=== PATIENT | female | born 1935 | race Caucasian/White ===

== ENCOUNTER 2023-10-06 16:48 | Inpatient (IN) ==
--- NOTE | 2023-10-06 18:13 | Emergency Department Note ---
Impression & Plan Anemia, Esophageal obstruction, Dehydration ED Provider Note NAME: DAVI MEMBRENO AGE: 88 SEX: F : 1935 ARRIVES VIA: Walk-In INFORMANT: Patient, ED PROVIDER(S): Schuyler Becerra MD CHIEF COMPLAINT: Anemia, esophageal obstruction HPI: This is a 88-year-old female presenting for weakness, anemia and esophageal obstruction. Patient states that she was in outside hospital few days ago where she was diagnosed with anemia. Hemoglobin was 7. She was offered admission versus discharge to follow-up with her GI physician. Patient follow-up with her GI and he had a swallow screen where she was told she likely has esophageal obstruction. Since then she is unable to eat solid foods and feels that she is getting weaker. She notes that she cannot swallow anything that is solid and only drinks some Ensure throughout the day. She notes weakness and falling twice. She was called both times and did not strike her head or injure herself. She notes that her legs gave out she feels extremely weak. She otherwise notes that she is been coughing more than frequently after aspirating on food. ROS: See above HPI for pertinent positives & negatives. A total of 10 systems reviewed and were otherwise negative. PHYSICAL EXAMINATION: General: resting comfortably in no acute distress Head: Normocephalic and atraumatic Eyes: Normal inspection, extraocular muscles intact Ear, nose, throat: Normal external exam Neck: Normal range of motion Respiratory: lungs clear to auscultation bilaterally Cardiovascular: Regular rate/rhythm, no murmur GI: soft, nontender, no guarding or rebound Extremities: nontender, moves all extremities Neuro: The patient awake and alert, appropriately conversive, no focal deficits, symmetric faces Skin: Warm, dry, and intact MEDICAL DECISION MAKING: This is an 88-year-old female presented for weakness, anemia esophageal obstruction. Patient had anemia with hemoglobin of 7, esophageal obstruction. Patient likely require admission at this time due to inability tolerate p.o. with distal esophageal obstruction. Otherwise we will assess for anemia with CBC, type and screen. Will do chest x-ray to assess for aspiration. -Blood work is reviewed showing anemia to 7.2. Otherwise creatinine 1.85 -Urinalysis reveals no signs UTI. -Chest Xray independently interpreted by me showing plated ribs, no pneumothorax, focal opacity, or pleural effusions -Due to patient related to eat at this time, dehydration and anemia, will admit for further workup Differential diagnosis: CKD, esophageal carcinoma, esophageal obstruction, aspiration pneumonia, upper GI bleed ER treatment provided: See below Diagnostics interpreted by me: ECG: None Cardiac Monitoring: An order was placed for continuous cardiac monitoring. The monitor shows a rate of 62 with sinus rhythm. Laboratory studies: As stated above and show below. Imaging studies: See below. Past Med/Surg History Problem List (Updated 10/06/23 @ 23:36 by Schuyler Becerra MD) Dehydration (Acute) Esophageal obstruction (Acute) Anemia (Acute) UTI (urinary tract infection) HTN (hypertension) Renal artery stenosis, qawalangin, bilateral GI bleed Dysphagia Anemia Hematuria, microscopic Renal cyst Gross hematuria Hypomagnesemia Hypercalcemia Stage 3b chronic kidney disease Left carotid stenosis Vitamin D deficiency (Chronic) Right renal artery stenosis (Chronic) Personal history of tobacco use, presenting hazards to health (Chronic) Hypertension, benign (Chronic) Dyslipidemia (Chronic) Acute kidney injury Medical History CKD (chronic kidney disease) History of diverticulitis COPD (chronic obstructive pulmonary disease) Surgical History History of thoracic surgery History of section History of hip replacement Social History Smoking Status: Former smoker Hx Alcohol Use: Yes Hx Substance Use: No Preferred Language: Angolan Communication Ability: Effective Supply Analyst Required: Yes Beliefs That Will Affect Care: None Current Living Situation: Family Feels Safe at Home: Yes Assistive Devices: Glasses and Hearing Aid - Bilateral Allergies Allergies Allergy/AdvReac Type Severity Reaction Status Date / Time Iodinated Contrast Media Allergy Unknown Anaphylaxis Verified 10/06/23 20:49 [Iodinated Contrast- Oral and IV Dye] Home Meds Home Medications Medication Instructions Recorded Confirmed dorzolamide 2 % eye drops 1 drops ophthalmic (eye) BID 10/29/18 10/06/23 latanoprost 0.005 % eye drops 1 drops ophthalmic (eye) QPM 10/29/18 10/06/23 sertraline 50 mg tablet 50 mg PO DAILY #30 tabs 10/29/18 10/06/23 acetaminophen 500 mg tablet 500 mg PO Q6H PRN Pain 05/27/19 10/06/23 (Tylenol Extra Strength) metoprolol tartrate 25 mg tablet 25 mg PO DAILY 05/27/19 10/06/23 aspirin 81 mg chewable tablet 81 mg PO DAILY 11/28/19 10/06/23 simvastatin 20 mg tablet 20 mg PO DAILY 11/28/19 10/06/23 clopidogrel 75 mg tablet 75 mg PO DAILY 06/08/20 10/06/23 hydralazine 50 mg tablet 50 mg PO BID 09/27/21 10/06/23 ciprofloxacin HCl 500 mg tablet 500 mg PO BID 10/06/23 10/06/23 fluticasone fur. 100 mcg-umeclid 1 inh inhalation DAILY 10/06/23 10/06/23 62.5 mcg-vilant 25 mcg inhalat.powder (Trelegy Ellipta) ondansetron 4 mg disintegrating 4 mg PO DIRECTED PRN Nausea 10/06/23 10/06/23 tablet potassium chloride 15 mEq 15 meq PO DAILY 10/06/23 10/06/23 tablet,extended release(part/cryst) (Klor-Con M) Previous Rx's Medication Instructions Recorded amlodipine 10 mg tablet 10 mg PO DAILY #90 tabs 05/27/19 Results & Data (ED) Vital Signs Vital Signs - 24 hr 10/06/23 17:05 10/06/23 17:25 10/06/23 17:27 Temperature 36.5 C Temperature Source Temporal Artery Scan Pulse Rate 79 63 Pulse Rate [Right Finger] 65 Pulse Rate from SpO2 Sensor 64 Pulse Rhythm Regular Pulse Rhythm [Right Finger] Regular Pulse Strength Normal Pulse Strength [Right Finger] Normal Respiratory Rate 18 14 14 Respiratory Effort / Characteristics Non-Labored Non-Labored Respiratory Depth Normal Normal Respiratory Pattern Regular Blood Pressure 130/67 Blood Pressure [Right Arm] 158/89 H Blood Pressure Mean 88 Blood Pressure Mean [Right Arm] 112 Blood Pressure Position Sitting Blood Pressure Position [Right Arm] Lying Pulse Oximetry 98 99 98 Oxygen Delivery Method Room Air Room Air Sepsis Recent Fever Within 48 Hours No Sepsis New/Unexplained Change in Mental Status No Sepsis Action Taken by Nursing No Action Required 10/06/23 17:33 10/06/23 17:42 10/06/23 18:09 Temperature Temperature Source Pulse Rate 65 67 65 Pulse Rate [Right Finger] Pulse Rate from SpO2 Sensor 67 65 Pulse Rhythm Pulse Rhythm [Right Finger] Pulse Strength Pulse Strength [Right Finger] Respiratory Rate 30 H 16 Respiratory Effort / Characteristics Respiratory Depth Respiratory Pattern Blood Pressure Blood Pressure [Right Arm] Blood Pressure Mean Blood Pressure Mean [Right Arm] Blood Pressure Position Blood Pressure Position [Right Arm] Pulse Oximetry 96 97 Oxygen Delivery Method Sepsis Recent Fever Within 48 Hours Sepsis New/Unexplained Change in Mental Status Sepsis Action Taken by Nursing 10/06/23 18:27 10/06/23 18:44 10/06/23 18:44 Temperature Temperature Source Pulse Rate 70 Pulse Rate [Right Finger] Pulse Rate from SpO2 Sensor Pulse Rhythm Pulse Rhythm [Right Finger] Pulse Strength Pulse Strength [Right Finger] Respiratory Rate 17 Respiratory Effort / Characteristics Respiratory Depth Respiratory Pattern Blood Pressure 164/79 H 164/79 H Blood Pressure [Right Arm] Blood Pressure Mean 111 111 Blood Pressure Mean [Right Arm] Blood Pressure Position Blood Pressure Position [Right Arm] Pulse Oximetry Oxygen Delivery Method Sepsis Recent Fever Within 48 Hours Sepsis New/Unexplained Change in Mental Status Sepsis Action Taken by Nursing 10/06/23 18:45 10/06/23 18:51 10/06/23 19:27 Temperature Temperature Source Pulse Rate 63 62 Pulse Rate [Right Finger] 65 Pulse Rate from SpO2 Sensor 59 L 63 Pulse Rhythm Pulse Rhythm [Right Finger] Regular Pulse Strength Pulse Strength [Right Finger] Normal Respiratory Rate 17 17 19 Respiratory Effort / Characteristics Non-Labored Respiratory Depth Normal Respiratory Pattern Regular Blood Pressure Blood Pressure [Right Arm] 164/79 H Blood Pressure Mean Blood Pressure Mean [Right Arm] 107 Blood Pressure Position Blood Pressure Position [Right Arm] Lying Pulse Oximetry 96 98 97 Oxygen Delivery Method Room Air Sepsis Recent Fever Within 48 Hours Sepsis New/Unexplained Change in Mental Status Sepsis Action Taken by Nursing 10/06/23 19:33 10/06/23 20:06 Temperature Temperature Source Pulse Rate 64 67 Pulse Rate [Right Finger] Pulse Rate from SpO2 Sensor 64 66 Pulse Rhythm Pulse Rhythm [Right Finger] Pulse Strength Pulse Strength [Right Finger] Respiratory Rate 17 17 Respiratory Effort / Characteristics Respiratory Depth Respiratory Pattern Blood Pressure Blood Pressure [Right Arm] Blood Pressure Mean Blood Pressure Mean [Right Arm] Blood Pressure Position Blood Pressure Position [Right Arm] Pulse Oximetry 98 98 Oxygen Delivery Method Sepsis Recent Fever Within 48 Hours Sepsis New/Unexplained Change in Mental Status Sepsis Action Taken by Nursing Laboratory Data 10/06/23 18:36 10/06/23 18:36 Lab Results 10/06/23 10/06/23 Range/Units 18:36 18:37 WBC 7.55 (4.8-10.8) K/ul RBC 2.77 L (4.20-5.40) M/uL Hgb 7.2 L (12.0-16.0) g/dl Hct 23.2 L (37.0-47.0) % MCV 83.8 (80.0-100.0) fL MCH 26.0 (25.0-34.0) pg MCHC 31.0 L (32.0-36.0) g/dL RDW Std Deviation 45.0 (36.4-46.3) fL RDW Coeff of Montrell 14.6 H (11.5-14.5) % Plt Count 152 (130-400) K/uL MPV 11.0 (9.4-12.4) fL Immature Gran % (Auto) 0.5 % Neut % (Auto) 75.6 % Lymph % (Auto) 11.3 % Ford % (Auto) 10.7 % Eos % (Auto) 1.5 % Baso % (Auto) 0.4 % Neut # (Auto) 5.71 (1.40-6.50) K/uL Lymph # (Auto) 0.85 L (1.20-3.40) K/uL Ford # (Auto) 0.81 H (0.11-0.59) K/uL Eos # (Auto) 0.11 (0.00-0.50) K/uL Baso # (Auto) 0.03 (0.00-0.20) K/uL Immature Gran # (Auto) 0.04 (0.01-0.20) K/uL Polychromasia 1+ Ovalocytes 1+ Sodium 136 (136-145) mmol/L Potassium 4.1 (3.5-5.1) mmol/L Chloride 105 (98-107) mmol/L Carbon Dioxide 23 (21-32) mmol/L Anion Gap 8 (3-11) BUN 30 H (6-23) mg/dl Creatinine 1.85 H (0.6-1.2) mg/dl Est Cr Clr Drug Dosing 14.1 ml/min Est GFR ( Amer) 28.1 ml/min Est GFR (Non-Af Amer) 24.2 ml/min BUN/Creatinine Ratio 16.2 (10-20) Glucose 97 (70-99(Fasting)) mg/dl Calcium 9.0 (8.6-10.3) mg/dl Iron 12 L (35-150) mcg/dl TIBC 355 (250-450) mcg/dl Unsaturated IBC 343 (155-355) mcg/dl Transferrin % Sat 3 L (15-50) % Ferritin 8.9 (8-388) ng/ml Total Bilirubin 0.3 (0.2-1.0) mg/dl AST 19 (13-39) U/L ALT 11 (7-52) U/L Alkaline Phosphatase 56 (34-104) U/L Total Protein 6.0 (6.0-8.3) gm/dl Albumin 3.8 (3.4-5.0) gm/dl Globulin 2.2 L (2.5-4.0) gm/dl Albumin/Globulin Ratio 1.7 (0.9-2) Lipase 94 H (11-82) U/L Vitamin B12 280 (180-914) pg/ml Folate 8.66 (>5.38) ng/ml Blood Type A Positive Antibody Screen NEGATIVE Crossmatch See Detail Administered Medications Discontinued Medications Pantoprazole Sodium 80 mg/ (Dextrose) 120 mls @ 480 mls/hr IV ONE STA Stop: 10/06/23 20:40 Last Infusion: 10/06/23 21:19 Dose: Infused Documented By: JOSÉ LUIS Admin: 10/06/23 20:51 Dose: 480 mls/hr Documented By: JOSÉ LUIS Ceftriaxone Sodium (Rocephin) 2,000 mg in 50 mls @ 100 mls/hr IV NOW STA Stop: 10/06/23 21:32 Last Admin: 10/06/23 21:28 Dose: 100 mls/hr Documented By: JOSÉ LUIS Discharge Plan Visit Data Chief Complaint: Illness Stated Complaint: BRUISING/FOREARMS,UTI, THROAT OBST, WEEKNESS/VOMIT ED Provider: Schuyler Becerra Discharge Problem: Anemia, Esophageal obstruction, Dehydration Discharge Instructions Interventions: ED Discharge Assessment Last Done: 10/06/23 22:54
[2023-10-06 18:54] LABS: Basophils # (auto) 0.03 K/uL (0.00-0.20); Basophils % (auto) 0.4 %; Eosinophils # (auto) 0.11 K/uL (0.00-0.50); Eosinophils % (auto) 1.5 %; Hematocrit (blood only) 23.2 % (37.0-47.0); Hemoglobin 7.2 g/dl (12.0-16.0); Immature Granulocytes # (auto) 0.04 K/uL (0.01-0.20); Immature Granulocytes % (auto) 0.5 %; Lymphocytes # (auto) 0.85 K/uL (1.20-3.40); Lymphocytes % (auto) 11.3 %; Mean Corpuscular Volume 83.8 fL (80.0-100.0); Monocytes # (auto) 0.81 K/uL (0.11-0.59); Monocytes % (auto) 10.7 %; Neutrophils # (auto) 5.71 K/uL (1.40-6.50); Neutrophils % (auto) 75.6 %; Platelet Count 152 K/uL (130-400); RDW Coefficient of Variation 14.6 % (11.5-14.5); Red Blood Count 2.77 M/uL (4.20-5.40); White Blood Count 7.55 K/ul (4.8-10.8)
[2023-10-06 19:04] LABS: Albumin Globulin Ratio 1.7 (0.9-2); Albumin Level 3.8 gm/dl (3.4-5.0); BUN Creatinine Ratio 16.2 (10-20); Bilirubin,Total 0.3 mg/dl (0.2-1.0); Creatinine Clr Calc Pharmacy 14.1 ml/min; Est GFR (African American) 28.1 ml/min; Est GFR (Non-African American) 24.2 ml/min; Globulin 2.2 gm/dl (2.5-4.0); Potassium 4.1 mmol/L (3.5-5.1)
[2023-10-06 19:10] LABS: Appearance Urine Clear (Clear); Bilirubin Urine Negative (Negative); Blood Urine Negative (Negative); Color Urine Yellow; Glucose Urine UA Negative (Negative); Ketones Urine Negative (Negative); Leukocyte Esterase Urine Negative (Negative); Nitrite Urine Negative (Negative); Protein Urine Negative (Negative); Specific Gravity Urine 1.009 (1.000-1.030); Urobilinogen Urine Negative (Negative); pH Urine 7.5 (4.5-7.5)
[2023-10-06 19:26] LABS: Ovalocytes 1+; Polychromasia 1+
--- NOTE | 2023-10-06 19:52 | History & Physical Report ---
Date of Service October 06, 2023 Assessment & Plan (1) GI bleed: Plan: Admit to med telemetry Home pulse oximetry Currently stable nontoxic-appearing Was sent to the ED after speaking with case and agrees with GI to try to make an appointment for her dysphagia, they instructed the patient to go to the ED due to ongoing concern for GI bleeding Hemoglobin currently 7.2, down from 12 as of May of this year Patient has had multiple episodes of melanotic stool over the past month Patient likely has an upper GI bleed due to very poor oral intake due to dysphagia and ongoing use of aspirin/Plavix for her history of bilateral renal artery stenosis status post bilateral renal artery stent placement Due to patient having a left atrophic kidney and moderate atrophic right kidney along with CKD and mildly elevated creatinine we will transfuse her 1 unit PRBCs overnight to help improve perfusion and prevent further kidney damage Patient did have her dose of Plavix this morning, was reportedly instructed to stop her aspirin earlier this week by her PCP due to concerns for GI bleed > We will consult nephrology for their input on holding Plavix moving forward due to risk of bleeding versus occlusion of stent and further kidney damage I consented the patient for for blood on admission, will order 3 units of PRBCs to be prepared with 1 given overnight Will give IV pantoprazole bolus now and then continue 40 mg IV twice daily for Iron studies, ferritin, B12, folic acid, and peripheral smear have been ordered prior to transfusion been started Spoke with the ER who will obtain Hemoccult testing Gastroenterology consult been placed will keep n.p.o. with sips and chips for now Monitor a.m. CBC ordered every 6 hours starting tomorrow AM CBC, CMP, mag, PT/INR (2) Anemia: Plan: See GI bleed Follow anemia workup peripheral smear ordered on admission (3) Dysphagia: Plan: Patient has been having progressive dysphagia and postprandial emesis of undigested food over the past 3 weeks Reportedly had outpatient barium swallow study at [place] radiology department on 10/04/2023 Attempted to call [place] radiology department to have results faxed, unfortunately they were closed as patient was admitted at 9 PM Unsure of results, could be esophageal achalasia but patient would also be high risk for esophageal cancer with her long history of smoking GI consult been placed and performed (4) UTI (urinary tract infection): Plan: Patient was reportedly diagnosed with UTI during her ER visit at [facility] on 10/03/2023 Started a 7-day course of ciprofloxacin on 10/04/2023 While n.p.o. we will start her on every 24 ceftriaxone for now If here for 3 days could consider completion of treatment on ceftriaxone (5) Renal artery stenosis, wainwright, bilateral: Plan: Status post left renal artery stent placed in 2005 and right renal artery stent placed on 05/20/[address] Samano Normally on aspirin and Plavix, aspirin have been held earlier this week patient had her a.m. dose of Plavix today Will hold both for now, nephrology has been consulted to get their input on risks of holding antiplatelets and start 1 more discussed that occlusion versus simple for bleeding Monitor daily renal function electrolytes (6) COPD (chronic obstructive pulmonary disease): Plan: Currently stable on room air Incentive spirometry, flutter therapy, home breathing treatments, as needed DuoNebs, as needed O2 to keep SpO2 between 89-90% (7) HTN (hypertension): Plan: Currently stable Will continue home metoprolol and hydralazine for now but will hold amlodipine to try and prevent hypotension Plan The patient was discussed with Dr. Lindsay at the time of History of Present Illness Chief Complaint: Vomiting, poor oral intake, anemia Primary Care Provider: ASHLEIGH Rebolledo Marie is a 88-year-old female with a past medical history significant for stage III CKD, renal artery stenosis status post left renal artery stent placed in 2005 and right renal artery stent placed on 05/20/[address] Samano, bilateral carotid stenosis, left subclavian artery occlusion, atrophic left kidney, hypertension, hyperlipidemia, and anxiety who presented to the [facility] ED on 10/06/2023 at the recommendation of casing agrees with gastroenterology team due to concerns for GI bleed and ongoing dysphagia. I confirmed with case management that the patient was never evaluated by [facility] gastroenterology, the patient had called to try to make an appointment with their office after they heard her symptoms they instructed her to be evaluated in the ED. On arrival to the ED she was noted to be hypertensive at 164/79 but otherwise stable. Labs were significant for a hemoglobin of 7.2 (down from 12.6 as of 05/31/2023), MCV of 83, MCHC of 31, stable platelets of 152, creatinine of 1.85 (baseline is 1.6), BUN of 30, and unremarkable UA. BUN of 30, chest x-ray appears negative for acute findings but is yet to be read. Patient was sitting in bed in no acute distress at the time of exam with her daughter bedside, history is obtained from both. They explained that for the past 3 weeks the patient has had progressive dysphagia mainly of solid food causing recurrent episodes of postprandial vomiting and dehydration. They state that she was evaluated in the [place] ER on 10/03/2023 where she was noted to have a low hemoglobin. They explained that admission was offered as the staff was concerned the patient could be having a GI bleed. The patient elected to be discharged home as she had an appointment on 10/04/2023 for outpatient swallow study. They do not have the records with him at this time as the apparent barium swallow study was performed at [place] ED. 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 They were given no further instructions or recommendations. When asked, the patient confirms that she has had 2-3 episodes of melanotic stool over the past month but denies any over the past week. She is normally on aspirin and Plavix for her history of renal artery stenosis status post stent placement. She states that she spoke with her PCP who instructed her to stop t aking her aspirin and continue her Plavix for now. They explained that when they called the [facility] GI clinic today they told him that they could not treat her in the outpatient setting and she would need to go to the ED for admission. When asked, the patient has a [id number] history, quit smoking approximately 10 years ago. Will have 1 beer sparingly during social events. Denies using recent NSAIDs for pain, only uses Tylenol home. Did have her a.m. dose of Plavix today. We discussed CODE STATUS, she is a conditional code as she would only want a trial of intubation in the event of respiratory arrest, she would not want CPR or defibrillation in the event of cardiac arrest. Her daughter is here primary decision maker if she cannot make decisions for self. The patient her daughter explained that she was diagnosed with a UTI during her ER visit at the [facility] on 10/03/2023. She is currently on a course of ciprofloxacin for this UTI with first dose on 10/04/2023. Please refer to Dr. Lindsay's attestation for any changes to the treatment plan Allergies Allergy/AdvReac Type Severity Reaction Status Date / Time Iodinated Contrast Media Allergy Unknown Anaphylaxis Verified 10/06/23 20:49 [Iodinated Contrast- Oral and IV Dye] Home Medications Medication Instructions Recorded Confirmed Type dorzolamide 2 % eye drops 1 drops ophthalmic (eye) BID 10/29/18 10/06/23 History latanoprost 0.005 % eye drops 1 drops ophthalmic (eye) QPM 10/29/18 10/06/23 History sertraline 50 mg tablet 50 mg PO DAILY #30 tabs 10/29/18 10/06/23 History acetaminophen 500 mg tablet 500 mg PO Q6H PRN Pain 05/27/19 10/06/23 History (Tylenol Extra Strength) amlodipine 10 mg tablet 10 mg PO DAILY #90 tabs 05/27/19 10/06/23 Rx metoprolol tartrate 25 mg tablet 25 mg PO DAILY 05/27/19 10/06/23 History aspirin 81 mg chewable tablet 81 mg PO DAILY 11/28/19 10/06/23 History simvastatin 20 mg tablet 20 mg PO DAILY 11/28/19 10/06/23 History clopidogrel 75 mg tablet 75 mg PO DAILY 06/08/20 10/06/23 History hydralazine 50 mg tablet 50 mg PO BID 09/27/21 10/06/23 History ciprofloxacin HCl 500 mg tablet 500 mg PO BID 10/06/23 10/06/23 History fluticasone fur. 100 mcg-umeclid 1 inh inhalation DAILY 10/06/23 10/06/23 History 62.5 mcg-vilant 25 mcg inhalat.powder (Trelegy Ellipta) ondansetron 4 mg disintegrating 4 mg PO DIRECTED PRN Nausea 10/06/23 10/06/23 History tablet potassium chloride 15 mEq 15 meq PO DAILY 10/06/23 10/06/23 History tablet,extended release(part/cryst) (Claudia M) Past Med/Surg History Problem List Dehydration (Acute) Esophageal obstruction (Acute) Anemia (Acute) UTI (urinary tract infection) HTN (hypertension) Renal artery stenosis, wainwright, bilateral GI bleed Dysphagia Anemia Hematuria, microscopic Renal cyst Gross hematuria Hypomagnesemia Hypercalcemia Stage 3b chronic kidney disease Left carotid stenosis Vitamin D deficiency (Chronic) Right renal artery stenosis (Chronic) Personal history of tobacco use, presenting hazards to health (Chronic) Hypertension, benign (Chronic) Dyslipidemia (Chronic) Acute kidney injury Medical History CKD (chronic kidney disease) History of diverticulitis COPD (chronic obstructive pulmonary disease) Surgical History History of thoracic surgery History of section X3 History of hip replacement Right Social History Smoking Status: Former smoker Hx Alcohol Use: Yes Alcohol type: beer Hx Substance Use: No Preferred Language: Kinyarwanda Communication Ability: Effective Network Technical Analyst Required: No Beliefs That Will Affect Care: None Current Living Situation: Family Current Living Situation Comment: Lives with daughter and grandson Feels Safe at Home: Yes Safety Concerns: Feels Safe At This Time Assistive Devices: Glasses and Hearing Aid - Bilateral Physical Exam Physical Exam: Physical Exam: General: In no acute distress, stated age, non-toxic appearing HEENT: Normocephalic, atraumatic, no scleral icterus, pupils around round, symmetrical, and reactive to light, pale palpebral conjunctivae, moist mucus membranes, trachea midline, no thyromegaly Chest/Pulm: No respiratory distress, symmetrical chest expansion, clear breath sounds throughout Cardiac: RRR, no murmurs noted Abdomen: Negative for ascites and bruising, normoactive bowel sounds, soft, non-tender to palpation throughout Musculoskeletal: Symmetrical and without signs of acute trauma, upper and lower extremities with full ROM, no atrophy, spasticity, or flaccidity Extremities: Radial, dorsalis pedis, and posterior tibial pulses are intact and symmetrical, no edema noted in the BL LE's Skin: Bruising on the forearms in various stages of healing due to recent blood draws at [facility] Neuro: Alert and oriented to person, place, month, year, and president, no focal defects, no tremors noted Psych: No acute distress, calm and cooperative during the exam Results & Data Results & Data Vital Signs (Past 12 Hours) Vital Signs Temp Pulse Pulse Resp BP BP Pulse Ox 10/06/23 18:51 65 17 164/79 H 98 10/06/23 17:33 65 10/06/23 17:25 65 14 158/89 H 99 10/06/23 17:05 36.5 C 79 18 130/67 98 O2 Del Method 10/06/23 18:51 Room Air 10/06/23 17:33 10/06/23 17:25 Room Air 10/06/23 17:05 Room Air Laboratory Results Abnormal lab results 10/06/23 Range/Units 18:36 RBC 2.77 L (4.20-5.40) M/uL Hgb 7.2 L (12.0-16.0) g/dl Hct 23.2 L (37.0-47.0) % MCHC 31.0 L (32.0-36.0) g/dL RDW Coeff of [place]rell 14.6 H (11.5-14.5) % Lymph # (Auto) 0.85 L (1.20-3.40) K/uL [place] # (Auto) 0.81 H (0.11-0.59) K/uL BUN 30 H (6-23) mg/dl Creatinine 1.85 H (0.6-1.2) mg/dl Iron 12 L (35-150) mcg/dl Transferrin % Sat 3 L (15-50) % Globulin 2.2 L (2.5-4.0) gm/dl Lipase 94 H (11-82) U/L Crossmatch See Detail Code Status & VTE Plan Code Status Conditional; see HPI VTE Prophylaxis Plan VTE Prophylaxis will be ordered: Yes Supervising Physician Co-Signing Physician Notes Attending addendum: I have physically seen this patient, have supervised the NEYDA's activities, and agree with the H&P unless as otherwise noted. Assessment and Plan: GI bleed/symptomatic anemia/GERD/dysphagia- Patient referred to the emergency department by gastroenterology due to concerns regarding dysphagia and concern for GI bleeding Hemoglobin admission 7.2, with most recent 12.6 on 05/31/2023 Type and screen ordered Transfuse 1 unit PRBCs now Hold antiplatelet agents aspirin and clopidogrel Pantoprazole IV as noted H&H every 6 hours CBC with differential, chemistry profile and magnesium level in the a.m. Iron, B12, folate and ferritin studies as noted. Order peripheral smear Hemoccult testing Acute kidney injury superimposed on CKD/bilateral renal artery stenosis and stents- History of left atrophic kidney, and moderate atrophic right kidney Transfuse to maintain renal perfusion as noted Repeat laboratories in a.m. Consult to nephrology Urinary tract infection- Had begun oral Cipro on 10/04/2023 at 20 diagnosis ED at [facility] on 10/03/2023 Ceftriaxone 1 g IV every 24 hours Remaining orders and notations as noted PG Care Time/CCT Total # of Minutes Spent Total Time Spent with Patient: Total time spent is greater than 50% in coordination of care (as documented) at patient's floor/unit and/or counseling patient: Coding [place] [address] INT INP/OBS CARE 3/75MIN Patient Type Established Medical Decision Making High Complexity Diagnoses GI bleed K92.2 Anemia D64.9 Dysphagia R13.10 UTI (urinary tract infection) N39.0 Renal artery stenosis, wainwright, bilateral I70.1 COPD (chronic obstructive pulmonary disease) J44.9 HTN (hypertension) I10
[2023-10-06] MEDS ORDERED: SODIUM CHLORIDE 0.9% 250 ML IV PRN (20:27)
[2023-10-06] MEDS: PANTOprazole 80 MG in DEXTROSE 5% 100 ML IV STA (20:51)
[2023-10-06] MEDS ORDERED: ACETAMINOPHEN 1,000 MG/100 ML VIAL IV PRN (20:56)
[2023-10-06 21:16] LABS: Ferritin 8.9 ng/ml (8-388)
[2023-10-06] MEDS ORDERED: ALBUT/IPRATROP 3MG/0.5MG NEB 3 ML VIAL NEB PRN (21:19)
[2023-10-06] MEDS: cefTRIAXone SODIUM 2,000 MG/50 ML BAG IV STA (21:28)
[2023-10-06 21:29] LABS: Folate (Folic Acid),Ser orPlas 8.66 ng/ml (>5.38)
--- OUTSIDE RECORDS SUMMARY | 2023-10-06 23:13 | External Medical Summary | Continuity of Care Document ---
Author Name Unknown Organization [address] Address [address] [place] [id number] Care Team Providers Care Ep Tech Name Role Phone Luis Felipe Richardson Primary Care Physician [phone] Encounter [facility] [id number] Date(s): 04/26/23 - 04/26/23 [facility] [address], [address] [place] [address] [phone] Encounter Diagnosis Carotid stenosis, left(Discharge Diagnosis) - 05/09/22 Renal artery stenosis(Discharge Diagnosis) - 05/09/22 Carotid stenosis, asymptomatic(Discharge Diagnosis) - 04/26/23 Carotid stenosis, bilateral(Discharge Diagnosis) - 04/26/23 Discharge Disposition: Home or Self Care Attending Physician: MD Samano Eugene J Referring Physician: MD Richardson Daniel L Allergies, Adverse Reactions, Alerts Substance Reaction Severity Status IVP dye Anaphylaxis Active Medications albuterol-ipratropium 2.5 mg-0.5 mg/3 mL inhalation solution Start: 02/20/20 9:22:00 EST, 3 mL, inhaled, qid, PRN: as needed for shortness of breath or wheezing Start Date: 02/20/20 Status: Ordered amLODIPine 10 mg oral tablet Start: 02/20/20 9:22:00 EST, 1 tab, PO, Daily Start Date: 02/20/20 Status: Ordered aspirin 81 mg oral delayed release tablet Start: 02/20/20 9:23:00 EST, 1 tab, PO, Daily Start Date: 02/20/20 Status: Ordered dorzolamide-timolol 2.23%-0.68% ophthalmic solution Start: 02/20/20 9:22:00 EST, 1 drop, both eyes, bid Start Date: 02/20/20 Status: Ordered hydrALAZINE 50 mg oral tablet Start: 02/20/20 9:22:00 EST, 1 tab, PO, bid Start Date: 02/20/20 Status: Ordered latanoprost 0.005% ophthalmic solution Start: 02/20/20 9:23:00 EST, 1 drop, both eyes, qhs Start Date: 02/20/20 Status: Ordered Metoprolol Tartrate 25 mg oral tablet Start: 02/20/20 9:22:00 EST, 1 tab, PO, Daily Start Date: 02/20/20 Status: Ordered Plavix 75 mg oral tablet Start: 05/28/20 10:55:00 EDT, 1 tab, PO, Daily, Disp# 30 tab, Refills: 11, Pharmacy: [id number] Start Date: 05/28/20 Status: Ordered potassium chloride 10 mEq oral capsule, extended release Start: 05/11/20 13:59:00 EST, 1 cap, PO, Daily Start Date: 05/11/20 Status: Ordered predniSONE 50 mg oral tablet Start: 03/02/20 14:48:00 EST, See Instructions, Disp# 3 tab, Refills: 0, 1 tab PO q8h Start 12 hr before procedure/study, Pharmacy: [id number] Start Date: 03/02/20 Status: Ordered sertraline 50 mg oral tablet Start: 02/20/20 9:22:00 EST, 1 tab, PO, Daily Start Date: 02/20/20 Status: Ordered simvastatin 20 mg oral tablet Start: 02/20/20 9:22:00 EST, 1 tab, PO, qhs Start Date: 02/20/20 Status: Ordered Mental Status 04/26/23 Barriers to Learning one year None evide nt Mandatory Health Literacy Documentation Yes Health Literacy Communication Barriers N ever Primary Language Indonesian Problem List Condition Confirmation Course Effective Dates Status Health St atus Informant Carotid stenosis, bilateral Confirmed Active Carotid stenosis, asymptomatic Confirmed Active Carotid stenosis, left Confirmed Active Renal artery stenosis Confirmed Active Subclavian artery stenosis Confirmed Active Diagnosis Diagnosis Type Effective Dates Health Status Clinical Service Informant Carotid stenosis, left Discharge Diagnosis 05/09/22 Non-Specified Renal artery stenosis Discharge Diagnosis 05/09/22 Non-Specified Carotid stenosis, asymptomatic Discharge Diagnosis 04/26/23 Carotid stenosis, bilateral Discharge Diagnosis 04/26/23 Procedures Procedure Date Related Diagnosis Body Site Status Renal angiogram w/ SENIOR TELLER and stent 05/20/20 Completed Arthroplasty of the hip right 2017 Completed Total abdominal hysterectomy 1968 Completed CS - section x3 Completed Vital Signs Most recent to oldest [Reference Range]: 1 2 Heart Rate 60 bpm (04/26/23 10:09 AM) Blood Pressure 140/58mmHg (04/26/23 10:11 AM) 106/60mmHg (04/26/23 10:09 AM) Cuff Pulse Pressure 82 mmHg (04/26/23 10:11 AM) 46 mmHg (04/26/23 10:09 AM) BP Location # 1 Right Arm (04/26/23 10:11 AM) Left Arm (04/26/23 10:09 AM) Social History Social History Type Response Tobacco Former smoker, Stopp ed age 83 Years. Smoking Status Former Smoker, quit > 1 yr Sex Female Patient Care team information Care Team Personnel Name: MD Debra, Luis Felipe Torres Position: Referring Member Role: Primary Care Provider Address: Address: [address] [place] [id number] Name: CHING Billingsley Lynn Position: Physician Powder Press Operator Exempt - Vasc Surg Member Role: Lifetime Relationship Address: Address: [address] [place] [id number] Care Team Related Persons Name: ANGEL MEMBRENO
--- OUTSIDE RECORDS SUMMARY | 2023-10-06 23:13 | External Medical Summary | Continuity of Care Document ---
Author Name Unknown Organization [address] Address [address] [place], [place] [id number] Care Team Providers Care Industrial Engineering Professor Name Role Phone Luis Felipe Richardson Primary Care Physician [phone] [id number] Date(s): 04/26/23 - 04/26/23 [facility] [address], [address] [place] [address] [phone] Discharge Disposition: Home or Self Care Attending Physician: CHING Billingsley Lynn Referring Physician: CHING Billingsley Lynn Allergies, Adverse Reactions, Alerts Substance Reaction Severity [...] Daily, Disp# 30 tab, Refills: 11, Pharmacy: [id number] Start Date: 05/28/20 Status: Ordered potassium chloride 10 mEq oral capsule, extended release Start: 05/11/20 13:59:00 EST, 1 cap, PO, Daily Start Date: 05/11/20 Status: Ordered predniSONE 50 mg oral tablet Start: 03/02/20 14:48:00 EST, See Instructions, Disp# 3 tab, Refills: 0, 1 tab PO q8h Start 12 hr before procedure/study, Pharmacy: [id number] Start Date: 03/02/20 Status: Ordered sertraline 50 mg oral tablet Start: 02/20/20 9:22:00 EST, 1 tab, PO, Daily Start Date: 02/20/20 Status: Ordered simvastatin 20 mg oral tablet Start: 02/20/20 9:22:00 EST, 1 tab, PO, qhs Start Date: 02/20/20 Status: Ordered Problem List Condition Confirmation Course Effective Dates Status Health St atus Informant Carotid stenosis, bilateral Confirmed Active Carotid stenosis, asymptomatic Confirmed Active Carotid stenosis, left Confirmed Active Renal artery stenosis Confirmed Active Subclavian artery stenosis Confirmed Active Procedures Procedure Date Related Diagnosis Body Site Status Renal angiogram w/ AUTOMOBILE MECHANIC APPRENTICE and stent 05/20/20 Completed Arthroplasty of the hip right 2017 Completed Total abdominal hysterectomy 1968 Completed CS - section x3 Completed Results Radiology Reports * Exam Date Time Procedure Performing Provider Status 04/26/23 9:24 AM VL Renal Artery Duplex Right Lanny Elizabeth; Final Notes: (VL Renal Artery Duplex Right) Reason For Exam: abbie VL Renal Artery Duplex Right [facility] FINAL REPORT Name: DAVI MEMBRENO : 1935 Visit: [id number] Date: 26 Apr 2023 TYPE OF TEST: Visceral Arterial Duplex REASON FOR TEST Right RA stent INTERPRETATION/FINDINGS Duplex imaging performed of the RIGHT renovasculature: 1. Patent proximal right renal artery stent without restenosis. No stenosis in the right renal artery. 2. Patent right renal vein with normal flow. 3. Right kidney length is 9.8 cm. 4. Intrinsic/Medicinal renal disease identified in the right kidney. Multiple renal cysts noted in the right kidney, the largest measuring 1.6 cm x 1.8 cm. 5. The suprarenal and juxtarenal abdominal aorta measures within normal limits; no aneurysm identified. Diffuse calcific atherosclerotic disease is noted without hemodynamically significant stenosis identified. 6. Unable to visualize the left renal artery due to previously documented left renal artery occlusion and left kidney atrophy. Compared to the previous study performed 12/01/2020, there is no significant change. IMPRESSION/COMMENTS I have personally reviewed the data relevant to the interpretation of this study. TECHNOLOGIST: Beckie CASE, RD, RVT PHYSICIAN: Theodore Samano M.D. Signed: 04/26/2023 09:45 AM Final Dictated by:MD Samano Eugene J Dictated DT/TM:04/26/2023 9:45 Signed by:MD Samano Eugene J Signed (Electronic Signature):04/26/2023 9:45 a Transcribed by:LUISITO Social History Social History Type Response Tobacco Former smoker, Stopp ed age 83 Years. 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
[2023-10-07] MEDS: LATANOPROST 0.005% OP SOLN 2.5 ML BTL OP SCH (00:42)
[2023-10-07 07:23] LABS: INR 0.9 (0.9-1.1); Prothrombin Time 10.2 Seconds (9.0-12.0)
[2023-10-07 07:25] LABS: Albumin Globulin Ratio 1.7 (0.9-2); Albumin Level 3.9 gm/dl (3.4-5.0); Basophils # (auto) 0.03 K/uL (0.00-0.20); Basophils % (auto) 0.5 %; Bilirubin,Total 0.7 mg/dl (0.2-1.0); Calcium 9.1 mg/dl (8.6-10.3); Creatinine Clr Calc Pharmacy 15.9 ml/min; Eosinophils % (auto) 1.5 %; Est GFR (African American) 33.5 ml/min; Est GFR (Non-African American) 28.9 ml/min; Globulin 2.3 gm/dl (2.5-4.0); Hematocrit (blood only) 31.9 % (37.0-47.0); Hemoglobin 10.1 g/dl (12.0-16.0); Immature Granulocytes # (auto) 0.02 K/uL (0.01-0.20); Immature Granulocytes % (auto) 0.3 %; Lymphocytes # (auto) 0.87 K/uL (1.20-3.40); Lymphocytes % (auto) 13.1 %; Magnesium 2.1 mg/dl (1.7-2.4); Mean Corpuscular Hemoglobin 26.6 pg (25.0-34.0); Mean Corpuscular Hgb Conc 31.7 g/dL (32.0-36.0); Mean Corpuscular Volume 84.2 fL (80.0-100.0); Mean Platelet Volume 11.2 fL (9.4-12.4); Monocytes # (auto) 0.79 K/uL (0.11-0.59); Monocytes % (auto) 11.9 %; Neutrophils # (auto) 4.81 K/uL (1.40-6.50); Neutrophils % (auto) 72.7 %; Platelet Count 136 K/uL (130-400); Potassium 3.7 mmol/L (3.5-5.1); RDW Coefficient of Variation 14.4 % (11.5-14.5); RDW Standard Deviation 44.3 fL (36.4-46.3); Red Blood Count 3.79 M/uL (4.20-5.40); Total Protein 6.2 gm/dl (6.0-8.3); White Blood Count 6.62 K/ul (4.8-10.8)
[2023-10-07] MEDS: PANTOprazole 40 MG in SYRINGE 0 ML IV SCH (07:56)
[2023-10-07] MEDS: METOPROLOL TARTRATE 25 MG TAB PO SCH (07:56)
[2023-10-07] MEDS: SERTRALINE HCL 50 MG TABLET PO SCH (07:56)
[2023-10-07] MEDS: amLODIPine BESYLATE 5 MG TAB PO SCH (07:56)
[2023-10-07] MEDS: UMECLIDINIUM/VILANTEROL 62.5/25MCG 7 PUFFS/INHALER INH SCH (07:57)
[2023-10-07] MEDS: FLUTICASONE FUROATE 100MCG 14 PUFFS/INHALER INH SCH (07:57)
--- NOTE | 2023-10-07 08:42 | XRay Report ---
XR chest 1V portable HISTORY: 88 years-old Female aspiration acute shortness of breath COMPARISON: None TECHNIQUE: AP view of the chest FINDINGS: Cardiac silhouette is enlarged. Atherosclerosis of the aorta. ORIF hardware of the ribs. Healed chron ic rib fractures. No pneumothorax or pleural effusion. Right shoulder rotator cuff calcific tendinosi s. Small hiatal hernia. Mild linear right basilar atelectasis versus scarring. IMPRESSION: 1. Cardiomegaly without acute process. 2. Small hiatal hernia. 3. Chronic findings as above. ACT 112: Negative or not required by law. The above report was generated using voice recognition software. It may contain grammatical, syntax o r spelling errors. Electronically signed by: Wm Martinez M.D. 10/07/2023 8:40 AM
[2023-10-07] MEDS ORDERED: NON-FORMULARY MEDICATION (Fluticasone-Umeclidin-Vilanter [Trelegy Ellipta] 100-62.5-25 mcg INH SCH (09:00)
--- NOTE | 2023-10-07 09:32 | Gastrointestinal Consultation ---
Date of Consultation October 07, 2023 Assessment & Plan (1) Dysphagia: She has had dysphagia for the last year but worsening over the last month. She does complain of heartburn. She has had to vomit food up but has not vomited blood. She tells me they told her she did not have a blockage in her esophagus but that it was in her stomach. Her hemoglobin overcorrected after only one unit of blood so I suspect one of those results was an error. She does need EGD but I would like to see the report on the Xray first. Also, since she is on Plavix and either dilation or biopsy will need to be done, would like to give the plavix some time to wear off especially since this is not an emergent procedure. Would give her liquids until we can do this and perhaps advance diet periodically to see how she does. I have requested the gunstock spray unit adjuster to get records of the Xray she had the other day. History of Present Illness Reason for Consultation: dysphagia Attending Physician: Win Leung History of Present Illness 88 year old female who tells me she has been having difficulty swallowing for the past year. She says food will go down but it would stop in her bottom of her chest. Over the last several weeks she has started vomiting her food up. She finally talked to someone and had what sounds like an upper GI at [place] a couple of days ago. Records were not able to be obtained but patient tells me they told her the blockage was not in her esophagus but in her stomach. She has not vomited any blood. She sees no blood in her stool. Her last colonoscopy was four years ago she doesn't think she has had an EGD. Admit hemoglobin was 7.2 but corrected to 10.1 after only one unit of blood. She tells me she has lost from 94 pounds to 87 pounds. She does take Plavix and took it yesterday. Allergies Allergy/AdvReac Type Severity Reaction Status Date / Time Iodinated Contrast Media Allergy Unknown Anaphylaxis Verified 10/06/23 20:49 [Iodinated Contrast- Oral and IV Dye] Home Medications Medication Instructions Recorded Confirmed Type dorzolamide 2 % eye drops 1 drops ophthalmic (eye) BID 10/29/18 10/06/23 History latanoprost 0.005 % eye drops 1 drops ophthalmic (eye) QPM 10/29/18 10/06/23 History sertraline 50 mg tablet 50 mg PO DAILY #30 tabs 10/29/18 10/06/23 History acetaminophen 500 mg tablet 500 mg PO Q6H PRN Pain 05/27/19 10/06/23 History (Tylenol Extra Strength) amlodipine 10 mg tablet 10 mg PO DAILY #90 tabs 05/27/19 10/06/23 Rx metoprolol tartrate 25 mg tablet 25 mg PO DAILY 05/27/19 10/06/23 History aspirin 81 mg chewable tablet 81 mg PO DAILY 11/28/19 10/06/23 History simvastatin 20 mg tablet 20 mg PO DAILY 11/28/19 10/06/23 History clopidogrel 75 mg tablet 75 mg PO DAILY 06/08/20 10/06/23 History hydralazine 50 mg tablet 50 mg PO BID 09/27/21 10/06/23 History ciprofloxacin HCl 500 mg tablet 500 mg PO BID 10/06/23 10/06/23 History fluticasone fur. 100 mcg-umeclid 1 inh inhalation DAILY 10/06/23 10/06/23 H istory 62.5 mcg-vilant 25 mcg inhalat.powder (Trelegy Ellipta) ondansetron 4 mg disintegrating 4 mg PO DIRECTED PRN Nausea 10/06/23 10/06/23 History tablet potassium chloride 15 mEq 15 meq PO DAILY 10/06/23 10/06/23 History tablet,extended release(part/cryst) (Klor-Con M) Patient History Medical History CKD (chronic kidney disease) History of diverticulitis COPD (chronic obstructive pulmonary disease) Surgical History History of thoracic surgery History of section X3 History of hip replacement Right Social History Smoking Status: Former smoker Hx Alcohol Use: Yes Alcohol type: beer Hx Substance Use: No Preferred Language: Swiss Communication Ability: Effective Commercial Green Building 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 Required: No Beliefs That Will Affect Care: None Current Living Situation: Family Current Living Situation Comment: Lives with daughter and grandson Feels Safe at Home: Yes Safety Concerns: Feels Safe At This Time Assistive Devices: Glasses and Hearing Aid - Bilateral Review of Systems Review of Systems: All systems reviewed & are unremarkable except as noted in HPI & below Physical Exam Constitutional: WD/WN, vitals as above + thin Neck: trachea midline, no thyromegaly Respiratory: normal respiratory effort, lungs clear to auscultation Cardiovascular: RRR, no murmur, no edema Gastrointestinal (Abdomen): normal bowel sounds, soft, nontender, no hepatosplenomegaly Results & Data Vital Signs (Past 12 Hours) Vital Signs Temp Pulse Pulse Resp BP BP Pulse Ox 10/07/23 07:35 36.8 C 68 16 164/69 H 97 10/07/23 07:21 60 10/07/23 05:00 84 10/07/23 05:00 36.8 C 67 16 176/67 H 97 10/07/23 04:15 64 18 125/55 L 100 10/07/23 03:06 64 19 96 10/07/23 03:00 144/63 H 10/07/23 03:00 144/63 H 10/07/23 02:57 65 15 95 10/07/23 02:33 64 18 95 10/07/23 02:31 160/94 H 10/07/23 02:31 160/94 H 10/07/23 02:24 66 17 97 10/07/23 02:03 65 12 96 10/07/23 02:00 145/61 H 10/07/23 02:00 145/61 H 10/07/23 01:51 63 15 97 10/07/23 01:36 66 18 95 10/07/23 01:30 149/61 H 10/07/23 01:30 149/61 H 10/07/23 01:00 67 23 98 10/07/23 01:00 173/75 H 10/07/23 01:00 173/75 H 10/07/23 01:00 173/75 H 10/07/23 00:36 65 22 97 10/07/23 00:30 158/63 H 10/07/23 00:30 158/63 H 10/07/23 00:27 62 19 97 10/07/23 00:25 36.8 C 63 16 158/63 H 100 10/07/23 00:19 36.8 C 69 16 156/68 H 98 10/07/23 00:00 156/68 H 10/07/23 00:00 64 11 L 98 10/06/23 23:48 62 25 H 97 10/06/23 23:30 181/70 H 10/06/23 23:25 36.7 C 64 18 191/70 H 97 10/06/23 23:21 65 14 100 10/06/23 23:18 65 27 H 99 10/06/23 23:15 178/77 H 10/06/23 23:15 178/77 H 10/06/23 23:15 178/77 H 10/06/23 23:00 189/77 H 10/06/23 22:57 59 L 14 98 10/06/23 22:55 36.8 C 62 16 189/77 H 98 10/06/23 22:45 183/90 H 10/06/23 22:40 157/69 H 10/06/23 22:40 157/69 H 10/06/23 22:40 36.8 C 63 20 157/69 H 97 10/06/23 22:33 64 34 H 98 10/06/23 22:30 62 11 L 97 10/06/23 22:30 149/62 H 10/06/23 22:30 149/62 H 10/06/23 22:25 36.8 C 63 20 155/86 H 97 10/06/23 22:24 155/86 H 10/06/23 22:20 36.8 C 61 18 166/79 H 95 10/06/23 22:12 63 36 H 97 10/06/23 22:00 166/79 H 10/06/23 22:00 64 20 98 10/06/23 21:41 63 10/06/23 21:39 68 21 98 O2 Del Method 10/07/23 07:35 Room Air 10/07/23 07:21 10/07/23 05:00 10/07/23 05:00 Room Air 10/07/23 04:15 Room Air 10/07/23 03:06 10/07/23 03:00 10/07/23 03:00 10/07/23 02:57 10/07/23 02:33 10/07/23 02:31 10/07/23 02:31 10/07/23 02:24 10/07/23 02:03 10/07/23 02:00 10/07/23 02:00 10/07/23 01:51 10/07/23 01:36 10/07/23 01:30 10/07/23 01:30 10/07/23 01:00 10/07/23 01:00 10/07/23 01:00 10/07/23 01:00 10/07/23 00:36 10/07/23 00:30 10/07/23 00:30 10/07/23 00:27 10/07/23 00:25 10/07/23 00:19 10/07/23 00:00 10/07/23 00:00 10/06/23 23:48 10/06/23 23:30 10/06/23 23:25 10/06/23 23:21 10/06/23 23:18 10/06/23 23:15 10/06/23 23:15 10/06/23 23:15 10/06/23 23:00 10/06/23 22:57 10/06/23 22:55 10/06/23 22:45 10/06/23 22:40 10/06/23 22:40 10/06/23 22:40 10/06/23 22:33 10/06/23 22:30 10/06/23 22:30 10/06/23 22:30 10/06/23 22:25 10/06/23 22:24 10/06/23 22:20 10/06/23 22:12 10/06/23 22:00 10/06/23 22:00 10/06/23 21:41 10/06/23 21:39 Laboratory Results 10/07/23 10/06/23 10/06/23 Range/Units 05:41 Unknown 20:54 WBC 6.62 (4.8-10.8) K/ul RBC 3.79 L (4.20-5.40) M/uL Hgb 10.1 L D (12.0-16.0) g/dl Hct 31.9 L (37.0-47.0) % MCV 84.2 (80.0-100.0) fL MCH 26.6 (25.0-34.0) pg MCHC 31.7 L (32.0-36.0) g/dL RDW Std Deviation 44.3 (36.4-46.3) fL RDW Coeff of [place] 14.4 (11.5-14.5) % Plt Count 136 (130-400) K/uL MPV 11.2 (9.4-12.4) fL Immature Gran % (Auto) 0.3 % Neut % (Auto) 72.7 % Lymph % (Auto) 13.1 % [place] % (Auto) 11.9 % Eos % (Auto) 1.5 % Baso % (Auto) 0.5 % Neut # (Auto) 4.81 (1.40-6.50) K/uL Lymph # (Auto) 0.87 L (1.20-3.40) K/uL [place] # (Auto) 0.79 H (0.11-0.59) K/uL Eos # (Auto) 0.10 (0.00-0.50) K/uL Baso # (Auto) 0.03 (0.00-0.20) K/uL Immature Gran # (Auto) 0.02 (0.01-0.20) K/uL Polychromasia Ovalocytes Peripher Smr Path Cons PT 10.2 (9.0-12.0) Seconds INR 0.9 (0.9-1.1) Sodium 140 (136-145) mmol/L Potassium 3.7 (3.5-5.1) mmol/L Chloride 108 H (98-107) mmol/L Carbon Dioxide 25 (21-32) mmol/L Anion Gap 7 (3-11) BUN 24 H (6-23) mg/dl Creatinine 1.60 H (0.6-1.2) mg/dl Est Cr Clr Drug Dosing 15.9 ml/min Est GFR ( Amer) 33.5 ml/min Est GFR (Non-Af Amer) 28.9 ml/min BUN/Creatinine Ratio 15.0 (10-20) Glucose 86 (70-99(Fasting)) mg/dl Calcium 9.1 (8.6-10.3) mg/dl Magnesium 2.1 (1.7-2.4) mg/dl Iron (35-150) mcg/dl TIBC (250-450) mcg/dl Unsaturated IBC (155-355) mcg/dl Transferrin % Sat (15-50) % Ferritin (8-388) ng/ml Total Bilirubin 0.7 (0.2-1.0) mg/dl AST 21 (13-39) U/L ALT 10 (7-52) U/L Alkaline Phosphatase 58 (34-104) U/L Total Protein 6.2 (6.0-8.3) gm/dl Albumin 3.9 (3.4-5.0) gm/dl Globulin 2.3 L (2.5-4.0) gm/dl Albumin/Globulin Ratio 1.7 (0.9-2) Lipase (11-82) U/L Vitamin B12 (180-914) pg/ml Folate (>5.38) ng/ml Urine Color Yellow Urine Appearance Clear (Clear) Urine pH 7.5 (4.5-7.5) Ur Specific [place] 1.009 (1.000-1.030) Urine Protein Negative (Negative) Urine Glucose (UA) Negative (Negative) Urine Ketones Negative (Negative) Urine Blood Negative (Negative) Urine Nitrite Negative (Negative) Urine Bilirubin Negative (Negative) Urine Urobilinogen Negative (Negative) Ur Leukocyte Esterase Negative (Negative) Blood Type Blood Type Recheck A Positive Antibody Screen Crossmatch 10/06/23 10/06/23 Range/Units 18:37 18:36 WBC 7.55 (4.8-10.8) K/ul RBC 2.77 L (4.20-5.40) M/uL Hgb 7.2 L (12.0-16.0) g/dl Hct 23.2 L (37.0-47.0) % MCV 83.8 (80.0-100.0) fL MCH 26.0 (25.0-34.0) pg MCHC 31.0 L (32.0-36.0) g/dL RDW Std Deviation 45.0 (36.4-46.3) fL RDW Coeff of [place]rell 14.6 H (11.5-14.5) % Plt Count 152 (130-400) K/uL MPV 11.0 (9.4-12.4) fL Immature Gran % (Auto) 0.5 % Neut % (Auto) 75.6 % Lymph % (Auto) 11.3 % [place] % (Auto) 10.7 % Eos % (Auto) 1.5 % Baso % (Auto) 0.4 % Neut # (Auto) 5.71 (1.40-6.50) K/uL Lymph # (Auto) 0.85 L (1.20-3.40) K/uL [place] # (Auto) 0.81 H (0.11-0.59) K/uL Eos # (Auto) 0.11 (0.00-0.50) K/uL Baso # (Auto) 0.03 (0.00-0.20) K/uL Immature Gran # (Auto) 0.04 (0.01-0.20) K/uL Polychromasia 1+ Ovalocytes 1+ Peripher Smr Path Cons Pending PT (9.0-12.0) Seconds INR (0.9-1.1) Sodium 136 (136-145) mmol/L Potassium 4.1 (3.5-5.1) mmol/L Chloride 105 (98-107) mmol/L Carbon Dioxide 23 (21-32) mmol/L Anion Gap 8 (3-11) BUN 30 H (6-23) mg/dl Creatinine 1.85 H (0.6-1.2) mg/dl Est Cr Clr Drug Dosing 14.1 ml/min Est GFR ( Amer) 28.1 ml/min Est GFR (Non-Af Amer) 24.2 ml/min BUN/Creatinine Ratio 16.2 (10-20) Glucose 97 (70-99(Fasting)) mg/dl Calcium 9.0 (8.6-10.3) mg/dl Magnesium (1.7-2.4) mg/dl Iron 12 L (35-150) mcg/dl TIBC 355 (250-450) mcg/dl Unsaturated IBC 343 (155-355) mcg/dl Transferrin % Sat 3 L (15-50) % Ferritin 8.9 (8-388) ng/ml Total Bilirubin 0.3 (0.2-1.0) mg/dl AST 19 (13-39) U/L ALT 11 (7-52) U/L Alkaline Phosphatase 56 (34-104) U/L Total Protein 6.0 (6.0-8.3) gm/dl Albumin 3.8 (3.4-5.0) gm/dl Globulin 2.2 L (2.5-4.0) gm/dl Albumin/Globulin Ratio 1.7 (0.9-2) Lipase 94 H (11-82) U/L Vitamin B12 280 (180-914) pg/ml Folate 8.66 (>5.38) ng/ml Urine Color Urine Appearance (Clear) Urine pH (4.5-7.5) Ur Specific [place] (1.000-1.030) Urine Protein (Negative) Urine Glucose (UA) (Negative) Urine Ketones (Negative) Urine Blood (Negative) Urine Nitrite (Negative) Urine Bilirubin (Negative) Urine Urobilinogen (Negative) Ur Leukocyte Esterase (Negative) Blood Type A Positive Blood Type Recheck Antibody Screen NEGATIVE Crossmatch See Detail Diagnostic Findings Chest X-Ray 10/06/23 18:09 XR chest 1V portable HISTORY: 88 years-old Female aspiration acute shortness of breath COMPARISON: None TECHNIQUE: AP view of the chest FINDINGS: Cardiac silhouette is enlarged. Atherosclerosis of the aorta. ORIF hardware of the ribs. Healed chronic rib fractures. No pneumothorax or pleural effusion. Right shoulder rotator cuff calcific tendinosis. Small hiatal hernia. Mild linear right basilar atelectasis versus scarring. IMPRESSION: 1. Cardiomegaly without acute process. 2. Small hiatal hernia. 3. Chronic findings as above. ACT 112: Negative or not required by law. The above report was generated using voice recognition software. It may contain grammatical, syntax or spelling errors. Electronically signed by: Wm Martinez M.D. 10/07/2023 8:40 AM
--- NOTE | 2023-10-07 09:35 | Nephrology Consultation ---
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 Baseline creatinine ~1.6-1.8 mg/dL. Followed by Dr. Ford. 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 s/p R renal artery stent May 2020. Kidney function stable. Electrolytes normal. Medications are appropriately Rx'd for kidney function. (2) Renal artery stenosis, [place], bilateral: L renal artery stent occluded with atrophic left kidney. s/p R stent in [place] [address] Samano. Kidney function stable. BP reasonably controlled. No additional interventions indicated at this time. Marie has been maintained on dual antiplatelet therapy per vascular surgery. For history of renal artery stenting in 2020, DAPT is likely not required but I would defer to vascular in this regard. (3) HTN (hypertension): Remains on amlodipine and metoprolol tartrate per home Rx. RAASi has been avoided by history due to renovascular disease and advanced CKD. BP reasonably controlled. (4) UTI (urinary tract infection): Recently started on course of ciprofloxacin based on evaluation in ER at [facility]. Current Rx ceftriaxone. (5) Anemia: s/p PRBC transfusion support --> Hgb ~10. GI evaluation pending. Reported history of melena. Notable iron deficiency (ferritin 8.9, Tsat 3) will require replacement. (6) Renal cyst: Complex cyst without solid mass per prior urologic evaluation. History of Present Illness Reason for Consultation: Hx BL renal art stenosis, GI bleed Requesting Physician: Win Leung Attending Physician: Win Leung History of Present Illness Marie Loaiza is an 88 year-old female with CKD IIIb-IV (baseline creatinine ~1.6-1.8 mg/dL). Marie [place] in [place] [facility] [place] with Dr. Ford. The left kidney is atrophic. Medical history is notable for significant PAD, including renovascular disease, carotid stenosis, and L subclavian artery occlusion. Marie follows with Dr. Samano in the vascular clinic. The left renal artery was stented in 2005 and reported subsequently to be thrombosed. The right renal artery was stented in may 2020. Marie also has a notable history of gross hematuria and UTI. She underwent urologic evaluation in the past, including cystoscopy (patient declined retrograde pyelograms) and MRI. Complex cysts but no solid renal lesions identified. Blood pressure has been controlled with a combination of amlodipine, hydralazine, and metoprolol. Marie recently presented to the ER at [facility] with gross hematuria and weakness. Evaluation demonstrated UTI and acute on chronic anemia. She was started on a course of ciprofloxacin. She then presented to the ER at [facility] yesterday with dysphagia, melena, and weakness. She describes dysphagia to solids and intermittent black tarry stools. Hemoglobin was 7.1 on presentation. Hgb 10.1 this AM s/p PRBC transfusion support. GI evaluation pending. Serum creatinine 1.6 mg/dL this AM. Tsat 3, ferritin 8.9. Allergies Allergy/AdvReac Type Severity Reaction Status Date / Time Iodinated Contrast Media Allergy Unknown Anaphylaxis Verified 10/06/23 20:49 [Iodinated Contrast- Oral and IV Dye] Home Medications Medication Instructions Recorded Confirmed Type dorzolamide 2 % eye drops 1 drops ophthalmic (eye) BID 10/29/18 10/06/23 History latanoprost 0.005 % eye drops 1 drops ophthalmic (eye) QPM 10/29/18 10/06/23 History sertraline 50 mg tablet 50 mg PO DAILY #30 tabs 10/29/18 10/06/23 History acetaminophen 500 mg tablet 500 mg PO Q6H PRN Pain 05/27/19 10/06/23 History (Tylenol Extra Strength) amlodipine 10 mg tablet 10 mg PO DAILY #90 tabs 05/27/19 10/06/23 Rx metoprolol tartrate 25 mg tablet 25 mg PO DAILY 05/27/19 10/06/23 History aspirin 81 mg chewable tablet 81 mg PO DAILY 11/28/19 10/06/23 History simvastatin 20 mg tablet 20 mg PO DAILY 11/28/19 10/06/23 History clopidogrel 75 mg tablet 75 mg PO DAILY 06/08/20 10/06/23 History hydralazine 50 mg tablet 50 mg PO BID 09/27/21 10/06/23 History ciprofloxacin HCl 500 mg tablet 500 mg PO BID 10/06/23 10/06/23 History fluticasone fur. 100 mcg-umeclid 1 inh inhalation DAILY 10/06/23 10/06/23 History 62.5 mcg-vilant 25 mcg inhalat.powder (Trelegy Ellipta) ondansetron 4 mg disintegrating 4 mg PO DIRECTED PRN Nausea 10/06/23 10/06/23 History tablet potassium chloride 15 mEq 15 meq PO DAILY 10/06/23 10/06/23 History tablet,extended release(part/cryst) (Claudia M) Patient History Medical History CKD (chronic kidney disease) History of diverticulitis COPD (chronic obstructive pulmonary disease) Surgical History History of thoracic surgery History of section X3 History of hip replacement Right Social History Smoking Status: Former smoker Hx Alcohol Use: Yes Alcohol type: beer Hx Substance Use: No Preferred Language: Kosovan Communication Ability: Effective Voice Network Engineer Required: No Beliefs That Will Affect Care: None Current Living Situation: Family Current Living Situation Comment: Lives with daughter and grandson Feels Safe at Home: Yes Safety Concerns: Feels Safe At This Time Assistive Devices: Glasses and Hearing Aid - Bilateral Review of Systems Review of Systems: All systems reviewed & are unremarkable except as noted in HPI & below Gastrointestinal: + bloating; no abdominal pain, no consti pation and no diarrhea/loose stools Physical Exam Constitutional: well developed, + thin and + frail appearing; no acute distress Eyes: no scleral abnormality and no corneal abnormality ENMT: Mouth: no oral mucosal abnormality and oral mucous membranes not dry Neck: normal visual inspection and trachea midline Respiratory: normal respiratory effort Auscultation: lungs clear to auscul tation bilaterally Cardiovascular: Rate/Rhythm: regular rhythm and + bradycardic Heart Sounds: normal S1 and normal S2 Extremities: no edema Musculoskeletal: Extremities: no cyanosis and no clubbing Skin: normal turgor; no lesions Neurologic: Motor/Sensory: no tremor and no asterixis Psychiatric: Orientation: alert and oriented x 3 Results & Data Vital Signs (Past 12 Hours) Vital Signs Temp Pulse Pulse Resp BP BP Pulse Ox 10/07/23 07:35 36.8 C 68 16 164/69 H 97 10/07/23 07:21 60 10/07/23 05:00 84 10/07/23 05:00 36.8 C 67 16 176/67 H 97 10/07/23 04:15 64 18 125/55 L 100 10/07/23 03:06 64 19 96 10/07/23 03:00 144/63 H 10/07/23 03:00 144/63 H 10/07/23 02:57 65 15 95 10/07/23 02:33 64 18 95 10/07/23 02:31 160/94 H 10/07/23 02:31 160/94 H 10/07/23 02:24 66 17 97 10/07/23 02:03 65 12 96 10/07/23 02:00 145/61 H 10/07/23 02:00 145/61 H 10/07/23 01:51 63 15 97 10/07/23 01:36 66 18 95 10/07/23 01:30 149/61 H 10/07/23 01:30 149/61 H 10/07/23 01:00 67 23 98 10/07/23 01:00 173/75 H 10/07/23 01:00 173/75 H 10/07/23 01:00 173/75 H 10/07/23 00:36 65 22 97 10/07/23 00:30 158/63 H 10/07/23 00:30 158/63 H 10/07/23 00:27 62 19 97 10/07/23 00:25 36.8 C 63 16 158/63 H 100 10/07/23 00:19 36.8 C 69 16 156/68 H 98 10/07/23 00:00 156/68 H 10/07/23 00:00 64 11 L 98 10/06/23 23:48 62 25 H 97 10/06/23 23:30 181/70 H 10/06/23 23:25 36.7 C 64 18 191/70 H 97 10/06/23 23:21 65 14 100 10/06/23 23:18 65 27 H 99 10/06/23 23:15 178/77 H 10/06/23 23:15 178/77 H 10/06/23 23:15 178/77 H 10/06/23 23:00 189/77 H 10/06/23 22:57 59 L 14 98 10/06/23 22:55 36.8 C 62 16 189/77 H 98 10/06/23 22:45 183/90 H 10/06/23 22:40 157/69 H 10/06/23 22:40 157/69 H 10/06/23 22:40 36.8 C 63 20 157/69 H 97 10/06/23 22:33 64 34 H 98 10/06/23 22:30 62 11 L 97 10/06/23 22:30 149/62 H 10/06/23 22:30 149/62 H 10/06/23 22:25 36.8 C 63 20 155/86 H 97 10/06/23 22:24 155/86 H 10/06/23 22:20 36.8 C 61 18 166/79 H 95 10/06/23 22:12 63 36 H 97 10/06/23 22:00 166/79 H 10/06/23 22:00 64 20 98 10/06/23 21:41 63 10/06/23 21:39 68 21 98 O2 Del Method 10/07/23 07:35 Room Air 10/07/23 07:21 10/07/23 05:00 10/07/23 05:00 Room Air 10/07/23 04:15 Room Air 10/07/23 03:06 10/07/23 03:00 10/07/23 03:00 10/07/23 02:57 10/07/23 02:33 10/07/23 02:31 10/07/23 02:31 10/07/23 02:24 10/07/23 02:03 10/07/23 02:00 10/07/23 02:00 10/07/23 01:51 10/07/23 01:36 10/07/23 01:30 10/07/23 01:30 10/07/23 01:00 10/07/23 01:00 10/07/23 01:00 10/07/23 01:00 10/07/23 00:36 10/07/23 00:30 10/07/23 00:30 10/07/23 00:27 10/07/23 00:25 10/07/23 00:19 10/07/23 00:00 10/07/23 00:00 10/06/23 23:48 10/06/23 23:30 10/06/23 23:25 10/06/23 23:21 10/06/23 23:18 10/06/23 23:15 10/06/23 23:15 10/06/23 23:15 10/06/23 23:00 10/06/23 22:57 10/06/23 22:55 10/06/23 22:45 10/06/23 22:40 10/06/23 22:40 10/06/23 22:40 10/06/23 22:33 10/06/23 22:30 10/06/23 22:30 10/06/23 22:30 10/06/23 22:25 10/06/23 22:24 10/06/23 22:20 10/06/23 22:12 10/06/23 22:00 10/06/23 22:00 10/06/23 21:41 10/06/23 21:39 Laboratory Results Laboratory Results - last 24 hr 10/06/23 10/06/23 10/06/23 18:36 18:37 20:54 WBC 7.55 RBC 2.77 L Hgb 7.2 L Hct 23.2 L MCV 83.8 MCH 26.0 MCHC 31.0 L RDW Std Deviation 45.0 RDW Coeff of [place] 14.6 H Plt Count 152 MPV 11.0 Immature Gran % (Auto) 0.5 Neut % (Auto) 75.6 Lymph % (Auto) 11.3 Moca % (Auto) 10.7 Eos % (Auto) 1.5 Baso % (Auto) 0.4 Neut # (Auto) 5.71 Lymph # (Auto) 0.85 L Moca # (Auto) 0.81 H Eos # (Auto) 0.11 Baso # (Auto) 0.03 Immature Gran # (Auto) 0.04 Polychromasia 1+ Ovalocytes 1+ Peripher Smr Path Cons Pending PT INR Sodium 136 Potassium 4.1 Chloride 105 Carbon Dioxide 23 Anion Gap 8 BUN 30 H Creatinine 1.85 H Est Cr Clr Drug Dosing 14.1 Est GFR ( Amer) 28.1 Est GFR (Non-Af Amer) 24.2 BUN/Creatinine Ratio 16.2 Glucose 97 Calcium 9.0 Magnesium Iron 12 L TIBC 355 Unsaturated IBC 343 Transferrin % Sat 3 L Ferritin 8.9 Total Bilirubin 0.3 AST 19 ALT 11 Alkaline Phosphatase 56 Total Protein 6.0 Albumin 3.8 Globulin 2.2 L Albumin/Globulin Ratio 1.7 Lipase 94 H Vitamin B12 280 Folate 8.66 Urine Color Urine Appearance Urine pH Ur Specific [place] Urine Protein Urine Glucose (UA) Urine Ketones Urine Blood Urine Nitrite Urine Bilirubin Urine Urobilinogen Ur Leukocyte Esterase Blood Type A Positive Blood Type Recheck A Positive Antibody Screen NEGATIVE Crossmatch See Detail 10/06/23 10/07/23 Unknown 05:41 WBC 6.62 RBC 3.79 L Hgb 10.1 L D Hct 31.9 L MCV 84.2 MCH 26.6 MCHC 31.7 L RDW Std Deviation 44.3 RDW Coeff of [place] 14.4 Plt Count 136 MPV 11.2 Immature Gran % (Auto) 0.3 Neut % (Auto) 72.7 Lymph % (Auto) 13.1 Moca % (Auto) 11.9 Eos % (Auto) 1.5 Baso % (Auto) 0.5 Neut # (Auto) 4.81 Lymph # (Auto) 0.87 L Moca # (Auto) 0.79 H Eos # (Auto) 0.10 Baso # (Auto) 0.03 Immature Gran # (Auto) 0.02 Polychromasia Ovalocytes Peripher Smr Path Cons PT 10.2 INR 0.9 Sodium 140 Potassium 3.7 Chloride 108 H Carbon Dioxide 25 Anion Gap 7 BUN 24 H Creatinine 1.60 H Est Cr Clr Drug Dosing 15.9 Est GFR ( Amer) 33.5 Est GFR (Non-Af Amer) 28.9 BUN/Creatinine Ratio 15.0 Glucose 86 Calcium 9.1 Magnesium 2.1 Iron TIBC Unsaturated IBC Transferrin % Sat Ferritin Total Bilirubin 0.7 AST 21 ALT 10 Alkaline Phosphatase 58 Total Protein 6.2 Albumin 3.9 Globulin 2.3 L Albumin/Globulin Ratio 1.7 Lipase Vitamin B12 Folate Urine Color Yellow Urine Appearance Clear Urine pH 7.5 Ur Specific [place] 1.009 Urine Protein Negative Urine Glucose (UA) Negative Urine Ketones Negative Urine Blood Negative Urine Nitrite Negative Urine Bilirubin Negative Urine Urobilinogen Negative Ur Leukocyte Esterase Negative Blood Type Blood Type Recheck Antibody Screen Crossmatch Diagnostic Findings XR chest 1V portable Cardiac silhouette is enlarged. Atherosclerosis of the aorta. ORIF hardware of the ribs. Healed chronic rib fractures. No pneumothorax or pleural effusion. Right shoulder rotator cuff calcific tendinosis. Small hiatal hernia. Mild linear right basilar atelectasis versus scarring. IMPRESSION: 1. Cardiomegaly without acute process. 2. Small hiatal hernia. 3. Chronic findings as above. PG Care Time/CCT Total # of Minutes Spent Total Time Spent with Patient: Total time spent is greater than 50% in coordination of care (as documented) at patient's floor/unit and/or counseling patient: Coding Level of Care Code 91564 IN/OBS CONSULT LVL 5,80M Diagnoses Stage 3b chronic kidney disease N18.32 Renal artery stenosis, [place], bilateral I70.1 HTN (hypertension) I10 UTI (urinary tract infection) N39.0 Anemia D64.9 Renal cyst N28.1
[2023-10-07 11:16] LABS: Hematocrit (blood only) 29.7 % (37.0-47.0); Hemoglobin 9.5 g/dl (12.0-16.0); Mean Corpuscular Hemoglobin 27.1 pg (25.0-34.0); Mean Corpuscular Volume 84.6 fL (80.0-100.0); Mean Platelet Volume 11.2 fL (9.4-12.4); Platelet Count 128 K/uL (130-400); RDW Coefficient of Variation 14.3 % (11.5-14.5); Red Blood Count 3.51 M/uL (4.20-5.40); White Blood Count 6.36 K/ul (4.8-10.8)
[2023-10-07 11:50] LABS: Basophils # (auto) 0.04 K/uL (0.00-0.20); Basophils % (auto) 0.6 %; Eosinophils # (auto) 0.09 K/uL (0.00-0.50); Eosinophils % (auto) 1.4 %; Immature Granulocytes # (auto) 0.02 K/uL (0.01-0.20); Immature Granulocytes % (auto) 0.3 %; Lymphocytes % (auto) 14.2 %; Monocytes # (auto) 0.83 K/uL (0.11-0.59); Monocytes % (auto) 13.1 %; Neutrophils # (auto) 4.48 K/uL (1.40-6.50); Neutrophils % (auto) 70.4 %
[2023-10-07 16:49] LABS: Basophils # (auto) 0.03 K/uL (0.00-0.20); Basophils % (auto) 0.4 %; Eosinophils # (auto) 0.11 K/uL (0.00-0.50); Eosinophils % (auto) 1.6 %; Hematocrit (blood only) 30.8 % (37.0-47.0); Hemoglobin 9.7 g/dl (12.0-16.0); Immature Granulocytes # (auto) 0.01 K/uL (0.01-0.20); Immature Granulocytes % (auto) 0.1 %; Lymphocytes # (auto) 0.99 K/uL (1.20-3.40); Lymphocytes % (auto) 14.1 %; Mean Corpuscular Hemoglobin 26.6 pg (25.0-34.0); Mean Corpuscular Hgb Conc 31.5 g/dL (32.0-36.0); Mean Corpuscular Volume 84.4 fL (80.0-100.0); Mean Platelet Volume 11.4 fL (9.4-12.4); Monocytes # (auto) 0.81 K/uL (0.11-0.59); Monocytes % (auto) 11.6 %; Neutrophils # (auto) 5.05 K/uL (1.40-6.50); Neutrophils % (auto) 72.2 %; Platelet Count 132 K/uL (130-400); RDW Coefficient of Variation 14.3 % (11.5-14.5); Red Blood Count 3.65 M/uL (4.20-5.40)
[2023-10-07] MEDS: cefTRIAXone SODIUM 2,000 MG/50 ML BAG IV SCH (19:56)
--- NOTE | 2023-10-07 20:41 | Billing Data ---
Date of Service October 07, 2023 Coding Level of Care Code 77791 INT INP/OBS CARE
--- NOTE | 2023-10-07 22:20 | Hospitalist Progress Note ---
Date of Service October 07, 2023 Assessment & Plan (1) GI bleed: Plan: Admit to med telemetry Home pulse oximetry Currently stable nontoxic-appearing Was sent to the ED after speaking with case and agrees with GI to try to make an appointment for her dysphagia, they instructed the patient to go to the ED due to ongoing concern for GI bleeding Hemoglobin currently 7.2, down from 12 as of May of this year Patient has had multiple episodes of melanotic stool over the past month Patient likely has an upper GI bleed due to very poor oral intake due to dysphagia and ongoing use of aspirin/Plavix for her history of bilateral renal artery stenosis status post bilateral renal artery stent placement Due to patient having a left atrophic kidney and moderate atrophic right kidney along with CKD and mildly elevated creatinine we will transfuse her 1 unit PRBCs overnight to help improve perfusion and prevent further kidney damage Patient did have her dose of Plavix this morning, was reportedly instructed to stop her aspirin earlier this week by her PCP due to concerns for GI bleed > We will consult nephrology for their input on holding Plavix moving forward due to risk of bleeding versus occlusion of stent and further kidney damage I consented the patient for for blood on admission, will order 3 units of PRBCs to be prepared with 1 given overnight Will give IV pantoprazole bolus now and then continue 40 mg IV twice daily for Iron studies, ferritin, B12, folic acid, and peripheral smear have been ordered prior to transfusion been started COnsulted GI. WIll try clears and monitor how she tolerates her diet. Will be checking her hemoglobin daily. (2) Anemia: Plan: See GI bleed Follow anemia workup peripheral smear ordered on admission (3) Dysphagia: Plan: Patient has been having progressive dysphagia and postprandial emesis of undigested food over the past 3 weeks Reportedly had outpatient barium swallow study at [place] [facility] department on 10/04/2023 Attempted to call [place] [facility]ology department to have results faxed, unfortunately they were closed as patient was admitted at 9 PM Unsure of results, could be esophageal achalasia but patient would also be high risk for esophageal cancer with her long history of smoking GI consult been placed and performed (4) UTI (urinary tract infection): Plan: Patient was reportedly diagnosed with UTI during her ER visit at [facility] on 10/03/2023 Started a 7-day course of ciprofloxacin on 10/04/2023 While n.p.o. we will start her on every 24 ceftriaxone for now If here for 3 days could consider completion of treatment on ceftriaxone (5) Renal artery stenosis, [place], bilateral: Plan: Status post left renal artery stent placed in 2005 and right renal artery stent placed on 05/20/[address] Samano Normally on aspirin and Plavix, aspirin have been held earlier this week patient had her a.m. dose of Plavix today Will hold both for now, nephrology has been consulted to get their input on risks of holding antiplatelets and start 1 more discussed that occlusion versus simple for bleeding Monitor daily renal function electrolytes (6) COPD (chronic obstructive pulmonary disease): Plan: Currently stable on room air Incentive spirometry, flutter therapy, home breathing treatments, as needed DuoNebs, as needed O2 to keep SpO2 between 89-90% (7) HTN (hypertension): Plan: Currently stable Will continue home metoprolol and hydralazine for now but will hold amlodipine to try and prevent hypotension Admission and Anticipated Discharge Date Admission Date: October 06, 2023 Subjective Patient reports no new symptoms. Review of Systems Review of Systems: All systems reviewed & are unremarkable except as noted in HPI & below Physical Exam Physical Exam: Physical Exam: General: In no acute distress, stated age, non-toxic appearing HEENT: Normocephalic, atraumatic, no scleral icterus, pupils around round, symmetrical, and reactive to light, pale palpebral conjunctivae, moist mucus membranes, trachea midline, no thyromegaly Chest/Pulm: No respiratory distress, symmetrical chest expansion, clear breath sounds throughout Cardiac: RRR, no murmurs noted Abdomen: Negative for ascites and bruising, normoactive bowel sounds, soft, non-tender to palpation throughout Musculoskeletal: Symmetrical and without signs of acute trauma, upper and lower extremities with full ROM, no atrophy, spasticity, or flaccidity Extremities: Radial, dorsalis pedis, and posterior tibial pulses are intact and symmetrical, no edema noted in the BL LE's Skin: Bruising on the forearms in various stages of healing due to recent blood draws at [facility] Neuro: Alert and oriented to person, place, month, year, and president, no focal defects, no tremors noted Psych: No acute distress, calm and cooperative during the exam Results & Data Results & Data Vital Signs (Past 12 Hours) Vital Signs Temp Pulse Pulse Resp BP BP Pulse Ox 10/07/23 19:00 36.7 C 66 18 152/64 H 96 10/07/23 16:32 62 10/07/23 15:19 36.8 C 67 18 178/65 H 96 10/07/23 11:26 36.8 C 58 L 16 154/61 H 98 O2 Del Method 10/07/23 19:00 Room Air 10/07/23 16:32 10/07/23 15:19 Room Air 10/07/23 11:26 Room Air PG Care Time/CCT Total # of Minutes Spent Total Time Spent with Patient: Total time spent is greater than 50% in coordination of care (as documented) at patient's floor/unit and/or counseling patient: Coding Level of Care Code 99997 SUB INP/OBS CARE 2/35MIN Diagnoses GI bleed K92.2 Anemia D64.9 Dysphagia R13.10 UTI (urinary tract infection) N39.0 Renal artery stenosis, [place], bilateral I70.1 COPD (chronic obstructive pulmonary disease) J44.9 HTN (hypertension) I10
[2023-10-07 23:14] LABS: Basophils # (auto) 0.03 K/uL (0.00-0.20); Basophils % (auto) 0.4 %; Eosinophils # (auto) 0.14 K/uL (0.00-0.50); Eosinophils % (auto) 1.8 %; Hematocrit (blood only) 31.6 % (37.0-47.0); Hemoglobin 10.2 g/dl (12.0-16.0); Immature Granulocytes # (auto) 0.03 K/uL (0.01-0.20); Immature Granulocytes % (auto) 0.4 %; Lymphocytes % (auto) 11.8 %; Mean Corpuscular Hemoglobin 26.9 pg (25.0-34.0); Mean Corpuscular Hgb Conc 32.3 g/dL (32.0-36.0); Mean Corpuscular Volume 83.4 fL (80.0-100.0); Mean Platelet Volume 11.2 fL (9.4-12.4); Monocytes # (auto) 0.91 K/uL (0.11-0.59); Neutrophils % (auto) 73.6 %; Platelet Count 147 K/uL (130-400); RDW Coefficient of Variation 14.5 % (11.5-14.5); RDW Standard Deviation 44.1 fL (36.4-46.3); Red Blood Count 3.79 M/uL (4.20-5.40); White Blood Count 7.61 K/ul (4.8-10.8)
[2023-10-08 06:12] LABS: Albumin Globulin Ratio 1.9 (0.9-2); Albumin Level 3.9 gm/dl (3.4-5.0); Bilirubin,Total 0.4 mg/dl (0.2-1.0); Calcium 9.2 mg/dl (8.6-10.3); Creatinine Clr Calc Pharmacy 21.3 ml/min; Est GFR (African American) 47.4 ml/min; Est GFR (Non-African American) 40.9 ml/min; Globulin 2.1 gm/dl (2.5-4.0); Magnesium 1.8 mg/dl (1.7-2.4); Potassium 3.4 mmol/L (3.5-5.1)
[2023-10-08 06:22] LABS: Basophils # (auto) 0.03 K/uL (0.00-0.20); Basophils % (auto) 0.4 %; Eosinophils # (auto) 0.14 K/uL (0.00-0.50); Eosinophils % (auto) 1.9 %; Hematocrit (blood only) 30.8 % (37.0-47.0); Hemoglobin 9.8 g/dl (12.0-16.0); Immature Granulocytes # (auto) 0.02 K/uL (0.01-0.20); Immature Granulocytes % (auto) 0.3 %; Lymphocytes # (auto) 1.24 K/uL (1.20-3.40); Lymphocytes % (auto) 16.6 %; Mean Corpuscular Hemoglobin 26.7 pg (25.0-34.0); Mean Corpuscular Hgb Conc 31.8 g/dL (32.0-36.0); Mean Corpuscular Volume 83.9 fL (80.0-100.0); Mean Platelet Volume 11.6 fL (9.4-12.4); Monocytes # (auto) 0.87 K/uL (0.11-0.59); Monocytes % (auto) 11.7 %; Neutrophils # (auto) 5.15 K/uL (1.40-6.50); Neutrophils % (auto) 69.1 %; Platelet Count 119 K/uL (130-400); Platelet Estimate Normal (Normal); RDW Coefficient of Variation 14.5 % (11.5-14.5); RDW Standard Deviation 44.5 fL (36.4-46.3); Red Blood Count 3.67 M/uL (4.20-5.40); White Blood Count 7.45 K/ul (4.8-10.8)
[2023-10-08 06:24] LABS: INR 0.9 (0.9-1.1); Prothrombin Time 10.3 Seconds (9.0-12.0)
[2023-10-08 08:00] LABS: Phosphorus 3.7 mg/dl (2.5-4.9)
--- NOTE | 2023-10-08 10:12 | Gastroenterology Progress Note ---
Date of Service October 08, 2023 Assessment & Plan (1) Anemia: Plan: She is doing well. H/H are stable and I think the admit hemoglobin was a lab error as it seems to be an outlier. I told her I would like to see the results of the UGI she had at [facility] (hopefully we will get it tomorrow) to decide if she needs to stay in hospital for EGD. She just stopped plavix two days ago. Admission and Anticipated Discharge Date Admission Date: October 06, 2023 Subjective She feels great. Wants to go home like her roommate wants to go home. Tolerating liquids without issue. Physical Exam Physical Exam: Smiling, happy, looks well Results & Data Vital Signs (Past 12 Hours) Vital Signs Temp Pulse Pulse Resp BP BP Pulse Ox 10/08/23 08:00 10/08/23 07:42 36.8 C 76 16 168/64 H 96 10/08/23 07:00 68 10/08/23 04:00 36.9 C 73 18 158/79 H 97 10/08/23 00:00 36.7 C 63 18 161/63 H 97 10/07/23 22:17 63 O2 Del Method 10/08/23 08:00 Room Air 10/08/23 07:42 Room Air 10/08/23 07:00 10/08/23 04:00 Room Air 10/08/23 00:00 Room Air 10/07/23 22:17
[2023-10-08] MEDS: IRON SUCROSE 200 MG in 0.9 % SODIUM CHLORIDE 100 ML IV ONE (10:34)
--- NOTE | 2023-10-08 11:15 | Nephrology Progress Note ---
Date of Service October 08, 2023 Assessment & Plan (1) Stage 3b chronic kidney disease: Plan: CKD IIIb-IV. Baseline creatinine ~1.6-1.8 mg/dL. Followed by Dr. Ford. 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 s/p R renal artery stent May 2020. Kidney function stable. Electrolytes normal. Medications are appropriately Rx'd for kidney function. Marie is scheduled for follow up with Dr. Ford on Monday - her daughter plans to reschedule and Marie was advised that this is acceptable. I discussed the plan of care with Dr. Leung this AM. Kidney function stable and no additional nephrology recommendations at this time. We will continue to follow peripherally, call with questions or concerns. (2) Renal artery stenosis, [place], bilateral: Plan: L renal artery stent occluded with atrophic left kidney. s/p R stent in May [address] Samano. Kidney function stable. BP reasonably controlled. No additional interventions indicated at this time. Marie has been maintained on dual antiplatelet therapy per vascular surgery. For history of renal artery stenting in 2020, DAPT is likely not required but I w ould defer to vascular in this regard. (3) HTN (hypertension): Plan: Remains on amlodipine and metoprolol tartrate per home Rx. RAASi has been avoided by history due to renovascular disease and advanced CKD. BP reasonably controlled. Continued monitoring. (4) UTI (urinary tract infection): Plan: Remains on ceftriaxone. (5) Anemia: Plan: s/p PRBC transfusion support --> Hgb ~10. GI following. Notable iron deficiency (ferritin 8.9, Tsat 3); IV replacement is being provided. (6) Renal cyst: Plan: Complex cyst. No solid mass per prior urologic evaluation, including MRI. Admission and Anticipated Discharge Date Admission Date: October 06, 2023 Subjective No acute events overnight. Marie feels well this AM. No melena or hematochezia overnight. Denies abdominal pain. BP slightly elevated this AM but asymptomatic. IV iron infusing. Review of Systems Review of Systems: All systems reviewed & are unremarkable except as noted in HPI & below Physical Exam Constitutional: well developed, + thin and + frail appearing; no acute distress Eyes: no scleral abnormality and no corneal abnormality ENMT: Mouth: no oral mucosal abnormality and oral mucous membranes not dry Neck: normal visual inspection and trachea midline Respiratory: normal respiratory effort Auscultation: lungs clear to auscultation bilaterally Cardiovascular: Rate/Rhythm: regular rate and regular rhythm Heart Sounds: normal S1 and normal S2 Extremities: no edema Musculoskeletal: Extremities: no cyanosis and no clubbing Skin: normal turgor; no lesions Neurologic: Motor/Sensory: no tremor and no asterixis Psychiatric: Orientation: alert and oriented x 3 Results & Data Vital Signs (Past 12 Hours) Vital Signs Temp Pulse Pulse Resp BP BP Pulse Ox 10/08/23 11:08 36.7 C 65 18 172/61 H 97 10/08/23 08:00 10/08/23 07:42 36.8 C 76 16 168/64 H 96 10/08/23 07:00 68 10/08/23 04:00 36.9 C 73 18 158/79 H 97 10/08/23 00:00 36.7 C 63 18 161/63 H 97 O2 Del Method 10/08/23 11:08 Room Air 10/08/23 08:00 Room Air 10/08/23 07:42 Room Air 10/08/23 07:00 10/08/23 04:00 Room Air 10/08/23 00:00 Room Air Laboratory Results Laboratory Results - last 24 hr 10/07/23 10/07/23 10/07/23 10:37 16:15 22:44 WBC 6.36 7.00 7.61 RBC 3.51 L 3.65 L 3.79 L Hgb 9.5 L 9.7 L 10.2 L Hct 29.7 L 30.8 L 31.6 L MCV 84.6 84.4 83.4 MCH 27.1 26.6 26.9 MCHC 32.0 31.5 L 32.3 RDW Std Deviation 44.0 44.0 44.1 RDW Coeff of [place] 14.3 14.3 14.5 Plt Count 128 L 132 147 MPV 11.2 11.4 11.2 Immature Gran % (Auto) 0.3 0.1 0.4 Neut % (Auto) 70.4 72.2 73.6 Lymph % (Auto) 14.2 14.1 11.8 [place] % (Auto) 13.1 11.6 12.0 Eos % (Auto) 1.4 1.6 1.8 Baso % (Auto) 0.6 0.4 0.4 Neut # (Auto) 4.48 5.05 5.60 Lymph # (Auto) 0.90 L 0.99 L 0.90 L [place] # (Auto) 0.83 H 0.81 H 0.91 H Eos # (Auto) 0.09 0.11 0.14 Baso # (Auto) 0.04 0.03 0.03 Immature Gran # (Auto) 0.02 0.01 0.03 Platelet Estimate PT INR Sodium Potassium Chloride Carbon Dioxide Anion Gap BUN Creatinine Est Cr Clr Drug Dosing Est GFR ( Amer) Est GFR (Non-Af Amer) BUN/Creatinine Ratio Glucose Calcium Phosphorus Magnesium Total Bilirubin AST ALT Alkaline Phosphatase Total Protein Albumin Globulin Albumin/Globulin Ratio 10/08/23 05:18 WBC 7.45 RBC 3.67 L Hgb 9.8 L Hct 30.8 L MCV 83.9 MCH 26.7 MCHC 31.8 L RDW Std Deviation 44.5 RDW Coeff of [place] 14.5 Plt Count 119 L MPV 11.6 Immature Gran % (Auto) 0.3 Neut % (Auto) 69.1 Lymph % (Auto) 16.6 [place] % (Auto) 11.7 Eos % (Auto) 1.9 Baso % (Auto) 0.4 Neut # (Auto) 5.15 Lymph # (Auto) 1.24 [place] # (Auto) 0.87 H Eos # (Auto) 0.14 Baso # (Auto) 0.03 Immature Gran # (Auto) 0.02 Platelet Estimate Normal PT 10.3 INR 0.9 Sodium 139 Potassium 3.4 L Chloride 106 Carbon Dioxide 25 Anion Gap 8 BUN 18 Creatinine 1.20 D Est Cr Clr Drug Dosing 21.3 Est GFR ( Amer) 47.4 Est GFR (Non-Af Amer) 40.9 BUN/Creatinine Ratio 15.0 Glucose 85 Calcium 9.2 Phosphorus 3.7 Magnesium 1.8 Total Bilirubin 0.4 AST 20 ALT 10 Alkaline Phosphatase 58 Total Protein 6.0 Albumin 3.9 Globulin 2.1 L Albumin/Globulin Ratio 1.9 PG Care Time/CCT Total # of Minutes Spent Total Time Spent with Patient: Total time spent is greater than 50% in coordination of care (as documented) at patient's floor/unit and/or counseling patient: Coding Level of Care Code 30484 SUB INP/OBS CARE MIN Diagnoses Stage 3b chronic kidney disease N18.32 Renal artery stenosis, [place], bilateral I70.1 HTN (hypertension) I10 UTI (urinary tract infection) N39.0 Anemia D64.9 Renal cyst N28.1
[2023-10-08 11:32] LABS: Basophils # (auto) 0.04 K/uL (0.00-0.20); Basophils % (auto) 0.4 %; Eosinophils # (auto) 0.12 K/uL (0.00-0.50); Eosinophils % (auto) 1.3 %; Hematocrit (blood only) 31.6 % (37.0-47.0); Immature Granulocytes # (auto) 0.03 K/uL (0.01-0.20); Immature Granulocytes % (auto) 0.3 %; Lymphocytes % (auto) 7.8 %; Mean Corpuscular Hemoglobin 26.9 pg (25.0-34.0); Mean Corpuscular Hgb Conc 31.6 g/dL (32.0-36.0); Mean Corpuscular Volume 84.9 fL (80.0-100.0); Mean Platelet Volume 11.1 fL (9.4-12.4); Monocytes # (auto) 0.95 K/uL (0.11-0.59); Monocytes % (auto) 10.7 %; Neutrophils # (auto) 7.08 K/uL (1.40-6.50); Neutrophils % (auto) 79.5 %; Platelet Count 137 K/uL (130-400); RDW Coefficient of Variation 14.6 % (11.5-14.5); RDW Standard Deviation 44.6 fL (36.4-46.3); Red Blood Count 3.72 M/uL (4.20-5.40); White Blood Count 8.92 K/ul (4.8-10.8)
--- NOTE | 2023-10-08 22:04 | Discharge Summary ---
Discharge Summary Date of Service October 08, 2023 Principal Dx & Hospital Course #1 = Principal Diagnosis (1) GI bleed: Admit to med telemetry Home pulse oximetry Currently stable nontoxic-appearing Was sent to the ED after speaking with case and agrees with GI to try to make an appointment for her dysphagia, they instructed the patient to go to the ED due to ongoing concern for GI bleeding Hemoglobin currently 7.2, down from 12 as of May of this year Patient has had multiple episodes of melanotic stool over the past month Patient likely has an upper GI bleed due to very poor oral intake due to dysphagia and ongoing use of aspirin/Plavix for her history of bilateral renal artery stenosis status post bilateral renal artery stent placement Due to patient having a left atrophic kidney and moderate atrophic right kidney along with CKD and mildly elevated creatinine we will transfuse her 1 unit PRBCs overnight to help improve perfusion and prevent further kidney damage Patient did have her dose of Plavix this morning, was reportedly instructed to stop her aspirin earlier this week by her PCP due to concerns for GI bleed > We will consult nephrology for their input on holding Plavix moving forward due to risk of bleeding versus occlusion of stent and further kidney damage Patient received 1 unit of PRBC. _Hemoglobin stable. Patient tolerating liquid diet. Patient asking to be discharged with outpatient followup for an EGD. Informed on [facility] who is agreeable. (2) Anemia: See GI bleed Follow anemia workup peripheral smear ordered on admission (3) Dysphagia: Patient has been having progressive dysphagia and postprandial emesis of undigested food over the past 3 weeks Reportedly had outpatient barium swallow study at [place] radiology department on 10/04/2023 Attempted to call [place] radiology department to have results faxed, unfortunately they were closed as patient was admitted at 9 PM Unsure of results, could be esophageal achalasia but patient would also be high risk for esophageal cancer with her long history of smoking (4) UTI (urinary tract infection): Patient was reportedly diagnosed with UTI during her ER visit at [facility] on 10/03/2023 completed 3 day course of ceftriaxone. (5) Renal artery stenosis, [place], bilateral: Status post left renal artery stent placed in 2005 and right renal artery stent placed on 05/20/[address] Samano Normally on aspirin and Plavix, aspirin have been held earlier this week patient had her a.m. dose of Plavix today Will hold both for now (6) COPD (chronic obstructive pulmonary disease): Currently stable on room air Incentive spirometry, flutter therapy, home breathing treatments, as needed Du oNebs, as needed O2 to keep SpO2 between 89-90% (7) HTN (hypertension): Currently stable Will continue home metoprolol and hydralazine for now but will hold amlodipine to try and prevent hypotension Admission HPI Per Admitting Provider Marie is a 88-year-old female with a past medical history significant for stage III CKD, renal artery stenosis status post left renal artery stent placed in 2005 and right renal artery stent placed on 05/20/[address] Samano, bilateral carotid stenosis, left subclavian artery occlusion, atrophic left kidney, hypertension, hyperlipidemia, and anxiety who presented to the [facility] ED on 10/06/2023 at the recommendation of mario cedeño with gastroenterology team due to concerns for GI bleed and ongoing dysphagia. I confirmed with case management that the patient was never evaluated by [facility] gastroenterology, the patient had called to try to make an appointment with their office after they heard her symptoms they instructed her to be evaluated in the ED. On arrival to the ED she was noted to be hypertensive at 164/79 but otherwise stable. Labs were significant for a hemoglobin of 7.2 (down from 12.6 as of 05/31/2023), MCV of 83, MCHC of 31, stable platelets of 152, creatinine of 1.85 (baseline is 1.6), BUN of 30, and unremarkable UA. BUN of 30, chest x-ray appears negative for acute findings but is yet to be read. Patient was sitting in bed in no acute distress at the time of exam with her daughter bedside, history is obtained from both. They explained that for the past 3 weeks the patient has had progressive dysphagia mainly of solid food causing recurrent episodes of postprandial vomiting and dehydration. They state that she was evaluated in the [place] ER on 10/03/2023 where she was noted to have a low hemoglobin. They explained that admission was offered as the staff was concerned the patient could be having a GI bleed. The patient elected to be discharged home as she had an appointment on 10/04/2023 for outpatient swallow study. They do not have the records with him at this time as the apparent barium swallow study was performed at [place] ED. 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 They were given no further instructions or recommendations. When asked, the patient confirms that she has had 2-3 episodes of melanotic stool over the past month but denies any over the past week. She is normally on aspirin and Plavix for her history of renal artery stenosis status post stent placement. She states that she spoke with her PCP who instructed her to stop taking her aspirin and continue her Plavix for now. They explained that when they called the [facility] today they told him that they could not treat her in the outpatient setting and she would need to go to the ED for admission. When asked, the patient has a [id number] history, quit smoking approximately 10 years ago. Will have 1 beer sparingly during social events. Denies using recent NSAIDs for pain, only uses Tylenol home. Did have her a.m. dose of Plavix today. We discussed CODE STATUS, she is a conditional code as she would only want a trial of intubation in the event of respiratory arrest, she would not want CPR or defibrillation in the event of cardiac arrest. Her daughter is here primary decision maker if she cannot make decisions for self. The patient her daughter explained that she was diagnosed with a UTI during her ER visit at the [facility] on 10/03/2023. She is currently on a course of ciprofloxacin for this UTI with first dose on 10/04/2023. Discharge Exam General: In no acute distress, stated age, non-toxic appearing HEENT: Normocephalic, atraumatic, no scleral icterus, pupils around round, symmetrical, and reactive to light, pale palpebral conjunctivae, moist mucus membranes, trachea midline, no thyromegaly Chest/Pulm: No respiratory distress, symmetrical chest expansion, clear breath sounds throughout Cardiac: RRR, no murmurs noted Abdomen: Negative for ascites and bruising, normoactive bowel sounds, soft, non-tender to palpation throughout Musculoskeletal: Symmetrical and without signs of acute trauma, upper and lower extremities with full ROM, no atrophy, spasticity, or flaccidity Extremities: Radial, dorsalis pedis, and posterior tibial pulses are intact and symmetrical, no edema noted in the BL LE's Skin: Bruising on the forearms in various stages of healing due to recent blood draws at [facility] Neuro: Alert and oriented to person, place, month, year, and president, no f ocal defects, no tremors noted Psych: No acute distress, calm and cooperative during the exam Updated Medication List Medication Instructions Recorded Confirmed Type dorzolamide 2 % eye drops 1 drops ophthalmic (eye) BID 10/29/18 10/10/23 History latanoprost 0.005 % eye drops 1 drops ophthalmic (eye) QPM 10/29/18 10/10/23 History sertraline 50 mg tablet 50 mg PO QAM #30 tabs 10/29/18 10/10/23 History acetaminophen 500 mg tablet 500 mg PO Q6H PRN Pain 05/27/19 10/10/23 History (Tylenol Extra Strength) amlodipine 10 mg tablet 10 mg PO DAILY #90 tabs 05/27/19 10/10/23 Rx metoprolol tartrate 25 mg tablet 25 mg PO QAM 05/27/19 10/10/23 History aspirin 81 mg chewable tablet 81 mg PO DAILY 11/28/19 10/10/23 History simvastatin 20 mg tablet 20 mg PO QAM 11/28/19 10/10/23 History clopidogrel 75 mg tablet 75 mg PO DAILY 06/08/20 10/10/23 History hydralazine 50 mg tablet 50 mg PO BID 09/27/21 10/10/23 History fluticasone fur. 100 mcg-umeclid 1 inh inhalation QAM 10/06/23 10/10/23 History 62.5 mcg-vilant 25 mcg inhalat.powder (Trelegy Ellipta) ondansetron 4 mg disintegrating 4 mg PO DIRECTED PRN Nausea 10/06/23 10/10/23 History tablet potassium chloride 15 mEq 15 meq PO DAILY 10/06/23 10/10/23 History tablet,extended release(part/cryst) (Klor-Con M) Hospital Stay Data Consultations 10/06/23 20:52 Consult Nephrology Routine 10/06/23 20:56 Consult Gastroenterology Routine 10/06/23 21:04 ED Decision to Admit Stat Pending Results Patient Have Any Pending Studies at Discharge: No Discharge Instructions Given to Patient (Per Discharging Provider) Continue to hold plavix. You will need to get an endoscopy as an outpatient. Please followup with your regular sustainable design consultant. Advance your diet as tolerated. Total Time Total Time Spent Total Time Spent (In Minutes): 32 Coding Level of Care Code 47224 INP/OBS DISCH >30 MIN Diagnoses GI bleed K92.2 Anemia D64.9 Dysphagia R13.10 UTI (urinary tract infection) N39.0 Renal artery stenosis, [place], bilateral I70.1 COPD (chronic obstructive pulmonary disease) J44.9 HTN (hypertension) I10
== END 2023-10-08 18:32 | disposition home or self-care (01) | DRG 378 ==
LOC: ED 16:48 → SUATTDRO 20:25 → EDINP 20:25 → 2N 22:54
DX: N18.4 Chronic kidney disease, stage 4 (severe); Z87.891 Personal history of nicotine dependence; E86.0 Dehydration; I70.1 Atherosclerosis of renal artery; D64.9 Anemia, unspecified; N17.9 Acute kidney failure, unspecified; Z79.82 Long term (current) use of aspirin; N39.0 Urinary tract infection, site not specified; Z91.041 Radiographic dye allergy status; R13.10 Dysphagia, unspecified; I12.9 Hypertensive chronic kidney disease with stage 1 through stage 4 chronic kidney disease, or unspecified chronic kidney disease; K92.1 Melena; N28.1 Cyst of kidney, acquired

== ENCOUNTER 2024-04-28 20:11 | Inpatient (IN) ==
--- OUTSIDE RECORDS SUMMARY | 2024-04-28 20:18 | External Medical Summary | Continuity of Care Document ---
Author Name Unknown Organization [address] Address [address], [place] [id number] Care Team Providers Care Supervisor Telephone Information Name Role Phone Luis Felipe Richardson Primary Care Physician [phone] [id number] Date(s): 01/30/24 - 01/30/[address] [address] [phone] Encounter Diagnosis Dysphagia(Discharge Diagnosis) - 01/30/24 Body mass index [BMI] 26.0-26.9, adult(Discharge Diagnosis) - 01/30/24 Long-term current use of proton pump inhibitor therapy(Discharge Diagnosis) - 01/30/24 Esophagitis(Discharge Diagnosis) - 01/30/24 Discharge Disposition: Home or Self Care Attending Physician: CHING Carranza Kelli Jo Referring Physician: CHING Carranza Kelli Jo Allergies, Adverse Reactions, Alerts Substance Criticality Severity Reaction Reaction Severity Status IVP dye Anaphylaxis Active Assessment and Plan Extracted from: Title:Office Visit Note Author:CHING Carranza Kell i Jo Date:01/30/24 1.Dysphagia - After checking patient's insurance Prevacid appears to be covered. This was ordered at her local pharmacyfor the next year -Obtain yearly creatinine (already obtained by silk screen repairer),B12, magnesium and vitamin D. Those orders were provided to the patient today to do locally. -09/2023 LA Grade C reflux esophagitis with no bleeding.Medium-sized hiatal hernia.Normal examined duodenum.No specimens collected. -Had patient's signrecord release to obtain swallow study. Discussed lifestyle modifications to avoid dysphagia todry foods andother issues causingfood bolus. GI follow up in 12months, sooner if needed. I have spent 50 minutes in evaluation, education and documentation of this pt in both face to face and non-face to face activities. Medications albuterol-ipratropium 2.5 mg-0.5 mg/3 mL inhalation solution Start: 02/20/20 9:22:00 AM EST, 3 mL, inhaled, qid, PRN: as needed for shortness of breath or wheezing Start Date: 02/20/20 Status: Ordered amLODIPine 10 mg oral tablet Start: 02/20/20 9:22:00 AM EST, 1 tab, PO, Daily Start Date: 02/20/20 Status: Ordered aspirin 81 mg oral delayed release tablet Start: 02/20/20 9:23:00 AM EST, 1 tab, PO, Daily Start Date: 02/20/20 Status: Ordered Citracal Calcium + D Slow Release 1200 Start: 01/30/24 1:36:00 PM EST Start Date: 01/30/24 Status: Ordered dorzolamide-timolol 2.23%-0.68% ophthalmic solution Start: 02/20/20 9:22:00 AM EST, 1 drop, both eyes, bid Start Date: 02/20/20 Status: Ordered hydrALAZINE 50 mg oral tablet Start: 02/20/20 9:22:00 AM EST, 1 tab, PO, bid Start Date: 02/20/20 Status: Ordered lansoprazole 15 mg oral delayed release capsule Start: 01/30/24 2:18:00 PM EST, 1 cap, PO, Daily, Disp# 90 cap, Refills: 3, Pharmacy: [id number] Start Date: 01/30/24 Stop Date: 01/24/25 Status: Ordered latanoprost 0.005% ophthalmic solution Start: 02/20/20 9:23:00 AM EST, 1 drop, both eyes, qhs Start Date: 02/20/20 Status: Ordered magnesium gluconate 250 mg oral tablet Start: 01/30/24 1:34:00 PM EST, 1 tab, PO, Daily Start Date: 01/30/24 Status: Ordered Metoprolol Tartrate 25 mg oral tablet Start: 02/20/20 9:22:00 AM EST, 1 tab, PO, Daily Start Date: 02/20/20 Status: Ordered Plavix 75 mg oral tablet Start: 05/28/20 10:55:00 AM EDT, 1 tab, PO, Daily, Disp# 30 tab, Refills: 11, Pharmacy: [id number] Start Date: 05/28/20 Status: Ordered potassium chloride 10 mEq oral capsule, extended release Start: 05/11/20 1:59:00 PM EST, 1 cap, PO, Daily Start Date: 05/11/20 Status: Ordered predniSONE 50 mg oral tablet Start: 03/02/20 2:48:00 PM EST, See Instructions, Disp# 3 tab, Refills: 0, 1 tab PO q8h Start 12 hrbefore procedure/study, Pharmacy: [id number] Start Date: 03/02/20 Status: Ordered sertraline 50 mg oral tablet Start: 02/20/20 9:22:00 AM EST, 1 tab, PO, Daily Start Date: 02/20/20 Status: Ordered simvastatin 20 mg oral tablet Start: 02/20/20 9:22:00 AM EST, 1 tab, PO, qhs Start Date: 02/20/20 Status: Ordered Mental Status 01/30/24 Barriers to Learning one year None evide nt Mandatory Health Literacy Documentation Yes Health Literacy Communication Barriers N ever Primary Language Togolese Problem List Condition Confirmation Course Effective Dates Status Health St atus Informant Carotid stenosis, bilateral Confirmed Active Carotid stenosis, asymptomatic Confirmed Active Dysphagia Confirmed Active Carotid stenosis, left Confirmed Active Renal artery stenosis Confirmed Active Subclavian artery stenosis Confirmed Active Diagnosis Diagnosis Type Effective Dates Health Status Clinical Service Informant Dysphagia Discharge Diagnosis 01/30/24 Non-Specified Body mass index [BMI] 26.0-26.9, adult Discharge Diagnosis 01/30/24 Non-Specified Long-term current use of proton pump inhibitor therapy Discharge Diagnosis 01/30/24 Non-Specified Esophagitis Discharge Diagnosis 01/30/24 Non-Specified Procedures Procedure Date Related Diagnosis Body Site Status EGD - esophagogastroduodenoscopy 1 10/11/23 Completed Renal angiogram w/ SECRETARY RECEPTIONIST and stent 05/20/20 Completed Arthroplasty of the hip right 2017 Completed Total abdominal hysterectomy 1968 Completed CS - section x3 Completed 1LA Grade C reflux esophagitis with no bleeding. Medium-sized hiatal ernia. Normal examined duodenum. No specimens collected. Vital Signs Most recent to oldest [Reference Range]: 1 Height 123.9 cm (01/30/24 1:38 PM) Patient Weight 40 kg (01/30/24 1:38 PM) Body Mass Index 26.06 kg/m2 (01/30/24 1:38 PM) Heart Rate 62 bpm (01/30/24 1:38 PM) Blood Pressure 150/58mmHg (01/30/24 1:38 PM) Cuff Pulse Pressure 92 mmHg (01/30/24 1:38 PM) Social History Social History Type Response Tobacco Former smoker, Stopp ed age 83 Years. Smoking Status Former Smoker, quit > 1 yr Sex Female Sex Representation Female (finding) Gastroenterology Outpatient Note * CHING Carranza, Shabnam Thornton: PERFORM Event Display: Gastroenterology Outpt Note Authored Date: [id number] Chief Complaint EGD recently due to esophageal blockage. Started Nexium and that seems to have helped...should she stay on it assisted? History of Present Illness The patient is a pleasant 88-[id number]-lcnneaktzgvk presents today for new patient evaluation of dysphagia.[facility] history[facility]. Prior records: 10/06/2023ER Eval:88-year-old female presenting for weakness, anemia and esophageal obstruction. Patient states that she was in outside hospital few days ago where she was diagnosed with anemia. Hemoglobin was 7. She was offered admission versus discharge to follow-up with her GI physician. Patient follow-up with her GI and he had a swallow screen where she was told she likely has esophageal obstruction. Since then she is unable to eat solid foods and feels that she is getting weaker. She notes that she cannot swallow anything that is solid and only drinks some Ensure throughout the day. She notes weakness and falling twice. She was called both times and did not strike her head or injure herself. She notes that her legs gave out she feels extremely weak. She otherwise notes that she is been coughing more than frequently after aspirating on food. 10/11/2023EGD:LA Grade C reflux esophagitis with no bleeding. Medium-sized hiatal hernia. Normal examined duodenum. No specimens collected. 01/30/2024 OV ([place]):Patient presents today having now been on Nexium for the most part since September. They do admit thatfor short period timeshe discontinued it after reading the directions onthe bottle saying only 2 weeks. However her symptoms abruptly returned and she returned to the medicine. She states onthe 20 mg Nexium daily dywe-cgl-jflolgsski has had at least 60% improvement in her symptoms. Patient does report that she had a swallow study done at [facility]. Shedenies any active GI complaints during today's appointment. She deniesunexpected weight loss or heartburn. She does state that prior to her Nexium use she was having daily heartburn. She remains on 81 mg aspirin and Plavix due to renal artery stenosis. She states that a variety of foodsnothing in particular can cause her her dysphagia. But she denies dysphagia to pills or liquid. She denies cough, hoarse voice or sore throat. She has no nausea, vomiting, loss of appetite. For years she has had a Dent type 2-3 times a day. She denies melena or hematochezia. She has no abdominal pain. She follows no specialized diets. Abdominal surgical history: 3 c-sections, CHRIS Social History: Tobacco:21-dkow-qxwu history, quit age 79 ETOH:2-3 drinks of whiskey per month Recreational Drug use including Marijuana:Denies Family:, 3 children, 2 grandchildren, 3 great-grandchildren, 1 Citizen [place] M[place] at home Family History: Deniesfamilyhistory of colorectal cancer, liver disease, IBS, pancreatic disease, celiac disease Daughter with Crohn's disease. No further complaints or concerns today. Physical Exam Vitals & Measurements HR:62(Monitored) BP:150/58 SpO2:98% HT:123.9cm WT:40.000kg(Dosing) WT:40kg BMI:26.06 General:Alert and oriented, No acute distress, appears stated age HENT:Normocephalic, normal hearing Respiratory: Respiration are non-labored, pt speaking in complete sentences,and no evidence of respiratory distress is noted Integumentary:Exposed skin viewable is dry and intact Psychiatric:Cooperative, appropriate mood & affect, Normal judgement Assessment/Plan 1.Dysphagia - After checking patient's insurance Prevacid appears to be covered. This was ordered at her local pharmacyfor the next year -Obtain yearly creatinine (already obtained by silk screen repairer),B12, magnesium and vitamin D. Those orders were provided to the patient today to do locally. -09/2023 LA Grade C reflux esophagitis with no bleeding.Medium-sized hiatal hernia.Normal examined duodenum.No specimens collected. -Had patient's signrecord release to obtain swallow study. Discussed lifestyle modifications to avoid dysphagia todry foods andother issues causingfood bolus. GI follow up in 12months, sooner if needed. I have spent 50 minutes in evaluation, education and documentation of this pt in both face to face and non-face to face activities. Problem List/Past Medical History Ongoing Carotid stenosis, asymptomatic Carotid stenosis, bilateral Carotid stenosis, left Dysphagia Renal artery stenosis Subclavian artery stenosis Procedure/Surgical History EGD - esophagogastroduodenoscopy| Service Date: 4Renal angiogram w/ SECRETARY RECEPTIONIST and stent| Service Date: 05/20/2020rthroplasty of the hip right| Service Date: 2016Total abdominal hysterectomy| Service Date: 1968CS - section x3 Medications albuterol-ipratropium(albuterol-ipratropium 2.5 mg-0.5 mg/3 mL inhalation solution), 3 mL, inhaled,qid, PRN amLODIPine(amLODIPine 10 mg oral tablet), 10 mg= 1 tab, PO, Daily aspirin(aspirin 81 mg oral delayed release tablet), 81 mg= 1 tab, PO, Daily calcium-vitamin D(Citracal Calcium + D Slow Release 1200) clopidogrel(Plavix 75 mg oral tablet), 75 mg= 1 tab, PO, Daily, 11 refills dorzolamide-timolol ophthalmic(dorzolamide-timolol 2.23%-0.68% ophthalmic solution), 1 drop, both eyes, bid hydrALAZINE(hydrALAZINE 50 mg oral tablet), 50 mg= 1 tab, PO, bid lansoprazole(lansoprazole 15 mg oral delayed release capsule), 15 mg= 1 cap, PO, Daily, 3 refills latanoprost ophthalmic(latanoprost 0.005% ophthalmic solution), 1 drop, both eyes, qhs magnesium gluconate(magnesium gluconate 250 mg oral tablet), 250 mg= 1 tab, PO, Daily metoprolol(Metoprolol Tartrate 25 mg oral tablet), 25 mg= 1 tab, PO, Daily potassium chloride(potassium chloride 10 mEq oral capsule, extended release), 10 mEq= 1 cap, PO, Daily predniSONE(predniSONE 50 mg oral tablet), See Instructions sertraline(sertraline 50 mg oral tablet), 50 mg= 1 tab, PO, Daily simvastatin(simvastatin 20 mg oral tablet), 20 mg= 1 tab, PO, qhs Allergies IVP dyeAnaphylaxis Social History Smoking Status Former Smoker, quit > 1 yr Tobacco - Denies Tobacco Use Use:Former smoker Stopped at age:83Years Family History Hypertension: Mother. Health Status Family Member(s) Recommendations Health Maintenance Pending(in the next year) OverDue Adult Influenza Vaccine due09/10/23and every 1year Due Adult COVID-19 Vaccination due01/30/24Unknown Frequency Adult Social Determinants of Health Screening due01/30/24Unknown Frequency Adult Tdap/Td Vaccine due01/30/24Unknown Frequency Medicare Annual Wellness Visit due01/30/24and every 1year Pneumococcal Vaccine Older Adults due01/30/24One-time only Shingles Vaccine due01/30/24One-time only Satisfied(in the past 1 year) Satisfied Body Mass Index on01/30/24.Satisfied by AGUSTÍN Irvin Bobbi Electronic Signature on File Electronically Reviewed/Signed by: Shabnam Carranza PA-C Author Signature Dt/Tm:01/30/2024 02:26 PM Division of Gastroenterology JEAN PIERRE Patient Care team information Care Team Personnel Name: CHING Billingsley Lynn Position: Physician Apprentice Technician Exempt - Vasc Surg Member Role: Lifetime Relationship [address]: [address] [place] [address] Care Team Related Persons Name: ANGEL MEMBRENO"
[2024-04-28 21:11] LABS: Albumin Globulin Ratio 1.4 (0.9-2); Albumin Level 3.6 gm/dl (3.4-5.0); BUN Creatinine Ratio 22.5 (10-20); Bilirubin,Total 0.3 mg/dl (0.2-1.0); Creatinine Clr Calc Pharmacy 13.4 ml/min; Globulin 2.6 gm/dl (2.5-4.0); Magnesium 1.7 mg/dl (1.7-2.4); Potassium 4.2 mmol/L (3.5-5.1); Total Protein 6.2 gm/dl (6.0-8.3)
[2024-04-28 21:16] LABS: Troponin I High Sensitivity 17.1 pg/ml (0-14)
[2024-04-28 21:34] LABS: Hemoglobin 11.8 g/dl (12.0-16.0); Mean Corpuscular Hemoglobin 28.6 pg (25.0-34.0); Mean Corpuscular Hgb Conc 31.9 g/dL (32.0-36.0); Mean Corpuscular Volume 89.6 fL (80.0-100.0); Mean Platelet Volume 11.4 fL (9.4-12.4); Platelet Count 187 K/uL (130-400); RDW Coefficient of Variation 20.1 % (11.5-14.5); RDW Standard Deviation 64.2 fL (36.4-46.3); Red Blood Count 4.13 M/uL (4.20-5.40); White Blood Count 14.23 K/ul (4.8-10.8)
[2024-04-28] MEDS: ALBUT/IPRATROP 3MG/0.5MG NEB 3 ML VIAL NEB STA (22:16)
--- NOTE | 2024-04-28 22:27 | XRay Report ---
Exam(s): XR CXR 1 VIEW EXAM: XR Chest, 1 View CLINICAL HISTORY: Reason for exam: Dyspnea. TECHNIQUE: Frontal view of the chest. COMPARISON: October 06, 2023 FINDINGS: Lungs: Slightly prominent interstitial markings in the lungs, similar to previous. No new infiltrate or consolidation is seen. Pleural space: Unremarkable. No pneumothorax. Heart: Unremarkable. No cardiomegaly. Mediastinum: Unremarkable. Normal mediastinal contour. Bones/joints: There are several fixation plates on 3 right ribs and 1 left rib, unchanged since previous. There are several old healed rib fractures bilaterally. Vasculature: The aortic arch is mildly calcified but nondilated. Upper abdomen: Unremarkable as visualized. No pneumoperitoneum under the diaphragm. IMPRESSION: Slightly prominent interstitial markings in the lungs, similar to previous. No new infiltrate or consolidation is seen. Electronically signed by: Chapin Lamb MD 04/28/24 22:26 PM
[2024-04-28 22:29] LABS: Anisocytosis Present; Basophils # (auto) 0.03 K/uL (0.00-0.20); Basophils % (auto) 0.2 %; Echinocytes 1+; Immature Granulocytes # (auto) 0.33 K/uL (0.01-0.20); Immature Granulocytes % (auto) 2.3 %; Lymphocytes # (auto) 0.57 K/uL (1.20-3.40); Monocytes # (auto) 0.12 K/uL (0.11-0.59); Monocytes % (auto) 0.8 %; Neutrophils # (auto) 13.18 K/uL (1.40-6.50); Neutrophils % (auto) 92.7 %; Polychromasia 1+
--- NOTE | 2024-04-28 22:42 | Emergency Department Note ---
Impression & Plan Dyspnea, Generalized weakness, Acute exacerbation of chronic obstructive pulmonary disease (COPD) ED Provider Note ED Provider Note NAME: DAVI MEMBRENO AGE:89 SEX: Female : 1935 ARRIVES VIA: Private vehicle INFORMANT: Patient ED PROVIDER(s): Monik Rodríguez DO CHIEF COMPLAINT: Increased shortness of breath, increased weakness HPI: This is an 89-year-old female who presents emergency department with friend at bedside due to concern for increased shortness of breath and weakness. Patient states she has had recent cough and cold symptoms. She had pneumonia 3 to 4 weeks ago which she was treated for. She states she was admitted at [facility] in [place] during that episode. She states following this she developed a flu with GI symptoms. She states she is still having intermittent diarrhea. She states in the last several days she has had worsening cough and trouble breathing. She states she does have a history of COPD and used to be a smoker. She does use MDI/nebs at home. She has not noticed any significant improvement in her symptoms with using these recently. She does not wear home O2. She has had decreased appetite additionally. She states the cough is minimally productive, she denies hemoptysis. She has had chills but denies fevers. She denies any history of heart problems. 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 Patient states she does take Plavix due to history of a stent in her kidney. Patient went to acute care today and was started on prednisone and an antibiotic. She did take 60 mg of prednisone today but does not recall the antibiotic she was started on, she has had 1 dose today. PAST MEDICAL HISTORY:See Below PAST SURGICAL HISTORY:See Below FAMILY HISTORY:See Below SOCIAL HISTORY:See Below HOME MEDICATIONS:See Below ALLERGIES:See Below VITALS:See Below PHYSICAL EXAMINATION: GENERAL: alert, well appearing, well nourished, no distress, non-toxic EYE EXAM: normal conjunctiva, PERRL and EOM's grossly intact OROPHARYNX: no exudate, no erythema, lips, buccal mucosa, and tongue normal and mucous membranes are moist NECK: supple, no nuchal rigidity, no adenopathy, non-tender LUNGS: Coarse bilaterally to auscultation. Normal chest wall mechanics, no r/r, scattered end expiratory wheeze HEART: no murmurs, S1 normal and S2 normal ABDOMEN: abdomen soft, non-tender, normo-active bowel sounds, no masses, no rebound or guarding. SKIN: no rashes, petechiae, orbruising UPPER EXTREMITIES: upper extremities are grossly normal. FROM, nml pulses b/l. LOWER EXTREMITIES: No pitting edema. FROM, nml pulses b/l. NEURO EXAM: Normal sensorium, cranial nerves II-XII grossly intact, normal speech, no facial droop,nogross weakness of arms, no gross weakness of legs. Gross sensation intact. No ataxia. Vital Signs: reviewed and remarkable Differential Diagnosis: pneumonia, bronchitis, COPD/Asthma exacerbation, pneumothorax, pulmonary embolism, congestive heart failure, acute coronary syndrome, as well as others were considered MEDICAL DECISION MAKING: This is an 89-year-old female who presents emergency room due to concern for increased weakness, increased difficulty breathing, decreased appetite, and lightheadedness. Patient was seen evaluated acute care earlier today and started on prednisone and an antibiotic but does not recall which one. Patient does have a history of COPD. Labs are drawn and sent, IV established, EKG and chest x-ray performed at bedside interpreted me and patient monitored on telemetry. Nasal swab obtained and sent for viral respiratory panel additionally. Patient given a duoneb here. Patient's chest x-ray without obvious pulmonary edema or focal consolidation. Patient noted to have a borderline troponin level which I suspect is due to increased work of breathing and demand. BNP also elevated though no overt findings on physical exam of CHF. Respiratory panel was negative. Patient noted to have elevated creatinine however this appears stable compared to prior. Patient was noted to have leukocytosis as well as elevated procalcitonin. Due to advanced age and comorbidities as well as general systemic symptoms and patient living alone, I am concerned for worsening infection. Patient started on IV antibiotics additionally. Given she had just taken prednisone earlier in the day I did not give her additional IV Solu-Medrol. I discussed all results with patient and a friend at bedside. She verbalized understanding. Case discussed with the hospitalist team additionally. Consultation(s): 2309: Discussed with Dr. Lindsay, [facility] hospitalist team, for additional evaluation and management. ER Treatment Provided: See below Diagnostics Interpreted By Me: -ECG: Normal sinus at 84, leftward axis, normal intervals, nonspecific ST/T wave changes -Cardiac Monitoring: An order was placed for continuous cardiac monitoring. The monitor shows a rate of 78 with normal sinus rhythm. -Laboratory studies: As stated above and show below. -Imaging studies: X-ray Chest: A single view study of the chest was reviewed and was negative for cardiomegaly, focal infiltrate, effusion, pulmonary edema, or wide mediastinum. Rib hardware noted. Triage Nursing Note Reviewed Prior/Outside Records Reviewed Past Med/Surg History Problem List (Updated 04/29/24 @ 23:44 by Monik Rodríguez DO) Acute exacerbation of chronic obstructive pulmonary disease (COPD) (Acute) Dysphagia Leukocytosis Hyponatremia Diarrhea COPD exacerbation Generalized weakness (Acute) Dyspnea (Acute) Dehydration (Acute) Esophageal obstruction (Acute) Anemia (Acute) UTI (urinary tract infection) HTN (hypertension) Renal artery stenosis, [place], bilateral GI bleed Dysphagia Anemia Hematuria, microscopic Renal cyst Gross hematuria Hypomagnesemia Hypercalcemia Stage 3b chronic kidney disease Left carotid stenosis Acute kidney injury Dyslipidemia (Chronic) Hypertension, benign (Chronic) Personal history of tobacco use, presenting hazards to health (Chronic) Right renal artery stenosis (Chronic) Vitamin D deficiency (Chronic) Medical History Glaucoma Dyslipidemia Left carotid stenosis Dysphagia History of stent insertion of renal artery states reason for plavix HTN (hypertension) follows w/ Dr Meza, [facility] History of GI bleed Esophageal obstruction recent hospitalization, reason for upcoming procedure Renal artery stenosis, [place], bilateral UTI (urinary tract infection) Recent UTI, completed abx Anemia recent blood transfusion (09/2023) [facility] CKD (chronic kidney disease) "one functioning kidney"- follows w/ Dr Colvin History of diverticulitis COPD (chronic obstructive pulmonary disease) well controlled w/ daily inhaler Surgical History Hx of colonoscopy Hx of hysterectomy History of thoracic surgery History of section X3 History of hip replacement Right Social History Smoking Status: Former smoker Tobacco Type: Cigarettes Second Hand Exposure: No; Do You Dip or Chew Tobacco: No; Hx Alcohol Use: Yes Alcohol type: beer Hx Substance Use: No Preferred Language: Qatari Communication Ability: Effective [place] 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 Beliefs That Will Affect Care: Jewish Jewish Beliefs: Islam Current Living Situation: Family Current Living Situation Comment: 2 daughters and grandson Feels Safe at Home: Yes Assistive Devices: Nebulizer Allergies Allergies Allergy/AdvReac Type Severity Reaction Status Date / Time Iodinated Contrast Media Allergy Unknown Anaphylaxis Verified 10/11/23 15:23 [Iodinated Contrast- Oral and IV Dye] Home Meds Home Medications Medication Instructions Recorded Confirmed dorzolamide 2 % eye drops 1 drops ophthalmic (eye) BID 10/29/18 04/28/24 latanoprost 0.005 % eye drops 1 drops ophthalmic (eye) QPM 10/29/18 04/28/24 sertraline 50 mg tablet 50 mg PO QAM #30 tabs 10/29/18 04/28/24 acetaminophen 500 mg tablet 500 mg PO Q6H PRN Pain 05/27/19 04/28/24 (Tylenol Extra Strength) metoprolol tartrate 25 mg tablet 25 mg PO QAM 05/27/19 04/28/24 aspirin 81 mg chewable tablet 81 mg PO DAILY 11/28/19 04/28/24 simvastatin 20 mg tablet 20 mg PO QAM 11/28/19 04/28/24 clopidogrel 75 mg tablet 75 mg PO DAILY 06/08/20 04/28/24 hydralazine 50 mg tablet 50 mg PO BID 09/27/21 04/28/24 fluticasone fur. 100 mcg-umeclid 1 inh inhalation QAM 10/06/23 04/28/24 62.5 mcg-vilant 25 mcg inhalat.powder (Trelegy Ellipta) ondansetron 4 mg disintegrating 4 mg PO DIRECTED PRN Nausea 10/06/23 04/28/24 tablet esomeprazole magnesium 20 mg 20 mg PO DAILY 10/31/23 04/28/24 capsule,delayed release (Nexium) Previous Rx's Medication Instructions Recorded potassium chloride 15 mEq 15 meq PO DAILY #90 tabs 10/31/23 tablet,extended release(part/cryst) (Klor-Con M) Results & Data (ED) Vital Signs Vital Signs - 24 hr 04/28/24 20:15 04/28/24 20:28 04/28/24 20:28 Temperature 37.1 C Temperature Source Temporal Artery Scan Pulse Rate 90 84 Pulse Rate [Apical] Respiratory Rate 18 Blood Pressure 185/65 H Blood Pressure [Right Arm] Blood Pressure Mean 105 Blood Pressure Mean [Right Arm] Blood Pressure Position [Right Arm] Pulse Oximetry 94 96 Oxygen Delivery Method Room Air Room Air Sepsis Recent Fever Within 48 Hours No Sepsis New/Unexplained Change in Mental Status No Sepsis Action Taken by Nursing No Action Required 04/28/24 21:00 04/28/24 22:12 Temperature Temperature Source Pulse Rate 77 Pulse Rate [Apical] 90 Respiratory Rate 23 Blood Pressure Blood Pressure [Right Arm] 138/71 Blood Pressure Mean Blood Pressure Mean [Right Arm] 93 Blood Pressure Position [Right Arm] Semi-fowlers Pulse Oximetry 95 94 Oxygen Delivery Method Room Air Room Air Sepsis Recent Fever Within 48 Hours Sepsis New/Unexplained Change in Mental Status Sepsis Action Taken by Nursing Laboratory Data 04/29/24 05:03 04/29/24 05:03 Lab Results 04/28/24 04/28/24 04/28/24 Range/Units 20:35 20:40 22:32 WBC 14.23 H (4.8-10.8) K/ul RBC 4.13 L (4.20-5.40) M/uL Hgb 11.8 L (12.0-16.0) g/dl Hct 37.0 (37.0-47.0) % MCV 89.6 (80.0-100.0) fL MCH 28.6 (25.0-34.0) pg MCHC 31.9 L (32.0-36.0) g/dL RDW Std Deviation 64.2 H (36.4-46.3) fL RDW Coeff of Montrell 20.1 H (11.5-14.5) % Plt Count 187 (130-400) K/uL MPV 11.4 (9.4-12.4) fL Immature Gran % (Auto) 2.3 % Neut % (Auto) 92.7 % Lymph % (Auto) 4.0 % Garvin % (Auto) 0.8 % Eos % (Auto) 0.0 % Baso % (Auto) 0.2 % Neut # (Auto) 13.18 H (1.40-6.50) K/uL Lymph # (Auto) 0.57 L (1.20-3.40) K/uL Garvin # (Auto) 0.12 (0.11-0.59) K/uL Eos # (Auto) 0.00 (0.00-0.50) K/uL Baso # (Auto) 0.03 (0.00-0.20) K/uL Immature Gran # (Auto) 0.33 H (0.01-0.20) K/uL Polychromasia 1+ Anisocytosis Present Echinocytes 1+ Sodium 133 L (136-145) mmol/L Potassium 4.2 (3.5-5.1) mmol/L Chloride 106 (98-107) mmol/L Carbon Dioxide 17 L (21-32) mmol/L Anion Gap 10 (3-11) BUN 38 H (6-23) mg/dl Creatinine 1.69 H (0.6-1.2) mg/dl Est Cr Clr Drug Dosing 13.4 ml/min eGFR 29.05 BUN/Creatinine Ratio 22.5 H (10-20) Glucose 198 H (70-99(Fasting)) mg/dl Calcium 8.0 L (8.6-10.3) mg/dl Magnesium 1.7 (1.7-2.4) mg/dl Total Bilirubin 0.3 (0.2-1.0) mg/dl AST 27 (13-39) U/L ALT 15 (7-52) U/L Alkaline Phosphatase 76 (34-104) U/L Troponin I High Sens 17.1 H 16.0 H (0-14) pg/ml B-Natriuretic Peptide 287 H (0-100) pg/ml Total Protein 6.2 (6.0-8.3) gm/dl Albumin 3.6 (3.4-5.0) gm/dl Globulin 2.6 (2.5-4.0) gm/dl Albumin/Globulin Ratio 1.4 (0.9-2) Procalcitonin 0.66 H (0-0.5) ng/ml Adenovirus (PCR) Not Detected (NotDetected) B. pertussis DNA (PCR) Not Detected (NotDetected) B.parapertussis DNA PCR Not Detected (NotDetected) C. pneumoniae DNA (PCR) Not Detected (NotDetected) Coronavirus OC43 (PCR) Not Detected (NotDetected) Coronavirus HKU1 (PCR) Not Detected (NotDetected) Coronavirus 229E (PCR) Not Detected (NotDetected) SARS-CoV-2 (PCR) Not Detected (NotDetected) Coronavirus NL63 (PCR) Not Detected (NotDetected) Human Metapneumovir PCR Not Detected (NotDetected) Influenza Type A (PCR) Not Detected (NotDetected) Influenza Type B (PCR) Not Detected (NotDetected) M. pneumoniae (PCR) Not Detected (NotDetected) Parainfluenza 1 (PCR) Not Detected (NotDetected) Parainfluenza 2 (PCR) Not Detected (NotDetected) Parainfluenza 3 (PCR) Not Detected (NotDetected) Parainfluenza 4 (PCR) Not Detected (NotDetected) RSV (PCR) Not Detected (NotDetected) Entero/Rhino (PCR) Not Detected (NotDetected) Administered Medications Aspirin (Aspirin 81 Mg Chew) 81 mg PO DAILY [facility] Stop: 05/29/24 08:59 Last Admin: 04/29/24 08:39 Dose: 81 mg Documented By: CHICO Benzonatate (Benzonatate 100 Mg Capsule) 100 mg PO TID [facility] Stop: 05/29/24 02:04 Last Admin: 04/29/24 20:32 Dose: 100 mg Documented By: Admin: 04/29/24 13:14 Dose: 100 mg Documented By: Admin: 04/29/24 08:40 Dose: 100 mg Documented By: Admin: 04/29/24 03:59 Dose: 100 mg Documented By: JASSON Budesonide (Budesonide 0.5 Mg/2 Ml Vial (Pulmicort)) 0.5 mg NEB BIDR [facility] Stop: 05/29/24 06:59 Last Admin: 04/29/24 20:11 Dose: 0.5 mg Documented By: Admin: 04/29/24 08:16 Dose: 0.5 mg Documented By: KT Clopidogrel Bisulfate (Clopidogrel Bisulfate 75 Mg Tab) 75 mg PO DAILY [facility] Stop: 05/29/24 08:59 Last Admin: 04/29/24 08:41 Dose: 75 mg Documented By: HCICO Dorzolamide HCl (Dorzolamide Hcl 2% Oph Soln 10 Ml Btl) 1 drops OP BID [facility] Stop: 05/29/24 02:04 Last Admin: 04/29/24 21:13 Dose: 1 drops Documented By: Admin: 04/29/24 08:41 Dose: 1 drops Documented By: Admin: 04/29/24 03:59 Dose: 1 drops Documented By: JASSON Fluticasone Furoate (Fluticasone Furoate 100mcg 14 Puffs/Inhaler) 1 puffs INH DAILY [facility] Stop: 05/29/24 08:59 Last Admin: 04/29/24 08:43 Dose: 1 puffs Documented By: CHICO Guaifenesin (Guaifenesin 600 Mg Tabcr) 1,200 mg PO Q12 [facility] Stop: 05/29/24 02:04 Last Admin: 04/29/24 20:33 Dose: 1,200 mg Documented By: Admin: 04/29/24 08:42 Dose: 1,200 mg Documented By: Admin: 04/29/24 03:59 Dose: 1,200 mg Documented By: JASSON Hydralazine HCl (Hydralazine Tab 50 Mg Tab) 50 mg PO BID [facility] Stop: 05/29/24 02:04 Last Admin: 04/29/24 20:32 Dose: 50 mg Documented By: Admin: 04/29/24 08:43 Dose: 50 mg Documented By: Admin: 04/29/24 03:58 Dose: 50 mg Documented By: JASSON Doxycycline Hyclate 100 mg/ (Dextrose) 100 mls @ 50 mls/hr IV Q12H [facility] Stop: 05/04/24 11:59 Last Infusion: 04/29/24 15:11 Dose: Infused Documented By: Admin: 04/29/24 12:22 Dose: 50 mls/hr Documented By: CHICO Ceftriaxone Sodium (Rocephin) 1,000 mg in 50 mls @ 100 mls/hr IV Q24H [facility] Stop: 05/04/24 21:59 Last Infusion: 04/29/24 23:10 Dose: Infused Documented By: Admin: 04/29/24 22:37 Dose: 100 mls/hr Documented By: SARAH Latanoprost (Latanoprost 0.005% Op Soln 2.5 Ml Btl) 1 drops OP QPM [facility] Stop: 05/29/24 20:59 Last Admin: 04/29/24 21:13 Dose: 1 drops Documented By: SARAH Metoprolol Tartrate (Metoprolol Tartrate 25 Mg Tab) 25 mg PO QAM [facility] Stop: 05/29/24 08:59 Last Admin: 04/29/24 08:43 Dose: 25 mg Documented By: CHICO Ondansetron HCl (Ondansetron Inj 2 Mg/Ml 2 Ml Vial) 4 mg IV Q6H PRN PRN Reason: Nausea And Vomiting Stop: 05/29/24 02:04 Last Admin: 04/29/24 20:51 Dose: 4 mg Documented By: SARAH Pantoprazole Sodium (Pantoprazole 40 Mg Tab) 40 mg PO DAILY [facility] Stop: 05/29/24 08:59 Last Admin: 04/29/24 08:41 Dose: 40 mg Documented By: CHICO Potassium Chloride (Potassium Chloride 10 Meq Tabcr) 15 meq PO DAILY [facility] Stop: 05/29/24 08:59 Last Admin: 04/29/24 08:44 Dose: 15 meq Documented By: CHICO Sertraline HCl (Sertraline Hcl 50 Mg Tablet) 50 mg PO [facility] Stop: 05/29/24 08:59 Last Admin: 04/29/24 08:44 Dose: 50 mg Documented By: CHICO Simvastatin (Simvastatin 20 Mg Tab) 20 mg PO QAM [facility] Stop: 05/29/24 08:59 Last Admin: 04/29/24 08:44 Dose: 20 mg Documented By: CHICO Umeclidinium/Vilanterol (Umeclidinium/Vilanterol 62.5/25mcg 7 Puffs/Inhaler) 1 puffs INH DAILY [facility] Stop: 05/29/24 08:59 Last Admin: 04/29/24 08:45 Dose: 1 puffs Documented By: CHICO Discontinued Medications Albuterol (Albut/Ipratrop 3mg/0.5mg Neb 3 Ml Vial) 3 ml NEB NOW STA; Protocol Stop: 04/28/24 21:45 Last Admin: 04/28/24 22:16 Dose: 3 ml Documented By: AISLINN Albuterol (Albut/Ipratrop 3mg/0.5mg Neb 3 Ml Vial) 3 ml NEB NOW STA; Protocol Stop: 04/29/24 04:11 Last Admin: 04/29/24 04:14 Dose: 3 ml Documented By: JASSON Albuterol (Albut/Ipratrop 3mg/0.5mg Neb 3 Ml Vial) Confirm Administered Dose 3 ml .ROUTE .STK-MED ONE Stop: 04/29/24 04:13 Last Admin: 04/29/24 04:14 Dose: Not Given Documented By: JASSON Ceftriaxone Sodium (Rocephin) 2,000 mg in 50 mls @ 100 mls/hr IV NOW STA Stop: 04/28/24 22:49 Last Infusion: 04/28/24 23:15 Dose: Infused Documented By: Admin: 04/28/24 22:43 Dose: 100 mls/hr Documented By: CHARO Sodium Chloride (Nss) 500 mls @ 80 mls/hr IV .Q6H15M [facility] Stop: 04/29/24 05:29 Last Infusion: 04/29/24 04:04 Dose: Infused Documented By: Admin: 04/28/24 23:13 Dose: 80 mls/hr Documented By: JASSON Doxycycline Hyclate 100 mg/ (Dextrose) 100 mls @ 50 mls/hr IV NOW STA Stop: 04/29/24 01:06 Last Infusion: 04/29/24 02:10 Dose: Infused Documented By: Admin: 04/29/24 00:08 Dose: 50 mls/hr Documented By: JASSON Magnesium Sulfate/Dextrose (Magnesium Sulfate / D5w) 1 gm in 100 mls @ 50 mls/hr IV ONE ONE Stop: 04/29/24 01:46 Last Infusion: 04/29/24 02:10 Dose: Infused Documented By: Admin: 04/29/24 00:11 Dose: 50 mls/hr Documented By: JASSON Levalbuterol HCl (Levalbuterol 1.25 Mg/3 Ml Neb) 1.25 mg NEB Q8R [facility] Stop: 05/29/24 16:34 Last Admin: 04/29/24 17:00 Dose: 1.25 mg Documented By: [facility] Levalbuterol HCl (Levalbuterol 1.25 Mg/3 Ml Neb) 1.25 mg NEB NOW STA Stop: 04/29/24 21:14 Last Admin: 04/29/24 21:32 Dose: 1.25 mg Documented By: [facility] Imaging Data Radiologist's Impression: Chest X-Ray 04/28/24 20:36 Exam(s): XR CXR 1 VIEW EXAM: XR Chest, 1 View CLINICAL HISTORY: Reason for exam: Dyspnea. TECHNIQUE: Frontal view of the chest. COMPARISON: October 06, 2023 FINDINGS: Lungs: Slightly prominent interstitial markings in the lungs, similar to previous. No new infiltrate or consolidation is seen. Pleural space: Unremarkable. No pneumothorax. Heart: Unremarkable. No cardiomegaly. Mediastinum: Unremarkable. Normal mediastinal contour. Bones/joints: There are several fixation plates on 3 right ribs and 1 left rib, unchanged since previous. There are several old healed rib fractures bilaterally. Vasculature: The aortic arch is mildly calcified but nondilated. Upper abdomen: Unremarkable as visualized. No pneumoperitoneum under the diaphragm. IMPRESSION: Slightly prominent interstitial markings in the lungs, similar to previous. No new infiltrate or consolidation is seen. Electronically signed by: Chapin Lamb MD 04/28/24 22:26 PM Discharge Plan Visit Data Chief Complaint: Shortness of Breath/Dyspnea Stated Complaint: SOB, UPPER RESPIRATORY INFECTION, WHEEZING ED Provider: Monik Rodríguez Discharge Problem: Dyspnea, Generalized weakness, Acute exacerbation of chronic obstructive pulmonary disease (COPD) Patient Disposition: Admitted As Inpatient Discharge Instructions Interventions: ED Discharge Assessment Last Done: 04/29/24 15:09
[2024-04-28] MEDS: cefTRIAXone SODIUM 2,000 MG/50 ML BAG IV STA (22:43)
[2024-04-28 23:09] LABS: Adenovirus PCR Not Detected (NotDetected); Bordetella parapertussis PCR Not Detected (NotDetected); Bordetella pertussis PCR Not Detected (NotDetected); Chlamydia pneumoniae PCR Not Detected (NotDetected); Coronavirus 229E PCR Not Detected (NotDetected); Coronavirus CoV-2 (COVID19)PCR Not Detected (NotDetected); Coronavirus HKU1 PCR Not Detected (NotDetected); Coronavirus NL63 PCR Not Detected (NotDetected); Coronavirus OC43PCR Not Detected (NotDetected); Human Metapneumovirus PCR Not Detected (NotDetected); Influenza A PCR Not Detected (NotDetected); Influenza B PCR Not Detected (NotDetected); Mycoplasma pneumoniae PCR Not Detected (NotDetected); Parainfluenza Virus 1 PCR Not Detected (NotDetected); Parainfluenza Virus 2 PCR Not Detected (NotDetected); Parainfluenza Virus 3 PCR Not Detected (NotDetected); Parainfluenza Virus 4 PCR Not Detected (NotDetected); Respiratory Syncytial VirusPCR Not Detected (NotDetected); Rhinovirus/Enterovirus PCR Not Detected (NotDetected)
[2024-04-28] MEDS: SODIUM CHLORIDE 0.9% 500 ML IV SCH (23:13)
[2024-04-28] MEDS ORDERED: SODIUM CHLORIDE 0.9% 1,000 ML IV SCH (23:15)
--- NOTE | 2024-04-28 23:15 | History & Physical Report ---
Date of Service April 28, 2024 Assessment & Plan (1) COPD exacerbation: (2) Diarrhea: (3) Hyponatremia: (4) Hypomagnesemia: (5) Leukocytosis: (6) Anemia: (7) Dysphagia: Plan Patient is a 89 y/o female with a PMHx of COPD, CKD, hx GI bleed, iron deficency anemia, dysphagia, CADE s/p bl stenting, HTN. Patient was evaluated at urgent care in [facility] and prescribed doxycycline and prednisone, which she took 1 dose of at home. She presented to the ED due to worsening dyspnea and cough. She is being admitted for a COPD exacerbation. #copd exacerbation 10-adex-medt history, quit 15 years ago CXR negative, nonhypoxic on admission procal 0.66, BNP 287 discontinue Rocephin and stop does not appear to be pneumonia on admission Continue home inhalers Continue with doxycycline IV 100 mg Q12h for atypical and anti-inflammatory coverage Pulmicort Respules 0.5 BID flutter valve QID, incentive spirometry, Mucinex, Tessalon perles sputum cultures ordered Promote oral hydration - will continue IV fluids at 80 mL/hour started in ED x 1 bag oxygen prn for O2 <92% #diarrhea Bio fire negative Stool cultures ordered has had recent antibiotic use with levofloxacin approximately 1 month ago for pneumonia #electrolyte abnormalities NA 133, Mg 1.7, K+ 4.2 (WNL) Likely 2/2 decreased p.o. intake and diarrhea 1G IV mag ordered promote oral hydration Trend BMP and mag #leukocytosis WBC 14.23 on admission with left shift Likely 2/2 steroid use and infection above UA and stool cultures ordered Trend CBC, anticipate to remain elevated with steroids follow blood cultures #iron deficiency anemia Patient reports 2 iron infusions in the past month Most recent transfusion 04/22 Hgb 11.8, improved from baseline Iron panel with a.m. labs #dysphagia follows with GI, EGD 10/11/2023 showed LA grade C reflux esophagitis with no bleeding, medium size hiatal hernia Patient reports was to have EGD 05/01; was holding Plavix however EGD canceled due to illness Will resume Plavix Aspiration precautions and easy to chew diet Chronic stable diagnoses: CKDstable, at baseline RASs/p bilateral stent placement (left 2005, right 2020), continue aspirin and Plavix Hypertensioncontinue metoprolol and hydralazine HLDcontinue statin VTE ppx: SCDs, recent history of GI bleed Diet: heart healthy, easy to chew Dispo: med/tele Admission and Anticipated Discharge Date Admission Date: 04/29/24 History of Present Illness Chief Complaint: dyspnea Primary Care Provider: Jt Pastrana MD Patient is a 89 y/o female with a PMHx of COPD, CKD, hx GI bleed, iron deficiency anemia, dysphagia, CADE s/p bl stenting, HTN. Patient was evaluated at urgent care in [facility] and prescribed doxycycline and prednisone, which she took 1 dose of at home. She presented to the ED due to worsening dyspnea and cough. She is being admitted for a COPD exacerbation. Patient seen at bedside with her daughter present. Following history was obtained by patient's daughter as patient is extremely hard of hearing. She stated that for the past week she has been sick with cold-like symptoms of cough, diarrhea, dyspnea, sputum production, and weakness. She is lost approximately 10 pounds because she feels as though she has been unable to eat due to nausea. She has coughing spells that cause her to gag and sometimes vomit up phlegm. She went to urgent care in [facility] and was prescribed prednisone and doxycycline which she took 1 dose of. She came into the ED because she was having severe coughing spells and gagging. She also endorses chills and night sweats for 1 week. She denies dizziness, lightheadedness, headaches, chest pain, abdominal pain, hematochezia, hematemesis, dysuria, edema. She was a former smoker of 50 years, quit 15 years ago. She denies alcohol use. She does not use oxygen at baseline. She took her morning medications but is due for her evening medications. She wishes to be full code. Patient stated that she has had 2 iron transfusions recently due to low iron. She had 1 roughly 3 weeks ago on a Monday and then had another 1 last Monday. Patient was holding her Plavix since 04/27 due to having an EGD on Monday 05/01. she has since canceled this EGD due to her illness. She stated that her dysphagia is improving however is still present - Had an EGD 10/11/2023. Allergies Allergy/AdvReac Type Severity Reaction Status Date / Time Iodinated Contrast Media Allergy Unknown Anaphylaxis Verified 10/11/23 15:23 [Iodinated Contrast- Oral and IV Dye] Home Medications Medication Instructions Recorded Confirmed Type dorzolamide 2 % eye drops 1 drops ophthalmic (eye) BID 10/29/18 04/28/24 History latanoprost 0.005 % eye drops 1 drops ophthalmic (eye) QPM 10/29/18 04/28/24 History sertraline 50 mg tablet 50 mg PO QAM #30 tabs 10/29/18 04/28/24 History acetaminophen 500 mg tablet 500 mg PO Q6H PRN Pain 05/27/19 04/28/24 History (Tylenol Extra Strength) metoprolol tartrate 25 mg tablet 25 mg PO QAM 05/27/19 04/28/24 History aspirin 81 mg chewable tablet 81 mg PO DAILY 11/28/19 04/28/24 History simvastatin 20 mg tablet 20 mg PO QAM 11/28/19 04/28/24 History clopidogrel 75 mg tablet 75 mg PO DAILY 06/08/20 04/28/24 History hydralazine 50 mg tablet 50 mg PO BID 09/27/21 04/28/24 History fluticasone fur. 100 mcg-umeclid 1 inh inhalation QAM 10/06/23 04/28/24 History 62.5 mcg-vilant 25 mcg inhalat.powder (Trelegy Ellipta) ondansetron 4 mg disintegrating 4 mg PO DIRECTED PRN Nausea 10/06/23 04/28/24 History tablet esomeprazole magnesium 20 mg 20 mg PO DAILY 10/31/23 04/28/24 History capsule,delayed release (Nexium) potassium chloride 15 mEq 15 meq PO DAILY #90 tabs 10/31/23 04/28/24 Rx tablet,extended release(part/cryst) (Klor-Con M) Past Med/Surg History Problem List (Updated 05/02/24 @ 18:20 by Reid Kay MD) Leukemoid reaction Acidosis, metabolic Hiatal hernia Abnormal CT scan, chest Shortness of breath at rest Community acquired pneumonia Aspergillus Acute exacerbation of chronic obstructive pulmonary disease (COPD) (Acute) Dysphagia Leukocytosis Hyponatremia Diarrhea COPD exacerbation Generalized weakness (Acute) Dyspnea (Acute) Dehydration (Acute) Esophageal obstruction (Acute) Anemia (Acute) UTI (urinary tract infection) HTN (hypertension) Renal artery stenosis, [place], bilateral GI bleed Dysphagia Anemia Hematuria, microscopic Renal cyst Gross hematuria Hypomagnesemia Hypercalcemia Stage 3b chronic kidney disease Left carotid stenosis Acute kidney injury Dyslipidemia (Chronic) Hypertension, benign (Chronic) Personal history of tobacco use, presenting hazards to health (Chronic) Right renal artery stenosis (Chronic) Vitamin D deficiency (Chronic) Medical History Glaucoma Dyslipidemia Left carotid stenosis Dysphagia History of stent insertion of renal artery states reason for plavix HTN (hypertension) follows w/ Dr Meza, [facility] [place] History of GI bleed Esophageal obstruction recent hospitalization, reason for upcoming procedure Renal artery stenosis, [place], bilateral UTI (urinary tract infection) Recent UTI, completed abx Anemia recent blood transfusion (09/2023) [facility] CKD (chronic kidney disease) "one functioning kidney"- follows w/ Dr Colvin History of diverticulitis COPD (chronic obstructive pulmonary disease) well controlled w/ daily inhaler Surgical History Hx of colonoscopy Hx of hysterectomy History of thoracic surgery History of section X3 History of hip replacement Right Social History Smoking Status: Former smoker Tobacco Type: Cigarettes Second Hand Exposure: No; Do You Dip or Chew Tobacco: No; Hx Alcohol Use: Yes Alcohol type: beer Hx Substance Use: No Preferred Language: Latvian Communication Ability: Effective Pulley Maintainer Required: No Beliefs That Will Affect Care: Yarsanism Yarsanism Beliefs: Sabianist Current Living Situation: Family Current Living Situation Comment: 2 daughters and grandson Feels Safe at Home: Yes Assistive Devices: Nebulizer Review of Systems Review of Systems: see hpi Physical Exam Physical Exam: The patient is awake, alert and oriented 3, well developed and well nourished, normocephalic and atraumatic, in no acute distress. Non-toxic appearing. HEENT- EOMI, mucous membranes moist. Hearing grossly intact. Heart-normal S1 and S2. No murmurs, rubs or gallops. Lungs-diffuse wheezing, no respiratory distress, no accessory muscle use. Abdomen-normal bowel sounds and soft. No ascites noted. Non-tender. Extremities- no clubbing, cyanosis, or edema. Rheumatologic-normal range of motion. Psychiatric-normal affect. Results & Data Results & Data Vital Signs (Past 12 Hours) Vital Signs Temp Pulse Pulse Resp BP BP Pulse Ox 04/28/24 22:12 90 23 138/71 94 04/28/24 21:00 77 95 04/28/24 20:28 84 04/28/24 20:28 96 04/28/24 20:15 37.1 C 90 18 185/65 H 94 O2 Del Method 04/28/24 22:12 Room Air 04/28/24 21:00 Room Air 04/28/24 20:28 04/28/24 20:28 Room Air 04/28/24 20:15 Room Air Laboratory Results Reviewed CBC, CMP, Pro-Deondre, bio fire, troponin, mag Diagnostic Findings reviewed cxr ECG Additional Comments: ordered Code Status & VTE Plan Code Status full VTE Prophylaxis Plan VTE Prophylaxis will be ordered: Yes Supervising Physician Co-Signing Physician Notes Attending addendum: I have physically seen this patient, have supervised the NEYDA's activities, and agree with the H&P unless as otherwise noted. Assessment and Plan: The patient is a 89-year-old female with past medical history including COPD, CKD, history of GI bleed, iron deficiency anemia, dysphagia, CADE status post bilateral stenting, and hypertension. She was initially seen at urgent care in [place] today and was prescribed doxycycline and prednisone, of which she took 1 dose at home earlier today. She presents to the emergency department due to worsening dyspnea, productive cough, [facility] and upper respiratory infection. #COPD exacerbation/URI- History of tobacco use, [id number]-[id number] history, quit 15 years previously Chest x-ray without acute findings, does show significant COPD with emphysema Given ceftriaxone empirically in the ED, which will cover her for 24 hours and follow symptoms Continue usual home inhalers Doxycycline 100 mg IV every 12 hours Pulmicort Respules 0.5 mg inhaled twice daily Flutter valve, incentive spirometry, Mucinex and Tessalon Perles as noted Follow sputum culture and sensitivity Goal oxygen supplementation to pulse ox 90-92% #Diarrhea/loose stools- Stool BioFire negative Cultures pending C. difficile pending #Chronic medical conditions: Iron deficiency anemia.Routinely getting iron infusions, have get to the past month.Present hemoglobin 11.8 CADE-status post bilateral stent placement left 2005, right 2020, continuing aspirin and Plavix Hyperlipidemia-continue simvastatin Remaining orders and notations as noted PG Care Time/CCT Total # of Minutes Spent Total Time Spent with Patient: Total time spent is greater than 50% in coordination of care (as documented) at patient's floor/unit and/or counseling patient: Coding Level of Care Code 86903 INT INP/OBS CARE 3/75MIN Diagnoses COPD exacerbation J44.1 Diarrhea R19.7 Hyponatremia E87.1 Hypomagnesemia E83.42 Leukocytosis D72.829 Anemia D64.9 Dysphagia R13.10
[2024-04-29] MEDS: DOXYCYCLINE HYCLATE 100 MG in DEXTROSE 5% MINI-B 100 ML IV STA (00:08)
[2024-04-29] MEDS: MAGNESIUM SULFATE / D5W 1 GM/100 ML BAG IV ONE (00:11)
[2024-04-29] MEDS: hydrALAZINE TAB 50 MG TAB PO SCH (03:58)
[2024-04-29] MEDS: DORZOLAMIDE HCL 2% OPH SOLN 10 ML BTL OP SCH (03:59)
[2024-04-29] MEDS: BENZONATATE 100 MG CAPSULE PO SCH (03:59)
[2024-04-29] MEDS: guaiFENesin 600 MG TABCR PO SCH (03:59)
[2024-04-29] MEDS: ALBUT/IPRATROP 3MG/0.5MG NEB 3 ML VIAL NEB STA (04:14)
[2024-04-29] MEDS: ALBUT/IPRATROP 3MG/0.5MG NEB 3 ML VIAL ONE (04:14)
[2024-04-29 05:10] LABS: Basophils # (auto) 0.03 K/uL (0.00-0.20); Basophils % (auto) 0.2 %; Hematocrit (blood only) 34.5 % (37.0-47.0); Hemoglobin 11.2 g/dl (12.0-16.0); Immature Granulocytes # (auto) 0.35 K/uL (0.01-0.20); Lymphocytes # (auto) 1.02 K/uL (1.20-3.40); Lymphocytes % (auto) 5.9 %; Mean Corpuscular Hemoglobin 28.6 pg (25.0-34.0); Mean Corpuscular Hgb Conc 32.5 g/dL (32.0-36.0); Mean Corpuscular Volume 88.2 fL (80.0-100.0); Mean Platelet Volume 10.2 fL (9.4-12.4); Monocytes # (auto) 0.58 K/uL (0.11-0.59); Monocytes % (auto) 3.3 %; Neutrophils # (auto) 15.36 K/uL (1.40-6.50); Neutrophils % (auto) 88.6 %; Platelet Count 162 K/uL (130-400); RDW Coefficient of Variation 19.9 % (11.5-14.5); RDW Standard Deviation 62.4 fL (36.4-46.3); Red Blood Count 3.91 M/uL (4.20-5.40); White Blood Count 17.34 K/ul (4.8-10.8)
[2024-04-29 06:34] LABS: Anion Gap 8 (3-11); BUN Creatinine Ratio 24.6 (10-20); Blood Urea Nitrogen 32 mg/dl (6-23); Carbon Dioxide 18 mmol/L (21-32); Chloride 107 mmol/L (98-107); Creatinine Clr Calc Pharmacy 17.5 ml/min; Glucose 125 mg/dl (70-99(Fasting)); Magnesium 2.2 mg/dl (1.7-2.4); Potassium 4.5 mmol/L (3.5-5.1); Sodium 133 mmol/L (136-145); Total Iron Binding Cap Calc 157 mcg/dl (250-450); Transferrin 112 mg/dl (200-360)
[2024-04-29] MEDS: BUDESONIDE 0.5 MG/2 ML VIAL (PULMICORT) NEB SCH (08:16)
[2024-04-29] MEDS: ASPIRIN 81 MG CHEW PO SCH (08:39)
[2024-04-29] MEDS: CLOPIDOGREL BISULFATE 75 MG TAB PO SCH (08:41)
[2024-04-29] MEDS: PANTOprazole 40 MG TAB PO SCH (08:41)
[2024-04-29] MEDS: FLUTICASONE FUROATE 100MCG 14 PUFFS/INHALER INH SCH (08:43)
[2024-04-29] MEDS: METOPROLOL TARTRATE 25 MG TAB PO SCH (08:43)
[2024-04-29] MEDS: SERTRALINE HCL 50 MG TABLET PO SCH (08:44)
[2024-04-29] MEDS: POTASSIUM CHLORIDE 10 MEQ TABCR PO SCH (08:44)
[2024-04-29] MEDS: SIMVASTATIN 20 MG TAB PO SCH (08:44)
[2024-04-29] MEDS: UMECLIDINIUM/VILANTEROL 62.5/25MCG 7 PUFFS/INHALER INH SCH (08:45)
[2024-04-29] MEDS ORDERED: NON-FORMULARY MEDICATION (Fluticasone-Umeclidin-Vilanter [Trelegy Ellipta] 100-62.5-25 mcg INH SCH (09:00)
[2024-04-29 09:06] LABS: Appearance Urine Clear (Clear); Bacteria Urine Automated None Seen (None Seen); Bilirubin Urine Negative (Negative); Blood Urine Negative (Negative); Cast Urine Automated 0-2 /lpf (0-2); Color Urine Yellow; Epithelial Cell Urine Auto 0-2 /hpf (0-2); Glucose Urine UA Negative (Negative); Ketones Urine Negative (Negative); Leukocyte Esterase Urine Negative (Negative); Nitrite Urine Negative (Negative); Protein Urine 1+ (Negative); RBC Urine Automated 0-2 /hpf (0-2); Specific Gravity Urine 1.016 (1.000-1.030); Urobilinogen Urine Negative (Negative); WBC Urine Automated 0-5 /hpf (0-5)
[2024-04-29] MEDS: DOXYCYCLINE HYCLATE 100 MG in DEXTROSE 5% MINI-B 100 ML IV SCH (12:22)
--- NOTE | 2024-04-29 12:30 | XRay Report ---
KUB HISTORY: diarrhea/leukocytosis/concern for fecal rentention COMPARISON STUDY: None FINDINGS: Single view of the abdomen demonstrates a nonspecific bowel gas pattern. No evidence of obs truction or impaction. Scattered gas and fecal debris is identified throughout a nondistended colon. There is severe degenerative change throughout the thoracic and lumbar spine. A right hip replacement is noted. IMPRESSION: Nonspecific bowel gas pattern. ACT 112: Negative or not required by law. The above report was generated using voice recognition software. It may contain grammatical, syntax o r spelling errors. Electronically signed by: Kayla Amaro M.D. 04/29/2024 12:29 PM
--- NOTE | 2024-04-29 13:00 | Electrocardiogram Report ---
Test Reason : Blood Pressure : */* mmHG Vent. Rate : 84 BPM Atrial Rate : 84 BPM P-R Int : 118 ms QRS Dur : 88 ms QT Int : 406 ms P-R-T Axes : 80 -36 77 degrees QTcB Int : 479 ms Sinus rhythm with Premature supraventricular complexes Left axis deviation Abnormal ECG No previous ECGs available Confirmed by Ziggy Fay ([id number]) on 04/29/2024 1:00:30 PM Referred By: REFERRED SELF Confirmed By: Ziggy Fay
[2024-04-29] MEDS: LEVALBUTEROL 1.25 MG/3 ML NEB NEB SCH (17:00)
[2024-04-29] MEDS: ONDANSETRON INJ 2 MG/ML 2 ML VIAL IV PRN (20:51)
[2024-04-29] MEDS: LATANOPROST 0.005% OP SOLN 2.5 ML BTL OP SCH (21:13)
[2024-04-29] MEDS: LEVALBUTEROL 1.25 MG/3 ML NEB NEB STA (21:32)
--- NOTE | 2024-04-29 21:45 | Hospitalist Progress Note ---
Date of Service April 29, 2024 Assessment & Plan (1) COPD exacerbation: (2) Diarrhea: (3) Hyponatremia: (4) Hypomagnesemia: (5) Leukocytosis: (6) Anemia: (7) Dysphagia: Plan Patient is a 89 y/o female with a PMHx of COPD, CKD, hx GI bleed, iron deficency anemia, dysphagia, CADE s/p bl stenting, HTN. Patient was evaluated at urgent care in [facility] and prescribed doxycycline and prednisone, which she took 1 dose of at home. She presented to the ED due to worsening dyspnea and cough. She is being admitted for a COPD exacerbation. #copd exacerbation [id number]-xpyc history, quit 15 years ago CXR negative, nonhypoxic on admission procal 0.66, BNP 287 Continue home inhalers As patient continues to have wheezing, added rocephin and initiated xopenex. Continue with doxycycline IV 100 mg Q12h for atypical and anti-inflammatory coverage Pulmicort Respules 0.5 BID flutter valve QID, incentive spirometry, Mucinex, Tessalon perles sputum cultures ordered Promote oral hydration - will continue IV fluids at 80 mL/hour started in ED x 1 bag oxygen prn for O2 <92% Now requiring 2 liters nasal cannula. #diarrhea Bio fire negative Stool cultures ordered has had recent antibiotic use with levofloxacin approximately 1 month ago for pneumonia #electrolyte abnormalities NA 133, Mg 1.7, K+ 4.2 (WNL) Likely 2/2 decreased p.o. intake and diarrhea improved. #leukocytosis WBC 14.23 on admission with left shift Likely 2/2 steroid use and infection above UA and stool cultures ordered Trend CBC, anticipate to remain elevated with steroids follow blood cultures #iron deficiency anemia Patient reports 2 iron infusions in the past month Most recent transfusion 04/22 Hgb 11.8, improved from baseline #dysphagia follows with GI, EGD 10/11/2023 showed LA grade C reflux esophagitis with no bleeding, medium size hiatal hernia Patient reports was to have EGD 05/01; was holding Plavix however EGD canceled due to illness Will resume Plavix Aspiration precautions and easy to chew diet Chronic stable diagnoses: CKDstable, at baseline RASs/p bilateral stent placement (left 2005, right 2020), continue aspirin and Plavix Hypertensioncontinue metoprolol and hydralazine HLDcontinue statin VTE ppx: SCDs, recent history of GI bleed Diet: heart healthy, easy to chew Dispo: med/tele Admission and Anticipated Discharge Date Admission Date: April 28, 2024 Subjective 89 yo female reports continuing to have SOB. Physical Exam Physical Exam: The patient is awake, alert and oriented 3, well developed and well nourished, normocephalic and atraumatic, in no acute distress. Non-toxic appearing. HEENT- EOMI, mucous membranes moist. Hearing grossly intact. Heart-normal S1 and S2. No murmurs, rubs or gallops. Lungs-diffuse wheezing, no respiratory distress, no accessory muscle use. Abdomen-normal bowel sounds and soft. No ascites noted. Non-tender. Extremities- no clubbing, cyanosis, or edema. Rheumatologic-normal range of motion. Psychiatric-normal affect. Results & Data Results & Data Vital Signs (Past 12 Hours) Vital Signs Temp Pulse Pulse Pulse Resp BP BP 04/29/24 21:35 102 H 22 04/29/24 20:13 92 H 18 04/29/24 19:18 36.8 C 94 H 20 185/75 H 04/29/24 17:01 84 18 04/29/24 15:41 36.6 C 78 18 160/77 H 04/29/24 15:33 04/29/24 15:09 75 19 144/75 H 04/29/24 14:12 77 23 04/29/24 14:09 79 23 04/29/24 14:00 137/63 04/29/24 13:49 143/75 H 04/29/24 13:49 78 20 143/75 H 04/29/24 13:42 81 23 04/29/24 13:21 83 30 H 04/29/24 13:09 94 H 20 04/29/24 12:54 81 21 04/29/24 12:45 78 23 04/29/24 12:30 79 24 04/29/24 12:12 76 04/29/24 12:00 77 19 137/72 04/29/24 11:51 72 18 04/29/24 11:42 72 23 04/29/24 11:24 73 21 04/29/24 11:12 73 20 04/29/24 11:03 74 21 04/29/24 10:54 77 31 H 04/29/24 10:42 82 24 04/29/24 10:39 76 22 04/29/24 10:00 83 26 H 04/29/24 09:48 83 25 H Pulse Ox O2 Del Method O2 Flow Rate 04/29/24 21:35 96 Nasal Cannula 2 04/29/24 20:13 93 Room Air 04/29/24 19:18 93 Room Air 04/29/24 17:01 93 Room Air 04/29/24 15:41 93 Room Air 04/29/24 15:33 Room Air 04/29/24 15:09 93 Room Air 04/29/24 14:12 93 04/29/24 14:09 93 04/29/24 14:00 04/29/24 13:49 04/29/24 13:49 93 Room Air 04/29/24 13:42 04/29/24 13:21 94 Room Air 04/29/24 13:09 04/29/24 12:54 04/29/24 12:45 04/29/24 12:30 04/29/24 12:12 94 04/29/24 12:00 93 04/29/24 11:51 93 04/29/24 11:42 93 04/29/24 11:24 93 04/29/24 11:12 93 04/29/24 11:03 93 04/29/24 10:54 93 04/29/24 10:42 93 04/29/24 10:39 93 04/29/24 10:00 93 04/29/24 09:48 93 PG Care Time/CCT Total # of Minutes Spent Total Time Spent with Patient: Total time spent is greater than 50% in coordination of care (as documented) at patient's floor/unit and/or counseling patient: Coding Level of Care Code 95196 SUB INP/OBS CARE 3/50MIN Diagnoses COPD exacerbation J44.1 Diarrhea R19.7 Hyponatremia E87.1 Hypomagnesemia E83.42 Leukocytosis D72.829 Anemia D64.9 Dysphagia R13.10
[2024-04-29] MEDS: cefTRIAXone SODIUM 1,000 MG/50 ML BAG IV SCH (22:37)
[2024-04-29 23:52] LABS: Adenovirus F 40/41 PCR Not Detected (NotDetected); Astrovirus PCR Not Detected (NotDetected); Campylobacter PCR Not Detected (NotDetected); Cryptosporidium PCR Not Detected (NotDetected); Cyclospora cayetanensis PCR Not Detected (NotDetected); Entamoeba histolytica PCR Not Detected (NotDetected); Enteroaggregative E.coli(EAEC) Not Detected (NotDetected); Enteropathogenic E.coli (EPEC) Not Detected (NotDetected); Enterotoxigenic E.coli (ETEC) Not Detected (NotDetected); Giardia lamblia PCR Not Detected (NotDetected); Norovirus GI/GII PCR Not Detected (NotDetected); Plesiomonas shigelloides PCR Not Detected (NotDetected); Rotavirus A PCR Not Detected (NotDetected); Salmonella PCR Not Detected (NotDetected); Sapovirus PCR Not Detected (NotDetected); Shiga-like Toxin E.coli (STEC) Not Detected (NotDetected); Shigella/Enteroinvasive E.coli Not Detected (NotDetected); Vibrio cholerae PCR Not Detected (NotDetected); Vibrio species PCR Not Detected (NotDetected); Yersinia enterocolitica PCR Not Detected (NotDetected)
[2024-04-30 06:35] LABS: Calcium 7.9 mg/dl (8.6-10.3); Potassium 4.1 mmol/L (3.5-5.1)
[2024-04-30 06:40] LABS: BUN Creatinine Ratio 24.6 (10-20); C Reactive Protein 13.35 mg/dl (0-0.5); Creatinine Clr Calc Pharmacy 16.5 ml/min
[2024-04-30] MEDS: LEVALBUTEROL 1.25 MG/3 ML NEB NEB SCH (07:11)
[2024-04-30 07:39] LABS: Hematocrit (blood only) 34.5 % (37.0-47.0); Hemoglobin 10.8 g/dl (12.0-16.0); Mean Corpuscular Hemoglobin 28.1 pg (25.0-34.0); Mean Corpuscular Hgb Conc 31.3 g/dL (32.0-36.0); Mean Corpuscular Volume 89.6 fL (80.0-100.0); Mean Platelet Volume 10.6 fL (9.4-12.4); Platelet Count 217 K/uL (130-400); RDW Coefficient of Variation 20.8 % (11.5-14.5); RDW Standard Deviation 65.5 fL (36.4-46.3); Red Blood Count 3.85 M/uL (4.20-5.40); White Blood Count 26.25 K/ul (4.8-10.8)
[2024-04-30 08:00] LABS: Basophils # (auto) 0.07 K/uL (0.00-0.20); Basophils % (auto) 0.3 %; Echinocytes 1+; Immature Granulocytes # (auto) 0.49 K/uL (0.01-0.20); Immature Granulocytes % (auto) 1.9 %; Lymphocytes # (auto) 1.07 K/uL (1.20-3.40); Lymphocytes % (auto) 4.1 %; Monocytes # (auto) 1.53 K/uL (0.11-0.59); Monocytes % (auto) 5.8 %; Neutrophils # (auto) 23.09 K/uL (1.40-6.50); Neutrophils % (auto) 87.9 %
[2024-04-30] MEDS ORDERED: methylPREDNISolone 125 MG/2 ML VIAL IV STA (08:30)
[2024-04-30] MEDS: ACETAMINOPHEN 325 MG TAB PO PRN (08:56)
--- NOTE | 2024-04-30 08:56 | XRay Report ---
XR chest 1V portable CLINICAL HISTORY: Hypoxia. Wheezing. COMPARISON STUDY: Chest radiograph April 28, 2024. FINDINGS: Old rib fractures are incidentally noted. Plate and screw fixation of several ribs is prese nt. There is no pneumothorax or pleural effusion. There is no evidence for pulmonary edema. Cardiomed iastinal silhouette is unremarkable. Hazy right infrahilar opacity has developed. Left lung is clear. IMPRESSION: Interval development of right infrahilar hazy opacity. This favors pneumonia. ACT 112: Negative or not required by law. Electronically signed by: Rahul Marinelli M.D. 04/30/2024 8:53 AM
[2024-04-30] MEDS: CEFEPIME 2000MG 2,000 MG/20 ML SYR IV STA (09:21)
[2024-04-30] MEDS: methylPREDNISolone 60 MG in SYRINGE 0 ML IV STA (09:21)
--- NOTE | 2024-04-30 15:03 | Infectious Disease Consult ---
Date of Consultation April 30, 2024 Assessment & Plan (1) Aspergillus: (2) Acute exacerbation of chronic obstructive pulmonary disease (COPD): (3) Stage 3b chronic kidney disease: Plan 89yo F with h/o COPD, CKD III, dysphagia, renal artery stenosis s/p stent, right hip replacement who presented on 04/28 with worsening SOB and cough. For the past week, she had been sick with cold-like symptoms including significant cough with post-tussive emesis, diarrhea, dyspnea and weakness. She was seen at an urgent care in [place] where she was prescribed doxycycline and prednisone and took 1 dose of before she came to the ED due to severe coughing spells and gagging. Also has had chills and night sweats x 1 week. On admission, she was afebrile, tachycardic, BP stable, O2 sat mid-90s on 2L NC. Initial labs with WBC 14.23, Cr 1.69. Troponin elevated, CRP 14.28. PCT 0.66. UA negative. RPP negative. GIPP negative. CXR with slightly prominent interstitial markings in the lungs similar to previous, no new infiltrate or consolidation. KUB negative. She was initially given CTX and doxycycline and admitted for COPD exacerbation, for which she was continued on doxy alone. On the morning of 04/30, she became more dyspneic per RN and was tripoding. CXR on 04/30 with interval development of right infrahilar opacity favoring PNA. Abx broadened with cefepime, given a dose of solumedrol. WBC increased to 26.25 and sputum cx resulted with Aspergillus spp. ID was consulted 04/30 for further assistance. Telepresenter unavailable at this time. Aspergillus can often colonize the airways, especially in patients with chronic lung disease, though this population is also at risk for aspergillus infection. She doesnt have prior CT chest in the system to assess for consistent changes. And the chronicity of her symptoms is also unclear to me at the moment. Since she is currently clinically doing well, will continue on current abx and obtain additional studies for workup of Aspergillus. # Sputum cx with Aspergillus # COPD exacerbation # CKD III - please obtain high resolution CT chest - Helen ordered serum Aspergillus Ag and serum beta-d glucan - Helen also ordered urine legionella for bacterial PNA workup - continue on current regimen with doxycycline and cefepime - if she develops any clinical instability or requires higher level of care, then please contact ID - I will see her with telepresenter tomorrow if available ID will continue to follow. If questions or concerns, contact via TigerText or Infectious Disease Call Center . Moriah Yates MD [facility], Division of Infectious Diseases IDConnect: [phone] Consultation Information This patient recommendation is based on a telemedicine consult request which was completed asynchronously through chart review and information provided by the primary physician. The patient was not seen or examined today. The evaluation is consultative in nature and all patient care and treatment decisions can either be accepted or rejected by the patient's primary hospital-based treating physician using their own independent medical judgment for their patient. Trace Clerk contact information: Please call ID Connect Call Center . (Phone Number For Physician Use Only) Time Spent Reviewing Chart: 31+ minutes History of Present Illness Reason for Consultation: aspergillus in sputum cx Attending Physician: Win Leung History of Present Illness 89yo F with h/o COPD, CKD III, dysphagia, renal artery stenosis s/p stent, right hip replacement who presented on 04/28 with worsening SOB and cough. For the past week, she had been sick with cold-like symptoms including cough, diarrhea, dyspnea and weakness. She had lost 10lbs due to nausea and inability to eat, episodes of post-tussive emesis. She was seen at an urgent care in [place] where she was prescribed doxycycline and prednisone and took 1 dose of before she came to the ED due to severe coughing spells and gagging. Also has had chills and night sweats x 1 week. No chest pain, abdominal pain, dysuria. On admission, she was afebrile, tachycardic, BP stable, O2 sat mid-90s on 2L NC. Initial labs with WBC 14.23, Cr 1.69. Troponin elevated, CRP 14.28. PCT 0.66. UA negative. RPP negative. GIPP negative. CXR with slightly prominent interstitial markings in the lungs similar to previous, no new infiltrate or consolidation. KUB negative. She was initially given CTX and doxycycline and admitted for COPD exacerbation, for which she was continued on doxy alone. On the morning of 04/30, she became more dyspneic per RN and was tripoding. CXR on 04/30 with interval development of right infrahilar opacity favoring PNA. Abx broadened with cefepime, given a dose of solumedrol. WBC increased to 26.25 and sputum cx resulted with Aspergillus spp. ID was consulted 04/30 for further assistance. I was not able to see patient since no telepresenter is available. RN reports that she is doing better this afternoon after abx were broadened and after getting dose of steroids. Allergies Allergy/AdvReac Type Severity Reaction Status Date / Time Iodinated Contrast Media Allergy Unknown Anaphylaxis Verified 10/11/23 15:23 [Iodinated Contrast- Oral and IV Dye] Home Medications Medication Instructions Recorded Confirmed Type dorzolamide 2 % eye drops 1 drops ophthalmic (eye) BID 10/29/18 04/28/24 History latanoprost 0.005 % eye drops 1 drops ophthalmic (eye) QPM 10/29/18 04/28/24 History sertraline 50 mg tablet 50 mg PO QAM #30 tabs 10/29/18 04/28/24 History acetaminophen 500 mg tablet 500 mg PO Q6H PRN Pain 05/27/19 04/28/24 History (Tylenol Extra Strength) metoprolol tartrate 25 mg tablet 25 mg PO QAM 05/27/19 04/28/24 History aspirin 81 mg chewable tablet 81 mg PO DAILY 11/28/19 04/28/24 History simvastatin 20 mg tablet 20 mg PO QAM 11/28/19 04/28/24 History clopidogrel 75 mg tablet 75 mg PO DAILY 06/08/20 04/28/24 History hydralazine 50 mg tablet 50 mg PO BID 09/27/21 04/28/24 History fluticasone fur. 100 mcg-umeclid 1 inh inhalation QAM 10/06/23 04/28/24 History 62.5 mcg-vilant 25 mcg inhalat.powder (Trelegy Ellipta) ondansetron 4 mg disintegrating 4 mg PO DIRECTED PRN Nausea 10/06/23 04/28/24 History tablet esomeprazole magnesium 20 mg 20 mg PO DAILY 10/31/23 04/28/24 History capsule,delayed release (Nexium) potassium chloride 15 mEq 15 meq PO DAILY #90 tabs 10/31/23 04/28/24 Rx tablet,extended release(part/cryst) (Claudia Jack) Patient History Medical History Glaucoma Dyslipidemia Left carotid stenosis Dysphagia History of stent insertion of renal artery states reason for plavix HTN (hypertension) follows w/ Dr Meza, [facility] History of GI bleed Esophageal obstruction recent hospitalization, reason for upcoming procedure Renal artery stenosis, [place], bilateral UTI (urinary tract infection) Recent UTI, completed abx Anemia recent blood transfusion (09/2023) [facility] CKD (chronic kidney disease) "one functioning kidney"- follows w/ Dr Colvin History of diverticulitis COPD (chronic obstructive pulmonary disease) well controlled w/ daily inhaler Surgical History Hx of colonoscopy Hx of hysterectomy History of thoracic surgery History of section X3 History of hip replacement Right Social History Smoking Status: Former smoker Tobacco Type: Cigarettes Second Hand Exposure: No; Do You Dip or Chew Tobacco: No; Hx Alcohol Use: Yes Alcohol type: beer Hx Substance Use: No Preferred Language: Kiswahili Communication Ability: Effective Net Developer Required: No Beliefs That Will Affect Care: Roman Catholic Roman Catholic Beliefs: Congregation Current Living Situation: Family Current Living Situation Comment: 2 daughters and grandson Feels Safe at Home: Yes Assistive Devices: Nebulizer Results & Data Vital Signs (Past 12 Hours) Vital Signs Temp Pulse Pulse Resp BP Pulse Ox O2 Del Method 04/30/24 14:58 36.6 C 75 16 145/70 H 97 Nasal Cannula 04/30/24 14:23 74 04/30/24 11:02 Nasal Cannula 04/30/24 10:43 36.6 C 99 H 24 151/64 H 95 Nasal Cannula 04/30/24 07:16 36.7 C 104 H 26 H 177/79 H 94 Nasal Cannula 04/30/24 07:13 104 H 20 94 Nasal Cannula 04/30/24 07:00 90 O2 Flow Rate 04/30/24 14:58 2 04/30/24 14:23 04/30/24 11:02 2 04/30/24 10:43 2 04/30/24 07:16 2 04/30/24 07:13 2 04/30/24 07:00 Laboratory Results Labs reviewed. Diagnostic Findings Imaging reviewed.
--- NOTE | 2024-04-30 18:18 | Pulmonary Consultation ---
Date of Consultation April 30, 2024 Assessment & Plan (1) COPD exacerbation: (2) Community acquired pneumonia: (3) Aspergillus: Plan The patient has an acute COPD exacerbation likely secondary to community- acquired pneumonia from aspiration. Defer antibiotics to ID. Aspergillus likely colonizer. Noncontrast CT chest ordered to evaluate for atypical infectious etiology such as Aspergillus and nontuberculous Mycobacterium. Doubtful that the patient would tolerate extended antifungal treatment or treatment for nontuberculous Mycobacterium. Reasonable to pursue serum Aspergillus antigen and serum beta D glucan. Will start the patient on prednisone 30 mg daily given the COPD exacerbation. Transition from lev albuterol to DuoNebs every 6 hours. Continue budesonide. Discontinue powdered inhalers. Consider CT of the abdomen pelvis given patient's weight loss, nausea and vomiting. Will defer to primary team. Thanks for the consult. Will follow with you. History of Present Illness Attending Physician: Win Leung History of Present Illness 89-year-old female with a past medical history of renal artery stenosis, right hip replacement, CKD stage III, COPD and esophageal obstruction who presented to the hospital due to ongoing shortness of breath and cough for the past week. Patient's niece is present to indicates that the patient has been having weight loss and trouble with nausea and vomiting for several months. She was supposed to undergo an EGD, but this was delayed due to the patient's acute illness. She was treated as an outpatient for for COPD exacerbation with doxycycline and prednisone. She has a history of tobacco abuse and quit 15 years ago. 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 She drives and lives in her own home. Allergies Allergy/AdvReac Type Severity Reaction Status Date / Time Iodinated Contrast Media Allergy Unknown Anaphylaxis Verified 10/11/23 15:23 [Iodinated Contrast- Oral and IV Dye] Home Medications Medication Instructions Recorded Confirmed Type dorzolamide 2 % eye drops 1 drops ophthalmic (eye) BID 10/29/18 04/28/24 History latanoprost 0.005 % eye drops 1 drops ophthalmic (eye) QPM 10/29/18 04/28/24 History sertraline 50 mg tablet 50 mg PO QAM #30 tabs 10/29/18 04/28/24 History acetaminophen 500 mg tablet 500 mg PO Q6H PRN Pain 05/27/19 04/28/24 History (Tylenol Extra Strength) metoprolol tartrate 25 mg tablet 25 mg PO QAM 05/27/19 04/28/24 History aspirin 81 mg chewable tablet 81 mg PO DAILY 11/28/19 04/28/24 History simvastatin 20 mg tablet 20 mg PO QAM 11/28/19 04/28/24 History clopidogrel 75 mg tablet 75 mg PO DAILY 06/08/20 04/28/24 History hydralazine 50 mg tablet 50 mg PO BID 09/27/21 04/28/24 History fluticasone fur. 100 mcg-umeclid 1 inh inhalation QAM 10/06/23 04/28/24 History 62.5 mcg-vilant 25 mcg inhalat.powder (Trelegy Ellipta) ondansetron 4 mg disintegrating 4 mg PO DIRECTED PRN Nausea 10/06/23 04/28/24 History tablet esomeprazole magnesium 20 mg 20 mg PO DAILY 10/31/23 04/28/24 History capsule,delayed release (Nexium) potassium chloride 15 mEq 15 meq PO DAILY #90 tabs 10/31/23 04/28/24 Rx tablet,extended release(part/cryst) (Klor-Con M) Patient History Medical History Glaucoma Dyslipidemia Left carotid stenosis Dysphagia History of stent insertion of renal artery states reason for plavix HTN (hypertension) follows w/ Dr Meza, [facility] History of GI bleed Esophageal obstruction recent hospitalization, reason for upcoming procedure Renal artery stenosis, [place], bilateral UTI (urinary tract infection) Recent UTI, completed abx Anemia recent blood transfusion (09/2023) [facility] CKD (chronic kidney disease) "one functioning kidney"- follows w/ Dr Colvin History of diverticulitis COPD (chronic obstructive pulmonary disease) well controlled w/ daily inhaler Surgical History Hx of colonoscopy Hx of hysterectomy History of thoracic surgery History of section X3 History of hip replacement Right Social History Smoking Status: Former smoker Tobacco Type: Cigarettes Second Hand Exposure: No; Do You Dip or Chew Tobacco: No; Hx Alcohol Use: Yes Alcohol type: beer Hx Substance Use: No Preferred Language: Burundian Communication Ability: Effective Cell Tuber Machine Required: No Beliefs That Will Affect Care: Sikh Sikh Beliefs: Worship Current Living Situation: Family Current Living Situation Comment: 2 daughters and grandson Feels Safe at Home: Yes Assistive Devices: Nebulizer Review of Systems Review of Systems: All systems reviewed & are unremarkable except as noted in HPI & below Physical Exam Physical Exam: Constitutional: Elderly and frail appearing. Eyes: Pupils are equal round and reactive to light. Conjunctivae are normal. Anicteric sclera. Ears nose, mouth and throat: Mallampati class 2. Normal posterior oropharynx. Uvula is midline. Neck: Trachea is midline. Visual inspection is normal. Respiratory: Diffuse expiratory wheezing. Mild tachypnea. Cardiovascular: Regular rate and rhythm. No murmurs. No edema. Gastrointestinal: Normal bowel sounds, soft, nontender and nondistended. No hepatosplenomegaly noted. Musculoskeletal: No cyanosis. Patient is able to move all extremities. Strength is 5 out of 5 in the upper and lower extremities. Skin: No rashes, warm dry and intact. Neurologic: No obvious focal neurological deficits seen. Psychiatric: Alert and oriented x3 with a euthymic affect. Results & Data Results & Data Vital Signs (Past 12 Hours) Vital Signs Temp Pulse Pulse Resp BP Pulse Ox O2 Del Method 04/30/24 15:32 90 20 97 Nasal Cannula 04/30/24 14:58 36.6 C 75 16 145/70 H 97 Nasal Cannula 04/30/24 14:23 74 04/30/24 11:02 Nasal Cannula 04/30/24 10:43 36.6 C 99 H 24 151/64 H 95 Nasal Cannula 04/30/24 07:16 36.7 C 104 H 26 H 177/79 H 94 Nasal Cannula 04/30/24 07:13 104 H 20 94 Nasal Cannula 04/30/24 07:00 90 O2 Flow Rate 04/30/24 15:32 2 04/30/24 14:58 2 04/30/24 14:23 04/30/24 11:02 2 04/30/24 10:43 2 04/30/24 07:16 2 04/30/24 07:13 2 04/30/24 07:00 PG Care Time/CCT Total # of Minutes Spent Total Time Spent with Patient: Total time spent is greater than 50% in coordination of care (as documented) at patient's floor/unit and/or counseling patient: Coding Level of Care Code 32296 INT INP/OBS CARE Diagnoses COPD exacerbation J44.1 Community acquired pneumonia J18.9 Aspergillus B44.9
[2024-04-30] MEDS: ALBUT/IPRATROP 3MG/0.5MG NEB 3 ML VIAL NEB SCH (20:11)
[2024-04-30] MEDS: CEFEPIME 1000MG 1,000 MG/10 ML SYR IV SCH (21:08)
--- NOTE | 2024-04-30 21:09 | CT Scan Report ---
Exam(s): CT CHEST Without Contrast EXAM: CT Chest Without Intravenous Contrast CLINICAL HISTORY: Reason for exam: eval for aspergilosis or other atypical infection. TECHNIQUE: Axial computed tomography images of the chest without intravenous contrast. CTDI is 6.26 mGy and DLP is 205.14 mGy-cm. Automated exposure control was utilized for the study. A dose lowering technique was utilized adhering to the principles of ALARA. COMPARISON: No relevant prior studies available. FINDINGS: Lungs: Tree-in-bud nodularity involving all lobes consistent with nonspecific infectious/inflammatory changes.. Pleural space: No pleural effusion or pneumothorax. Heart: Unremarkable. Mediastinum: Moderate hiatal hernia. Bones/joints: No acute appearing fracture. Chronic fracture deformities in the ribs and sternum. Soft tissues: Unremarkable. Vasculature: Aortic atherosclerotic calcifications. Lymph nodes: Unremarkable. IMPRESSION: 1. Tree-in-bud nodularity involving all lobes consistent with nonspecific infectious/inflammatory changes. 2. Moderate hiatal hernia. Electronically signed by: Durga Blanton MD 04/30/24 21:08 PM
--- NOTE | 2024-04-30 22:25 | Hospitalist Progress Note ---
Date of Service April 30, 2024 Assessment & Plan (1) COPD exacerbation: (2) Diarrhea: (3) Hyponatremia: (4) Hypomagnesemia: (5) Leukocytosis: (6) Anemia: (7) Dysphagia: Plan Patient is a 89 y/o female with a PMHx of COPD, CKD, hx GI bleed, iron deficency anemia, dysphagia, CADE s/p bl stenting, HTN. Patient was evaluated at urgent care in [facility] and prescribed doxycycline and prednisone, which she took 1 dose of at home. She presented to the ED due to worsening dyspnea and cough. She is being admitted for a COPD exacerbation. #copd exacerbation [id number] history, quit 15 years ago CXR negative, nonhypoxic on admission procal 0.66, BNP 287 Continue home inhalers As patient continues to have wheezing, switched to cefepime and initiated xopenex. Continue with doxycycline IV 100 mg Q12h for atypical and anti-inflammatory cove rage Pulmicort Respules 0.5 BID flutter valve QID, incentive spirometry, Mucinex, Tessalon perles sputum cultures ordered Promote oral hydration - will continue IV fluids at 80 mL/hour started in ED x 1 bag oxygen prn for O2 <92% Cultures now growing aspergillus, consult pulm and ID. will continue to monitor patient. #diarrhea Bio fire negative Stool cultures ordered: negative has had recent antibiotic use with levofloxacin approximately 1 month ago for pneumonia #electrolyte abnormalities NA 133, Mg 1.7, K+ 4.2 (WNL) Likely 2/2 decreased p.o. intake and diarrhea improved. #leukocytosis WBC 14.23 on admission with left shift Likely 2/2 steroid use and infection above UA and stool cultures ordered Trend CBC, anticipate to remain elevated with steroids follow blood cultures #iron deficiency anemia Patient reports 2 iron infusions in the past month Most recent transfusion 04/22 Hgb 11.8, improved from baseline #dysphagia follows with GI, EGD 10/11/2023 showed LA grade C reflux esophagitis with no bleeding, medium size hiatal hernia Patient reports was to have EGD 05/01; was holding Plavix however EGD canceled due to illness Will resume Plavix Aspiration precautions and easy to chew diet Chronic stable diagnoses: CKDstable, at baseline RASs/p bilateral stent placement (left 2005, right 2020), continue aspirin and Plavix Hypertensioncontinue metoprolol and hydralazine HLDcontinue statin VTE ppx: SCDs, recent history of GI bleed Diet: heart healthy, easy to chew Dispo: med/tele Admission and Anticipated Discharge Date Admission Date: April 28, 2024 Subjective Patient reports feeling SOB, with cough and audible wheezing. Physical Exam Physical Exam: The patient is awake, alert and oriented 3, well developed and well nourished, normocephalic and atraumatic, in no acute distress. Non-toxic appearing. HEENT- EOMI, mucous membranes moist. Hearing grossly intact. Heart-normal S1 and S2. No murmurs, rubs or gallops. Lungs-diffuse wheezing, no respiratory distress, no accessory muscle use. Abdomen-normal bowel sounds and soft. No ascites noted. Non-tender. Extremities- no clubbing, cyanosis, or edema. Rheumatologic-normal range of motion. Psychiatric-normal affect. Results & Data Results & Data Vital Signs (Past 12 Hours) Vital Signs Temp Pulse Pulse Resp BP Pulse Ox O2 Del Method 04/30/24 20:12 86 24 99 Nasal Cannula 04/30/24 19:24 36.6 C 85 18 135/64 95 Nasal Cannula 04/30/24 15:32 90 20 97 Nasal Cannula 04/30/24 14:58 36.6 C 75 16 145/70 H 97 Nasal Cannula 04/30/24 14:23 74 04/30/24 11:02 Nasal Cannula 04/30/24 10:43 36.6 C 99 H 24 151/64 H 95 Nasal Cannula O2 Flow Rate 04/30/24 20:12 1 04/30/24 19:24 1 04/30/24 15:32 2 04/30/24 14:58 2 04/30/24 14:23 04/30/24 11:02 2 04/30/24 10:43 2 PG Care Time/CCT Total # of Minutes Spent Total Time Spent with Patient: Total time spent is greater than 50% in coordination of care (as documented) at patient's floor/unit and/or counseling patient: Coding Level of Care Code 14269 SUB INP/OBS CARE 3/50MIN Diagnoses COPD exacerbation J44.1 Diarrhea R19.7 Hyponatremia E87.1 Hypomagnesemia E83.42 Leukocytosis D72.829 Anemia D64.9 Dysphagia R13.10
--- NOTE | 2024-05-01 08:52 | Infectious Disease Progress Nt ---
Date of Service May 01, 2024 Assessment & Plan (1) Aspergillus: (2) Acute exacerbation of chronic obstructive pulmonary disease (COPD): (3) Stage 3b chronic kidney disease: Plan 89yo F with h/o COPD, CKD III, dysphagia, renal artery stenosis s/p stent, right hip replacement who presented on 04/28 with worsening SOB and cough. For the past week, she had been sick with cold-like symptoms including significant cough with post-tussive emesis, diarrhea, dyspnea and weakness. She was seen at an urgent care in [place] where she was prescribed doxycycline and prednisone and took 1 dose of before she came to the ED due to severe coughing spells and gagging. Also has had chills and night sweats x 1 week. On admission, she was afebrile, tachycardic, BP stable, O2 sat mid-90s on 2L NC. Initial labs with WBC 14.23, Cr 1.69. Troponin elevated, CRP 14.28. PCT 0.66. UA negative. RPP negative. GIPP negative. CXR with slightly prominent interstitial markings in the lungs similar to previous, no new infiltrate or consolidation. KUB negative. She was initially given CTX and doxycycline and admitted for COPD exacerbation, for which she was continued on doxy alone. On the morning of 04/30, she became more dyspneic per RN and was tripoding. CXR on 04/30 with interval development of right infrahilar opacity favoring PNA. Abx broadened with cefepime, given a dose of solumedrol. WBC increased to 26.25 and sputum cx resulted with Aspergillus spp. ID was consulted 04/[address] chest with tree-in-bud nodularity involving all lobes c/w nonspecific infectious/inflammatory changes, moderate hiatal hernia. Regarding Aspergillus, CT notes tree-in-bud nodularity but without any other findings (ie nodules, cavitation, infiltrates). She also hasnt had chronic symptoms and was also clinically doing well this morning. I suspect Aspergillus in sputum cx is colonization. Additional studies are in process. I will hold off on antifungals for now. Regarding her PNA, CT chest without an area of consolidation. Given her GI complaints, it is reasonable to suspect aspiration. Her sputum cultures otherwise only have normal snehal. U legionella is still in process (Legionella can also have nonspecific findings). PCT is down. I do note WBC is up to 45 today. She did report having loose watery stools, 4 in a day which alternates with regular stools at times. Last BM was loose/watery. Will check C diff. Would favor de-escalating cefepime soon. # Leukocytosis # Sputum cx with Aspergillus # Tree-in-bud opacities # COPD exacerbation # CKD III - Helen ordered C diff PCR - f/u serum Aspergillus Ag and serum beta-d glucan - f/u urine legionella - on doxycycline and cefepime - will favor de-escalation soon ID will continue to follow. If questions or concerns, contact via TigShoutletext or Infectious Disease Call Center . Moriah Yates MD [facility], Division of Infectious Diseases Admission and Anticipated Discharge Date Admission Date: April 28, 2024 Subjective Subsequent visit was provided via telemedicine using two-way real-time interactive telecommunication between the patient and the telemedicine provider. For the duration of the visit, the provider was performing the assessment from a different facility than the patient. This includesuse of bluetooth stethoscope forauscultationperformed by the telepresenter that the telemedicine provider can hear if described in the physical exam. Rn Camp contact information: Please call ID Connect Call Center . (Phone Number For Physician Use Only) After establishing a telemedicine visit, patient was: Patient was verified with two unique identifiers, Patient/authorized rep acknowledged consent and understanding and Gave permission to continue telehealth session Time Spent with Patient: Subsequent => 55 min Patient reports that she is doing well. Currently off of O2. She was recently treated for a PNA 1 week ago at [facility] (admitted for 3 days) and was discharged on PO abx which she completed (she doesn't remember what she was given). Has not been getting better since that admission and has had a lot of coughing. Notes on/off diarrhea, 4 in a day but then can be normal in between, not a lot. No abdominal pain, chest pain. Not on O2 at home. Not having any issues prior to her admission at [facility]. Physical Exam Physical Exam: General: Awake, alert, no acute distress HEENT: NC/AT, EOMI, mmm Neck: supple Lungs: CTA bl Heart: regular, nl S1/S2 Abdomen: soft, NT/ND Results & Data Vital Signs (Past 12 Hours) Vital Signs Temp Pulse Pulse Pulse Resp BP Pulse Ox 05/01/24 08:02 36.6 C 96 H 18 166/62 H 93 05/01/24 07:21 109 H 18 92 05/01/24 07:13 96 H 05/01/24 02:52 36.5 C 96 H 18 154/60 H 92 04/30/24 22:41 36.6 C 96 H 18 144/62 H 92 04/30/24 22:30 96 H O2 Del Method O2 Flow Rate 05/01/24 08:02 Room Air 05/01/24 07:21 Room Air 05/01/24 07:13 05/01/24 02:52 Nasal Cannula 2 04/30/24 22:41 Room Air 04/30/24 22:30 Laboratory Results Labs reviewed. Diagnostic Findings Imaging reviewed.
[2024-05-01 09:39] LABS: Hematocrit (blood only) 34.2 % (37.0-47.0); Hemoglobin 11.1 g/dl (12.0-16.0); Mean Corpuscular Hgb Conc 32.5 g/dL (32.0-36.0); Mean Corpuscular Volume 89.3 fL (80.0-100.0); Mean Platelet Volume 10.4 fL (9.4-12.4); Platelet Count 267 K/uL (130-400); RDW Coefficient of Variation 21.1 % (11.5-14.5); Red Blood Count 3.83 M/uL (4.20-5.40); White Blood Count 45.05 K/ul (4.8-10.8)
[2024-05-01] MEDS: ADVANCED PROBIOTIC 625 MG CAPSULE PO SCH (09:43)
[2024-05-01] MEDS: predniSONE 10 MG TABLET PO SCH (09:44)
[2024-05-01 09:45] LABS: BUN Creatinine Ratio 25.2 (10-20); C Reactive Protein 14.76 mg/dl (0-0.5); Calcium 8.4 mg/dl (8.6-10.3); Creatinine Clr Calc Pharmacy 15.9 ml/min; Potassium 4.1 mmol/L (3.5-5.1)
[2024-05-01 09:47] LABS: Anisocytosis Present; Basophils # (auto) 0.01 K/uL (0.00-0.20); Echinocytes 1+; Immature Granulocytes # (auto) 1.25 K/uL (0.01-0.20); Immature Granulocytes % (auto) 2.8 %; Lymphocytes # (auto) 1.07 K/uL (1.20-3.40); Lymphocytes % (auto) 2.4 %; Monocytes # (auto) 1.75 K/uL (0.11-0.59); Monocytes % (auto) 3.9 %; Neutrophils # (auto) 40.97 K/uL (1.40-6.50); Neutrophils % (auto) 90.9 %; Polychromasia 1+
--- NOTE | 2024-05-01 12:26 | Pulmonology Progress Note ---
Date of Service May 01, 2024 Assessment & Plan (1) COPD exacerbation: (2) Community acquired pneumonia: (3) Aspergillus: (4) Shortness of breath at rest: (5) Abnormal CT scan, chest: (6) Leukocytosis: (7) Hiatal hernia: Plan The patient has an acute COPD exacerbation likely secondary to community- acquired pneumonia from aspiration. Defer antibiotics to ID. Aspergillus likely colonizer. Noncontrast CT reviewed which reveals tree-in-bud opacities which are nonspecific and can be related to aspiration pneumonitis, nontuberculous Mycobacterium infection, less likely Aspergillus and other potential causes. Doubtful that the patient would tolerate extended antifungal treatment or treatment for nontuberculous Mycobacterium. If Aspergillus galactomannan antigen is negative and beta D glucan is negative, then it is highly unlikely that the patient has invasive pulmonary aspergillosis. Discussed with hospitalist who would like to start the patient on empiric treatment for Aspergillus with voriconazole. I indicated that this is reasonable and to check with pharmacy regarding drug drug interactions and appropriate dosing. Voriconazole can be discontinued if the galactomannan and beta D glucan come back negative. Bronchoscopy at this point would be too high risk in a patient who is very elderly with active bronchospasm and COPD exacerbation. Will consider bronchoscopy depending on clinical course in the near future and depending on serum studies. Continue prednisone 30 mg daily given the COPD exacerbation. Continue DuoNebs every 6 hours. Continue budesonide. Patient also with a large hiatal hernia on CT chest. Consider EGD once stable. Consider CT of the abdomen pelvis given patient's weight loss, nausea and vomiting. Will defer to primary team. I have placed an order to transfer the patient to PCU status for continuous pulse oximetry monitoring and better patient nursing ratios given her ongoing dyspnea. Lastly, suspect some of her leukocytosis is due to demargination of white blood cells related to steroid therapy. Thanks for the consult. Will follow with you. Admission and Anticipated Discharge Date Admission Date: April 28, 2024 Subjective Patient with increased white count today. Complains of shortness of breath at rest. Saturating in the low 90s on room air but at times oxygen saturation dropped to the 70s on room air per nursing. Patient denies any chest pain. No nausea or vomiting. She is anxious about her dyspnea. Review of Systems Review of Systems: All systems reviewed & are unremarkable except as noted in HPI & below Physical Exam Physical Exam: Constitutional: Elderly and frail appearing. Eyes: Pupils are equal round and reactive to light. Conjunctivae are normal. Anicteric sclera. Ears nose, mouth and throat: Mallampati class 2. Normal posterior oropharynx. Uvula is midline. Neck: Trachea is midline. Visual inspection is normal. Respiratory: Prolonged phase of exhalation. Wheezing is improved.. Mild tachypnea. Cardiovascular: Regular rate and rhythm. No murmurs. No edema. Gastrointestinal: Normal bowel sounds, soft, nontender and nondistended. No hepatosplenomegaly noted. Musculoskeletal: No cyanosis. Patient is able to move all extremities. Strength is 5 out of 5 in the upper and lower extremities. Skin: No rashes, warm dry and intact. Neurologic: No obvious focal neurological deficits seen. Psychiatric: Alert and oriented x3 with a euthymic affect. Results & Data Results & Data Vital Signs (Past 12 Hours) Vital Signs Temp Pulse Pulse Pulse Resp BP Pulse Ox 05/01/24 08:59 05/01/24 08:02 36.6 C 96 H 18 166/62 H 93 05/01/24 07:21 109 H 18 92 05/01/24 07:13 96 H 05/01/24 02:52 36.5 C 96 H 18 154/60 H 92 O2 Del Method O2 Flow Rate 05/01/24 08:59 Room Air 05/01/24 08:02 Room Air 05/01/24 07:21 Room Air 05/01/24 07:13 05/01/24 02:52 Nasal Cannula 2 PG Care Time/CCT Total # of Minutes Spent Total Time Spent with Patient: Total time spent is greater than 50% in coordination of care (as documented) at patient's floor/unit and/or counseling patient: Coding Level of Care Code 73364 SUB INP/OBS CARE 3/50MIN Diagnoses COPD exacerbation J44.1 Community acquired pneumonia J18.9 Aspergillus B44.9 Shortness of breath at rest R06.[address] scan, chest R93.89 Leukocytosis D72.829 Hiatal hernia K44.9
[2024-05-01] MEDS: VORICONAZOLE 200 MG TABLET PO SCH (15:42)
[2024-05-01] MEDS: SODIUM CHLOR 7% 4 ML NEB NEB SCH (20:06)
[2024-05-01] MEDS: MELATONIN 3 MG TAB PO PRN (20:32)
--- NOTE | 2024-05-01 22:42 | Hospitalist Progress Note ---
Date of Service May 01, 2024 Assessment & Plan (1) COPD exacerbation: (2) Diarrhea: (3) Hyponatremia: (4) Hypomagnesemia: (5) Leukocytosis: (6) Anemia: (7) Dysphagia: Plan Patient is a 89 y/o female with a PMHx of COPD, CKD, hx GI bleed, iron deficency anemia, dysphagia, CADE s/p bl stenting, HTN. Patient was evaluated at urgent care in [facility] and prescribed doxycycline and prednisone, which she took 1 dose of at home. She presented to the ED due to worsening dyspnea and cough. She is being admitted for a COPD exacerbation. #copd exacerbation [id number] history, quit 15 years ago CXR negative, nonhypoxic on admission procal 0.66, BNP 287 Continue home inhalers As patient continues to have wheezing, switched to cefepime and initiated xopenex. Continue with doxycycline IV 100 mg Q12h for atypical and anti-inflammatory cove rage Pulmicort Respules 0.5 BID flutter valve QID, incentive spirometry, Mucinex, Tessalon perles sputum cultures ordered Promote oral hydration - will continue IV fluids at 80 mL/hour started in ED x 1 bag oxygen prn for O2 <92% Cultures now growing aspergillus, consult pulm and ID. will continue to monitor patient. WBC continues to rise, though patient is on steroids, doubt the rise is all from the steroids. Highly suspiious this is aspergillus: tree in bud on ct scan, positive sputum culture, lack of improvement with inflammatory markers, rising WBC, rising HR DIscussed with pulm, will place on voriconazole and get another AFB sputum #diarrhea Bio fire negative Stool cultures ordered: negative has had recent antibiotic use with levofloxacin approximately 1 month ago for pneumonia #electrolyte abnormalities NA 133, Mg 1.7, K+ 4.2 (WNL) Likely 2/2 decreased p.o. intake and diarrhea improved. #leukocytosis WBC 14.23 on admission with left shift Likely 2/2 steroid use and infection above UA and stool cultures ordered Trend CBC, anticipate to remain elevated with steroids follow blood cultures #iron deficiency anemia Patient reports 2 iron infusions in the past month Most recent transfusion / Hgb 11.8, improved from baseline #dysphagia follows with GI, EGD 10/11/2023 showed LA grade C reflux esophagitis with no bleeding, medium size hiatal hernia Patient reports was to have EGD 05/01; was holding Plavix however EGD canceled due to illness Will resume Plavix Aspiration precautions and easy to chew diet Chronic stable diagnoses: CKDstable, at baseline RASs/p bilateral stent placement (left 2005, right 2020), continue aspirin and Plavix Hypertensioncontinue metoprolol and hydralazine HLDcontinue statin VTE ppx: SCDs, recent history of GI bleed Diet: heart healthy, easy to chew Dispo: med/tele Admission and Anticipated Discharge Date Admission Date: April 28, 2024 Subjective Patient with wheezing, no siginficant improvement. Still feels SOB. Physical Exam Physical Exam: The patient is awake, alert and oriented 3, in no acute distress. Non-toxic appearing. HEENT- EOMI, mucous membranes moist. Hearing grossly intact. Heart-normal S1 and S2. No murmurs, rubs or gallops. Lungs-diffuse wheezing, no respiratory distress, no accessory muscle use. Abdomen-normal bowel sounds and soft. No ascites noted. Non-tender. Extremities- no clubbing, cyanosis, or edema. Rheumatologic-normal range of motion. Psychiatric-normal affect. Results & Data Results & Data Vital Signs (Past 12 Hours) Vital Signs Temp Pulse Pulse Pulse Resp BP Pulse Ox 05/01/24 20:00 96 H 20 91 05/01/24 19:51 36.7 C 95 H 18 138/73 94 05/01/24 17:20 36.5 C 84 22 177/75 H 94 05/01/24 15:00 100 H 05/01/24 14:20 79 16 94 05/01/24 13:40 05/01/24 12:19 36.7 C 81 18 148/64 H 97 O2 Del Method O2 Flow Rate 05/01/24 20:00 Room Air 05/01/24 19:51 Room Air 05/01/24 17:20 Room Air 05/01/24 15:00 05/01/24 14:20 Room Air 05/01/24 13:40 Nasal Cannula 2 05/01/24 12:19 Room Air PG Care Time/CCT Total # of Minutes Spent Total Time Spent with Patient: Total time spent is greater than 50% in coordination of care (as documented) at patient's floor/unit and/or counseling patient: Coding Level of Care Code 73582 SUB INP/OBS CARE 50MIN Diagnoses COPD exacerbation J44.1 Diarrhea R19.7 Hyponatremia E87.1 Hypomagnesemia E83.42 Leukocytosis D72.829 Anemia D64.9 Dysphagia R13.10
[2024-05-02 06:28] LABS: BUN Creatinine Ratio 28.6 (10-20); C Reactive Protein 7.63 mg/dl (0-0.5); Calcium 8.1 mg/dl (8.6-10.3); Creatinine Clr Calc Pharmacy 14.1 ml/min; Potassium 4.3 mmol/L (3.5-5.1)
[2024-05-02 06:37] LABS: Hematocrit (blood only) 31.2 % (37.0-47.0); Hemoglobin 10.1 g/dl (12.0-16.0); Mean Corpuscular Hemoglobin 29.6 pg (25.0-34.0); Mean Corpuscular Hgb Conc 32.4 g/dL (32.0-36.0); Mean Corpuscular Volume 91.5 fL (80.0-100.0); Mean Platelet Volume 10.4 fL (9.4-12.4); Platelet Count 236 K/uL (130-400); RDW Coefficient of Variation 21.5 % (11.5-14.5); RDW Standard Deviation 70.4 fL (36.4-46.3); Red Blood Count 3.41 M/uL (4.20-5.40); White Blood Count 45.54 K/ul (4.8-10.8)
[2024-05-02] MEDS: COUGH DROP (SUGAR FREE) LOZ 24 LOZ/1 BOX BUCCAL ONE (07:47)
[2024-05-02] MEDS: SODIUM CHLORIDE 0.9% 1,000 ML IV SCH (08:30)
--- NOTE | 2024-05-02 08:31 | Infectious Disease Progress Nt ---
Date of Service May 02, 2024 Assessment & Plan (1) Aspergillus: (2) Acute exacerbation of chronic obstructive pulmonary disease (COPD): (3) Stage 3b chronic kidney disease: Plan 89yo F with h/o COPD, CKD III, dysphagia, renal artery stenosis s/p stent, right hip replacement, reported being admitted to [facility] for PNA 1 week prior s/p abx and prednisone, who presented on 04/28 with worsening SOB and cough. For the past week, she had been sick with cold-like symptoms including significant cough with post-tussive emesis, diarrhea, dyspnea and weakness. She was seen at an urgent care in [place] where she was prescribed doxycycline and prednisone and took 1 dose of before she came to the ED due to severe coughing spells and gagging. Also has had chills and night sweats x 1 week. On admission, she was afebrile, tachycardic, BP stable, O2 sat mid-90s on 2L NC. Initial labs with WBC 14.23, Cr 1.69. Troponin elevated, CRP 14.28. PCT 0.66. UA negative. RPP negative. GIPP negative. CXR with slightly prominent interstitial markings in the lungs similar to previous, no new infiltrate or consolidation. KUB negative. She was initially given CTX and doxycycline and admitted for COPD exacerbation, for which she was continued on doxy alone. On the morning of 04/30, she became more dyspneic per RN and was tripoding. CXR on 04/30 with interval development of right infrahilar opacity favoring PNA. Abx broadened with cefepime, given a dose of solumedrol. WBC increased to 26.25 and sputum cx resulted with Aspergillus spp. ID was consulted 04/[address] chest with tree-in-bud nodularity involving all lobes c/w nonspecific infectious/inflammatory changes, moderate hiatal hernia. She had been on RA on 05/01 and then was noted to be hypoxic and placed back on 2L, WBC increased to 45 with rising CRP. Subsequently started on voriconazole. Per pulm, not a good candidate for bronchoscopy at this time. Im going to change cefepime to Unasyn since there hasnt been any other bacterial growth on sputum cultures and this would include any aspiration coverage. She has been started on voriconazole by primary team for c/f aspergillus, agree with pulmonary to stop if serum fungal markers are negative. She also c/o still having loose watery stools. No other signs/symptoms on todays evaluation that would indicate any other sources of infection. # Leukocytosis # Sputum cx with Aspergillus # Tree-in-bud opacities # COPD exacerbation # CKD III - send stool C diff if she has loose watery stools - f/u serum Aspergillus Ag and serum beta-d glucan - f/u urine legionella - on doxycycline - on voriconazole - Helen stopped cefepime and started Unasyn renally dosed - complete 7d of abx on 05/04 ID will continue to follow. If questions or concerns, contact via TigerText or Infectious Disease Call Center . Moriah Yates MD [facility], Division of Infectious Diseases Admission and Anticipated Discharge Date Admission Date: April 28, 2024 Subjective Subsequent visit was provided via telemedicine using two-way real-time interactive telecommunication between the patient and the telemedicine provider. For the duration of the visit, the provider was performing the assessment from a different facility than the patient. This includesuse of bluetooth stethoscope forauscultationperformed by the telepresenter that the telemedicine provider can hear if described in the physical exam. [place] contact information: Please call ID Connect Call Center . (Phone Number For Physician Use Only) After establishing a telemedicine visit, patient was: Patient was verified with two unique identifiers, Patient/authorized rep acknowledged consent and understanding and Gave permission to continue telehealth session Time Spent with Patient: Subsequent => 35 min Patient reports feeling well. She still has a cough. When asked if she has loose watery stools, she says yes and that she had 2 yesterday. No chest pain, back pain, rashes, open wounds, dysuria. No sores in her mouth, does not wear dentures. Physical Exam Physical Exam: General: Awake, alert, no acute distress HEENT: NC/AT, EOMI, mmm, no oral lesions Neck: supple Lungs: respirations non-labored Abdomen: soft, NT/ND Back: no spinal tenderness Ext: no LE edema Skin: no rash Neuro: moving all extremities Results & Data Vital Signs (Past 12 Hours) Vital Signs Temp Pulse Pulse Resp BP Pulse Ox O2 Del Method 05/02/24 07:29 36.7 C 130 H 22 164/69 H 98 Room Air 05/02/24 07:04 68 18 98 Nasal Cannula 05/02/24 03:34 36.7 C 109 H 18 134/89 96 Nasal Cannula 05/02/24 01:11 87 19 97 Nasal Cannula 05/01/24 23:00 36.7 C 99 H 22 116/76 96 Nasal Cannula 05/01/24 21:53 93 H O2 Flow Rate 05/02/24 07:29 05/02/24 07:04 2 05/02/24 03:34 3 05/02/24 01:11 2 05/01/24 23:00 3 05/01/24 21:53 Laboratory Results Labs reviewed. Diagnostic Findings Imaging reviewed.
[2024-05-02] MEDS: AMPICILLIN/SULBACTAM SOD 3,000 MG/100 ML BAG IV SCH (10:38)
[2024-05-02] MEDS: VORICONAZOLE 200 MG TABLET PO SCH (10:38)
--- NOTE | 2024-05-02 12:11 | CT Scan Report ---
CT OF THE ABDOMEN AND PELVIS WITHOUT CONTRAST CLINICAL HISTORY: leukocytosis/ guy. concern for hydronephrosis COMPARISON STUDY: KUB April 29, 2024. CT of the abdomen and pelvis July 20, 2023. MRI of the abdome n July 04, 2022. Renal ultrasound May 23, 2022. TECHNIQUE: Axial images of the abdomen and pelvis were obtained without IV contrast. Images were revi ewed in the axial, sagittal, and coronal planes. Automated exposure control was utilized for the isa dy. A dose lowering technique was utilized adhering to the principles of ALARA. FINDINGS: Mild alveolar opacities within the lower lungs are present. There is a moderate sized hiata l hernia. No pneumatosis, free air or portal venous gas is present. Unenhanced images of the liver, s pleen, adrenal glands and pancreas are unremarkable. There is no biliary or pancreatic ductal dilatat ion. There is extensive plaque within the abdominal aorta. There is no evidence for a bowel obstructi on. Extensive sigmoid diverticulosis without evidence for acute diverticulitis. There is no lymphaden opathy. No renal, ureteral or bladder calculi are present. There is no hydronephrosis. Water attenuat ion bilateral renal lesions favor simple cysts. Hypodense left renal lesions were shown to represent cysts on prior renal MRI. The left kidney is nearly entirely replaced by cysts. Right hip arthroplast y is incidentally noted. No acute fractures within the lumbar spine, pelvis or hips. IMPRESSION: 1. No urinary calculi or hydronephrosis. 2. Numerous bilateral renal cysts. Left kidney nearly entirely replaced by a combination of simple an d hyperdense/proteinaceous cysts. 3. Mild alveolar opacities within the lower lungs consistent with a mild infectious process. 4. Moderate-sized hiatal hernia. 5. Extensive colonic diverticulosis. No evidence for acute diverticulitis. ACT 112: Negative or not required by law. Electronically signed by: Rahul Marinelli M.D. 05/02/2024 12:09 PM
--- NOTE | 2024-05-02 12:28 | Ultrasound Report ---
DOPPLER ULTRASOUND OF THE MESENTERIC VESSELS CLINICAL HISTORY: leukocytosis/ diarrhea COMPARISON STUDY: CT of the abdomen and pelvis performed earlier today. CT of the abdomen and pelvis July 20, 2023. TECHNIQUE: Color duplex Doppler sonography of the abdominal aorta and mesenteric vessels was performe d. FINDINGS: This exam is compromised by suboptimal penetration and patient's inability to suspend respi ration. There is extensive atherosclerotic plaque within the abdominal aorta. Elevated peak systolic velocity of 365 cm/s within the proximal superior mesenteric artery is noted. Velocities within the c eliac axis were within normal limits. IMPRESSION: 1. Exam moderately compromised from a technical standpoint, as described above. 2. 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 Degree of stenosis cannot be ass essed on this exam. 3. No elevated velocities within the celiac axis. 4. Extensive atherosclerotic plaque within the abdominal aorta. ACT 112: Negative or not required by law. Electronically signed by: Rahul Marinelli M.D. 05/02/2024 12:27 PM
[2024-05-02] MEDS: LACTATED RINGER'S 1,000 ML IV SCH (12:41)
[2024-05-02 15:14] LABS: Anion Gap 6 (3-11); BUN Creatinine Ratio 27.3 (10-20); Blood Urea Nitrogen 45 mg/dl (6-23); Carbon Dioxide 14 mmol/L (21-32); Chloride 115 mmol/L (98-107); Creatinine Clr Calc Pharmacy 13.8 ml/min; Glucose 116 mg/dl (70-99(Fasting)); Potassium 5.1 mmol/L (3.5-5.1); Sodium 135 mmol/L (136-145)
--- NOTE | 2024-05-02 16:45 | XRay Report ---
Chest radiograph, one view History: Shortness of breath Comparison: CT from 04/30/2024 Findings: Single AP view of the chest performed. There is some subtle nodular density in the right lower lung seen. No focal consolidation or pleural effusion. No pneumothorax. The cardiomediastinal silhouette is within normal limits. Normal pulmonary vascularity. No evidence for lymphadenopathy. No visualized bony or soft tissue abnormality. There are chronic bilateral rib deformities, and a few scattered fixating rib plates with screws. There is a small to moderate esophageal hiatal hernia. Impression: Subtle nodular densities in the right lower lung seen, likely representing persistent or residual nodules that were seen on prior CT. Hiatal hernia. No other acute findings. Electronically signed by Ziggy Montana 05-02-2024 4:44 PM
[2024-05-02 17:48] LABS: Base Excess VBG -13.2 mEq/L; HCO3 VBG 13 mmol/L; Oxygen Saturation VBG 83.5 %; PCO2 VBG 30 mmHg (38-50); PO2 VBG 51 mmHg; pH VBG 7.24 (7.36-7.41)
[2024-05-02] MEDS ORDERED: STAT IV/IM STA (18:13)
--- NOTE | 2024-05-02 18:20 | Pulmonology Progress Note ---
Date of Service May 02, 2024 Assessment & Plan (1) COPD exacerbation: (2) Community acquired pneumonia: (3) Aspergillus: (4) Shortness of breath at rest: (5) Abnormal CT scan, chest: (6) Leukocytosis: (7) Hiatal hernia: (8) Acidosis, metabolic: (9) Leukemoid reaction: Plan Patient is dyspnea and tachypnea seem to be out of proportion to her chest x-ray and CT chest findings. Chest x-ray reviewed today looks relatively stable compared to earlier this week. On labs it appears that she has worsening nongap acidosis likely related to hyperchloremia and possibly RTA. Will discontinue lactated Ringer's and start the patient on D5W with 150 mEq of sodium bicarbo emily at a rate of 80 mL an hour. Lactate fortunately negative. Recommended CT abdomen pelvis to the hospital service along with ultrasound of the mesenteric arteries. Significant atherosclerotic plaques noted. Ischemic colitis felt to be less likely at this time given negative lactate, benign abdominal exam and lack of hypotension. Were suspected the concern of pulmonary aspergillosis, Fungitell and Aspergillus antigen pending. Highly doubt that she has significant pulmonary aspergillosis. Patient empirically on voriconazole per the hospitalist service. Agree with ID and continuing empiric antibiotics for community-acquired pneumonia/aspiration pneumonia. Continue prednisone for ongoing COPD exacerbation. Continue DuoNebs every 6 hours and nebulized budesonide. Patient with elevated white count likely secondary to leukemoid reaction and demargination from steroids. Admission and Anticipated Discharge Date Admission Date: April 28, 2024 Subjective Patient with increased work of breathing today and shortness of breath. Occasional cough. Denies any chest pain. No fevers or chills. Review of Systems Review of Systems: All systems reviewed & are unremarkable except as noted in HPI & below Physical Exam Physical Exam: Constitutional: Elderly and frail appearing. Eyes: Pupils are equal round and reactive to light. Conjunctivae are normal. Anicteric sclera. Ears nose, mouth and throat: Mallampati class 2. Normal posterior oropharynx. Uvula is midline. Neck: Trachea is midline. Visual inspection is normal. Respiratory: Prolonged phase of exhalation. Expiratory wheezes. Tachypneic. Cardiovascular: Regular rate and rhythm. No murmurs. No edema. Gastrointestinal: Normal bowel sounds, soft, nontender and nondistended. No hepatosplenomegaly noted. Musculoskeletal: No cyanosis. Patient is able to move all extremities. Strength is 5 out of 5 in the upper and lower extremities. Skin: No rashes, warm dry and intact. Neurologic: No obvious focal neurological deficits seen. Psychiatric: Alert and oriented x3 with a euthymic affect. Results & Data Results & Data Vital Signs (Past 12 Hours) Vital Signs Temp Pulse Resp BP Pulse Ox O2 Del Method O2 Flow Rate 05/02/24 15:05 36.8 C 86 18 144/63 H 95 Nasal Cannula 05/02/24 13:11 85 20 97 Nasal Cannula 2 05/02/24 10:46 36.8 C 89 22 169/70 H 95 Nasal Cannula 2 05/02/24 09:42 Nasal Cannula 2 05/02/24 07:29 36.7 C 130 H 22 164/69 H 98 Room Air 05/02/24 07:04 68 18 98 Nasal Cannula 2 PG Care Time/CCT Total # of Minutes Spent Total Time Spent with Patient: Total time spent is greater than 50% in coordination of care (as documented) at patient's floor/unit and/or counseling patient: Coding Level of Care Code 81222 SUB INP/OBS CARE 3/50MIN Diagnoses COPD exacerbation J44.1 Community acquired pneumonia J18.9 Aspergillus B44.9 Shortness of breath at rest R06.[address] scan, chest R93.89 Leukocytosis D72.829 Hiatal hernia K44.9 Acidosis, metabolic E87.20 Leukemoid reaction D72.823
[2024-05-02] MEDS: SODIUM BICARBONATE 650 MG TAB PO SCH (19:01)
[2024-05-02] MEDS: SODIUM BICARBONATE 8.4% 150 MEQ in DEXTROSE 5% 1,000 ML IV SCH (19:03)
--- NOTE | 2024-05-02 22:56 | Hospitalist Progress Note ---
Date of Service May 02, 2024 Assessment & Plan (1) COPD exacerbation: (2) Diarrhea: (3) Hyponatremia: (4) Hypomagnesemia: (5) Leukocytosis: (6) Anemia: (7) Dysphagia: Plan Patient is a 89 y/o female with a PMHx of COPD, CKD, hx GI bleed, iron deficency anemia, dysphagia, CADE s/p bl stenting, HTN. Patient was evaluated at urgent care in [facility] and prescribed doxycycline and prednisone, which she took 1 dose of at home. She presented to the ED due to worsening dyspnea and cough. She is being admitted for a COPD exacerbation. #copd exacerbation [id number] history, quit 15 years ago CXR negative, nonhypoxic on admission procal 0.66, BNP 287 Continue home inhalers As patient continues to have wheezing, switched to cefepime and initiated xopenex. Continue with doxycycline IV 100 mg Q12h for atypical and anti-inflammatory cove rage Pulmicort Respules 0.5 BID flutter valve QID, incentive spirometry, Mucinex, Tessalon perles sputum cultures ordered Promote oral hydration - will continue IV fluids at 80 mL/hour started in ED x 1 bag oxygen prn for O2 <92% Cultures now growing aspergillus, consult pulm and ID. Started voriconazole yesterday. Inflammatory markes now decreasing, WBC is plateruing. Clinically she is about the same. Updated family. Unsure if this is aspergillus but will continue until further workup is complete. #diarrhea Bio fire negative Stool cultures ordered: negative has had recent antibiotic use with levofloxacin approximately 1 month ago for pneumonia #electrolyte abnormalities NA 133, Mg 1.7, K+ 4.2 (WNL) Likely 2/2 decreased p.o. intake and diarrhea improved. #leukocytosis WBC 14.23 on admission with left shift Likely 2/2 steroid use and infection above UA and stool cultures ordered Trend CBC, anticipate to remain elevated with steroids follow blood cultures #iron deficiency anemia Patient reports 2 iron infusions in the past month Most recent transfusion 04/22 Hgb 11.8, improved from baseline #dysphagia follows with GI, EGD 10/11/2023 showed LA grade C reflux esophagitis with no bleeding, medium size hiatal hernia Patient reports was to have EGD 05/01; was holding Plavix however EGD canceled due to illness Will resume Plavix Aspiration precautions and easy to chew diet Chronic stable diagnoses: CKDstable, at baseline RASs/p bilateral stent placement (left 2005, right 2020), continue aspirin and Plavix Hypertensioncontinue metoprolol and hydralazine HLDcontinue statin VTE ppx: SCDs, recent history of GI bleed Diet: heart healthy, easy to chew Dispo: med/tele Admission and Anticipated Discharge Date Admission Date: April 28, 2024 Subjective Patient reports still feeling SOB and wheezing. Physical Exam Physical Exam: The patient is awake, alert and oriented 3, in no acute distress. Non-toxic appearing. HEENT- EOMI, mucous membranes moist. Hearing grossly intact. Heart-normal S1 and S2. No murmurs, rubs or gallops. Lungs-diffuse wheezing, no respiratory distress, no accessory muscle use. Abdomen-normal bowel sounds and soft. No ascites noted. Non-tender. Extremities- no clubbing, cyanosis, or edema. Rheumatologic-normal range of motion. Psychiatric-normal affect. Results & Data Results & Data Vital Signs (Past 12 Hours) Vital Signs Temp Pulse Resp BP Pulse Ox O2 Del Method O2 Flow Rate 05/02/24 20:00 Nasal Cannula 2 05/02/24 19:40 90 18 98 Nasal Cannula 2 05/02/24 19:15 36.7 C 83 20 160/63 H 97 Nasal Cannula 05/02/24 15:05 36.8 C 86 18 144/63 H 95 Nasal Cannula 05/02/24 13:11 85 20 97 Nasal Cannula 2 PG Care Time/CCT Total # of Minutes Spent Total Time Spent with Patient: Total time spent is greater than 50% in coordination of care (as documented) at patient's floor/unit and/or counseling patient: Coding Level of Care Code 46429 SUB INP/OBS CARE 3/50MIN Diagnoses COPD exacerbation J44.1 Diarrhea R19.7 Hyponatremia E87.1 Hypomagnesemia E83.42 Leukocytosis D72.829 Anemia D64.9 Dysphagia R13.10
[2024-05-03 08:52] LABS: Hematocrit (blood only) 31.5 % (37.0-47.0); Hemoglobin 10.1 g/dl (12.0-16.0); Mean Corpuscular Hemoglobin 28.9 pg (25.0-34.0); Mean Corpuscular Hgb Conc 32.1 g/dL (32.0-36.0); Mean Corpuscular Volume 90.3 fL (80.0-100.0); Platelet Count 230 K/uL (130-400); RDW Coefficient of Variation 21.7 % (11.5-14.5); Red Blood Count 3.49 M/uL (4.20-5.40); White Blood Count 46.38 K/ul (4.8-10.8)
[2024-05-03 09:11] LABS: BUN Creatinine Ratio 24.4 (10-20); C Reactive Protein 7.54 mg/dl (0-0.5); Calcium 7.8 mg/dl (8.6-10.3); Creatinine Clr Calc Pharmacy 14.6 ml/min; Potassium 3.7 mmol/L (3.5-5.1)
--- NOTE | 2024-05-03 09:33 | Infectious Disease Progress Nt ---
Date of Service May 03, 2024 Assessment & Plan (1) Shortness of breath at rest: (2) Leukemoid reaction: (3) Aspergillus: (4) Acute exacerbation of chronic obstructive pulmonary disease (COPD): (5) Stage 3b chronic kidney disease: Plan 89yo F with h/o COPD, CKD III, dysphagia, renal artery stenosis s/p stent, right hip replacement, reported being admitted to [facility] x for PNA 1 week prior to presentation s/p abx and prednisone (unknown which abx), who presented on 04/28 with worsening SOB and cough. For the past week, she had been sick with cold-like symptoms including significant cough with post-tussive emesis, diarrhea, dyspnea and weakness. She was seen at an urgent care in [place] where she was prescribed doxycycline and prednisone and took 1 dose of before she came to the ED due to severe coughing spells and gagging. Also has had chills and night sweats x 1 week. On admission, she was afebrile, tachycardic, BP stable, O2 sat mid-90s on 2L NC. Initial labs with WBC 14.23, Cr 1.69. Troponin elevated, CRP 14.28. PCT 0.66. UA negative. RPP negative. GIPP negative. CXR with slightly prominent interstitial markings in the lungs similar to previous, no new infiltrate or consolidation. KUB negative. She was initially given CTX and doxycycline and admitted for COPD exacerbation, for which she was continued on doxy alone. On the morning of 04/30, she became more dyspneic per RN and was tripoding. CXR on 04/30 with interval development of right infrahilar opacity favoring PNA. Abx broadened with cefepime, given a dose of solumedrol. WBC increased to 26.25 and sputum cx resulted with Aspergillus spp. ID was consulted 04/[address] chest noncon with tree-in-bud nodularity involving all lobes c/w nonspecific infectious/inflammatory changes, moderate hiatal hernia. On 05/01, she had been back on RA but then was noted to be hypoxic and placed back on 2L, WBC increased to 45 with rising CRP. Subsequently started on voriconazole empirically by primary team. Per pulm, not a good candidate for bronchoscopy at this time. Shes had ongoing high leukocytosis thought CRP trending down. Cefepime changed to Unasyn given lack of additional bacterial growth on sputum cx. CTAP w/o contrast with numerous bilateral renal cysts, left kidney nearly entirely replaced by combination of simple and hyperdense/proteinaceous cysts, mild alveolar opacities within the lower lungs c/w mild infectious process, extensive colonic diverticulosis. 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 CXR 05/02 with subtle nodular densities in the right lower lung likely representing persistent or residual nodules that were seen on prior CT. WBC today 46. Patient with increased work of breathing on exam this morning with diffuse wheezing. Aside from respiratory issues, she has not had any other specific findings on thorough examination including no spinal tenderness, no rashes or open wounds, no oral lesions. She has not had any abdominal tenderness though did note loose watery stools, which are now soft. Additional imaging also without acute findings. She is on steroids which could also be contributing to leukocytosis. Im going to repeat blood cx and also order fungal cx to capture growth of mold. Urine legionella is negative so she doesnt need antibiotic coverage from that standpoint. # Leukocytosis # Sputum cx with Aspergillus # Tree-in-bud opacities # COPD exacerbation # CKD III - Helen ordered blood cx and fungal blood cx - f/u serum Aspergillus Ag and serum beta-d glucan - doxycycline can be stopped, but defer this to primary team if this is being used for COPD exacerbation - on voriconazole - continue Unasyn renally dosed favor stopping after 05/04 (7d of abx) ID will continue to follow. Please note that there will be no ID notes over the weekend. If questions or concerns arise, please contact the Infectious Disease Call Center and ask to speak with the covering ID physician. Dr. Farrell will take over on Monday. Moriah Yates MD [facility], Division of Infectious Diseases Admission and Anticipated Discharge Date Admission Date: April 28, 2024 Subjective Subsequent visit was provided via telemedicine using two-way real-time interactive telecommunication between the patient and the telemedicine provider. For the duration of the visit, the provider was performing the assessment from a different facility than the patient. This includesuse of bluetooth stethoscope forauscultationperformed by the telepresenter that the telemedicine provider can hear if described in the physical exam. Nurse Supervisor contact information: Please call [facility] Call Center . (Phone Number For Physician Use Only) After establishing a telemedicine visit, patient was: Patient was verified with two unique identifiers, Patient/authorized rep acknowledged consent and understanding and Gave permission to continue telehealth session Time Spent with Patient: Subsequent => 55 min Patient reports ongoing cough and SOB. She's had soft stools, no longer watery. No abdominal pain or other complaints. Physical Exam Physical Exam: General: Awake, alert, increased work of breathing HEENT: mmm Neck: supple Lungs: diffuse inspiratory/expiratory wheezing Heart: nl S1/S2 Abdomen: soft, NT/ND Results & Data Vital Signs (Past 12 Hours) Vital Signs Temp Pulse Pulse Resp BP Pulse Ox O2 Del Method 05/03/24 08:55 Nasal Cannula 05/03/24 07:17 103 H 17 97 Nasal Cannula 05/03/24 07:03 36.4 C L 103 H 20 176/52 H 98 Nasal Cannula 05/03/24 02:59 36.9 C 101 H 16 158/68 H 97 Nasal Cannula 05/03/24 00:23 97 H 18 Nasal Cannula 05/02/24 23:22 36.8 C 100 H 19 142/56 H 95 Nasal Cannula 05/02/24 22:01 105 H O2 Flow Rate FiO2 05/03/24 08:55 2 05/03/24 07:17 2 05/03/24 07:03 2 05/03/24 02:59 05/03/24 00:23 2 98 05/02/24 23:22 05/02/24 22:01 Laboratory Results Labs reviewed. Diagnostic Findings Imaging reviewed.
--- NOTE | 2024-05-03 13:01 | Nephrology Consultation ---
Date of Consultation May 03, 2024 Assessment & Plan (1) Acidosis, metabolic: (2) HTN (hypertension): (3) Anemia: (4) Hyponatremia: 89-year-old female with stage IIIb CKD, hypertension, history of atherosclerotic disease admitted to the hospital with pneumonia and possible aspergillosis, on doxycycline antibiotic consult. Stage IIIb CKD with renovascular disease, baseline creatinine 1.5-1.7. Since admission kidney function has been relatively stable at baseline with some variability in creatinine. Lab was notable for hyperchloremic metabolic acidosis, bicarb has been 14-18, urine pH 5-6 with normal serum potassium. Metabolic acidosis most likely secondary to underlying CKD worsening with normal saline and possible decreased p.o. intake with increase acid load. Although she has been having some soft stool, no jacek diarrhea. Kidney function otherwise relatively stable at baseline. No sign of volume overload. -- Recommend stopping bicarb drip, increase sodium bicarbonate to 650 mg 2 tabs twice a day but if bicarbonate improved rapidly okay to go down to 1 tab twice a day. -- Encourage increase p.o. intake Will sign off, will arrange follow-up at CKD clinic in next 3 to 4 weeks. History of Present Illness Reason for Consultation: Metabolic acidosis, stage 3B CKD Attending Physician: Win Leung History of Present Illness Ms. Marie Loaiza is a 89yo F with PMH of stage 3B CKD, HTN, COPD, renal artery stenosis s/p stent admitted on 04/28/24 with Pneumonia. Nephrology consult requested for management of metabolic acidosis with h/o advanced CKD. EMR records were reviewed in details during visit. Marie presented to ER on 04/28/24 with worsening SOB, cough, chills and night sweats for about a week. Initial labs with WBC 14.23, Cr 1.69 which is close to her baseline. Electrolyte was notable for hyperchloremic metabolic acidosis. UA negative. Respiratory Biofire was negative. CXR with slightly prominent interstitial markings in the lungs similar to previous, no new infiltrate or consolidation. CT chest with nonspecific infectious or inflammatory etiology throughout. CT abdomen pelvis with bilateral renal cyst and large left proteinaceous cyst. She was given IV normal saline, LR , ceftriaxone and doxycycline and admitted for COPD exacerbation. Over next few days leukocytosis worsening with WBC increased to >40 k and sputum cultures came back positive for Aspergillus spp. She was started on Vericonazole. Lab over last few days was notable for progressive worsening of metabolic acidosis with bicarbonate down to 14 and chloride 115 this morning. Has been on sodium bicarbonate and bicarb drip. Potassium has been normal. Urine pH around 5-6. IV fluid was stopped yesterday. She did have some soft stool but no jacek diarrhea. Kidney function stayed relatively stable. Has stage 3B/4 CKD secondary to renovascular disease with b/l cr 1.6-1.7 mg/dl. Had left renal artery stenosis and stent placed in 2005 and stenting for right renal artery for stenosis on 05/20/20. Urinalysis has been negative for proteinuria but has the microscopic hematuria. Previously evaluated by Urology for gross hematuria and hemorrhagic cyst, no concern for malignancy, no further follow-up planned..Renal ultrasound and Doppler shows atrophic left kidney, small size right kidney. No history of diabetes or proteinuria previously. Denies any chronic NSAID use. Longstanding history of smoking, quit over last few years.. No history of CHF or coronary artery disease. Has longstanding history of hypertension, blood pressure has been quite variable but lately has been well-controlled. Currently on amlodipine 10 milligrams and Lopressor 25 mg a day. Has been off of lisinopril with prior history of AYESHA, bilateral renal artery stenosis and no proteinuria. Briseyda reports ongoing struggle with respiratory distress. Allergies Allergy/AdvReac Type Severity Reaction Status Date / Time Iodinated Contrast Media Allergy Unknown Anaphylaxis Verified 10/11/23 15:23 [Iodinated Contrast- Oral and IV Dye] Home Medications Medication Instructions Recorded Confirmed Type dorzolamide 2 % eye drops 1 drops ophthalmic (eye) BID 10/29/18 04/28/24 History latanoprost 0.005 % eye drops 1 drops ophthalmic (eye) QPM 10/29/18 04/28/24 History sertraline 50 mg tablet 50 mg PO QAM #30 tabs 10/29/18 04/28/24 History acetaminophen 500 mg tablet 500 mg PO Q6H PRN Pain 05/27/19 04/28/24 History (Tylenol Extra Strength) metoprolol tartrate 25 mg tablet 25 mg PO QAM 05/27/19 04/28/24 History aspirin 81 mg chewable tablet 81 mg PO DAILY 11/28/19 04/28/24 History simvastatin 20 mg tablet 20 mg PO QAM 11/28/19 04/28/24 History clopidogrel 75 mg tablet 75 mg PO DAILY 06/08/20 04/28/24 History hydralazine 50 mg tablet 50 mg PO BID 09/27/21 04/28/24 History fluticasone fur. 100 mcg-umeclid 1 inh inhalation QAM 10/06/23 04/28/24 History 62.5 mcg-vilant 25 mcg inhalat.powder (Trelegy Ellipta) ondansetron 4 mg disintegrating 4 mg PO DIRECTED PRN Nausea 10/06/23 04/28/24 History tablet esomeprazole magnesium 20 mg 20 mg PO DAILY 10/31/23 04/28/24 History capsule,delayed release (Nexium) potassium chloride 15 mEq 15 meq PO DAILY #90 tabs 10/31/23 04/28/24 Rx tablet,extended release(part/cryst) (Klor-Con M) Patient History Medical History Glaucoma Dyslipidemia Left carotid stenosis Dysphagia History of stent insertion of renal artery states reason for plavix HTN (hypertension) follows w/ Dr Meza, [place] History of GI bleed Esophageal obstruction recent hospitalization, reason for upcoming procedure Renal artery stenosis, [place], bilateral UTI (urinary tract infection) Recent UTI, completed abx Anemia recent blood transfusion (09/2023) [facility] CKD (chronic kidney disease) "one functioning kidney"- follows w/ Dr Colvin History of diverticulitis COPD (chronic obstructive pulmonary disease) well controlled w/ daily inhaler Surgical History Hx of colonoscopy Hx of hysterectomy History of thoracic surgery History of section X3 History of hip replacement Right Social History Smoking Status: Former smoker Tobacco Type: Cigarettes Second Hand Exposure: No; Do You Dip or Chew Tobacco: No; Hx Alcohol Use: Yes Alcohol type: beer Hx Substance Use: No Preferred Language: Croatian Communication Ability: Effective Weir Fisher Required: No Beliefs That Will Affect Care: Synagogue Synagogue Beliefs: Holiness Current Living Situation: Family Current Living Situation Comment: 2 daughters and grandson Feels Safe at Home: Yes Assistive Devices: Nebulizer Review of Systems Review of Systems: Detailed review of system was done and pertinent positives and negatives are mentioned above. Physical Exam Constitutional: WD/WN, vitals as above no acute distress Eyes: + anicteric sclerae Neck: normal visual inspection Thyroid: no thyromegaly Respiratory: + respiratory distress Auscultation: + diminished lung sounds and + crackles Cardiovascular: Rate/Rhythm: regular rate and regular rhythm Heart Sounds: normal S1 and normal S2 Extremities: no edema Gastrointestinal (Abdomen): Inspection/Auscultation: abdomen normal to inspection and normal bowel sounds Percussion/Palpation: abdomen soft; abdomen nontender Musculoskeletal: Extremities: extremities normal to inspection Skin: + turgor decreased; no rashes Neurologic: no focal motor deficits Psychiatric: Orientation: alert and oriented x 3 Affect: euthymic affect Results & Data Vital Signs (Past 12 Hours) Vital Signs Temp Pulse Pulse Resp BP Pulse Ox O2 Del Method 05/03/24 11:10 36.8 C 94 H 20 179/67 H 97 Nasal Cannula 05/03/24 09:47 90 05/03/24 08:55 Nasal Cannula 05/03/24 07:17 103 H 17 97 Nasal Cannula 05/03/24 07:03 36.4 C L 103 H 20 176/52 H 98 Nasal Cannula 05/03/24 02:59 36.9 C 101 H 16 158/68 H 97 Nasal Cannula O2 Flow Rate 05/03/24 11:10 2 05/03/24 09:47 05/03/24 08:55 2 05/03/24 07:17 2 05/03/24 07:03 2 05/03/24 02:59 PG Care Time/CCT Total # of Minutes Spent Total Time Spent with Patient: Total time spent is greater than 50% in coordination of care (as documented) at patient's floor/unit and/or counseling patient: Coding Level of Care Code 41091 INT INP/OBS CARE 3/75MIN Diagnoses Acidosis, metabolic E87.20 HTN (hypertension) I10 Anemia D64.9 Hyponatremia E87.1
[2024-05-03] MEDS: FORMOTEROL 20 MCG/2 ML VIAL NEB SCH (13:18)
--- NOTE | 2024-05-03 15:14 | Pulmonology Progress Note ---
Date of Service May 03, 2024 Assessment & Plan (1) COPD exacerbation: (2) Community acquired pneumonia: (3) Aspergillus: (4) Shortness of breath at rest: (5) Abnormal CT scan, chest: (6) Leukocytosis: (7) Hiatal hernia: (8) Acidosis, metabolic: (9) Leukemoid reaction: Plan Patient's tachypnea appears to be improved with resolution of her nongap acidosis. Bicarbonate drip discontinued. Concern for ischemic colitis is relatively low at this time given negative lactate and benign abdominal exam. CT chest and mesentery ultrasound findings noted. Possible component of chronic intermittent bowel ischemia. Fungitell and Aspergillus antigen pending. Highly doubt that she has significant pulmonary aspergillosis. Patient empirically on voriconazole per the hospitalist service. Recommend 5 days total of atypical coverage. Agree with ID regarding 7 days treatment with Unasyn/Augmentin. Recommend out of bed to chair is much as possible and physical therapy. Patient has a large hiatal hernia which is contributing to her respiratory symptoms and recommend keeping the head of the bed elevated above 35 degrees. Continue prednisone for ongoing COPD exacerbation. Continue DuoNebs every 6 hours and nebulized budesonide. Add nebulized formoterol twice daily for ongoing wheezing. Patient with elevated white count likely secondary to leukemoid reaction and demargination from steroids. Discussed with Dr. Leung of the hospitalist service. Admission and Anticipated Discharge Date Admission Date: April 28, 2024 Subjective Patient essentially stable compared to yesterday. Continues to have shortness of breath with limited exertion. Requiring low-flow oxygen. Denies any fevers, chills or night sweats. Denies chest pain. Review of Systems Review of Systems: All systems reviewed & are unremarkable except as noted in HPI & below Physical Exam Physical Exam: Constitutional: Elderly and frail appearing. Eyes: Pupils are equal round and reactive to light. Conjunctivae are normal. Anicteric sclera. Ears nose, mouth and throat: Mallampati class 2. Normal posterior oropharynx. Uvula is midline. Neck: Trachea is midline. Visual inspection is normal. Respiratory: Prolonged phase of exhalation. Expiratory wheezes. Tachypneic. Cardiovascular: Regular rate and rhythm. No murmurs. No edema. Gastrointestinal: Normal bowel sounds, soft, nontender and nondistended. No hepatosplenomegaly noted. Musculoskeletal: No cyanosis. Patient is able to move all extremities. Strength is 5 out of 5 in the upper and lower extremities. Skin: No rashes, warm dry and intact. Neurologic: No obvious focal neurological deficits seen. Psychiatric: Alert and oriented x3 with a euthymic affect. Results & Data Results & Data Vital Signs (Past 12 Hours) Vital Signs Temp Pulse Pulse Resp BP Pulse Ox O2 Del Method 05/03/24 13:46 97 05/03/24 13:19 75 15 99 Nasal Cannula 05/03/24 11:10 36.8 C 94 H 20 179/67 H 97 Nasal Cannula 05/03/24 09:47 90 05/03/24 08:55 Nasal Cannula 05/03/24 07:17 103 H 17 97 Nasal Cannula 05/03/24 07:03 36.4 C L 103 H 20 176/52 H 98 Nasal Cannula O2 Flow Rate 05/03/24 13:46 05/03/24 13:19 2 05/03/24 11:10 2 05/03/24 09:47 05/03/24 08:55 2 05/03/24 07:17 2 05/03/24 07:03 2 PG Care Time/CCT Total # of Minutes Spent Total Time Spent with Patient: Total time spent is greater than 50% in coordination of care (as documented) at patient's floor/unit and/or counseling patient: Coding Level of Care Code 54072 SUB INP/OBS CARE 2/35MIN Diagnoses COPD exacerbation J44.1 Community acquired pneumonia J18.9 Aspergillus B44.9 Shortness of breath at rest R06.[address] scan, chest R93.89 Leukocytosis D72.829 Hiatal hernia K44.9 Acidosis, metabolic E87.20 Leukemoid reaction D72.823
[2024-05-03 17:11] LABS: Aspergillus Ag Index 2.12 (<0.50); Aspergillus Antigen, Serum Detected (Not Detected)
[2024-05-03 20:43] LABS: Fungitell (1-3)-B-D-Glucan >500 pg/mL
[2024-05-03] MEDS: SODIUM BICARBONATE 650 MG TAB PO SCH (20:50)
--- NOTE | 2024-05-03 23:45 | Hospitalist Progress Note ---
Date of Service May 03, 2024 Assessment & Plan (1) COPD exacerbation: (2) Diarrhea: (3) Hyponatremia: (4) Hypomagnesemia: (5) Leukocytosis: (6) Anemia: (7) Dysphagia: Plan Patient is a 89 y/o female with a PMHx of COPD, CKD, hx GI bleed, iron deficency anemia, dysphagia, CADE s/p bl stenting, HTN. Patient was evaluated at urgent care in [facility] and prescribed doxycycline and prednisone, which she took 1 dose of at home. She presented to the ED due to worsening dyspnea and cough. She is being admitted for a COPD exacerbation. #copd exacerbation [id number] history, quit 15 years ago CXR negative, nonhypoxic on admission procal 0.66, BNP 287 Continue home inhalers As patient continues to have wheezing, switched to cefepime and initiated xopenex. Continue with doxycycline IV 100 mg Q12h for atypical and anti-inflammatory cove rage Pulmicort Respules 0.5 BID flutter valve QID, incentive spirometry, Mucinex, Tessalon perles sputum cultures ordered Promote oral hydration - will continue IV fluids at 80 mL/hour started in ED x 1 bag oxygen prn for O2 <92% Cultures now growing aspergillus, consult pulm and ID. Started voriconazole yesterday. Inflammatory markes now decreasing, WBC is plateruing. Clinically she is about the same. Updated family. Unsure if this is aspergillus but will continue until further workup is complete. inflammatory markers improving, procal decreasing, wbc though remains roughly the same. Patient though does not appear to be worse. Vitals stable only on 2 liters. updated family. stopped bicarb drip #diarrhea Bio fire negative Stool cultures ordered: negative has had recent antibiotic use with levofloxacin approximately 1 month ago for pneumonia #electrolyte abnormalities NA 133, Mg 1.7, K+ 4.2 (WNL) Likely 2/2 decreased p.o. intake and diarrhea improved. #leukocytosis WBC 14.23 on admission with left shift Likely 2/2 steroid use and infection above UA and stool cultures ordered Trend CBC, anticipate to remain elevated with steroids follow blood cultures #iron deficiency anemia Patient reports 2 iron infusions in the past month Most recent transfusion / Hgb 11.8, improved from baseline #dysphagia follows with GI, EGD 10/11/2023 showed LA grade C reflux esophagitis with no bleeding, medium size hiatal hernia Patient reports was to have EGD 05/01; was holding Plavix however EGD canceled due to illness Will resume Plavix Aspiration precautions and easy to chew diet Chronic stable diagnoses: CKDstable, at baseline RASs/p bilateral stent placement (left 2005, right 2020), continue aspirin and Plavix Hypertensioncontinue metoprolol and hydralazine HLDcontinue statin VTE ppx: SCDs, recent history of GI bleed Diet: heart healthy, easy to chew Dispo: med/tele Admission and Anticipated Discharge Date Admission Date: April 28, 2024 Subjective Patient reports no significant improvement from yesterday. Physical Exam Physical Exam: The patient is awake, alert and oriented 3, in no acute distress. Non-toxic appearing. HEENT- EOMI, mucous membranes moist. Hearing grossly intact. Heart-normal S1 and S2. No murmurs, rubs or gallops. Lungs-diffuse wheezing, no respiratory distress, no accessory muscle use. Abdomen-normal bowel sounds and soft. No ascites noted. Non-tender. Extremities- no clubbing, cyanosis, or edema. Rheumatologic-normal range of motion. Psychiatric-normal affect. Results & Data Results & Data Vital Signs (Past 12 Hours) Vital Signs Temp Pulse Pulse Pulse Resp BP Pulse Ox 05/03/24 23:07 36.7 C 96 H 18 176/73 H 94 05/03/24 22:36 87 05/03/24 20:36 96 H 188/69 H 05/03/24 20:00 05/03/24 19:39 98 H 18 99 05/03/24 19:28 36.6 C 82 18 178/79 H 97 05/03/24 15:20 36.9 C 85 18 164/71 H 96 05/03/24 13:46 97 05/03/24 13:19 75 15 99 O2 Del Method O2 Flow Rate 05/03/24 23:07 Nasal Cannula 05/03/24 22:36 05/03/24 20:36 05/03/24 20:00 Nasal Cannula 05/03/24 19:39 Nasal Cannula 2 05/03/24 19:28 Nasal Cannula 05/03/24 15:20 Nasal Cannula 2 05/03/24 13:46 05/03/24 13:19 Nasal Cannula 2 PG Care Time/CCT Total # of Minutes Spent Total Time Spent with Patient: Total time spent is greater than 50% in coordination of care (as documented) at patient's floor/unit and/or counseling patient: Coding Level of Care Code 47939 SUB INP/OBS CARE 3/50MIN Diagnoses COPD exacerbation J44.1 Diarrhea R19.7 Hyponatremia E87.1 Hypomagnesemia E83.42 Leukocytosis D72.829 Anemia D64.9 Dysphagia R13.10
[2024-05-04 06:24] LABS: Hematocrit (blood only) 32.5 % (37.0-47.0); Hemoglobin 10.4 g/dl (12.0-16.0); Mean Corpuscular Hemoglobin 28.9 pg (25.0-34.0); Mean Corpuscular Volume 90.3 fL (80.0-100.0); Mean Platelet Volume 10.4 fL (9.4-12.4); Nucleated RBC # (auto) 0.03 K/uL (0.00-0.12); Nucleated RBC % (auto) 0.1 %; Platelet Count 225 K/uL (130-400); RDW Coefficient of Variation 21.8 % (11.5-14.5); RDW Standard Deviation 69.8 fL (36.4-46.3); White Blood Count 43.72 K/ul (4.8-10.8)
[2024-05-04 06:28] LABS: BUN Creatinine Ratio 25.4 (10-20); C Reactive Protein 8.78 mg/dl (0-0.5); Calcium 7.9 mg/dl (8.6-10.3); Potassium 3.8 mmol/L (3.5-5.1)
--- NOTE | 2024-05-04 15:30 | Pulmonology Progress Note ---
Date of Service May 04, 2024 Assessment & Plan (1) COPD exacerbation: (2) Community acquired pneumonia: (3) Aspergillus: (4) Shortness of breath at rest: (5) Abnormal CT scan, chest: (6) Leukocytosis: (7) Hiatal hernia: (8) Acidosis, metabolic: (9) Leukemoid reaction: Plan Patient's tachypnea appears to be improved with resolution of her nongap acidosis. Bicarbonate drip discontinued. Concern for ischemic colitis is relatively low at this time given negative lactate and benign abdominal exam. CT abdomen and mesentery ultrasound findings noted. Possible component of chronic intermittent bowel ischemia. Fungitell and Aspergillus antigen surprisingly came back positive. Would agree with continued voriconazole and defer length of treatment to infectious disease. Recommend 5 days total of atypical coverage. Agree with ID regarding 7 days treatment with Unasyn/Augmentin. Check LFTs tomorrow as she is on voriconazole. Voriconazole level will need to be checked within the next 48 hours. Recommend out of bed to chair is much as possible and physical therapy. Patient has a large hiatal hernia which is contributing to her respiratory symptoms and recommend keeping the head of the bed elevated above 35 degrees. Continue prednisone for ongoing COPD exacerbation. Continue DuoNebs every 6 hours and nebulized budesonide. Continue nebulized formoterol twice daily. Wheezing slightly improved today. Patient with elevated white count likely secondary to leukemoid reaction and demargination from steroids. White count appears to have plateaued and is slightly downtrending. Will continue to follow. Admission and Anticipated Discharge Date Admission Date: April 28, 2024 Subjective Patient getting her haircut today by a family member. She is in much better spirits and denies any significant shortness of breath currently. Is on room air. Review of Systems Review of Systems: All systems reviewed & are unremarkable except as noted in HPI & below Physical Exam Physical Exam: Constitutional: Elderly and frail appearing. Eyes: Pupils are equal round and reactive to light. Conjunctivae are normal. Anicteric sclera. Ears nose, mouth and throat: Mallampati class 2. Normal posterior oropharynx. Uvula is midline. Neck: Trachea is midline. Visual inspection is normal. Respiratory: Prolonged phase of exhalation. Expiratory wheezes. Tachypnea resolved. Cardiovascular: Regular rate and rhythm. No murmurs. No edema. Gastrointestinal: Normal bowel sounds, soft, nontender and nondistended. No hepatosplenomegaly noted. Musculoskeletal: No cyanosis. Patient is able to move all extremities. Strength is 5 out of 5 in the upper and lower extremities. Skin: No rashes, warm dry and intact. Neurologic: No obvious focal neurological deficits seen. Psychiatric: Alert and oriented x3 with a euthymic affect. Results & Data Results & Data Vital Signs (Past 12 Hours) Vital Signs Temp Pulse Resp BP Pulse Ox O2 Del Method O2 Flow Rate 05/04/24 14:57 86 18 93 Room Air 05/04/24 11:29 36.5 C 72 18 149/64 H 97 Nasal Cannula 2 05/04/24 08:00 Nasal Cannula 2 05/04/24 07:38 36.5 C 78 18 198/72 H 96 Nasal Cannula 2 05/04/24 07:02 95 H 20 97 Nasal Cannula 2 PG Care Time/CCT Total # of Minutes Spent Total Time Spent with Patient: Total time spent is greater than 50% in coordination of care (as documented) at patient's floor/unit and/or counseling patient: Coding Level of Care Code 23625 SUB INP/OBS CARE 2/35MIN Diagnoses COPD exacerbation J44.1 Community acquired pneumonia J18.9 Aspergillus B44.9 Shortness of breath at rest R06.[address] scan, chest R93.89 Leukocytosis D72.829 Hiatal hernia K44.9 Acidosis, metabolic E87.20 Leukemoid reaction D72.823
[2024-05-04] MEDS: AMPICILLIN/SULBACTAM SOD 3,000 MG/100 ML BAG IV SCH (20:49)
[2024-05-04] MEDS: SODIUM BICARBONATE 650 MG TAB PO SCH (20:57)
--- NOTE | 2024-05-04 23:32 | Hospitalist Progress Note ---
Date of Service May 04, 2024 Assessment & Plan (1) COPD exacerbation: (2) Diarrhea: (3) Hyponatremia: (4) Hypomagnesemia: (5) Leukocytosis: (6) Anemia: (7) Dysphagia: Plan Patient is a 89 y/o female with a PMHx of COPD, CKD, hx GI bleed, iron deficency anemia, dysphagia, CADE s/p bl stenting, HTN. Patient was evaluated at urgent care in [facility] and prescribed doxycycline and prednisone, which she took 1 dose of at home. She presented to the ED due to worsening dyspnea and cough. She is being admitted for a COPD exacerbation. #copd exacerbation [id number] history, quit 15 years ago CXR negative, nonhypoxic on admission procal 0.66, BNP 287 Continue home inhalers As patient continues to have wheezing, switched to cefepime and initiated xopenex. Continue with doxycycline IV 100 mg Q12h for atypical and anti-inflammatory cove rage Pulmicort Respules 0.5 BID flutter valve QID, incentive spirometry, Mucinex, Tessalon perles sputum cultures ordered Promote oral hydration - will continue IV fluids at 80 mL/hour started in ED x 1 bag oxygen prn for O2 <92% Cultures now growing aspergillus, consult pulm and ID. Now on voriconazole, awaiting further aspergillus workup, if negative will stop. WBC stable. Patient though appears better, no on room air. updated family. Decreased oral bicarb. #diarrhea Bio fire negative Stool cultures ordered: negative has had recent antibiotic use with levofloxacin approximately 1 month ago for pneumonia #electrolyte abnormalities NA 133, Mg 1.7, K+ 4.2 (WNL) Likely 2/2 decreased p.o. intake and diarrhea improved. #leukocytosis WBC 14.23 on admission with left shift Likely 2/2 steroid use and infection above UA and stool cultures ordered Trend CBC, anticipate to remain elevated with steroids follow blood cultures #iron deficiency anemia Patient reports 2 iron infusions in the past month Most recent transfusion 04/22 Hgb 11.8, improved from baseline #dysphagia follows with GI, EGD 10/11/2023 showed LA grade C reflux esophagitis with no bleeding, medium size hiatal hernia Patient reports was to have EGD 05/01; was holding Plavix however EGD canceled due to illness Will resume Plavix Aspiration precautions and easy to chew diet Chronic stable diagnoses: CKDstable, at baseline RASs/p bilateral stent placement (left 2005, right 2020), continue aspirin and Plavix Hypertensioncontinue metoprolol and hydralazine HLDcontinue statin VTE ppx: SCDs, recent history of GI bleed Diet: heart healthy, easy to chew Dispo: med/tele Admission and Anticipated Discharge Date Admission Date: April 28, 2024 Subjective 89 yo female reports no new symptoma. SHe state she is feeling better. Physical Exam Physical Exam: The patient is awake, alert and oriented 3, in no acute distress. Non-toxic appearing. HEENT- EOMI, mucous membranes moist. Hearing grossly intact. Heart-normal S1 and S2. No murmurs, rubs or gallops. Lungs-diffuse wheezing, no respiratory distress, no accessory muscle use. Abdomen-normal bowel sounds and soft. No ascites noted. Non-tender. Extremities- no clubbing, cyanosis, or edema. Rheumatologic-normal range of motion. Psychiatric-normal affect. Results & Data Results & Data Vital Signs (Past 12 Hours) Vital Signs Temp Pulse Resp BP Pulse Ox O2 Del Method 05/04/24 21:32 36.6 C 72 17 182/71 H 94 Room Air 05/04/24 20:10 70 18 94 Room Air 05/04/24 20:00 Room Air 05/04/24 15:52 36.5 C 77 18 150/59 H 91 Room Air 05/04/24 14:57 86 18 93 Room Air PG Care Time/CCT Total # of Minutes Spent Total Time Spent with Patient: Total time spent is greater than 50% in coordination of care (as documented) at patient's floor/unit and/or counseling patient: Coding Level of Care Code 41740 SUB INP/OBS CARE 3/50MIN Diagnoses COPD exacerbation J44.1 Diarrhea R19.7 Hyponatremia E87.1 Hypomagnesemia E83.42 Leukocytosis D72.829 Anemia D64.9 Dysphagia R13.10
[2024-05-05 07:26] LABS: Hematocrit (blood only) 28.6 % (37.0-47.0); Hemoglobin 9.1 g/dl (12.0-16.0); Mean Corpuscular Hemoglobin 28.8 pg (25.0-34.0); Mean Corpuscular Hgb Conc 31.8 g/dL (32.0-36.0); Mean Corpuscular Volume 90.5 fL (80.0-100.0); Mean Platelet Volume 10.8 fL (9.4-12.4); Platelet Count 163 K/uL (130-400); RDW Coefficient of Variation 22.1 % (11.5-14.5); RDW Standard Deviation 71.1 fL (36.4-46.3); Red Blood Count 3.16 M/uL (4.20-5.40); White Blood Count 25.02 K/ul (4.8-10.8)
[2024-05-05 07:55] LABS: Albumin Level 2.7 gm/dl (3.4-5.0); BUN Creatinine Ratio 27.1 (10-20); Bilirubin Direct 0.1 mg/dl (0-0.2); Bilirubin,Total 0.4 mg/dl (0.2-1.0); C Reactive Protein 8.99 mg/dl (0-0.5); Calcium 7.5 mg/dl (8.6-10.3); Creatinine Clr Calc Pharmacy 21.2 ml/min; Potassium 3.8 mmol/L (3.5-5.1); Total Protein 4.8 gm/dl (6.0-8.3)
--- NOTE | 2024-05-05 11:43 | Pulmonology Progress Note ---
Date of Service May 05, 2024 Assessment & Plan (1) COPD exacerbation: (2) Community acquired pneumonia: (3) Aspergillus: (4) Shortness of breath at rest: (5) Abnormal CT scan, chest: (6) Hiatal hernia: (7) Leukemoid reaction: Plan Fungitell and Aspergillus antigen surprisingly came back positive. Would agree with continued voriconazole and defer length of treatment to infectious disease. Recommend 5 days total of atypical coverage. Agree with ID regarding 7 days treatment with Unasyn/Augmentin. LFTs look normal. Continue to check LFTs periodically every 4 to 6 weeks while on voriconazole. Recommend voriconazole level tomorrow. Recommend out of bed to chair is much as possible and physical therapy. Patient has a large hiatal hernia which is contributing to her respiratory symptoms and recommend keeping the head of the bed elevated above 35 degrees. Will give an additional 2 days of prednisone for COPD exacerbation and then stop. Continue DuoNebs every 6 hours and nebulized budesonide. Continue nebulized formoterol twice daily. Once stable for discharge home, recommend transitioning back to Trelegy inhaler. White count now significantly trending down. Suspect leukemoid reaction. Pulmonary sign off at this time. Please call with questions. Thank you for the consult. Admission and Anticipated Discharge Date Admission Date: April 28, 2024 Subjective Patient feeling much better today and currently on room air. Continues to have wheeze. Denies any significant chest pain, fevers, chills or night sweats. Appetite is improving. Review of Systems Review of Systems: All systems reviewed & are unremarkable except as noted in HPI & below Physical Exam Physical Exam: Constitutional: Elderly and frail appearing. Eyes: Pupils are equal round and reactive to light. Conjunctivae are normal. Anicteric sclera. Ears nose, mouth and throat: Mallampati class 2. Normal posterior oropharynx. Uvula is midline. Neck: Trachea is midline. Visual inspection is normal. Respiratory: Prolonged phase of exhalation. Expiratory wheezes. Tachypnea resolved. Cardiovascular: Regular rate and rhythm. No murmurs. No edema. Gastrointestinal: Normal bowel sounds, soft, nontender and nondistended. No hepatosplenomegaly noted. Musculoskeletal: No cyanosis. Patient is able to move all extremities. Strength is 5 out of 5 in the upper and lower extremities. Skin: No rashes, warm dry and intact. Neurologic: No obvious focal neurological deficits seen. Psychiatric: Alert and oriented x3 with a euthymic affect. Results & Data Results & Data Vital Signs (Past 12 Hours) Vital Signs Temp Pulse Pulse Resp BP Pulse Ox O2 Del Method 05/05/24 11:11 36.7 C 77 18 178/68 H 92 Room Air 05/05/24 08:20 88 173/64 H 96 Room Air 05/05/24 08:00 Room Air 05/05/24 07:19 105 H 20 94 Room Air 05/05/24 03:49 36.5 C 81 18 170/69 H 98 Nasal Cannula O2 Flow Rate 05/05/24 11:11 05/05/24 08:20 05/05/24 08:00 05/05/24 07:19 05/05/24 03:49 2 PG Care Time/CCT Total # of Minutes Spent Total Time Spent with Patient: Total time spent is greater than 50% in coordination of care (as documented) at patient's floor/unit and/or counseling patient: Coding Level of Care Code 54664 SUB INP/OBS CARE 04/06MIN Diagnoses COPD exacerbation J44.1 Community acquired pneumonia J18.9 Aspergillus B44.9 Shortness of breath at rest R06.[address] scan, chest R93.89 Hiatal hernia K44.9 Leukemoid reaction D72.823
--- NOTE | 2024-05-05 22:44 | Hospitalist Progress Note ---
Date of Service May 05, 2024 Assessment & Plan (1) COPD exacerbation: (2) Diarrhea: (3) Hyponatremia: (4) Hypomagnesemia: (5) Leukocytosis: (6) Anemia: (7) Dysphagia: Plan Patient is a 89 y/o female with a PMHx of COPD, CKD, hx GI bleed, iron deficency anemia, dysphagia, CADE s/p bl stenting, HTN. Patient was evaluated at urgent care in [facility] and prescribed doxycycline and prednisone, which she took 1 dose of at home. She presented to the ED due to worsening dyspnea and cough. She is being admitted for a COPD exacerbation. #copd exacerbation Community-acquired pneumonia from aspiration causing COPD exacerbation [id number] history, quit 15 years ago CXR negative, nonhypoxic on admission procal 0.66, BNP 287 Continue home inhalers As patient continues to have wheezing, switched to cefepime and initiated xope nex. Continue with doxycycline IV 100 mg Q12h for atypical and anti-inflammatory coverage Pulmicort Respules 0.5 BID flutter valve QID, incentive spirometry, Mucinex, Tessalon perles sputum cultures ordered Promote oral hydration - will continue IV fluids at 80 mL/hour started in ED x 1 bag oxygen prn for O2 <92% Cultures growing aspergillus, consult pulm and ID. Now on voriconazole, awaiting further aspergillus workup, if negative will stop. WBC improving. Patient though appears better, now on room air. updated family. . #diarrhea Bio fire negative Stool cultures ordered: negative has had recent antibiotic use with levofloxacin approximately 1 month ago for pneumonia #electrolyte abnormalities/acute metabolic acidosis NA 133, Mg 1.7, K+ 4.2 (WNL) Likely 2/2 decreased p.o. intake and diarrhea improved. #leukocytosis WBC 14.23 on admission with left shift Likely 2/2 steroid use and infection above UA and stool cultures ordered Trend CBC, anticipate to remain elevated with steroids follow blood cultures #iron deficiency anemia Patient reports 2 iron infusions in the past month Most recent transfusion 04/22 Hgb 11.8, improved from baseline #dysphagia follows with GI, EGD 10/11/2023 showed LA grade C reflux esophagitis with no bleeding, medium size hiatal hernia Patient reports was to have EGD 05/01; was holding Plavix however EGD canceled due to illness Will resume Plavix Aspiration precautions and easy to chew diet Chronic stable diagnoses: CKDstable, at baseline RASs/p bilateral stent placement (left 2005, right 2020), continue aspirin and Plavix Hypertensioncontinue metoprolol and hydralazine HLDcontinue statin VTE ppx: SCDs, recent history of GI bleed Diet: heart healthy, easy to chew Dispo: med/tele Admission and Anticipated Discharge Date Admission Date: April 28, 2024 Subjective Patient reports feeling much improved. Now breathing on room air. Physical Exam Physical Exam: The patient is awake, alert and oriented 3, in no acute distress. Non-toxic appearing. HEENT- EOMI, mucous membranes moist. Hearing grossly intact. Heart-normal S1 and S2. No murmurs, rubs or gallops. Lungs-decreased wheezing, no respiratory distress, no accessory muscle use. Abdomen-normal bowel sounds and soft. No ascites noted. Non-tender. Extremities- no clubbing, cyanosis, or edema. Rheumatologic-normal range of motion. Psychiatric-normal affect. Results & Data Results & Data Vital Signs (Past 12 Hours) Vital Signs Temp Pulse Resp BP BP Pulse Ox O2 Del Method 05/05/24 20:51 36.6 C 72 17 138/82 200/80 H 95 Room Air 05/05/24 20:32 70 18 95 Room Air 05/05/24 19:29 Room Air 05/05/24 15:29 36.5 C 75 18 192/69 H 95 Room Air 05/05/24 13:38 74 15 95 Room Air 05/05/24 11:11 36.7 C 77 18 178/68 H 92 Room Air FiO2 05/05/24 20:51 05/05/24 20:32 05/05/24 19:29 05/05/24 15:29 05/05/24 13:38 21 05/05/24 11:11 PG Care Time/CCT Total # of Minutes Spent Total Time Spent with Patient: Total time spent is greater than 50% in coordination of care (as documented) at patient's floor/unit and/or counseling patient: Coding Level of Care Code 63093 SUB INP/OBS CARE 3/50MIN Diagnoses COPD exacerbation J44.1 Diarrhea R19.7 Hyponatremia E87.1 Hypomagnesemia E83.42 Leukocytosis D72.829 Anemia D64.9 Dysphagia R13.10
--- NOTE | 2024-05-06 09:22 | Hospitalist Progress Note ---
Date of Service May 06, 2024 Assessment & Plan (1) COPD exacerbation: (2) Diarrhea: (3) Hyponatremia: (4) Hypomagnesemia: (5) Leukocytosis: (6) Anemia: (7) Dysphagia: Plan Patient is a 89 y/o female with a PMHx of COPD, CKD, hx GI bleed, iron deficiency anemia, dysphagia, CADE s/p bl stenting, HTN. Patient was evaluated at urgent care in [facility] and prescribed doxycycline and prednisone, which she took 1 dose of at home. She presented to the ED due to worsening dyspnea and cough. She is being admitted for a COPD exacerbation. 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 currently treated with voriconazole #copd exacerbation requiring supplemental oxygen Community-acquired pneumonia from aspiration causing COPD exacerbation [id number] history, quit 15 years ago Patient with slight worsening since admission developing aspiration pneumonia while in the hospital found to have Aspergillus growing from her sputum Appreciate infectious disease helping manage antibiotics and especially the continuation of voriconazole Antibiotics were discontinued by infectious disease feeling leukocytosis from steroid use Pulmicort Respules 0.5 BID flutter valve QID, incentive spirometry, Mucinex, Tessalon perles #diarrhearesolved Bio fire negative Stool cultures ordered: negative has had recent antibiotic use with levofloxacin approximately 1 month ago for pneumonia #electrolyte abnormalities/acute metabolic acidosis Replete hypokalemia #iron deficiency anemia Patient reports 2 iron infusions in the past month Most recent transfusion / Hgb 11.8, improved from baseline #dysphagia follows with GI, EGD 10/11/2023 showed LA grade C reflux esophagitis with no bleeding, medium size hiatal hernia Patient reports was to have EGD 05/01; was holding Plavix however EGD canceled due to illness Will resume Plavix washed with caution as hemoptysis Aspiration precautions and easy to chew diet Chronic stable diagnoses: CKD 3 stable, at baseline numerous bilateral renal stents with a left kidney nearly entirely replaced by combination of simple and a hyperdense proteinaceous cysts RASs/p bilateral stent placement (left 2005, right 2020), continue aspirin and Plavix Hypertensioncontinue metoprolol and hydralazine HLDcontinue statin VTE ppx: SCDs, recent history of GI bleed Diet: heart healthy, easy to chew Admission and Anticipated Discharge Date Admission Date: April 28, 2024 Subjective Patient was pleasant she was breathless she was still requiring oxygen Patient saved to episodes of grossly hemoptysis for me to examine this was bright red blood in her tissue Physical Exam Physical Exam: Thin female she was tachypneic Lungs with coarse breath sounds bilaterally with poor air movement no focal loss or wheeze Cardiac exam is regular Results & Data Results & Data Vital Signs (Past 12 Hours) Vital Signs Temp Pulse Resp BP BP Pulse Ox O2 Del Method 05/06/24 07:37 97.5 F L 83 18 178/73 H 93 Room Air 05/06/24 07:10 82 18 91 Room Air 05/06/24 03:56 97.9 F 66 16 176/63 H 97 Nasal Cannula 05/05/24 23:18 97.7 F 84 18 174/68 H 91 Room Air O2 Flow Rate 05/06/24 07:37 05/06/24 07:10 05/06/24 03:56 1 05/05/24 23:18 Laboratory Results Reviewed CBCmarked leukocytosis Reviewed chemistry with hypokalemia noted PG Care Time/CCT Total # of Minutes Spent Total Time Spent with Patient: Total time spent is greater than 50% in coordination of care (as documented) at patient's floor/unit and/or counseling patient: Coding Level of Care Code 61084 SUB INP/OBS CARE 3/50MIN Diagnoses COPD exacerbation J44.1 Diarrhea R19.7 Hyponatremia E87.1 Hypomagnesemia E83.42 Leukocytosis D72.829 Anemia D64.9 Dysphagia R13.10
[2024-05-06 09:57] LABS: Hematocrit (blood only) 28.7 % (37.0-47.0); Hemoglobin 9.1 g/dl (12.0-16.0); Mean Corpuscular Hemoglobin 28.8 pg (25.0-34.0); Mean Corpuscular Hgb Conc 31.7 g/dL (32.0-36.0); Mean Corpuscular Volume 90.8 fL (80.0-100.0); Mean Platelet Volume 9.8 fL (9.4-12.4); Platelet Count 117 K/uL (130-400); RDW Coefficient of Variation 22.1 % (11.5-14.5); RDW Standard Deviation 70.8 fL (36.4-46.3); Red Blood Count 3.16 M/uL (4.20-5.40); White Blood Count 19.88 K/ul (4.8-10.8)
[2024-05-06 10:11] LABS: Calcium 7.7 mg/dl (8.6-10.3); Creatinine Clr Calc Pharmacy 21.8 ml/min
--- NOTE | 2024-05-06 12:23 | Infectious Disease Progress Nt ---
Date of Service May 06, 2024 Assessment & Plan (1) Shortness of breath at rest: (2) Leukemoid reaction: (3) Aspergillus: (4) Acute exacerbation of chronic obstructive pulmonary disease (COPD): (5) Stage 3b chronic kidney disease: Plan 89yo F with h/o COPD, CKD III, dysphagia, renal artery stenosis s/p stent, right hip replacement, reported being admitted to [facility] x for PNA 1 week prior to presentation s/p abx and prednisone (unknown which abx), who presented on 04/28 with worsening SOB and cough. For the past week, she had been sick with cold-like symptoms including significant cough with post-tussive emesis, diarrhea, dyspnea and weakness. She was seen at an urgent care in [place] where she was prescribed doxycycline and prednisone and took 1 dose of before she came to the ED due to severe coughing spells and gagging. Also has had chills and night sweats x 1 week. On admission, she was afebrile, tachycardic, BP stable, O2 sat mid-90s on 2L NC. Initial labs with WBC 14.23, Cr 1.69. Troponin elevated, CRP 14.28. PCT 0.66. UA negative. RPP negative. GIPP negative. CXR with slightly prominent interstitial markings in the lungs similar to previous, no new infiltrate or consolidation. KUB negative. She was initially given CTX and doxycycline and admitted for COPD exacerbation, for which she was continued on doxy alone. On the morning of 04/30, she became more dyspneic per RN and was tripoding. CXR on 04/30 with interval development of right infrahilar opacity favoring PNA. Abx broadened with cefepime, given a dose of solumedrol. WBC increased to 26.25 and sputum cx resulted with Aspergillus spp. ID was consulted 04/[address] chest noncon with tree-in-bud nodularity involving all lobes c/w nonspecific infectious/inflammatory changes, moderate hiatal hernia. On 05/01, she had been back on RA but then was noted to be hypoxic and placed back on 2L, WBC increased to 45 with rising CRP. Subsequently started on voriconazole empirically by primary team. Per pulm, not a good candidate for bronchoscopy at this time. Shes had ongoing high leukocytosis thought CRP trending down. Cefepime changed to Unasyn given lack of additional bacterial growth on sputum cx. CTAP w/o contrast with numerous bilateral renal cysts, left kidney nearly entirely replaced by combination of simple and hyperdense/proteinaceous cysts, mild alveolar opacities within the lower lungs c/w mild infectious process, extensive colonic diverticulosis. 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 CXR 05/02 with subtle nodular densities in the right lower lung likely representing persistent or residual nodules that were seen on prior CT. WBC today 46. Patient had increased work of breathing on exam with diffuse wheezing. Aside from respiratory issues, she has not had any other specific findings on thorough examination including no spinal tenderness, no rashes or open wounds, no oral lesions. She has not had any abdominal tenderness though did note loose watery stools, which are now soft. Additional imaging also without acute findings. She is on steroids which could also be contributing to leukocytosis. Urine legionella is negative so she doesnt need antibiotic coverage from that standpoint. Microbiology Blood culture 04/28 NG Sputum culture 04/29 Aspergillus fumigatus Sputum AFB NGTD Fungal blood culture 05/03 NGTD blood culture 05/03 NGTD Aspergillus galactomannan 05/01 detected ( 2.12) beta D glucan positive 05/01 >500 Antibiotics Ceftriaxone 04/28 - 04/29 Cefepime 04/30 - 05/01 Unasyn 05/02ongoing Doxycycline 04/28 - 05/03 Voriconazole 05/01ongoing # Leukocytosis, improving Peak 45.54--> 19.88 (05/06) # Sputum cx with Aspergillus # Tree-in-bud opacities # COPD exacerbation # CKD III 05/06 hemoptysis today. Serum Aspergillus Ag and serum beta-d glucan + Recs follow u blood cx and fungal blood cx - continue voriconazole . Duration minimum is 6-- 12 weeks, but could be up to 6 months. Final duration based on resolution of signs sns symptoms. She developed hemoptysis to day. -Stop Unasyn ID will continue to follow. Jordyn Farrell MD, MPH Infectious Disease [facility], ID [facility] Call [phone] with questions Admission and Anticipated Discharge Date Admission Date: April 28, 2024 Subjective Subsequent visit was provided via telemedicine using two-way real-time interactive telecommunication between the patient and the telemedicine provider. For the duration of the visit, the provider was performing the assessment from a different facility than the patient. This includesuse of bluetooth stethoscope forauscultationperformed by the telepresenter that the telemedicine provider can hear if described in the physical exam. Learning Support Resource Room Teacher contact information: Please call [facility] Call Center . (Phone Number For Physician Use Only) After establishing a telemedicine visit, patient was: Patient was verified with two unique identifiers Time Spent with Patient: Subsequent => 35 min Patient reports ongoing cough and SOB She complains of new hemoptysis today Feels unwell On RA Physical Exam Physical Exam: General: some increased work of breathing, chronically ill appearing HEENT: Anicteric sclera Neck: supple Lungs: Inspiratory or expiratory wheezing throughout but R>L Abdomen: soft,not tender not distended Neuro: AAO times 3 Psych- cooperative Results & Data Vital Signs (Past 12 Hours) Vital Signs Temp Pulse Resp BP BP Pulse Ox O2 Del Method 05/06/24 11:45 36.4 C L 65 18 166/61 H 94 Room Air 05/06/24 08:00 Room Air 05/06/24 07:37 36.4 C L 83 18 178/73 H 93 Room Air 05/06/24 07:10 82 18 91 Room Air 05/06/24 03:56 36.6 C 66 16 176/63 H 97 Nasal Cannula O2 Flow Rate 05/06/24 11:45 05/06/24 08:00 05/06/24 07:37 05/06/24 07:10 05/06/24 03:56 1 Laboratory Results Short CBC 05/06/24 Range/Units 09:29 WBC 19.88 H (4.8-10.8) K/ul Hgb 9.1 L (12.0-16.0) g/dl Hct 28.7 L (37.0-47.0) % Plt Count 117 L (130-400) K/uL BMP 05/06/24 09:29 Sodium 145 Potassium 3.0 L D Chloride 113 H Carbon Dioxide 28 BUN 27 H Creatinine 1.04 Glucose 111 H Calcium 7.7 L Diagnostic Findings Microbiology 05/03/24 09:50 Blood Aerobic Blood Culture - Preliminary No growth in Aerobic bottle after 48 hours. 05/03/24 09:50 Blood Anaerobic Blood Culture - Final 05/03/24 09:54 Blood Aerobic Blood Culture - Preliminary No growth in Aerobic bottle after 48 hours. 05/03/24 09:54 Blood Anaerobic Blood Culture - Final 05/03/24 08:05 Sputum, Expectorated Acid Fast Bacilli Smear - Final 05/03/24 09:50 Blood Fungal Smear - Final 05/03/24 09:50 Blood Fungal Culture - Preliminary No yeast or fungus isolated - Report 1, Additional Report to Follow. 04/28/24 22:23 Blood Aerobic Blood Culture - Final No growth in Aerobic bottle after 5 days. 04/28/24 22:23 Blood Anaerobic Blood Culture - Final No growth in Anaerobic bottle after 5 days. 04/28/24 20:37 Blood Aerobic Blood Culture - Final No growth in Aerobic bottle after 5 days. 04/28/24 20:37 Blood Anaerobic Blood Culture - Final No growth in Anaerobic bottle after 5 days. 04/29/24 04:24 Sputum, Expectorated Gram Stain - Final 04/29/24 04:24 Sputum, Expectorated Sputum Culture - Final Aspergillus fumigatus Medications Administered Home Medications Medication Instructions Recorded Confirmed Last Taken dorzolamide 2 % eye drops 1 drops ophthalmic (eye) BID 10/29/18 04/28/24 04/28/24 latanoprost 0.005 % eye drops 1 drops ophthalmic (eye) QPM 10/29/18 04/28/24 04/28/24 sertraline 50 mg tablet 50 mg PO QAM #30 tabs 10/29/18 04/28/24 04/28/24 acetaminophen 500 mg tablet 500 mg PO Q6H PRN Pain 05/27/19 04/28/24 04/28/24 (Tylenol Extra Strength) metoprolol tartrate 25 mg tablet 25 mg PO QAM 05/27/19 04/28/24 04/28/24 aspirin 81 mg chewable tablet 81 mg PO DAILY 11/28/19 04/28/24 04/28/24 simvastatin 20 mg tablet 20 mg PO QAM 11/28/19 04/28/24 04/28/24 clopidogrel 75 mg tablet 75 mg PO DAILY 06/08/20 04/28/24 04/28/24 hydralazine 50 mg tablet 50 mg PO BID 09/27/21 04/28/24 04/28/24 fluticasone fur. 100 mcg-umeclid 1 inh inhalation QAM 10/06/23 04/28/24 04/28/24 62.5 mcg-vilant 25 mcg inhalat.powder (Trelegy Ellipta) ondansetron 4 mg disintegrating 4 mg PO DIRECTED PRN Nausea 10/06/23 04/28/24 04/28/24 tablet esomeprazole magnesium 20 mg 20 mg PO DAILY 10/31/23 04/28/24 04/28/24 capsule,delayed release (Nexium) potassium chloride 15 mEq 15 meq PO DAILY #90 tabs 10/31/23 04/28/24 04/28/24 tablet,extended release(part/cryst) (Klor-Con M) Active Medications Generic Name Dose Route Start Last Admin Trade Name Freq PRN Reason Stop Dose Admin Acetaminophen 650 mg 04/29/24 02:05 05/04/24 21:00 Acetaminophen 325 Mg Tab PO 05/29/24 02:04 650 mg Q4H PRN Administration Pain or Fever Albuterol 3 ml 04/30/24 19:00 05/06/24 12:28 Albut/Ipratrop 3mg/0.5mg Neb 3 Ml Vial NEB 05/30/24 18:59 Not Given Q6R FILOMENA Protocol Aspirin 81 mg 04/29/24 09:00 05/06/24 08:33 Aspirin 81 Mg Chew PO 05/29/24 08:59 81 mg DAILY FILOMENA Administration Benzonatate 100 mg 04/29/24 02:05 05/06/24 13:52 Benzonatate 100 Mg Capsule PO 05/29/24 02:04 100 mg TID FILOMENA Administration Budesonide 0.5 mg 04/29/24 07:00 05/06/24 07:09 Budesonide 0.5 Mg/2 Ml Vial (Pulmicort) NEB 05/29/24 06:59 0.5 mg BIDR FILOMENA Administration Clopidogrel Bisulfate 75 mg 04/29/24 09:00 05/06/24 08:34 Clopidogrel Bisulfate 75 Mg Tab PO 05/29/24 08:59 75 mg DAILY FILOMENA Administration Dorzolamide HCl 1 drops 04/29/24 02:05 05/06/24 08:33 Dorzolamide Hcl 2% Oph Soln 10 Ml Btl OP 05/29/24 02:04 1 drops BID FILOMENA Administration Formoterol Fumarate 20 mcg 05/03/24 11:40 05/06/24 07:09 Formoterol 20 Mcg/2 Ml Vial NEB 06/02/24 11:39 20 mcg BIDR FILOMENA Administration Guaifenesin 1,200 mg 04/29/24 02:05 05/06/24 08:34 Guaifenesin 600 Mg Tabcr PO 05/29/24 02:04 1,200 mg Q12 FILOMENA Administration Hydralazine HCl 50 mg 04/29/24 02:05 05/06/24 08:34 Hydralazine Tab 50 Mg Tab PO 05/29/24 02:04 50 mg BID FILOMENA Administration Ampicillin Sodium/Sulbactam Sodium 3,000 mg in 100 mls @ 200 mls/hr 05/04/24 21:00 05/06/24 08:54 Unasyn IV 05/07/24 08:59 Infused Q12 FILMOENA Infusion Lactobacillus Acidophilus 1,250 mg 05/01/24 09:00 05/06/24 08:33 Advanced Probiotic 625 Mg Capsule PO 05/31/24 08:59 1,250 mg DAILY FILOMENA Administration Latanoprost 1 drops 04/29/24 21:00 05/05/24 20:19 Latanoprost 0.005% Op Soln 2.5 Ml Btl OP 05/29/24 20:59 1 drops QPM FILOMENA Administration Melatonin 3 mg 04/29/24 21:30 05/06/24 02:06 Melatonin 3 Mg Tab PO 05/29/24 21:29 3 mg HS PRN Administration Sleep Metoprolol Tartrate 25 mg 04/29/24 09:00 05/06/24 08:35 Metoprolol Tartrate 25 Mg Tab PO 05/29/24 08:59 25 mg QAM FILOMENA Administration Ondansetron HCl 4 mg 04/29/24 02:05 04/30/24 08:14 Ondansetron Inj 2 Mg/Ml 2 Ml Vial IV 05/29/24 02:04 4 mg Q6H PRN Administration Nausea And Vomiting Pantoprazole Sodium 40 mg 04/29/24 09:00 05/06/24 08:35 Pantoprazole 40 Mg Tab PO 05/29/24 08:59 40 mg DAILY FILOMENA Administration Potassium Chloride 15 meq 04/29/24 09:00 05/06/24 08:33 Potassium Chloride 10 Meq Tabcr PO 05/29/24 08:59 15 meq DAILY FILOMENA Administration Prednisone 30 mg 05/01/24 09:00 05/06/24 08:35 Prednisone 10 Mg Tablet PO 05/07/24 08:59 30 mg DAILY FILOMENA Administration Sertraline HCl 50 mg 04/29/24 09:00 05/06/24 08:35 Sertraline Hcl 50 Mg Tablet PO 05/29/24 08:59 50 mg QAM FILOMENA Administration Sodium Bicarbonate 650 mg 05/04/24 21:00 05/06/24 08:35 Sodium Bicarbonate 650 Mg Tab PO 06/03/24 20:59 650 mg BID FILOMENA Administration Sodium Chloride 4 ml 05/01/24 19:00 05/06/24 07:09 Sodium Chlor 7% 4 Ml Neb NEB 05/31/24 18:59 4 ml BIDR FILOMENA Administration Voriconazole 200 mg 05/02/24 10:00 05/06/24 11:09 Voriconazole 200 Mg Tablet PO 06/01/24 09:59 200 mg Q12H FILOMENA Administration
[2024-05-06] MEDS: POTASSIUM CHLORIDE CRTAB 20 MEQ TABCR PO SCH (21:25)
[2024-05-07] MEDS: MAGNESIUM SULFATE / D5W 1 GM/100 ML BAG IV SCH (01:15)
--- NOTE | 2024-05-07 10:43 | Infectious Disease Progress Nt ---
Date of Service May 07, 2024 Assessment & Plan (1) Shortness of breath at rest: (2) Leukemoid reaction: (3) Aspergillus: (4) Acute exacerbation of chronic obstructive pulmonary disease (COPD): (5) Stage 3b chronic kidney disease: Plan 89yo F with h/o COPD, CKD III, dysphagia, renal artery stenosis s/p stent, right hip replacement, reported being admitted to [facility] x for PNA 1 week prior to presentation s/p abx and prednisone (unknown which abx), who presented on 04/28 with worsening SOB and cough. For the past week, she had been sick with cold-like symptoms including significant cough with post-tussive emesis, diarrhea, dyspnea and weakness. She was seen at an urgent care in [place] where she was prescribed doxycycline and prednisone and took 1 dose of before she came to the ED due to severe coughing spells and gagging. Also has had chills and night sweats x 1 week. On admission, she was afebrile, tachycardic, BP stable, O2 sat mid-90s on 2L NC. Initial labs with WBC 14.23, Cr 1.69. Troponin elevated, CRP 14.28. PCT 0.66. UA negative. RPP negative. GIPP negative. CXR with slightly prominent interstitial markings in the lungs similar to previous, no new infiltrate or consolidation. KUB negative. She was initially given CTX and doxycycline and admitted for COPD exacerbation, for which she was continued on doxy alone. On the morning of 04/30, she became more dyspneic per RN and was tripoding. CXR on 04/30 with interval development of right infrahilar opacity favoring PNA. Abx broadened with cefepime, given a dose of solumedrol. WBC increased to 26.25 and sputum cx resulted with Aspergillus spp. ID was consulted 04/[address] chest noncon with tree-in-bud nodularity involving all lobes c/w nonspecific infectious/inflammatory changes, moderate hiatal hernia. On 05/01, she had been back on RA but then was noted to be hypoxic and placed back on 2L, WBC increased to 45 with rising CRP. Subsequently started on voriconazole empirically by primary team. Per pulm, not a good candidate for bronchoscopy at this time. Shes had ongoing high leukocytosis thought CRP trending down. Cefepime changed to Unasyn given lack of additional bacterial growth on sputum cx. CTAP w/o contrast with numerous bilateral renal cysts, left kidney nearly entirely replaced by combination of simple and hyperdense/proteinaceous cysts, mild alveolar opacities within the lower lungs c/w mild infectious process, extensive colonic diverticulosis. 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 CXR 05/02 with subtle nodular densities in the right lower lung likely representing persistent or residual nodules that were seen on prior CT. WBC today 46. Patient had increased work of breathing on exam with diffuse wheezing. Aside from respiratory issues, she has not had any other specific findings on thorough examination including no spinal tenderness, no rashes or open wounds, no oral lesions. She has not had any abdominal tenderness though did note loose watery stools, which are now soft. Additional imaging also without acute findings. She is on steroids which could also be contributing to leukocytosis. Urine legionella is negative so she doesnt need antibiotic coverage from that standpoint. Microbiology Blood culture 04/28 NG Sputum culture 04/29 Aspergillus fumigatus Sputum AFB NGTD Fungal blood culture 05/03 NGTD blood culture 05/03 NGTD Aspergillus galactomannan 05/01 detected ( 2.12) beta D glucan positive 05/01 >500 Antibiotics Ceftriaxone 04/28 - 04/29 Cefepime 04/30 - 05/01 Unasyn 05/02ongoing Doxycycline 04/28 - 05/03 Voriconazole 05/01ongoing # Leukocytosis, improving Peak 45.54--> 19.88 (05/06) # Sputum cx with Aspergillus # Tree-in-bud opacities # COPD exacerbation # CKD III 05/06 hemoptysis today. Serum Aspergillus Ag and serum beta-d glucan + 05/07 No hemoptysis. Has less nasal congestion. Feels breathing is improved tosy. Recs follow u blood cx and fungal blood cx - continue voriconazole . Duration minimum is 6-- 12 weeks, but could be up to 6 months. Final duration based on resolution of signs and symptoms. She developed hemoptysis to day. ID will continue to follow. Jordyn Farrell MD, MPH Infectious Disease [facility], ID Division Call [phone] with questions Admission and Anticipated Discharge Date Admission Date: April 28, 2024 Subjective Subsequent visit was provided via telemedicine using two-way real-time interactive telecommunication between the patient and the telemedicine provider. For the duration of the visit, the provider was performing the assessment from a different facility than the patient. This includesuse of bluetooth stethoscope forauscultationperformed by the telepresenter that the telemedicine provider can hear if described in the physical exam. Wood Mechanist contact information: Please call ID Connect Call Center . (Phone Number For Physician Use Only) After establishing a telemedicine visit, patient was: Patient was verified with two unique identifiers Time Spent with Patient: Subsequent => 25 min No hemoptysis today. Feels she can breath better after nasal congestion /stuffiness improved On RA Had a short run of VTach, given mg Physical Exam Physical Exam: General:NAD, chronically ill appearing HEENT: Anicteric sclera Neck: supple Lungs: Less Inspiratory /expiratory wheezing . Decreased BS at bases. Non labored breathing today. Abdomen: soft,not tender not distended Neuro: AAO times 3 Psych- cooperative Results & Data Vital Signs (Past 12 Hours) Vital Signs Temp Pulse Pulse Resp BP BP Pulse Ox 05/07/24 09:18 69 154/67 H 05/07/24 08:51 05/07/24 07:43 184/76 H 05/07/24 07:27 36.6 C 89 18 204/80 H 98 05/07/24 07:15 68 05/07/24 07:04 67 18 95 05/07/24 03:55 69 05/07/24 02:46 36.5 C 67 16 176/74 H 98 05/06/24 22:55 36.5 C 76 20 180/68 H 93 O2 Del Method O2 Flow Rate 05/07/24 09:18 05/07/24 08:51 Room Air 05/07/24 07:43 05/07/24 07:27 Nasal Cannula 1 05/07/24 07:15 05/07/24 07:04 Nasal Cannula 2 05/07/24 03:55 05/07/24 02:46 Nasal Cannula 05/06/24 22:55 Nasal Cannula Laboratory Results Laboratory Results - last 48 hr 05/06/24 09:29 WBC 19.88 H RBC 3.16 L Hgb 9.1 L Hct 28.7 L MCV 90.8 MCH 28.8 MCHC 31.7 L RDW Std Deviation 70.8 H RDW Coeff of Montrell 22.1 H Plt Count 117 L MPV 9.8 Sodium 145 Potassium 3.0 L D Chloride 113 H Carbon Dioxide 28 Anion Gap 4 BUN 27 H Creatinine 1.04 Est Cr Clr Drug Dosing 21.8 eGFR 52.02 BUN/Creatinine Ratio 26.0 H Glucose 111 H Calcium 7.7 L Diagnostic Findings Microbiology 05/03/24 09:50 Blood Aerobic Blood Culture - Preliminary No growth in Aerobic bottle after 48 hours. 05/03/24 09:50 Blood Anaerobic Blood Culture - Final 05/03/24 09:54 Blood Aerobic Blood Culture - Preliminary No growth in Aerobic bottle after 48 hours. 05/03/24 09:54 Blood Anaerobic Blood Culture - Final 05/03/24 08:05 Sputum, Expectorated Acid Fast Bacilli Smear - Final 05/03/24 09:50 Blood Fungal Smear - Final 05/03/24 09:50 Blood Fungal Culture - Preliminary No yeast or fungus isolated - Report 1, Additional Report to Follow. 04/28/24 22:23 Blood Aerobic Blood Culture - Final No growth in Aerobic bottle after 5 days. 04/28/24 22:23 Blood Anaerobic Blood Culture - Final No growth in Anaerobic bottle after 5 days. 04/28/24 20:37 Blood Aerobic Blood Culture - Final No growth in Aerobic bottle after 5 days. 04/28/24 20:37 Blood Anaerobic Blood Culture - Final No growth in Anaerobic bottle after 5 days. 04/29/24 04:24 Sputum, Expectorated Gram Stain - Final 04/29/24 04:24 Sputum, Expectorated Sputum Culture - Final Aspergillus fumigatus Medications Administered Home Medications Medication Instructions Recorded Confirmed Last Taken dorzolamide 2 % eye drops 1 drops ophthalmic (eye) BID 10/29/18 04/28/24 04/28/24 latanoprost 0.005 % eye drops 1 drops ophthalmic (eye) QPM 10/29/18 04/28/24 04/28/24 sertraline 50 mg tablet 50 mg PO QAM #30 tabs 10/29/18 04/28/24 04/28/24 acetaminophen 500 mg tablet 500 mg PO Q6H PRN Pain 05/27/19 04/28/24 04/28/24 (Tylenol Extra Strength) metoprolol tartrate 25 mg tablet 25 mg PO QA 05/27/19 04/28/24 04/28/24 aspirin 81 mg chewable tablet 81 mg PO DAILY 11/28/19 04/28/24 04/28/24 simvastatin 20 mg tablet 20 mg PO [facility] 11/28/19 04/28/24 04/28/24 clopidogrel 75 mg tablet 75 mg PO DAILY 06/08/20 04/28/24 04/28/24 hydralazine 50 mg tablet 50 mg PO BID 09/27/21 04/28/24 04/28/24 fluticasone fur. 100 mcg-umeclid 1 inh inhalation QA 10/06/23 04/28/24 04/28/24 62.5 mcg-vilant 25 mcg inhalat.powder (Trelegy Ellipta) ondansetron 4 mg disintegrating 4 mg PO DIRECTED PRN Nausea 10/06/23 04/28/24 04/28/24 tablet esomeprazole magnesium 20 mg 20 mg PO DAILY 10/31/23 04/28/24 04/28/24 capsule,delayed release (Nexium) potassium chloride 15 mEq 15 meq PO DAILY #90 tabs 10/31/23 04/28/24 04/28/24 tablet,extended release(part/cryst) (Klor-Con M) Active Medications Generic Name Dose Route Start Last Admin Trade Name Freq PRN Reason Stop Dose Admin Acetaminophen 650 mg 04/29/24 02:05 05/04/24 21:00 Acetaminophen 325 Mg Tab PO 05/29/24 02:04 650 mg Q4H PRN Administration Pain or Fever Albuterol 3 ml 04/30/24 19:00 05/07/24 12:32 Albut/Ipratrop 3mg/0.5mg Neb 3 Ml Vial NEB 05/30/24 18:59 3 ml Q6R FILOMENA Administration Protocol Aspirin 81 mg 04/29/24 09:00 05/07/24 08:13 Aspirin 81 Mg Chew PO 05/29/24 08:59 81 mg DAILY FILOMENA Administration Benzonatate 100 mg 04/29/24 02:05 05/07/24 08:09 Benzonatate 100 Mg Capsule PO 05/29/24 02:04 100 mg TID FILOMENA Administration Budesonide 0.5 mg 04/29/24 07:00 05/07/24 07:03 Budesonide 0.5 Mg/2 Ml Vial (Pulmicort) NEB 05/29/24 06:59 0.5 mg BIDR FILOMENA Administration Clopidogrel Bisulfate 75 mg 04/29/24 09:00 05/07/24 08:09 Clopidogrel Bisulfate 75 Mg Tab PO 05/29/24 08:59 75 mg DAILY FILOMENA Administration Dorzolamide HCl 1 drops 04/29/24 02:05 05/07/24 08:11 Dorzolamide Hcl 2% Oph Soln 10 Ml Btl OP 05/29/24 02:04 1 drops BID FILOMENA Administration Formoterol Fumarate 20 mcg 05/03/24 11:40 05/07/24 07:49 Formoterol 20 Mcg/2 Ml Vial NEB 06/02/24 11:39 Not Given BIDR FILOMENA Guaifenesin 1,200 mg 04/29/24 02:05 05/07/24 08:09 Guaifenesin 600 Mg Tabcr PO 05/29/24 02:04 1,200 mg Q12 FILOMENA Administration Hydralazine HCl 50 mg 04/29/24 02:05 05/07/24 08:09 Hydralazine Tab 50 Mg Tab PO 05/29/24 02:04 50 mg BID FILOMENA Administration Lactobacillus Acidophilus 1,250 mg 05/01/24 09:00 05/07/24 08:10 Advanced Probiotic 625 Mg Capsule PO 05/31/24 08:59 1,250 mg DAILY FILOMENA Administration Latanoprost 1 drops 04/29/24 21:00 05/06/24 21:22 Latanoprost 0.005% Op Soln 2.5 Ml Btl OP 05/29/24 20:59 1 drops QPM FILOMENA Administration Melatonin 3 mg 04/29/24 21:30 05/06/24 21:20 Melatonin 3 Mg Tab PO 05/29/24 21:29 3 mg HS PRN Administration Sleep Metoprolol Tartrate 25 mg 04/29/24 09:00 05/07/24 08:09 Metoprolol Tartrate 25 Mg Tab PO 05/29/24 08:59 25 mg QAM FILOMENA Administration Ondansetron HCl 4 mg 04/29/24 02:05 04/30/24 08:14 Ondansetron Inj 2 Mg/Ml 2 Ml Vial IV 05/29/24 02:04 4 mg Q6H PRN Administration Nausea And Vomiting Pantoprazole Sodium 40 mg 04/29/24 09:00 05/07/24 08:09 Pantoprazole 40 Mg Tab PO 05/29/24 08:59 40 mg DAILY FILOMENA Administration Potassium Chloride 20 meq 05/06/24 21:00 05/07/24 08:13 Potassium Chloride Crtab 20 Meq Tabcr PO 05/07/24 21:01 20 meq BID FILOMENA Administration Sertraline HCl 50 mg 04/29/24 09:00 05/07/24 08:09 Sertraline Hcl 50 Mg Tablet PO 05/29/24 08:59 50 mg QAM FILOMENA Administration Sodium Bicarbonate 650 mg 05/04/24 21:00 05/07/24 08:09 Sodium Bicarbonate 650 Mg Tab PO 06/03/24 20:59 650 mg BID FILOMENA Administration Sodium Chloride 4 ml 05/01/24 19:00 05/07/24 07:04 Sodium Chlor 7% 4 Ml Neb NEB 05/31/24 18:59 4 ml BIDR FILOMENA Administration Voriconazole 200 mg 05/02/24 10:00 05/07/24 09:16 Voriconazole 200 Mg Tablet PO 06/01/24 09:59 200 mg Q12H FILOMENA Administration
--- NOTE | 2024-05-07 18:20 | Hospitalist Progress Note ---
Date of Service May 07, 2024 Assessment & Plan (1) COPD exacerbation: (2) Diarrhea: (3) Hyponatremia: (4) Hypomagnesemia: (5) Leukocytosis: (6) Anemia: (7) Dysphagia: Plan Patient is a 89 y/o female with a PMHx of COPD, CKD, hx GI bleed, iron deficiency anemia, dysphagia, CADE s/p bl stenting, HTN. Patient was evaluated at urgent care in [facility] and prescribed doxycycline and prednisone, which she took 1 dose of at home. She presented to the ED due to worsening dyspnea and cough. She is being admitted for a COPD exacerbation. 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 currently treated with voriconazole #copd exacerbation requiring supplemental oxygen Community-acquired pneumonia from aspiration causing COPD exacerbation 45-oofs-[place]a history, quit 15 years ago Patient with slight worsening since admission developing aspiration pneumonia while in the hospital found to have Aspergillus growing from her sputum Appreciate infectious disease helping manage antibiotics and especially the continuation of voriconazole, anticipate 6-12 weeks of therapy Antibiotics were discontinued by infectious disease feeling leukocytosis from steroid use Pulmicort Respules 0.5 BID flutter valve QID, incentive spirometry, Mucinex, Tessalon perles #acute on chronic respiratory failure with hypoxia, tapering off oxygen #diarrhearesolved Bio fire negative Stool cultures ordered: negative has had recent antibiotic use with levofloxacin approximately 1 month ago for pneumonia #electrolyte abnormalities/acute metabolic acidosis Replete hypokalemia #iron deficiency anemia Patient reports 2 iron infusions in the past month Most recent transfusion 2/10 Hgb 11.8, improved from baseline #dysphagia follows with GI, EGD 10/11/2023 showed LA grade C reflux esophagitis with no bleeding, medium size hiatal hernia Patient reports was to have EGD 05/01; was holding Plavix however EGD canceled due to illness Will resume Plavix washed with caution as hemoptysis Aspiration precautions and easy to chew diet Chronic stable diagnoses: CKD 3 stable, at baseline numerous bilateral renal stents with a left kidney nearly entirely replaced by combination of simple and a hyperdense proteinaceous cysts RASs/p bilateral stent placement (left 2005, right 2020), continue aspirin and Plavix Hypertensioncontinue metoprolol and hydralazine HLDcontinue statin VTE ppx: SCDs, recent history of GI bleed Diet: heart healthy, easy to chew Admission and Anticipated Discharge Date Admission Date: April 28, 2024 Subjective no further hemoptysis, tapering off oxygen Pt has good support at home and looking forward to return lives with family Physical Exam Physical Exam: Thin female she was less tachypneic than yesterday Lungs with coarse breath sounds bilaterally with poor air movement no focal loss or wheeze Cardiac exam is regular Results & Data Results & Data Vital Signs (Past 12 Hours) Vital Signs Temp Pulse Pulse Resp BP BP Pulse Ox 05/07/24 15:12 94 05/07/24 15:09 69 18 175/66 H 94 05/07/24 14:38 76 05/07/24 12:32 66 18 95 05/07/24 11:01 97.9 F 67 18 136/59 L 94 05/07/24 09:18 69 154/67 H 05/07/24 08:51 05/07/24 07:43 184/76 H 05/07/24 07:27 97.9 F 89 18 204/80 H 98 05/07/24 07:15 68 05/07/24 07:04 67 18 95 O2 Del Method O2 Flow Rate 05/07/24 15:12 05/07/24 15:09 Room Air 05/07/24 14:38 05/07/24 12:32 Room Air 05/07/24 11:01 Room Air 05/07/24 09:18 05/07/24 08:51 Room Air 05/07/24 07:43 05/07/24 07:27 Nasal Cannula 1 05/07/24 07:15 05/07/24 07:04 Nasal Cannula 2 PG Care Time/CCT Total # of Minutes Spent Total Time Spent with Patient: Total time spent is greater than 50% in coordination of care (as documented) at patient's floor/unit and/or counseling patient: Coding Level of Care Code 26846 SUB INP/OBS CARE 3/50MIN Diagnoses COPD exacerbation J44.1 Diarrhea R19.7 Hyponatremia E87.1 Hypomagnesemia E83.42 Leukocytosis D72.829 Anemia D64.9 Dysphagia R13.10
[2024-05-07 21:13] VITALS: RESP 18
[2024-05-08 07:29] VITALS: TEMP 98.2
[2024-05-08 07:52] VITALS: BP 183/67
[2024-05-08 08:20] VITALS: PULSE 67; O2SAT 92
[2024-05-08 08:47] LABS: Bilirubin,Total 0.4 mg/dl (0.2-1.0); Magnesium 1.7 mg/dl (1.7-2.4)
--- NOTE | 2024-05-08 11:55 | Infectious Disease Progress Nt ---
Date of Service May 08, 2024 Assessment & Plan (1) Shortness of breath at rest: (2) Leukemoid reaction: (3) Aspergillus: (4) Acute exacerbation of chronic obstructive pulmonary disease (COPD): (5) Stage 3b chronic kidney disease: Plan 89yo F with h/o COPD, CKD III, dysphagia, renal artery stenosis s/p stent, right hip replacement, reported being admitted to [facility] x for PNA 1 week prior to presentation s/p abx and prednisone (unknown which abx), who presented on 04/28 with worsening SOB and cough. For the past week, she had been sick with cold-like symptoms including significant cough with post-tussive emesis, diarrhea, dyspnea and weakness. She was seen at an urgent care in [place] where she was prescribed doxycycline and prednisone and took 1 dose of before she came to the ED due to severe coughing spells and gagging. Also has had chills and night sweats x 1 week. On admission, she was afebrile, tachycardic, BP stable, O2 sat mid-90s on 2L NC. Initial labs with WBC 14.23, Cr 1.69. Troponin elevated, CRP 14.28. PCT 0.66. UA negative. RPP negative. GIPP negative. CXR with slightly prominent interstitial markings in the lungs similar to previous, no new infiltrate or consolidation. KUB negative. She was initially given CTX and doxycycline and admitted for COPD exacerbation, for which she was continued on doxy alone. On the morning of 04/30, she became more dyspneic per RN and was tripoding. CXR on 04/30 with interval development of right infrahilar opacity favoring PNA. Abx broadened with cefepime, given a dose of solumedrol. WBC increased to 26.25 and sputum cx resulted with Aspergillus spp. ID was consulted 04/[address] chest noncon with tree-in-bud nodularity involving all lobes c/w nonspecific infectious/inflammatory changes, moderate hiatal hernia. On 05/01, she had been back on RA but then was noted to be hypoxic and placed back on 2L, WBC increased to 45 with rising CRP. Subsequently started on voriconazole empirically by primary team. Per pulm, not a good candidate for bronchoscopy at this time. Shes had ongoing high leukocytosis thought CRP trending down. Cefepime changed to Unasyn given lack of additional bacterial growth on sputum cx. CTAP w/o contrast with numerous bilateral renal cysts, left kidney nearly entirely replaced by combination of simple and hyperdense/proteinaceous cysts, mild alveolar opacities within the lower lungs c/w mild infectious process, extensive colonic diverticulosis. 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 CXR 05/02 with subtle nodular densities in the right lower lung likely representing persistent or residual nodules that were seen on prior CT. WBC peaked to 46. ON ID initial exam she had increased work of breathing with diffuse wheezing. Aside from respiratory issues, she had no other specific findings on thorough examination including no spinal tenderness, no rashes or open wounds, no oral lesions. She had no abdominal tenderness though did note loose watery stools, which were soft at time of eval. Additional imaging also without acute findings. She was on steroids which could have also contributed to leukocytosis. Urine legionella is negative . Microbiology Blood culture 04/28 NG Sputum culture 04/29 Aspergillus fumigatus Sputum AFB NGTD Fungal blood culture 05/03 NGTD Blood culture 05/03 NGTD Aspergillus galactomannan 05/01 detected ( 2.12) beta D glucan positive 05/01 >500 Antibiotics Ceftriaxone 04/28 - 04/29 Cefepime 04/30 - 05/01 Unasyn 05/02ongoing Doxycycline 04/28 - 05/03 Voriconazole 05/01ongoing # Leukocytosis, improving Peak 45.54--> 19.88 (05/06) # Sputum cx with Aspergillus - Aspergillus ag + and BDG + # Tree-in-bud opacities # COPD exacerbation # CKD III 05/06 Complained of hemoptysis Serum Aspergillus Ag and serum beta-d glucan + 05/07 No hemoptysis. Less nasal congestion. Feels breathing is improving 05/08 Cough but improved breathing Recs - Follow up blood cx and fungal blood cx - Continue voriconazole 200 mg po q 12h . Duration minimum is 6-12 weeks, but could be up to 6 months. Final duration based on resolution of signs and symptoms. -Set up follow up with pulmonology - Set up follow up with local ID - Monitor LFTS, CBC with diff, bmp once weekly on therapy. - Repeat CT lung in 3 -4 weeks. ID will sign off. Please call with questions. Jordyn Farrell MD, MPH Infectious Disease [facility], ID Division Call [phone] with questions Admission and Anticipated Discharge Date Admission Date: April 28, 2024 Subjective Subsequent visit was provided via telemedicine using two-way real-time interactive telecommunication between the patient and the telemedicine provider. For the duration of the visit, the provider was performing the assessment from a different facility than the patient. This includesuse of bluetooth stethoscope forauscultationperformed by the telepresenter that the telemedicine provider can hear if described in the physical exam. Operations Controller contact information: Please call [facility] Connect Call Center [phone]. (Phone Number For Physician Use Only) After establishing a telemedicine visit, patient was: Patient was verified with two unique identifiers Time Spent with Patient: Subsequent => 25 min She is anxious about her elevated BP She feels breathinf better but still has cough On RA Physical Exam Physical Exam: General:NAD, chronically ill appearing HEENT: Anicteric sclera Neck: supple Lungs: Decreased BS at bases. Non labored breathing . Less wheezing Abdomen: soft,not tender not distended Neuro: AAO times 3 Psych- cooperative Results & Data Vital Signs (Past 12 Hours) Vital Signs Temp Pulse Pulse Resp BP Pulse Ox O2 Del Method 05/08/24 08:19 67 18 92 Room Air 05/08/24 07:52 183/67 H 05/08/24 07:42 69 05/08/24 07:36 36.8 C 05/08/24 07:28 36.8 C 83 18 204/88 H 97 Room Air 05/08/24 07:13 Room Air 05/08/24 02:54 36.6 C 81 18 161/64 H 94 Room Air 05/08/24 01:00 75 Laboratory Results Liver Function 05/08/24 Range/Units 08:03 Total Bilirubin 0.4 (0.2-1.0) mg/dl AST 28 (13-39) U/L ALT 20 (7-52) U/L Diagnostic Findings Microbiology 05/03/24 09:50 Blood Aerobic Blood Culture - Final No growth in Aerobic bottle after 5 days. 05/03/24 09:50 Blood Anaerobic Blood Culture - Final 05/03/24 09:54 Blood Aerobic Blood Culture - Final No growth in Aerobic bottle after 5 days. 05/03/24 09:54 Blood Anaerobic Blood Culture - Final 05/03/24 08:05 Sputum, Expectorated Acid Fast Bacilli Smear - Final 05/03/24 09:50 Blood Fungal Smear - Final 05/03/24 09:50 Blood Fungal Culture - Preliminary No yeast or fungus isolated - Report 1, Additional Report to Follow. 04/28/24 22:23 Blood Aerobic Blood Culture - Final No growth in Aerobic bottle after 5 days. 04/28/24 22:23 Blood Anaerobic Blood Culture - Final No growth in Anaerobic bottle after 5 days. 04/28/24 20:37 Blood Aerobic Blood Culture - Final No growth in Aerobic bottle after 5 days. 04/28/24 20:37 Blood Anaerobic Blood Culture - Final No growth in Anaerobic bottle after 5 days. 04/29/24 04:24 Sputum, Expectorated Gram Stain - Final 04/29/24 04:24 Sputum, Expectorated Sputum Culture - Final Aspergillus fumigatus Medications Administered
--- NOTE | 2024-05-08 17:24 | Discharge Summary ---
Discharge Summary Date of Service May 08, 2024 Principal Dx & Hospital Course #1 = Principal Diagnosis (1) COPD exacerbation: (2) Diarrhea: (3) Hyponatremia: (4) Hypomagnesemia: (5) Leukocytosis: (6) Anemia: (7) Dysphagia: Plan Patient is a 89 y/o female with a PMHx of COPD, CKD, hx GI bleed, iron deficiency anemia, dysphagia, CADE s/p bl stenting, HTN. Patient was evaluated at urgent care in [facility] and prescribed doxycycline and prednisone, which she took 1 dose of at home. She presented to the ED due to worsening dyspnea and cough. She is being admitted for a COPD exacerbation. 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 currently treated with voriconazole #copd exacerbation requiring supplemental oxygen Community-acquired pneumonia from aspiration causing COPD exacerbation [id number] history, quit 15 years ago Patient with slight worsening since admission developing aspiration pneumonia while in the hospital found to have Aspergillus growing from her sputum Appreciate infectious disease helping manage antibiotics and especially the continuation of voriconazole, anticipate 6-12 weeks of therapy will have infectious disease follow as outpt Antibiotics were discontinued by infectious disease feeling leukocytosis from steroid use Pulmicort Respules 0.5 BID #acute on chronic respiratory failure with hypoxia, tapering off oxygen #diarrhearesolved Bio fire negative Stool cultures ordered: negative has had recent antibiotic use with levofloxacin approximately 1 month ago for pneumonia #electrolyte abnormalities/acute metabolic acidosis Replete hypokalemia #iron deficiency anemia Patient reports 2 iron infusions in the past month Most recent transfusion 2/10 Hgb 11.8, improved from baseline #dysphagia follows with GI, EGD 10/11/2023 showed LA grade C reflux esophagitis with no bleeding, medium size hiatal hernia Patient reports was to have EGD 05/01; was holding Plavix however EGD canceled due to illness Will resume Plavix with caution as hemoptysis Aspiration precautions and easy to chew diet Chronic stable diagnoses: CKD 3 stable, at baseline numerous bilateral renal stents with a left kidney nearly entirely replaced by combination of simple and a hyperdense proteinaceous cysts RASs/p bilateral stent placement (left 2005, right 2020), continue aspirin and Plavix Hypertensioncontinue metoprolol and hydralazine HLDcontinue statin Notes For Next Care Provider Certainly observation for recurrence of hemoptysis. Exact duration of recall was always left indeterminate by the infectious disease physicians. Infectious disease consult will attempt to be arranged through transitions of care and nurse navigator although this is not defined at time of discharge. Locally Dr. Pinon in [place] does see patients she also sees patients at [facility]. If there is additional information about infectious disease that her primary care would like to refer to that would be appropriate Admission HPI Per Admitting Provider Patient is a 89 y/o female with a PMHx of COPD, CKD, hx GI bleed, iron deficiency anemia, dysphagia, CADE s/p bl stenting, HTN. Patient was evaluated at urgent care in [facility] and prescribed doxycycline and prednisone, which she took 1 dose of at home. She presented to the ED due to worsening dyspnea and cough. She is being admitted for a COPD exacerbation. Patient seen at bedside with her daughter present. Following history was obtain ed by patient's daughter as patient is extremely hard of hearing. She stated that for the past week she has been sick with cold-like symptoms of cough, diarrhea, dyspnea, sputum production, and weakness. She is lost approximately 10 pounds because she feels as though she has been unable to eat due to nausea. She has coughing spells that cause her to gag and sometimes vomit up phlegm. She went to urgent care in [facility] and was prescribed prednisone and doxycycline which she took 1 dose of. She came into the ED because she was having severe coughing spells and gagging. She also endorses chills and night sweats for 1 week. She denies dizziness, lightheadedness, headaches, chest pain, abdominal pain, hematochezia, hematemesis, dysuria, edema. She was a former smoker of 50 years, quit 15 years ago. She denies alcohol use. She does not use oxygen at baseline. She took her morning medications but is due for her evening medications. She wishes to be full code. Patient stated that she has had 2 iron transfusions recently due to low iron. She had 1 roughly 3 weeks ago on a Monday and then had another 1 last Monday. Patient was holding her Plavix since 04/27 due to having an EGD on Monday 05/01. she has since canceled this EGD due to her illness. She stated that her dysphagia is improving however is still present - Had an EGD 10/11/2023. Discharge Exam Pleasant female in no particular distress respiratory status is chronically compromised Discharge Plan Discharge Items Patient Disposition: Home - Home Health Services Reason For Visit: COPD EXACERBATION Discharge Diagnosis: pneumonia from aspergillus copd exacerbation coughing up blood from pneumonia Activity: Resume your previous activity Non-emergency contact: Primary Care Provider and Specialist Call non-emergency contact if: your symptoms worsen Follow-up/Referrals: Jt Pastrana MD [Primary Care Provider] - Diet: Regular Addtl Attending Provider Instructions: you have been diagnosed with a specific kind of pneumonia felt to be from the organism aspergillus, this usually takes a long course of antibiotics to cure. Be sure you have frequent follow up with your doctors after discharge to assure you are continuing to improve. Pending Studies at Discharge: No Stand-Alone Forms: My [facility] [employer], Smoking Cessation Medications and DC Order Prescriptions: New voriconazole 200 mg Tablet 200 mg PO Q12H Qty: 60 3RF prednisone 10 mg tablet 10 mg PO DIRECTED Qty: 40 0RF Rx Instructions: 4 a day x 4 d>3 a day x 4 d>2 a day x 4 d>1 a day Continued clopidogrel 75 mg tablet 75 mg PO DAILY Hold Instructions: Resume on 10/20/23. until after endoscopy. Can be r estarted after. Date above is just placeholder until endoscopy is scheduled. simvastatin 20 mg tablet 20 mg PO QAM aspirin 81 mg tablet,chewable 81 mg PO DAILY dorzolamide 2 % drops 1 drops OP BID sertraline 50 mg tablet 50 mg PO QAM Qty: 30 latanoprost 0.005 % drops 1 drops OP QPM acetaminophen [Tylenol Extra Strength] 500 mg tablet 500 mg PO Q6H PRN (Reason: Pain) metoprolol tartrate 25 mg tablet 25 mg PO QAM esomeprazole magnesium [Nexium] 20 mg capsule,delayed release(DR/EC) 20 mg PO DAILY potassium chloride [Klor-Con M15] 15 mEq tablet,ER particles/crystals 15 meq PO DAILY Qty: 90 3RF hydralazine 50 mg tablet 50 mg PO BID ondansetron 4 mg tablet,disintegrating 4 mg PO DIRECTED PRN (Reason: Nausea) Trelegy Ellipta 100-62.5-25 mcg blister with device 1 inh INHALATION QAM Discharge Orders: Discharge Order (Routine); Ordered 05/08/24 Ordered By: Aguilar Camacho Admission Data Admit Date/Time: 04/28/24 23:46 Attending Provider: Aguilar Camacho Admit Provider: Jameel Lindsay Primary Care Provider: Jt Pastrana Other Providers: Jameel Lindsay; Reid Kay; Kortney Xiong; Syl Wyatt; Moriah Yates; Jordyn Farrell; Lala Guy; Hannah Ford; Fox Miller; Madeline Ford; Ant Benjamin; Mary Malik; [facility] Other Interventions: Discharge Summary Assessment (RN) Last Done: 05/08/24 07:36 Hospital Stay Data Consultations 04/28/24 23:10 ED Decision to Admit Stat 04/30/24 14:04 Consult Pulmonology Routine 04/30/24 14:18 Consult Infectious Diseases Routine 05/02/24 17:08 Consult Nephrology Routine Diagnostic Imagining Performed 04/30/24 18:08 CT chest diagnostic wo con Routine 05/02/24 10:56 CT Abd and Pelvis [CT abd pelvis wo con] Urgent US Mesentary Duplex [US duplex mesenteric] Urgent Pending Results Patient Have Any Pending Studies at Discharge: No Discharge Instructions Given to Patient (Per Discharging Provider) you have been diagnosed with a specific kind of pneumonia felt to be from the organism aspergillus, this usually takes a long course of antibiotics to cure. Be sure you have frequent follow up with your doctors after discharge to assure you are continuing to improve. Total Time Total Time Spent Total Time Spent (In Minutes): It required greater than 30 minutes to prepare this patient for discharge. Coding Level of Care Code 17727 INP/OBS DISCH >30 MIN Diagnoses COPD exacerbation J44.1 Diarrhea R19.7 Hyponatremia E87.1 Hypomagnesemia E83.42 Leukocytosis D72.829 Anemia D64.9 Dysphagia R13.10
== END 2024-05-08 12:44 | disposition home health service (06) | DRG 177 ==
LOC: ED 20:11 → SUATTDRO 23:46 → EDINP 23:46 → 2N 04-29 15:09 → 2S 05-01 12:47

== ENCOUNTER 2024-06-16 13:01 | Inpatient (IN) ==
--- NOTE | 2024-06-16 13:49 | XRay Report ---
XR chest 1V portable HISTORY: 89 years-old Female sob acute shortness of breath COMPARISON: 05/02/2023 TECHNIQUE: AP view of the chest FINDINGS: ORIF changes of the ribs. Hiatal hernia. Chronic reticular nodular opacities. No pneumothorax, pleura l effusion or overt pulmonary edema. Mild patchy bilateral opacities have progressed from prior. Hear t is upper limits of normal in size. Chronic right rib fracture deformities. IMPRESSION: Chronic reticular nodular opacities again noted suggestive of an infectious or inflammato ry bronchiolitis. There is mild progression of ill-defined patchy right lung [place] suggestive of a nonspecific pneumonitis. ACT 112: Negative or not required by law. The above report was generated using voice recognition software. It may contain grammatical, syntax o r spelling errors. Electronically signed by: Wm Martinez M.D. 06/16/2024 1:48 PM
[2024-06-16] MEDS: methylPREDNISolone 125 MG/2 ML VIAL IV STA (14:19)
[2024-06-16] MEDS: ALBUT/IPRATROP 3MG/0.5MG NEB 3 ML VIAL NEB STA ×2 (14:20→17:39)
[2024-06-16 14:48] LABS: Adenovirus PCR Not Detected (NotDetected); Bordetella parapertussis PCR Not Detected (NotDetected); Bordetella pertussis PCR Not Detected (NotDetected); Chlamydia pneumoniae PCR Not Detected (NotDetected); Coronavirus 229E PCR Not Detected (NotDetected); Coronavirus CoV-2 (COVID19)PCR Not Detected (NotDetected); Coronavirus HKU1 PCR Not Detected (NotDetected); Coronavirus NL63 PCR Not Detected (NotDetected); Coronavirus OC43PCR Not Detected (NotDetected); Human Metapneumovirus PCR Not Detected (NotDetected); Influenza A PCR Not Detected (NotDetected); Influenza B PCR Not Detected (NotDetected); Mycoplasma pneumoniae PCR Not Detected (NotDetected); Parainfluenza Virus 1 PCR Not Detected (NotDetected); Parainfluenza Virus 2 PCR Not Detected (NotDetected); Parainfluenza Virus 3 PCR DETECTED (NotDetected); Parainfluenza Virus 4 PCR Not Detected (NotDetected); Respiratory Syncytial VirusPCR Not Detected (NotDetected); Rhinovirus/Enterovirus PCR Not Detected (NotDetected)
--- NOTE | 2024-06-16 14:52 | Emergency Department Note ---
Impression & Plan SOB (shortness of breath), Acute exacerbation of chronic obstructive pulmonary disease (COPD), Community acquired pneumonia ED Provider Note NAME: DAVI MEMBRENO AGE: 89 SEX: Female INFORMANT: Patient and family ED PROVIDER(S): Patrick Alvarez MD CHIEF COMPLAINT: Shortness of breath PLAN: Disposition: Admitted Outpatient prescription management: none Referral: None MEDICAL DECISION MAKING: Patient present because shortness of breath. She has a history concerning for pneumonia, COPD, and significant pack-year history of smoking. Patient was wheezing. She was requiring supplemental oxygen. She is not using oxygen at home. Patient was given a DuoNeb as well as Solu-Medrol. Chest x-ray was concerning for pneumonitis. Laboratory testing, ECG and BioFire testing performed. Patient was on parainfluenza. Patient does have a significant leukocytosis. She received a second nebulizer treatment. Discussed with ED pharmacist and she was given IV Rocephin and Zithromax. On reassessment she was feeling better. Patient will require inpatient treatment. Consultation was made with the [facility] hospitalist service. Patient was evaluated in the ER and admitted for further management. Care/management discussed with: rental manager, hospitalist, pharmacist Level of care consideration(s): After review of the information above and other included data, I feel the patient requires escalation of care to admission Triage Nursing notes: reviewed and agree them. Vital Signs: reviewed and remarkable for hypoxia Additional History obtained from: Family Chronic Medical/Social Conditions affecting care: COPD Prior/ Outside/ External records reviewed: Discharge summary from 05/08 reviewed. Patient was treated for CAP and COPD. She also had Aspergillus. Differential Diagnosis: Reactive airway disease, pneumonia, pneumothorax, COPD, CHF, infections, cardiac ischemia, pulmonary embolism, musculoskeletal, gastrointestinal, as well as other pathologies. Diagnostics, independently interpreted by me: ECG: Twelve-lead ECG reveals a sinus rhythm with short SC at 79 bpm. LVH and poor R progression. Left axis deviation noted. Cardiac Monitoring: Cardiac monitoring ordered by me: The patient was placed on continuous cardiac monitoring and observed. It revealed a normal sinus rhythm at 98 beats per minute without ectopy or evidence of dysrhythmia. Medical decision rules: none Imaging studies: Chest x-ray reveals right-sided pneumonitis as well as chronic changes bilaterally. HPI: 89 year old Female arrives for evaluation of shortness of breath. This started started to worsen this morning and is described as difficulty breathing with wheezing. She also has a cough productive of clear sputum. Patient was discharged from the hospital at the end of April for pneumonia and COPD exacerbation. Patient also had Aspergillus.. The patient also notes the following associated symptoms, fatigue. The patient has tried her nebulizer for relieving factors. Current pain is rated as 0/10. Patient does have a history of COPD. Pt denies LOC, headache, fevers, chills, diaphoresis, visual changes, neck pain, chest pain, nausea, vomiting, abdominal pain, back pain, melena, hematochezia, urinary symptoms, numbness, focal weakness, or other complaints.. PAST MEDICAL HISTORY: See Below, COPD, pneumonia PAST SURGICAL HISTORY: See Below, SOCIAL HISTORY: See Below, former smoker HOME MEDICATIONS: See Below ALLERGIES: See Below VITALS: See Below PHYSICAL EXAMINATION: GENERAL: Awake, alert, uncomfortable-appearing, in no distress HENT: Normocephalic, atraumatic. Oropharynx unremarkable. EYES: Normal conjunctiva. Sclera non-icteric. NECK: Inspection normal. Non-tender. Supple. No nuchal rigidity. FROM. No masses. RESPIRATORY: Scattered bilateral inspiratory and expiratory wheezes. Few crackles on the right. No increased rmal respiratory effort. CARDIAC: Normal rate. Normal rhythm.Extremities warm and well perfused. Pulses equal. No JVD. GI: Soft, non-distended. No tenderness to palpation. No rebound or guarding. No masses. MUSCULOSKELETAL: Atraumatic. Chest examination reveals no tenderness. The back is kyphotic on inspection without obvious abnormality. There is no CVA tenderness to palpation. No joint edema. LOWER EXTREMITIES: Calves are equal size bilaterally and non-tender. No edema. No discoloration. NEURO: Normal sensorium. No sensory or motor deficits noted. SKIN: No rash or jaundice noted. PROCEDURES: none CRITICAL CARE: none OBSERVATION NOTE: none Past Med/Surg History Problem List (Updated 06/16/24 @ 18:45 by Prasanth Candelario PA-C) Parainfluenza virus infection SOB (shortness of breath) (Acute) Community acquired pneumonia (Acute) Aspergillus Acute exacerbation of chronic obstructive pulmonary disease (COPD) (Acute) Dehydration (Acute) Esophageal obstruction (Acute) UTI (urinary tract infection) Renal artery stenosis, [place], bilateral GI bleed Dysphagia Hematuria, microscopic Renal cyst Gross hematuria Hypercalcemia Left carotid stenosis Acute kidney injury Dyslipidemia (Chronic) Hypertension, benign (Chronic) Personal history of tobacco use, presenting hazards to health (Chronic) Right renal artery stenosis (Chronic) Vitamin D deficiency (Chronic) Medical History Glaucoma Dyslipidemia Left carotid stenosis History of stent insertion of renal artery HTN (hypertension) History of GI bleed Esophageal obstruction Renal artery stenosis, [place], bilateral UTI (urinary tract infection) Anemia CKD (chronic kidney disease) History of diverticulitis COPD (chronic obstructive pulmonary disease) Surgical History Hx of colonoscopy Hx of hysterectomy History of thoracic surgery History of section History of hip replacement Social History Smoking Status: Never smoker Tobacco Type: Cigarettes Second Hand Exposure: No; Do You Dip or Chew Tobacco: No; Hx Alcohol Use: Yes Alcohol type: beer Hx Substance Use: No Preferred Language: [place] Communication Ability: Effective Medical Bill Processor Required: No Beliefs That Will Affect Care: Yarsanism Yarsanism Beliefs: Mandaeism Current Living Situation: Family Current Living Situation Comment: 2 daughters and grandson Feels Safe at Home: Yes Assistive Devices: Nebulizer Allergies Allergies Allergy/AdvReac Type Severity Reaction Status Date / Time Iodinated Contrast Media Allergy Unknown Anaphylaxis Verified 05/28/24 12:35 [Iodinated Contrast- Oral and IV Dye] Home Meds Home Medications Medication Instructions Recorded Confirmed dorzolamide 2 % eye drops 1 drops ophthalmic (eye) BID 10/29/18 05/28/24 latanoprost 0.005 % eye drops 1 drops ophthalmic (eye) QPM 10/29/18 05/28/24 sertraline 50 mg tablet 50 mg PO QAM #30 tabs 10/29/18 05/28/24 acetaminophen 500 mg tablet 500 mg PO Q6H PRN Pain 05/27/19 05/28/24 (Tylenol Extra Strength) metoprolol tartrate 25 mg tablet 25 mg PO QAM 05/27/19 05/28/24 aspirin 81 mg chewable tablet 81 mg PO DAILY 11/28/19 05/28/24 simvastatin 20 mg tablet 20 mg PO QAM 11/28/19 05/28/24 clopidogrel 75 mg tablet 75 mg PO DAILY 06/08/20 05/28/24 hydralazine 50 mg tablet 50 mg PO BID 09/27/21 05/28/24 fluticasone fur. 100 mcg-umeclid 1 inh inhalation QAM 10/06/23 05/28/24 62.5 mcg-vilant 25 mcg inhalat.powder (Trelegy Ellipta) ondansetron 4 mg disintegrating 4 mg PO DIRECTED PRN Nausea 10/06/23 05/28/24 tablet esomeprazole magnesium 20 mg 20 mg PO DAILY 10/31/23 05/28/24 capsule,delayed release (Nexium) voriconazole 200 mg tablet 200 mg PO TID 06/16/24 06/16/24 Previous Rx's Medication Instructions Recorded potassium chloride 15 mEq 15 meq PO DAILY #90 tabs 10/31/23 tablet,extended release(part/cryst) (Klor-Con M) potassium phosphate, monobasic 500 1,000 mg (2 x 500 mg) PO BID #14 05/28/24 mg soluble tablet tabs Results & Data (ED) Vital Signs Vital Signs - 24 hr 06/16/24 13:07 06/16/24 13:46 06/16/24 13:46 Temperature 36.9 C Temperature Source Skin Pulse Rate 84 99 H Pulse Rate [Apical] 84 Pulse Rate from SpO2 Sensor Pulse Rhythm [Apical] Pulse Strength [Apical] Respiratory Rate 22 34 H 24 Respiratory Effort / Characteristics Non-Labored Spontaneous Respiratory Depth Normal Respiratory Pattern Regular Blood Pressure 186/84 H Blood Pressure [Right Arm] 227/85 H Blood Pressure Mean 118 Blood Pressure Mean [Right Arm] 132 Blood Pressure Position Sitting Blood Pressure Position [Right Arm] Pulse Oximetry 89 L 92 95 Oxygen Delivery Method Room Air Nasal Cannula Nasal Cannula Oxygen Flow Rate 5 5 Sepsis Recent Fever Within 48 Hours No Sepsis New/Unexplained Change in Mental Status N/A Sepsis Action Taken by Nursing No Action Required 06/16/24 15:03 06/16/24 15:17 06/16/24 16:03 Temperature Temperature Source Pulse Rate 64 76 Pulse Rate [Apical] 91 H Pulse Rate from SpO2 Sensor Pulse Rhythm [Apical] Regular Pulse Strength [Apical] Normal Respiratory Rate 20 30 H Respiratory Effort / Characteristics Non-Labored Spontaneous Respiratory Depth Normal Respiratory Pattern Regular Blood Pressure 190/116 H Blood Pressure [Right Arm] 233/97 H Blood Pressure Mean 156 Blood Pressure Mean [Right Arm] 142 Blood Pressure Position Blood Pressure Position [Right Arm] Pulse Oximetry 97 99 Oxygen Delivery Method Nasal Cannula Oxygen Flow Rate 4 Sepsis Recent Fever Within 48 Hours Sepsis New/Unexplained Change in Mental Status Sepsis Action Taken by Nursing 06/16/24 16:07 06/16/24 16:12 06/16/24 16:30 Temperature Temperature Source Pulse Rate 80 84 Pulse Rate [Apical] 81 Pulse Rate from SpO2 Sensor 80 81 Pulse Rhythm [Apical] Regular Pulse Strength [Apical] Normal Respiratory Rate 28 H 33 H 32 H Respiratory Effort / Characteristics Non-Labored Spontaneous Respiratory Depth Normal Respiratory Pattern Regular Blood Pressure 190/116 H 179/76 H Blood Pressure [Right Arm] 190/116 H Blood Pressure Mean 140 110 Blood Pressure Mean [Right Arm] 140 Blood Pressure Position Blood Pressure Position [Right Arm] Lying Pulse Oximetry 95 99 97 Oxygen Delivery Method Nasal Cannula Oxygen Flow Rate 4 Sepsis Recent Fever Within 48 Hours Sepsis New/Unexplained Change in Mental Status Sepsis Action Taken by Nursing 06/16/24 17:46 06/16/24 18:00 Temperature Temperature Source Pulse Rate 118 H Pulse Rate [Apical] 114 H Pulse Rate from SpO2 Sensor Pulse Rhythm [Apical] Pulse Strength [Apical] Respiratory Rate 28 H Respiratory Effort / Characteristics Spontaneous Respiratory Depth Respiratory Pattern Blood Pressure Blood Pressure [Right Arm] 198/105 H Blood Pressure Mean Blood Pressure Mean [Right Arm] 136 Blood Pressure Position Blood Pressure Position [Right Arm] Pulse Oximetry 99 Oxygen Delivery Method Nasal Cannula Oxygen Flow Rate Sepsis Recent Fever Within 48 Hours Sepsis New/Unexplained Change in Mental Status Sepsis Action Taken by Nursing Laboratory Data 06/16/24 14:47 06/16/24 16:03 Lab Results 06/16/24 06/16/24 06/16/24 Range/Units 13:52 14:47 16:03 WBC 16.07 H (4.8-10.8) K/ul RBC 3.95 L (4.20-5.40) M/uL Hgb 11.7 L (12.0-16.0) g/dl Hct 38.0 (37.0-47.0) % MCV 96.2 (80.0-100.0) fL MCH 29.6 (25.0-34.0) pg MCHC 30.8 L (32.0-36.0) g/dL RDW Std Deviation 67.6 H (36.4-46.3) fL RDW Coeff of [place] 18.9 H (11.5-14.5) % Plt Count 197 (130-400) K/uL MPV 10.7 (9.4-12.4) fL Immature Gran % (Auto) 1.9 % Neut % (Auto) 77.1 % Lymph % (Auto) 13.2 % [place] % (Auto) 7.3 % Eos % (Auto) 0.1 % Baso % (Auto) 0.4 % Neut # (Auto) 12.38 H (1.40-6.50) K/uL Lymph # (Auto) 2.12 (1.20-3.40) K/uL [place] # (Auto) 1.18 H (0.11-0.59) K/uL Eos # (Auto) 0.01 (0.00-0.50) K/uL Baso # (Auto) 0.07 (0.00-0.20) K/uL Immature Gran # (Auto) 0.31 H (0.01-0.20) K/uL Absolute Nucleated RBC 0.02 (0.00-0.12) K/uL Nucleated RBC % (auto) 0.1 % Sodium 139 (136-145) mmol/L Potassium 4.2 (3.5-5.1) mmol/L Chloride 112 H (98-107) mmol/L Carbon Dioxide 19 L (21-32) mmol/L Anion Gap 8 (3-11) BUN 27 H (6-23) mg/dl Creatinine 1.07 (0.6-1.2) mg/dl Est Cr Clr Drug Dosing 20.9 ml/min eGFR 50.27 BUN/Creatinine Ratio 25.2 H (10-20) Glucose 85 (70-99(Fasting)) mg/dl Calcium 8.5 L (8.6-10.3) mg/dl Magnesium 1.6 L (1.7-2.4) mg/dl Total Bilirubin 0.4 (0.2-1.0) mg/dl AST 43 H (13-39) U/L ALT 16 (7-52) U/L Alkaline Phosphatase 142 H (34-104) U/L Troponin I High Sens 40.6 H (0-14) pg/ml Total Protein 6.3 (6.0-8.3) gm/dl Albumin 3.4 (3.4-5.0) gm/dl Globulin 2.9 (2.5-4.0) gm/dl Albumin/Globulin Ratio 1.2 (0.9-2) Lipase 20 (11-82) U/L Procalcitonin 0.34 (0-0.5) ng/ml Adenovirus (PCR) Not Detected (NotDetected) B. pertussis DNA (PCR) Not Detected (NotDetected) B.parapertussis DNA PCR Not Detected (NotDetected) C. pneumoniae DNA (PCR) Not Detected (NotDetected) Coronavirus OC43 (PCR) Not Detected (NotDetected) Coronavirus HKU1 (PCR) Not Detected (NotDetected) Coronavirus 229E (PCR) Not Detected (NotDetected) SARS-CoV-2 (PCR) Not Detected (NotDetected) Coronavirus NL63 (PCR) Not Detected (NotDetected) Human Metapneumovir PCR Not Detected (NotDetected) Influenza Type A (PCR) Not Detected (NotDetected) Influenza Type B (PCR) Not Detected (NotDetected) M. pneumoniae (PCR) Not Detected (NotDetected) Parainfluenza 1 (PCR) Not Detected (NotDetected) Parainfluenza 2 (PCR) Not Detected (NotDetected) Parainfluenza 3 (PCR) DETECTED A (NotDetected) Parainfluenza 4 (PCR) Not Detected (NotDetected) RSV (PCR) Not Detected (NotDetected) Entero/Rhino (PCR) Not Detected (NotDetected) Administered Medications Discontinued Medications Albuterol (Albut/Ipratrop 3mg/0.5mg Neb 3 Ml Vial) 3 ml NEB NOW STA; Protocol Stop: 06/16/24 13:56 Last Admin: 06/16/24 14:20 Dose: 3 ml Documented By: QGV Albuterol (Albut/Ipratrop 3mg/0.5mg Neb 3 Ml Vial) 3 ml NEB NOW STA; Protocol Stop: 06/16/24 17:14 Last Admin: 06/16/24 17:39 Dose: 3 ml Documented By: NJM Hydralazine HCl (Hydralazine Hcl 25 Mg Tab) 50 mg PO NOW STA Stop: 06/16/24 18:57 Last Admin: 06/16/24 19:21 Dose: 50 mg Documented By: ANDREAS Ceftriaxone Sodium (Rocephin) 1,000 mg in 50 mls @ 100 mls/hr IV NOW STA Stop: 06/16/24 16:32 Last Infusion: 06/16/24 17:31 Dose: Infused Documented By: JEAN CARLOS Admin: 06/16/24 16:38 Dose: 100 mls/hr Documented By: ANDREAS Azithromycin (Zithromax) 500 mg in 255 mls @ 127.5 mls/hr IV NOW STA Stop: 06/16/24 18:04 Last Admin: 06/16/24 17:30 Dose: 127.5 mls/hr Documented By: JEAN CARLOS Methylprednisolone (Methylprednisolone 125 Mg/2 Ml Vial) 40 mg IV NOW STA Stop: 06/16/24 13:56 Last Admin: 06/16/24 14:19 Dose: 40 mg Documented By: QGV Metoprolol Tartrate (Metoprolol Tartrate 25 Mg Tab) 25 mg PO NOW STA Stop: 06/16/24 17:53 Last Admin: 06/16/24 18:14 Dose: 25 mg Documented By: SABAS Voriconazole (Voriconazole 200 Mg Tablet) 200 mg PO NOW STA Stop: 06/16/24 17:53 Last Admin: 06/16/24 18:59 Dose: 200 mg Documented By: ANDREAS Imaging Data Radiologist's Impression: Chest X-Ray 06/16/24 13:22 XR chest 1V portable HISTORY: 89 years-old Female sob acute shortness of breath COMPARISON: 05/02/2023 TECHNIQUE: AP view of the chest FINDINGS: ORIF changes of the ribs. Hiatal hernia. Chronic reticular nodular opacities. No pneumothorax, pleural effusion or overt pulmonary edema. Mild patchy bilateral opacities have progressed from prior. Heart is upper limits of normal in size. Chronic right rib fracture deformities. IMPRESSION: Chronic reticular nodular opacities again noted suggestive of an infectious or inflammatory bronchiolitis. There is mild progression of ill- defined patchy right lung [place] suggestive of a nonspecific pneumonitis. ACT 112: Negative or not required by law. The above report was generated using voice recognition software. It may contain grammatical, syntax or spelling errors. Electronically signed by: Wm Martinez M.D. 06/16/2024 1:48 PM Discharge Plan Visit Data Chief Complaint: Infection Stated Complaint: FUNGAL INFECTION ED Provider: Patrick Alvarez Discharge Problem: SOB (shortness of breath), Acute exacerbation of chronic obstructive pulmonary disease (COPD), Community acquired pneumonia Forms Stand Alone Forms: My [facility] Prescriptions Prescriptions: No Action clopidogrel 75 mg tablet 75 mg PO DAILY Hold Instructions: Resume on 10/20/23. until after endoscopy. Can be restarted after. Date above is just placeholder until endoscopy is scheduled. simvastatin 20 mg tablet 20 mg PO QAM aspirin 81 mg tablet,chewable 81 mg PO DAILY dorzolamide 2 % drops 1 drops OP BID sertraline 50 mg tablet 50 mg PO QAM Qty: 30 latanoprost 0.005 % drops 1 drops OP QPM acetaminophen [Tylenol Extra Strength] 500 mg tablet 500 mg PO Q6H PRN (Reason: Pain) metoprolol tartrate 25 mg tablet 25 mg PO QAM esomeprazole magnesium [Nexium] 20 mg capsule,delayed release(DR/EC) 20 mg PO DAILY potassium chloride [Klor-Con M15] 15 mEq tablet,ER particles/crystals 15 meq PO DAILY Qty: 90 3RF potassium phosphate, monobasic 500 mg tablet,soluble 1,000 mg PO BID Qty: 14 0RF hydralazine 50 mg tablet 50 mg PO BID ondansetron 4 mg tablet,disintegrating 4 mg PO DIRECTED PRN (Reason: Nausea) Trelegy Ellipta 100-62.5-25 mcg blister with device 1 inh INHALATION QAM voriconazole 200 mg tablet 200 mg PO TID Referrals Referrals: Jt Pastrana MD [Primary Care Provider] -
[2024-06-16 14:59] LABS: Basophils # (auto) 0.07 K/uL (0.00-0.20); Basophils % (auto) 0.4 %; Eosinophils # (auto) 0.01 K/uL (0.00-0.50); Eosinophils % (auto) 0.1 %; Hemoglobin 11.7 g/dl (12.0-16.0); Immature Granulocytes # (auto) 0.31 K/uL (0.01-0.20); Immature Granulocytes % (auto) 1.9 %; Lymphocytes # (auto) 2.12 K/uL (1.20-3.40); Lymphocytes % (auto) 13.2 %; Mean Corpuscular Hemoglobin 29.6 pg (25.0-34.0); Mean Corpuscular Hgb Conc 30.8 g/dL (32.0-36.0); Mean Corpuscular Volume 96.2 fL (80.0-100.0); Mean Platelet Volume 10.7 fL (9.4-12.4); Monocytes # (auto) 1.18 K/uL (0.11-0.59); Monocytes % (auto) 7.3 %; Neutrophils # (auto) 12.38 K/uL (1.40-6.50); Neutrophils % (auto) 77.1 %; Nucleated RBC # (auto) 0.02 K/uL (0.00-0.12); Nucleated RBC % (auto) 0.1 %; Platelet Count 197 K/uL (130-400); RDW Coefficient of Variation 18.9 % (11.5-14.5); RDW Standard Deviation 67.6 fL (36.4-46.3); Red Blood Count 3.95 M/uL (4.20-5.40); White Blood Count 16.07 K/ul (4.8-10.8)
[2024-06-16] MEDS: cefTRIAXone SODIUM 1,000 MG/50 ML BAG IV STA (16:38)
[2024-06-16 17:05] LABS: Albumin Level 3.4 gm/dl (3.4-5.0); Bilirubin,Total 0.4 mg/dl (0.2-1.0); Calcium 8.5 mg/dl (8.6-10.3); Magnesium 1.6 mg/dl (1.7-2.4); Potassium 4.2 mmol/L (3.5-5.1)
[2024-06-16 17:06] LABS: Troponin I High Sensitivity 40.6 pg/ml (0-14)
--- NOTE | 2024-06-16 17:07 | History & Physical Report ---
Date of Service June 16, 2024 Assessment & Plan (1) Parainfluenza virus infection: (2) Acute exacerbation of chronic obstructive pulmonary disease (COPD): (3) Aspergillus: Plan Marie is an 89-year-old female who presented on 06/16 for SOB, wheezing, and vomiting. Parainfluenza positive on arrival. #Parainfluenza virus (+) Contact isolation precautions Leukocytosis at 16.07 with a neutrophil predominance Blood cultures drawn in the ED Rocephin + azithromycin given in the ED; QTc okay Procalcitonin WNL; will defer additional antibiotics at this time Solu-Medrol 60 mg IV x 1 in the ED Will plan to hold additional steroids on admission due to ongoing aspergillus infection, and reassess on 06/17 #Acute COPD exacerbation Likely secondary to parainfluenza virus IS, flutter valve DuoNeb 3 mL Q6R #Acute hypoxic respiratory failure SpO2 89% on RA on arrival Not on supplemental oxygen at baseline However, given underlying COPD, unclear if true hypoxia Continuous pulse oximetry for now Titrate submental oxygen as needed to maintain SpO2 >98% #Nonspecific pneumonitis Noted on CXR Hold steroids, with plan to reassess on 06/17 #Remote h/o aspergillus Recent [place] admission from 04/28 -05/08 for Aspergillus + Acute COPD Completed course of voriconazole 200 mg p.o. BID x 30 days upon discharge, but then started on voriconazole 200 mg p.o. TID (per patient) Unclear why this was increased (no PCP note available), but patient reports that the twice daily dosing "did not work", and so she was increased to 3 times daily Follows with Dr. Pinon ([facility]) Follows with Dr. Parada ([facility]); obtained record of most recent visit on 06/05/[address] without contrast ordered, pending Continue voriconazole mg p.o. TID AST and alk phos mildly elevated on arrival; continue to monitor LFTs Discussed case with Dr. 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 Reached out to [facility] medicine service, and will plan to switch to their service on the morning of 06/17. History of Present Illness Chief Complaint: Infection, SOB, vomiting Primary Care Provider: Jt Pastraan MD Marie is an 89-year-old female with PMH of CADE, tobacco use, GI bleed, COPD, HTN, Aspergillus, and dyslipidemia. She presented on 06/16 for SOB, weakness, and vomiting. Patient reports she has had on and off wheezing over the past 2 weeks, and was feeling okay yesterday, but then had an acute worsening this morning. She reports she has had vomiting, dry heaves, and SOB both at rest and with exertion. No supplemental oxygen at baseline or CPAP at night. No sick contacts. Patient is currently on medications for a fungal infection (Aspergillus), taking voriconazole TID. She reports she has had ongoing night sweats, but believes it is due to the voriconazole. She does not believe she has had any fevers at home. Patient did not take her regular morning medicine today; no recent change in medicine other than the voriconazole. Patient's daughter, who she lives with, helps her manage the medicine at home. No prior history of DVT/PE. Patient is a former tobacco cigarette smoker; quit 15 years ago. Patient is hypertensive at 179/76 and tachypneic at 32 RPM at time admission; SpO2 97% on 4L NC. ED course: Azithromycin 500 mg IV Ceftriaxone 1000 mg IV Solu-Medrol 40 mg IV DuoNeb 3 mL ROS: Patient endorses night-sweats (attributes to voriconazole usage), SOB at rest and with exertion, wheezing, productive cough (white sputum production), nausea, vomiting, dry heaves, and loose stool. Patient denies fever, chills, dizziness, lightheadedness, SRINIVASAN, rashes, tick bites, chest pain, chest palpitations, pleuritic CP, hemoptysis, blood in the urine/stool, or diarrhea. Allergies Allergy/AdvReac Type Severity Reaction Status Date / Time Iodinated Contrast Media Allergy Unknown Anaphylaxis Verified 05/28/24 12:35 [Iodinated Contrast- Oral and IV Dye] Home Medications Medication Instructions Recorded Confirmed Type dorzolamide 2 % eye drops 1 drops OPB AMHS 10/29/18 06/16/24 History latanoprost 0.005 % eye drops 1 drops OPB HS 10/29/18 06/16/24 History sertraline 50 mg tablet 50 mg PO QAM #30 tabs 10/29/18 06/16/24 History metoprolol tartrate 25 mg tablet 25 mg PO QAM 05/27/19 06/16/24 History aspirin 81 mg chewable tablet 81 mg PO DAILY 11/28/19 06/16/24 History simvastatin 20 mg tablet 20 mg PO QAM 11/28/19 06/16/24 History clopidogrel 75 mg tablet 75 mg PO DAILY 06/08/20 06/16/24 History hydralazine 50 mg tablet 50 mg PO BID 09/27/21 06/16/24 History fluticasone fur. 100 mcg-umeclid 1 inh inhalation QAM 10/06/23 06/16/24 History 62.5 mcg-vilant 25 mcg inhalat.powder (Trelegy Ellipta) ondansetron 4 mg disintegrating 4 mg PO Q8 PRN Nausea 10/06/23 06/16/24 History tablet potassium chloride 15 mEq 15 meq PO DAILY #90 tabs 10/31/23 06/16/24 Rx tablet,extended release(part/cryst) (Klor-Con M) albuterol sulfate 90 mcg/actuation 2 puff inhalation Q6 PRN Dyspnea 06/16/24 0 06/16/24 History aerosol inhaler fluticasone 250 mcg-salmeterol 50 1 inh inhalation AMHS 06/16/24 06/16/24 History mcg/dose blistr powdr for inhalation mirtazapine 7.5 mg tablet 7.5 mg PO HS 06/16/24 06/16/24 History voriconazole 200 mg tablet 200 mg PO TID 06/16/24 06/16/24 History Past Med/Surg History Problem List Parainfluenza virus infection SOB (shortness of breath) (Acute) Community acquired pneumonia (Acute) Aspergillus Acute exacerbation of chronic obstructive pulmonary disease (COPD) (Acute) Dehydration (Acute) Esophageal obstruction (Acute) UTI (urinary tract infection) Renal artery stenosis, [place], bilateral GI bleed Dysphagia Hematuria, microscopic Renal cyst Gross hematuria Hypercalcemia Left carotid stenosis Acute kidney injury Dyslipidemia (Chronic) Hypertension, benign (Chronic) Personal history of tobacco use, presenting hazards to health (Chronic) Right renal artery stenosis (Chronic) Vitamin D deficiency (Chronic) Medical History Hiatal hernia Hyponatremia Dysphagia Anemia HTN (hypertension) Stage 3b chronic kidney disease Glaucoma Dyslipidemia Left carotid stenosis History of stent insertion of renal artery states reason for plavix HTN (hypertension) follows w/ Dr Meza, [facility] [place] History of GI bleed Esophageal obstruction recent hospitalization, reason for upcoming procedure Renal artery stenosis, [place], bilateral UTI (urinary tract infection) Recent UTI, completed abx Anemia recent blood transfusion (09/2023) [facility] CKD (chronic kidney disease) "one functioning kidney"- follows w/ Dr Colvin History of diverticulitis COPD (chronic obstructive pulmonary disease) well controlled w/ daily inhaler Surgical History Hx of colonoscopy Hx of hysterectomy History of thoracic surgery History of section X3 History of hip replacement Right Social History Smoking Status: Unknown if ever smoked Tobacco Type: Cigarettes Second Hand Exposure: No; Do You Dip or Chew Tobacco: No; Hx Alcohol Use: No Hx Substance Use: No Preferred Language: Salvadorean Communication Ability: Effective Retail Stocker Required: No Beliefs That Will Affect Care: None Current Living Situation: Family Current Living Situation Comment: 2 daughters and grandson Feels Safe at Home: Yes Assistive Devices: Glasses and Hearing Aid - Bilateral Review of Systems Review of Systems: See HPI above Physical Exam Physical Exam: General: Mild respiratory distress; non-toxic appearing; frail appearing; cooperative; SpO2 97% on 4L NC HEENT: normocephalic, atraumatic; no scleral icterus; PERRLA w/ EOMs intact; vision and hearing grossly intact Neck: supple; no lymphadenopathy; trachea midline Skin: warm, dry without signs of tenting; no cyanosis; no rashes, bruising, lesions, or erythema noted CV: chest wall NTP; RRR; S1/S2 normal; no murmurs/rubs/gallops; pulses intact and symmetric at radial, DP, and PT Lungs: Mild respiratory distress; symmetrical chest wall expansion; bibasilar crackles and expiratory wheeze auscultated in the lower lung grove bilaterally Back: Upper spine and lower spine NTTP; significant kyphosis ABD: Soft, NTP; BS present; no rebound/guarding; no distention MSK: no tics or fasciculations; no edema noted in the LEs b/l, nonerythematous Neuro: A&Ox3; normal mood and affect; fluent speech; no focal deficits; sensation grossly intact in the LEs b/l Results & Data Results & Data Vital Signs (Past 12 Hours) Vital Signs Temp Pulse Pulse Resp BP BP Pulse Ox 06/16/24 16:30 84 32 H 179/76 H 97 06/16/24 16:12 80 33 H 190/116 H 99 06/16/24 16:07 81 28 H 190/116 H 95 06/16/24 16:03 76 30 H 190/116 H 99 06/16/24 15:17 91 H 20 233/97 H 97 06/16/24 15:03 64 06/16/24 13:46 99 H 24 95 06/16/24 13:46 84 34 H 227/85 H 92 06/16/24 13:07 36.9 C 84 22 186/84 H 89 L O2 Del Method O2 Flow Rate 06/16/24 16:30 06/16/24 16:12 06/16/24 16:07 Nasal Cannula 4 06/16/24 16:03 06/16/24 15:17 Nasal Cannula 4 06/16/24 15:03 06/16/24 13:46 Nasal Cannula 5 06/16/24 13:46 Nasal Cannula 5 06/16/24 13:07 Room Air Laboratory Results Abnormal lab results 06/16/24 06/16/24 06/16/24 Range/Units 13:52 14:47 16:03 WBC 16.07 H (4.8-10.8) K/ul RBC 3.95 L (4.20-5.40) M/uL Hgb 11.7 L (12.0-16.0) g/dl MCHC 30.8 L (32.0-36.0) g/dL RDW Std Deviation 67.6 H (36.4-46.3) fL RDW Coeff of [place] 18.9 H (11.5-14.5) % Neut # (Auto) 12.38 H (1.40-6.50) K/uL [place] # (Auto) 1.18 H (0.11-0.59) K/uL Immature Gran # (Auto) 0.31 H (0.01-0.20) K/uL Chloride 112 H (98-107) mmol/L Carbon Dioxide 19 L (21-32) mmol/L Calcium 8.5 L (8.6-10.3) mg/dl Magnesium 1.6 L (1.7-2.4) mg/dl Troponin I High Sens 40.6 H (0-14) pg/ml Parainfluenza 3 (PCR) DETECTED A (NotDetected) Diagnostic Findings Chest X-Ray 06/16/24 13:22 XR chest 1V portable HISTORY: 89 years-old Female sob acute shortness of breath COMPARISON: 05/02/2023 TECHNIQUE: AP view of the chest FINDINGS: ORIF changes of the ribs. Hiatal hernia. Chronic reticular nodular opacities. No pneumothorax, pleural effusion or overt pulmonary edema. Mild patchy bilateral opacities have progressed from prior. Heart is upper limits of normal in size. Chronic right rib fracture deformities. IMPRESSION: Chronic reticular nodular opacities again noted suggestive of an infectious or inflammatory bronchiolitis. There is mild progression of ill- defined patchy right lung [place] suggestive of a nonspecific pneumonitis. ACT 112: Negative or not required by law. The above report was generated using voice recognition software. It may contain grammatical, syntax or spelling errors. Electronically signed by: Wm Martinez M.D. 06/16/2024 1:48 PM ECG Additional Comments: ECG revealed sinus rhythm with left axis deviation at 79 bpm; QTc 458; abnormal EKG Code Status & VTE Plan Code Status Full code VTE Prophylaxis Plan VTE Prophylaxis will be ordered: Yes Supervising Physician Co-Signing Physician Notes During face to face encounter, I obtained a history and physical examination, discussed plan of care with patient. I discussed plan of care with [employer] I reviewed above note and agree with it except for the following: Patient will be admitted for viral pneumonia. WIll hold further IV antibiotics. PG Care Time/CCT Total # of Minutes Spent Total Time Spent with Patient: Total time spent is greater than 50% in coordination of care (as documented) at patient's floor/unit and/or counseling patient: C[place] [address] INT INP/OBS CARE MIN Patient Type Established Medical Decision Making High Complexity Diagnoses Parainfluenza virus infection B34.8 Acute exacerbation of chronic obstructive pulmonary disease (COPD) J44.1 Aspergillus B44.9
[2024-06-16 17:11] LABS: Albumin Globulin Ratio 1.2 (0.9-2); BUN Creatinine Ratio 25.2 (10-20); Creatinine Clr Calc Pharmacy 20.9 ml/min; Globulin 2.9 gm/dl (2.5-4.0); Total Protein 6.3 gm/dl (6.0-8.3)
--- NOTE | 2024-06-16 17:26 | Electrocardiogram Report ---
Test Reason : Blood Pressure : */* mmHG Vent. Rate : 79 BPM Atrial Rate : 79 BPM P-R Int : 112 ms QRS Dur : 88 ms QT Int : 400 ms P-R-T Axes : 95 -37 73 degrees QTcB Int : 458 ms Poor data quality, interpretation may be adversely affected Sinus rhythm Left axis deviation Minimal voltage criteria for LVH, may be normal variant ( Renard product ) Abnormal ECG When compared with ECG of 28-Apr-2024 20:25, Premature supraventricular complexes are no longer Present Confirmed by Yves Patrick ([id number]) on 06/16/2024 5:26:16 PM Referred By: Confirmed By: Yves Patrick
[2024-06-16] MEDS: AZITHROMYCIN 500 MG/255 ML D5W BAG IV STA (17:30)
[2024-06-16] MEDS: METOPROLOL TARTRATE 25 MG TAB PO STA (18:14)
[2024-06-16] MEDS: VORICONAZOLE 200 MG TABLET PO STA (18:59)
[2024-06-16] MEDS: hydrALAZINE HCL 25 MG TAB PO STA (19:21)
[2024-06-16] MEDS: MAGNESIUM SULFATE / D5W 1 GM/100 ML BAG IV ONE (19:45)
--- NOTE | 2024-06-16 20:11 | CT Scan Report ---
CT chest without contrast History: Aspergillosis Comparison: 04/30/2024 Technique: Helical CT imaging of the chest performed without IV contrast Dose reduction techniques were achieved by using automatic exposure control and/or adjustment of mA and/or kV according to patient size and/or use of iterative reconstruction technique. Findings: Diffuse, multifocal areas of predominantly tree-in-bud nodularity, have significantly increased from 04/30/2024. There are also scattered areas of centrilobular nodules intermixed with these areas as well. There is a new focal area of consolidation within the proximal left upper lobe on series 3 image 32, measuring 3.5 x 1.5 cm. Trace bilateral pleural effusions are new from prior. No pneumothorax. Heart size is enlarged. There are mild coronary calcifications. The thoracic aorta is normal in size. Heavily calcified thoracic aorta. The pulmonary artery is normal in size. No significant pericardial effusion. New mild mediastinal lymphadenopathy. The central airway is clear. Limited visualized upper abdomen. Moderate hiatal hernia. Chronic rib deformities and plate and screw fixations seen. No acute bony abnormalities. Impression: Interval significant increase in scattered, multifocal areas of tree-in-bud and centrilobular nodules, as well as a new area of consolidation in the central left upper lobe, suggesting an atypical infectious process, including airway invasive aspergillosis. There are new trace pleural effusions. New mild mediastinal lymphadenopathy, and is likely reactive. Electronically signed by Ziggy Montana 06-16-2024 8:10 PM
[2024-06-16] MEDS ORDERED: ONDANSETRON INJ 2 MG/ML 2 ML VIAL IV PRN (20:40)
[2024-06-16] MEDS ORDERED: VORICONAZOLE 200 MG TABLET PO SCH (21:00)
[2024-06-16] MEDS ORDERED: POTASSIUM PHOSPHATE MONOBASIC 500 MG TAB PO SCH (21:00)
[2024-06-16 21:23] LABS: Base Excess VBG -7.4 mEq/L; HCO3 VBG 18 mmol/L; Oxygen Saturation VBG 97.2 %; PCO2 VBG 36 mmHg (38-50); PO2 VBG 77 mmHg; pH VBG 7.31 (7.36-7.41)
[2024-06-16] MEDS: methylPREDNISolone 40 MG in SYRINGE 0 ML IV SCH (21:51)
[2024-06-16] MEDS: LATANOPROST 0.005% OP SOLN 2.5 ML BTL OP SCH (21:52)
[2024-06-16] MEDS: DORZOLAMIDE HCL 2% OPH SOLN 10 ML BTL OP SCH (21:53)
[2024-06-16] MEDS: guaiFENesin 600 MG TABCR PO SCH (21:54)
[2024-06-16] MEDS: ALBUT/IPRATROP 3MG/0.5MG NEB 3 ML VIAL INH SCH (22:17)
[2024-06-16] MEDS: VORICONAZOLE 50 MG TABLET PO SCH (22:40)
[2024-06-16] MEDS: ACETAMINOPHEN 500 MG TAB PO PRN (22:41)
[2024-06-16] MEDS: POT PHOSPHATE MONOBASIC W/ SOD TAB PO SCH (22:41)
[2024-06-17 07:00] LABS: Hematocrit (blood only) 30.9 % (37.0-47.0); Hemoglobin 9.6 g/dl (12.0-16.0); Mean Corpuscular Hemoglobin 29.6 pg (25.0-34.0); Mean Corpuscular Hgb Conc 31.1 g/dL (32.0-36.0); Mean Corpuscular Volume 95.4 fL (80.0-100.0); Mean Platelet Volume 11.1 fL (9.4-12.4); Platelet Count 195 K/uL (130-400); RDW Coefficient of Variation 18.6 % (11.5-14.5); RDW Standard Deviation 65.4 fL (36.4-46.3); Red Blood Count 3.24 M/uL (4.20-5.40); White Blood Count 20.25 K/ul (4.8-10.8)
[2024-06-17 07:23] LABS: Albumin Globulin Ratio 1.2 (0.9-2); Albumin Level 3.1 gm/dl (3.4-5.0); Bilirubin,Total 0.3 mg/dl (0.2-1.0); Creatinine Clr Calc Pharmacy 23.2 ml/min; Globulin 2.5 gm/dl (2.5-4.0); Potassium 4.1 mmol/L (3.5-5.1); Total Protein 5.6 gm/dl (6.0-8.3)
[2024-06-17 07:26] LABS: Basophils # (auto) 0.02 K/uL (0.00-0.20); Basophils % (auto) 0.1 %; Immature Granulocytes # (auto) 0.25 K/uL (0.01-0.20); Immature Granulocytes % (auto) 1.2 %; Lymphocytes # (auto) 1.19 K/uL (1.20-3.40); Lymphocytes % (auto) 5.9 %; Monocytes # (auto) 0.37 K/uL (0.11-0.59); Monocytes % (auto) 1.8 %; Neutrophils # (auto) 18.42 K/uL (1.40-6.50)
[2024-06-17] MEDS ORDERED: NON-FORMULARY MEDICATION (Fluticasone-Umeclidin-Vilanter [Trelegy Ellipta] 100-62.5-25 mcg INH SCH (09:00)
[2024-06-17] MEDS: ASPIRIN 81 MG CHEW PO SCH (09:25)
[2024-06-17] MEDS: CLOPIDOGREL BISULFATE 75 MG TAB PO SCH (09:25)
[2024-06-17] MEDS: AZITHROMYCIN 250 MG TAB PO SCH (09:25)
[2024-06-17] MEDS: hydrALAZINE TAB 50 MG TAB PO SCH (09:26)
[2024-06-17] MEDS: FLUTICASONE FUROATE 100MCG 14 PUFFS/INHALER INH SCH (09:26)
[2024-06-17] MEDS: UMECLIDINIUM/VILANTEROL 62.5/25MCG 7 PUFFS/INHALER INH SCH (09:26)
[2024-06-17] MEDS: METOPROLOL TARTRATE 25 MG TAB PO SCH (09:27)
[2024-06-17] MEDS: SIMVASTATIN 20 MG TAB PO SCH (09:27)
[2024-06-17] MEDS: PANTOprazole 40 MG TAB PO SCH (09:27)
[2024-06-17] MEDS: SERTRALINE HCL 50 MG TABLET PO SCH (09:27)
[2024-06-17] MEDS: POTASSIUM CHLORIDE 10 MEQ TABCR PO SCH (09:27)
[2024-06-17 11:31] LABS: A calco-baum cmplx NotReported Not Detected (NotDetected); Bact fragilis Not Reported Not Detected (NotDetected); Blood Culture Id Panel See PCR Comment (NotDetected); C auris Not Reported Not Detected (NotDetected); Calbicans Not Reported Not Detected (NotDetected); Candida glabrata Not Reported Not Detected (NotDetected); Candida krusei Not Reported Not Detected (NotDetected); Cneoformans/gatti Not Reported Not Detected (NotDetected); Cparapsilosis Not Reported Not Detected (NotDetected); E cloacae compx Not Reported Not Detected (NotDetected); Efaecalis Not Reported Not Detected (NotDetected); Efaecium Not Reported Not Detected (NotDetected); Enterobacterales Not Reported Not Detected (NotDetected); Escherichia coli Not Reported Not Detected (NotDetected); H influenzae Not Reported Not Detected (NotDetected); K aerogenes Not Reported Not Detected (NotDetected); Koxytoca Not Reported Not Detected (NotDetected); Kpneumoniae grp Not Reported Not Detected (NotDetected); Lmonocyt Not Reported Not Detected (NotDetected); N meningitidis Not Reported Not Detected (NotDetected); P aeruginosa Not Reported Not Detected (NotDetected); Proteus spp Not Reported Not Detected (NotDetected); Salmonella spp Not Reported Not Detected (NotDetected); Staph lugdunensis Not Reported Not Detected (NotDetected); Staph spp. Not Reported DETECTED (NotDetected); Staphaureus Not Reported Not Detected (NotDetected); Staphepi Not Reported DETECTED (NotDetected); Staphylococcus epidermidis DETECTED (NotDetected); Stenmaltophilia Not Reported Not Detected (NotDetected); Strep agal(GrpB) Not Reported Not Detected (NotDetected); Strep pneum Not Reported Not Detected (NotDetected); Strep pyog (GrpA) Not Reported Not Detected (NotDetected); Strep spp Not Reported Not Detected (NotDetected)
[2024-06-17 11:49] LABS: mecAC Resistant Gene DETECTED (NotDetected)
[2024-06-17 11:50] LABS: Staphylococcus spp. DETECTED (NotDetected)
[2024-06-17] MEDS ORDERED: ALBUTEROL 0.083% NEBU SOLN 3 ML VIAL NEB PRN (12:18)
--- NOTE | 2024-06-17 12:28 | Hospitalist Progress Note ---
Date of Service June 17, 2024 Assessment & Plan (1) Parainfluenza virus infection: (2) Acute exacerbation of chronic obstructive pulmonary disease (COPD): (3) Aspergillus pneumonia: (4) Stage 3b chronic kidney disease: (5) Contamination of blood culture: Plan Patient is a 9-year-old female with known advanced COPD and currently being treated for Aspergillus presented to the emergency room with increasing shortness of breath and hypoxia. Tested positive for parainfluenza virus. Transition to oral prednisone for treatment of exacerbation of COPD Continue Zithromax for exacerbation of COPD Continue nebulizer treatments, incentive spirometry and flutter valve Continue voriconazole for treatment of aspergillosis Communication with [facility] infectious disease concerning aspergillosis, recommending continue voriconazole, check levels and outpatient imaging. Also discussed blood culture with infectious disease.-Chandan suspicious of a contamination. Not recommending any additional antibiotics, recommending repeating blood cultures to confirm that it is a contaminant Continue to titrate oxygen as able Antitussives and mucolytics Okay for MedSurg 55 minutes spent on care of patient at bedside, review of records, review of outside records, documentation, communication with specialists and medical staff. Admission and Anticipated Discharge Date Admission Date: June 16, 2024 Subjective Patient reports that she feels her breathing is a little bit better. Still with a cough. Physical Exam Physical Exam: Constitutional: Alert, frail, underweight HEENT: Mucous membranes moist. Lungs: Decreased breath sounds, prolonged expiratory phase, expiratory wheezes and some rhonchi CV: S1-S2, regular Abdomen: Soft, nontender, nondistended Extremities: No significant edema Neuro: No focal deficits Psych: Cooperative, normal mood Results & Data Results & Data Vital Signs (Past 12 Hours) Vital Signs Temp Pulse Pulse Resp BP Pulse Ox O2 Del Method 06/17/24 11:39 36.7 C 72 26 H 182/79 H 98 Nasal Cannula 06/17/24 08:31 36.9 C 71 20 144/60 H 99 Room Air 06/17/24 07:19 69 06/17/24 07:19 Nasal Cannula 06/17/24 07:13 70 20 95 Nasal Cannula 06/17/24 03:11 36.4 C L 65 21 164/83 H 99 Nasal Cannula 06/17/24 01:00 67 24 148/57 H 99 Nasal Cannula O2 Flow Rate 06/17/24 11:39 2.0 04/07/25 08:31 06/17/24 07:19 06/17/24 07:19 3 06/17/24 07:13 3 06/17/24 03:11 3 06/17/24 01:00 2 Diagnostic Findings Reviewed imaging, laboratory and diagnostic studies. Pertinent findings as below. WBCs 20.2 Hemoglobin 9.8 Carbon dioxide 20 BUN 29 Creatinine 1.0 Troponins reviewed and essentially flat 1 of 2 blood cultures growing Staph epidermidis, methicillin-resistant, Personally reviewed chest CT images: Multiple small nodules throughout with tree-in-bud appearance. Reviewed radiologist report Extensive review of outside EMR. Reviewed outpatient pulmonology note, recommending monitoring antifungal levels, follow-up CT in July. Reviewed PCP notes, patient not been on prednisone since initial taper from discharge from hospital in April.
[2024-06-17] MEDS: ALBUT/IPRATROP 3MG/0.5MG NEB 3 ML VIAL INH SCH ×2 (13:00→19:50)
--- NOTE | 2024-06-17 14:55 | Infectious Disease Consult ---
Date of Consultation June 17, 2024 Assessment & Plan (1) Parainfluenza virus infection: (2) Aspergillus: (3) Acute exacerbation of chronic obstructive pulmonary disease (COPD): (4) Contamination of blood culture: Plan Impression: Marie stoddard is an 89-year-old woman with history of COPD, CKD III, dysphagia, renal artery stenosis s/p b/l stenting, right hip replacement, dysphagia/esophagitis, recent admission to [facility] 04/2805/08/24 (COPD exacerbation, new dx of pulmonary aspergillosis, started on voriconazole on 05/01) who presented to [facility] on 06/16 for SOB, wheezing, and vomiting, found to be positive for parainfluenza. ID is consulted for parainfluenza infection and known pulmonary aspergillosis. 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 Of note, prior to her hospitalization she also received course of levofloxacin in the preceding weeks for possible pna. She had elevated WBC, CRP 14, PCT 0.66, RPP negative. CT chest noncon with tree-in-bud nodularity involving all lobes c/w nonspecific infectious/inflammatory changes, moderate hiatal hernia. ID was consulted. SpCx were + Aspergillus fumigatus, 05/01 serum Aspergillus galactomannan was detected at 2.12, and BDG was positive >500. She was started on voriconazole 200 mg BID (usual target 1-1.5) on 05/01 for an anticipated 6-12 weeks of therapy, and discharged on 05/08. Her trough drawn 05/06 (pending at time of d/c, and appropriately timed per ID pharmacist) returned later at 2.6. As an outpatient, follows with Dr. Pinon ([place] [facility]) and Dr. Parada ([facility]). Patient had a second outpatient level drawn on 05/25 which was 1.1 (also likely drawn at appropriate timing per ID pharmacist). On 06/06, her dose was increased to 200 mg in AM and 400 mg in PM by ID however the patient had reported that she was taking 200 mg PO TID (rather than 200 AM and 400 PM as intended). She has been adherent to her voriconazole TID and reports no missed doses at home. Pts daughter lives with her and helps with medications. Aside from renal artery stents, no other reported hardware/implants. Saw pulm on 06/05/24. This admission, she presents with SOB, wheezing, and vomiting. She has had w heezing for the last 2 weeks but acute worsening on 06/16, accompanied by both emesis and dry heaving, and SOB with both rest and exertion. She has a chronic runny nose but thinks it has worsened in the last few days. Denies any sick contacts or contact with children. No fevers. In the ED, afebrile, placed on 5L O2, WBC 16. 4/6 RPP + parainfluenza 3. 06/16 CT chest with increased scattered multifocal tree-in-bud and consolidation in central JONATHAN. She was started on azithromycin and ceftriaxone, and continued on her home voriconazole. She was also started on IV solumedrol. 06/16 procal 0.34. On 06/17, WBC of 20.25, and requiring 2L of O2. QTc of 458 on 06/16. Given normal procal, her ceftriaxone was stopped; azithromycin changed to doxycycline. Discussion Pts respiratory worsening and radiographic worsening (increased scattered multifocal tree-in-bud and consolidation in central JONATHAN) may be due to her parainfluenza infection, though ddx also includes worsening aspergillus infection, or other bacterial or fungal infection. Currently not producing sputum but if producing can send for bacterial and fungal Cx. Would continue supportive care for parainfluenza if lack of improvement, may consider involving pulmonary including for question of bronchoscopy. Pts pulmonary aspergillosis has been managed with outpatient voriconazole. It is possible that her clinical worsening is all attributable to parainfluenza 3. Will check vori trough to ensure appropriate dose. Note that the patient was recommended by outpatient ID to be on 200 mg qAM and 400 mg qPM (rather than the 200 mg PO TID that she was taking at home). Also note that she missed her 400 mg PM dose on 06/16 (got only 150 mg) and her 06/17 AM dose (got only 150 mg) before her home dose was ordered correctly therefore it is possible that a trough sent on 06/17 will be somewhat falsely low. Would continue to monitor for s/sx of toxicity (QTc, LFTs, visual disturbances). Note AST and alk phos mildly elevated on 06/16 and improved on 06/17; would continue to monitor LFTs. If patient is not altered, no visual disturbances, LFT's are followed closely, and no other signs/symptoms of voriconazole toxicity, may be able to go back to the 200 mg qAM and 400 mg qPM prescribed by her outpatient ID provider, with close outpatient follow-up after discharge. Note pts leukocytosis increased after starting IV steroids will continue to monitor. Note 06/16 BCx positive for Staph epi, suspect contaminant. Would repeat BCx x2 on 06/17 and hold off on abx unless clinical worsening or if repeat BCx are positive. Do note pt has renal artery stents though not currently suspecting a true infection. Recommendations: - Continue voriconazole 200 mg PO qAM and 400 mg PO qHS (outpatient dosing prior to admission) - Obtain voriconazole trough 06/17 @2100 (note that this level may be slightly falsely lowered given missed doses upon admission) - Continue to monitor LFTs to ensure stable/improving - Continue supportive care of parainfluenza infection and COPD exacerbation, as you are - If producing sputum, can send for bacterial and fungal Cx - If clinical worsening, consider pulmonary evaluation and possible bronchoscopy - Repeat BCx x2 on 06/17 to reevaluate Staph epi suspect contaminant, however if 06/17 BCx return positive as well then would start abx and perform evaluation for infection - Ensure continued outpatient f/u with pulmonology and ID ID will continue to follow. Hannah Ford MD, MHS Infectious Diseases [facility] ID Connect direct line: [phone] Consultation Information Consultation was provided via telemedicine using two-way real-time interactive telecommunication between the patient and the telemedicine provider. For the duration of the visit, the provider was performing the assessment from a different facility than the patient. This includesuse of bluetooth stethoscope forauscultationperformed by the telepresenter that the telemedicine provider can hear if described in the physical exam. [employer] Engineer contact information: Please call [facility] Connect Call Center . (Phone Number For Physician Use Only) After establishing a telemedicine visit, patient was: Patient was verified with two unique identifiers, Patient/authorized rep acknowledged consent and understanding and Gave permission to continue telehealth session Time Spent with Patient: Initial => 75 min History of Present Illness Reason for Consultation: parainfluenza infection and known pulmonary aspergillosis. Attending Physician: Anthony Giraldo, DO History of Present Illness Marie stoddard is an 89-year-old woman with history of COPD, CKD III, dysphagia, renal artery stenosis s/p b/l stenting, right hip replacement, dysphagia/esophagitis, recent admission to [facility] 04/2805/08/24 (COPD exacerbation, new dx of pulmonary aspergillosis, started on voriconazole on 05/01) who presented to [facility] on 06/16 for SOB, wheezing, and vomiting, found to be positive for parainfluenza. ID is consulted for parainfluenza infection and known pulmonary aspergillosis. 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 Of note, prior to her hospitalization she also received course of levofloxacin in the preceding weeks for possible pna. She had elevated WBC, CRP 14, PCT 0.66, RPP negative. CT chest noncon with tree-in-bud nodularity involving all lobes c/w nonspecific infectious/inflammatory changes, moderate hiatal hernia. ID was consulted. SpCx were + Aspergillus fumigatus, 05/01 serum Aspergillus galactomannan was detected at 2.12, and BDG was positive >500. She was started on voriconazole 200 mg BID (usual target 1-1.5) on 05/01 for an anticipated 6-12 weeks of therapy, and discharged on 05/08. Her trough drawn 05/06 (pending at time of d/c, and appropriately timed per ID pharmacist) returned later at 2.6. As an outpatient, follows with Dr. Pinon ([facility]) and Dr. Parada ([facility]). Patient had a second outpatient level drawn on 05/25 which was 1.1 (also likely drawn at appropriate timing per ID pharmacist). On 06/06, her dose was increased to 200 mg in AM and 400 mg in PM by ID however the patient had reported that she was taking 200 mg PO TID (rather than 200 AM and 400 PM as intended). She has been adherent to her voriconazole TID and reports no missed doses at home. Pts daughter lives with her and helps with medications. Aside from renal artery stents, no other reported hardware/implants. Saw pulm on 06/05/24. This admission, she presents with SOB, wheezing, and vomiting. She has had wheezing for the last 2 weeks but acute worsening on 06/16, accompanied by both emesis and dry heaving, and SOB with both rest and exertion. She has a chronic runny nose but thinks it has worsened in the last few days. Denies any sick contacts or contact with children. No fevers. In the ED, afebrile, placed on 5L O2, WBC 16. 4/6 RPP + parainfluenza 3. 06/16 CT chest with increased scattered multifocal tree-in-bud and consolidation in central [place]. She was started on azithromycin and ceftriaxone, and continued on her home voriconazole. She was also started on IV solumedrol. 06/16 procal 0.34. At the time of evaluation, she reports a phlegmy cough but thus far has been unable to produce sputum. She has a 06-[id number] history, quit smoking 15 years ago. On 06/17, WBC of 20.25, and requiring 2L of O2. QTc of 458 on 06/16. Given normal procal, her ceftriaxone was stopped; azithromycin changed to doxycycline. Allergies Allergy/AdvReac Type Severity Reaction Status Date / Time Iodinated Contrast Media Allergy Unknown Anaphylaxis Verified 05/28/24 12:35 [Iodinated Contrast- Oral and IV Dye] Home Medications Medication Instructions Recorded Confirmed Type dorzolamide 2 % eye drops 1 drops OPB [facility] 10/29/18 06/16/24 History latanoprost 0.005 % eye drops 1 drops OPB HS 10/29/18 06/16/24 History sertraline 50 mg tablet 50 mg PO QAM #30 tabs 10/29/18 06/16/24 History metoprolol tartrate 25 mg tablet 25 mg PO QAM 03/16/20 04/06/25 History aspirin 81 mg chewable tablet 81 mg PO DAILY 11/28/19 06/16/24 History simvastatin 20 mg tablet 20 mg PO QAM 11/28/19 06/16/24 History clopidogrel 75 mg tablet 75 mg PO DAILY 06/08/20 06/16/24 History hydralazine 50 mg tablet 50 mg PO BID 09/27/21 06/16/24 History fluticasone fur. 100 mcg-umeclid 1 inh inhalation QAM 10/06/23 06/16/24 History 62.5 mcg-vilant 25 mcg inhalat.powder (Trelegy Ellipta) ondansetron 4 mg disintegrating 4 mg PO Q8 PRN Nausea 10/06/23 06/16/24 History tablet potassium chloride 15 mEq 15 meq PO DAILY #90 tabs 10/31/23 06/16/24 Rx tablet,extended release(part/cryst) (Klor-Con M) albuterol sulfate 90 mcg/actuation 2 puff inhalation Q6 PRN Dyspnea 06/16/24 06/16/24 History aerosol inhaler fluticasone 250 mcg-salmeterol 50 1 inh inhalation [facility] 06/16/24 06/16/24 History mcg/dose blistr powdr for inhalation mirtazapine 7.5 mg tablet 7.5 mg PO HS 06/16/24 06/16/24 History voriconazole 200 mg tablet 200 mg PO TID 06/16/24 06/16/24 History Patient History Medical History Hiatal hernia Hyponatremia Dysphagia Anemia HTN (hypertension) Stage 3b chronic kidney disease Glaucoma Dyslipidemia Left carotid stenosis History of stent insertion of renal artery states reason for plavix HTN (hypertension) follows w/ Dr Meza, [place] History of GI bleed Esophageal obstruction recent hospitalization, reason for upcoming procedure Renal artery stenosis, [place], bilateral UTI (urinary tract infection) Recent UTI, completed abx Anemia recent blood transfusion (09/2023) [facility] CKD (chronic kidney disease) "one functioning kidney"- follows w/ Dr Colvin History of diverticulitis COPD (chronic obstructive pulmonary disease) well controlled w/ daily inhaler Surgical History Hx of colonoscopy Hx of hysterectomy History of thoracic surgery History of section X3 History of hip replacement Right Social History Smoking Status: Unknown if ever smoked Tobacco Type: Cigarettes Second Hand Exposure: No; Do You Dip or Chew Tobacco: No; Hx Alcohol Use: No Hx Substance Use: No Preferred Language: Icelandic Communication Ability: Effective 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 General: Well-appearing, no acute distress HEENT: Conjunctivae non-injected, sclerae anicteric, MMM, OP clear. CV: RRR Resp: Unable to tele-auscultate due to technical difficulties; per telepresenter with decreased BS. Able to speak full sentences without respiratory distress. Abd: Nontender, non-distended Back: No tenderness to palpation along spine Ext: No joint warmth or effusions noted. Skin: No rashes or lesions. Neuro: Alert & interactive. Grossly non-focal. Psych: Pleasant, appropriate. Results & Data Vital Signs (Past 12 Hours) Vital Signs Temp Pulse Pulse Resp BP Pulse Ox Pulse Ox 06/17/24 14:11 71 06/17/24 14:04 06/17/24 13:00 71 18 96 06/17/24 11:39 36.7 C 72 26 H 182/79 H 98 06/17/24 08:31 36.9 C 71 20 144/60 H 99 06/17/24 08:00 98 06/17/24 07:19 69 06/17/24 07:19 06/17/24 07:13 70 20 95 06/17/24 03:11 36.4 C L 65 21 164/83 H 99 Pulse Ox Pulse Ox O2 Del Method O2 Del Method O2 Flow Rate O2 Flow Rate O2 Flow Rate 06/17/24 14:11 06/17/24 14:04 98 95 3 06/17/24 13:00 Nasal Cannula 1 06/17/24 11:39 Nasal Cannula 2.0 06/17/24 08:31 Room Air 06/17/24 08:00 Nasal Cannula 2 06/17/24 07:19 06/17/24 07:19 Nasal Cannula 3 06/17/24 07:13 Nasal Cannula 3 06/17/24 03:11 Nasal Cannula 3 O2 Flow Rate 06/17/24 14:11 06/17/24 14:04 3 06/17/24 13:00 06/17/24 11:39 06/17/24 08:31 06/17/24 08:00 06/17/24 07:19 06/17/24 07:19 06/17/24 07:13 06/17/24 03:11 Diagnostic Findings Diagnostics: 06/16 CT Chest Interval significant increase in scattered, multifocal areas of tree-in-bud and centrilobular nodules, as well as a new area of consolidation in the central left upper lobe, suggesting an atypical infectious process, including airway invasive aspergillosis. Micro Data: 06/16 BCx: GPCs in clusters (BCID + Staph epi with mecA resistance) 06/16 RPP: + Parainfluenza 3 Prior micro 04/28 BCx NG 04/29 Sputum culture: Aspergillus fumigatus Sputum AFB NG 05/03 Fungal blood culture NG 05/03 Blood culture NG 05/01 Aspergillus galactomannan detected (2.12) 05/01 beta D glucan positive >500 Antibiotic Summary: doxycycline (06/17 present) voriconazole (05/01/24ongoing, home med) azithromycin (06/16 06/17) ceftriaxone (06/16)
[2024-06-17] MEDS: MELATONIN 3 MG TAB PO PRN (20:48)
[2024-06-17] MEDS: VORICONAZOLE 200 MG TABLET PO SCH (20:48)
[2024-06-17] MEDS: DOXYCYCLINE HYCLATE 100 MG CAP PO SCH (20:49)
[2024-06-18 06:19] LABS: Hematocrit (blood only) 28.2 % (37.0-47.0); Hemoglobin 9.1 g/dl (12.0-16.0); Mean Corpuscular Hemoglobin 29.7 pg (25.0-34.0); Mean Corpuscular Hgb Conc 32.3 g/dL (32.0-36.0); Mean Corpuscular Volume 92.2 fL (80.0-100.0); Mean Platelet Volume 11.2 fL (9.4-12.4); Platelet Count 193 K/uL (130-400); RDW Coefficient of Variation 18.6 % (11.5-14.5); Red Blood Count 3.06 M/uL (4.20-5.40); White Blood Count 19.04 K/ul (4.8-10.8)
[2024-06-18 06:50] LABS: BUN Creatinine Ratio 31.7 (10-20); Calcium 7.5 mg/dl (8.6-10.3); Creatinine Clr Calc Pharmacy 19.6 ml/min; Potassium 3.6 mmol/L (3.5-5.1)
[2024-06-18] MEDS ORDERED: VORICONAZOLE 50 MG TABLET PO SCH (09:00)
[2024-06-18] MEDS: predniSONE 20 MG TAB PO SCH (09:22)
[2024-06-18] MEDS: VORICONAZOLE 200 MG TABLET PO SCH (09:22)
--- NOTE | 2024-06-18 11:24 | Hospitalist Progress Note ---
Date of Service June 18, 2024 Assessment & Plan (1) Parainfluenza virus infection: (2) Acute exacerbation of chronic obstructive pulmonary disease (COPD): (3) Aspergillus pneumonia: (4) Stage 3b chronic kidney disease: (5) Contamination of blood culture: Plan Patient with acute exacerbation of COPD due to parainfluenza bronchitis complicated by ongoing aspergillosis pneumonia. Continue prednisone, doxycycline and nebulizer treatments for COPD exacerbation Reviewed infectious disease recommendations Follow voriconazole levels, continue medication at current dosing Continue to hold statin and other medications that can prolong QTc, monitor QTc intermittently Monitor surveillance blood culture, most likely initial blood culture contaminant Monitor renal function Leukocytosis most likely due to high-dose steroids she received on admission. Replaced calcium Anticipate if patient's dyspnea continues to improve, maintains adequate O2 sat on room air, surveillance blood cultures remain sterile patient can be discharged home tomorrow with outpatient follow-up with her infectious disease, pulmonary and primary care providers. Admission and Anticipated Discharge Date Admission Date: June 16, 2024 Subjective Patient states she is doing a bit better, however still quite dyspneic with activity. No real productive cough. Physical Exam Physical Exam: Constitutional: Alert, frail and thin HEENT: Mucous membranes moist. Lungs: Decreased breath sounds, few expiratory wheezes CV: S1-S2, regular Abdomen: Soft, nontender, nondistended Extremities: No significant edema Neuro: No focal deficits Psych: Cooperative, normal mood Results & Data Results & Data Vital Signs (Past 12 Hours) Vital Signs Temp Pulse Resp BP Pulse Ox O2 Del Method O2 Del Method 06/18/24 10:43 81 16 94 Room Air 06/18/24 09:42 Room Air 06/18/24 08:00 36.8 C 82 18 162/80 H 94 Room Air 06/18/24 07:27 73 16 96 Room Air 06/18/24 02:37 36.7 C 80 18 153/70 H 94 Room Air 06/18/24 00:00 Room Air Diagnostic Findings Reviewed imaging, laboratory and diagnostic studies. Pertinent findings as below. WBCs 19.0, suspect increased from steroids Hemoglobin 9.1, stable Electrolytes stable Creatinine 1.20 Glucose 129 Voriconazole level pending Surveillance blood cultures pending Personally reviewed EKG, Sinus rhythm, QTc 490, remains less than 500
[2024-06-18] MEDS: CALCIUM GLUCONATE 1,000 MG/60 ML BAG IV SCH (12:06)
--- NOTE | 2024-06-18 15:11 | Infectious Disease Progress Nt ---
Date of Service June 18, 2024 Assessment & Plan (1) Parainfluenza virus infection: (2) Aspergillus: (3) Acute exacerbation of chronic obstructive pulmonary disease (COPD): (4) Contamination of blood culture: Plan ID Problem List: #Parainfluenza 3 infection #Pulmonary aspergillosis #BCx positive for Staph epi, suspect contaminant #Leukocytosis #Acute on chronic hypoxemic respiratory failure #COPD exacerbation #CKD III Impression: Marie stoddard is an 89-year-old woman with history of COPD, CKD III, dysphagia, renal artery stenosis s/p b/l stenting, right hip replacement, dysphagia/esophagitis, recent admission to [facility] 04/2805/08/24 (COPD exacerbation, new dx of pulmonary aspergillosis, started on voriconazole on 05/01) who presented to [facility] on 06/16 for SOB, wheezing, and vomiting, found to be positive for parainfluenza. ID is consulted for parainfluenza infection and known pulmonary aspergillosis. The patient was recently admitted to [facility] 04/2805/08/24 for COPD exacerbation, found to have pulmonary aspergillosis. She had previously had an admission to [facility] for pna (received unknown abx) and also an urgent care visit in [place], from which she got prednisone and doxycycline (took for ~1 day [employer]). Of note, prior to her hospitalization she also received course of levofloxacin in the preceding weeks for possible pna. She had elevated WBC, CRP 14, PCT 0.66, RPP negative. CT chest noncon with tree-in-bud nodularity involving all lobes c/w nonspecific infectious/inflammatory changes, moderate hiatal hernia. ID was consulted. SpCx were + Aspergillus fumigatus, 05/01 serum Aspergillus galactomannan was detected at 2.12, and BDG was positive >500. She was started on voriconazole 200 mg BID (usual target 1-1.5) on 05/01 for an anticipated 6-12 weeks of therapy, and discharged on 05/08. Her trough drawn 05/06 (pending at time of d/c, and appropriately timed per ID pharmacist) returned later at 2.6. As an outpatient, follows with Dr. Pinon ([facility]) and Dr. Parada ([facility]). Patient had a second outpatient level drawn on 05/25 which was 1.1 (also likely drawn at appropriate timing per ID pharmacist). On 06/06, her dose was increased to 200 mg in AM and 400 mg in PM by ID however the patient had reported that she was taking 200 mg PO TID (rather than 200 AM and 400 PM as intended). She has been adherent to her voriconazole TID and reports no missed doses at home. Pts daughter lives with her and helps with medications. Aside from renal artery stents, no other reported hardware/implants. Saw pulm on 06/05/24. This admission, she presents with SOB, wheezing, and vomiting. She has had wheezing for the last 2 weeks but acute worsening on 06/16, accompanied by both emesis and dry heaving, and SOB with both rest and exertion. She has a chronic runny nose but thinks it has worsened in the last few days. Denies any sick contacts or contact with children. No fevers. In the ED, afebrile, placed on 5L O2, WBC 16. 4/6 RPP + parainfluenza 3. 06/16 CT chest with increased scattered multifocal tree-in-bud and consolidation in central JONATHAN. She was started on azithromycin and ceftriaxone, and continued on her home voriconazole. She was also started on IV solumedrol. 06/16 procal 0.34. On 06/17, WBC of 20.25, and requiring 2L of O2. QTc of 458 on 06/16. Given normal procal, her ceftriaxone was stopped; azithromycin changed to doxycycline. Discussion Pts respiratory worsening and radiographic worsening (increased scattered multifocal tree-in-bud and consolidation in central JONATHAN) may be due to her parainfluenza infection, though ddx also includes worsening aspergillus infection, or other bacterial or fungal infection. Currently not producing sputum but if producing can send for bacterial and fungal Cx. Pending repeat BDG and GM. Would continue supportive care for parainfluenza if lack of improvement, may consider involving pulmonary including for question of bronchoscopy. Pts pulmonary aspergillosis has been managed with outpatient voriconazole. It is possible that her clinical worsening is all attributable to parainfluenza 3. Will check vori trough to ensure appropriate dose. Note that the patient was recommended by outpatient ID to be on 200 mg qAM and 400 mg qPM (rather than the 200 mg PO TID that she was taking at home). Also note that she missed her 400 mg PM dose on 06/16 (got only 150 mg) and her 06/17 AM dose (got only 150 mg) before her home dose was ordered correctly therefore it is possible that a trough sent on 06/17 will be somewhat falsely low. Would continue to monitor for s/sx of toxicity (QTc, LFTs, visual disturbances). QTc 490 on 06/18 thus would continue to trend. Note AST and alk phos mildly elevated on 06/16 and improved on 06/17; would continue to monitor LFTs. While the vori trough is pending if patient is not altered, no visual disturbances, LFT's are followed closely, and no other signs/symptoms of voriconazole toxicity, would continue 200 mg qAM and 400 mg qPM prescribed by her outpatient ID provider, with close outpatient follow-up after discharge. Note pts leukocytosis increased after starting IV steroids will continue to monitor. Note 06/16 BCx positive for Staph epi, suspect contaminant. BCx x2 from 06/17 NGTD. Can hold off on abx unless clinical worsening or if repeat BCx are positive. Do note pt has renal artery stents though not currently suspecting a true infection. Recommendations: - Continue voriconazole 200 mg PO qAM and 400 mg PO qHS (outpatient dosing prior to admission) --- F/u voriconazole trough 06/17 (note that this level may be slightly falsely lowered given missed doses upon admission) --- Continue to monitor LFTs to ensure stable/improving --- Continue to monitor QTc (QTc 490 on 06/18) - Continue supportive care of parainfluenza infection and COPD exacerbation, as you are - If producing sputum, can send for bacterial and fungal Cx - If clinical worsening, consider pulmonary evaluation and possible bronchoscopy - Repeat BCx x2 on 06/17 to reevaluate Staph epi suspect contaminant, however if 06/17 BCx return positive as well then would start abx and perform evaluation for infection - F/u repeat serum GM and BDG - Ensure continued outpatient f/u with pulmonology and ID ID will continue to follow. Hannah Ford MD, MHS Infectious Diseases [facility]/ID Connect ID Connect direct line: [phone] Admission and Anticipated Discharge Date Admission Date: June 16, 2024 Subjective This patient recommendation is based on a telemedicine consult request which was completed asynchronously through chart review and information provided by the primary physician. The patient was not seen or examined today. The evaluation is consultative in nature and all patient care and treatment decisions can either be accepted or rejected by the patient's primary hospital-based treating physician using their own independent medical judgment for their patient. Time Spent Reviewing Chart: 31+ minutes - QTc 490 on 06/18 - Afebrile, WBC 19 Results & Data Vital Signs (Past 12 Hours) Vital Signs Temp Pulse Resp BP Pulse Ox O2 Del Method 06/18/24 14:53 36.6 C 77 18 188/94 H 93 Room Air 06/18/24 12:18 36.7 C 76 19 166/76 H 95 Room Air 06/18/24 10:43 81 16 94 Room Air 06/18/24 09:42 Room Air 06/18/24 08:00 36.8 C 82 18 162/80 H 94 Room Air 06/18/24 07:27 73 16 96 Room Air Diagnostic Findings Diagnostics: 06/16 CT Chest Interval significant increase in scattered, multifocal areas of tree-in-bud and centrilobular nodules, as well as a new area of consolidation in the central left upper lobe, suggesting an atypical infectious process, including airway invasive aspergillosis. Micro Data: 06/18 Aspergillus galactomannan: PEND 06/18 [id number]: PEND 06/18 serum CrAg: PEND 06/17 BCx x2: NGTD 06/16 BCx: CoNS (non-lugdunensis) in 1 of 4 bottles (BCID + Staph epi with mecA resistance) 06/16 RPP: + Parainfluenza 3 Prior micro 04/28 BCx NG 04/29 Sputum culture: Aspergillus fumigatus Sputum AFB NG 05/03 Fungal blood culture NG 05/03 Blood culture NG 05/01 Aspergillus galactomannan detected (2.12) 05/01 beta D glucan positive >500 Antibiotic Summary: doxycycline (06/17 present) voriconazole (05/01/24ongoing, home med) azithromycin (06/16 06/17) ceftriaxone (06/16)
[2024-06-18] MEDS: hydrALAZINE TAB 50 MG TAB PO STA (23:30)
[2024-06-19] MEDS: METOPROLOL TARTRATE 25 MG TAB PO SCH (04:42)
--- NOTE | 2024-06-19 05:27 | Electrocardiogram Report ---
Test Reason : Blood Pressure : */* mmHG Vent. Rate : 69 BPM Atrial Rate : 69 BPM P-R Int : 116 ms QRS Dur : 94 ms QT Int : 458 ms P-R-T Axes : 86 -25 41 degrees QTcB Int : 490 ms Normal sinus rhythm Minimal voltage criteria for LVH, may be normal variant ( Renard product ) Prolonged QT Abnormal ECG When compared with ECG of 16-Jun-2024 13:42, QT has lengthened Confirmed by Yves Patrick ([id number]) on 06/19/2024 5:26:45 AM Referred By: REFERRED SELF Confirmed By: Yves Patrick
[2024-06-19 06:22] LABS: Hematocrit (blood only) 28.3 % (37.0-47.0); Hemoglobin 9.2 g/dl (12.0-16.0); Mean Corpuscular Hemoglobin 29.7 pg (25.0-34.0); Mean Corpuscular Hgb Conc 32.5 g/dL (32.0-36.0); Mean Corpuscular Volume 91.3 fL (80.0-100.0); Nucleated RBC # (auto) 0.02 K/uL (0.00-0.12); Nucleated RBC % (auto) 0.1 %; Platelet Count 195 K/uL (130-400); RDW Coefficient of Variation 18.6 % (11.5-14.5); RDW Standard Deviation 61.7 fL (36.4-46.3); White Blood Count 16.92 K/ul (4.8-10.8)
[2024-06-19 06:48] LABS: Calcium 7.9 mg/dl (8.6-10.3); Potassium 3.1 mmol/L (3.5-5.1)
[2024-06-19] MEDS: POTASSIUM CHLORIDE CRTAB 20 MEQ TABCR PO STA (07:46)
[2024-06-19 09:07] VITALS: O2SAT 94
[2024-06-19] MEDS: hydrALAZINE TAB 50 MG TAB PO SCH (09:12)
[2024-06-19 10:52] VITALS: BP 174/79; TEMP 97.5
[2024-06-19 12:05] VITALS: RESP 17
--- NOTE | 2024-06-19 12:18 | Infectious Disease Progress Nt ---
Date of Service June 19, 2024 Assessment & Plan (1) Parainfluenza virus infection: (2) Aspergillus: (3) Acute exacerbation of chronic obstructive pulmonary disease (COPD): (4) Contamination of blood culture: Plan ID Problem List: #Parainfluenza 3 infection #Pulmonary aspergillosis #BCx positive for Staph epi, suspect contaminant #Leukocytosis #Acute on chronic hypoxemic respiratory failure #COPD exacerbation #CKD III Impression: Marie stoddard is an 89-year-old woman with history of COPD, CKD III, dysphagia, renal artery stenosis s/p b/l stenting, right hip replacement, dysphagia/esophagitis, recent admission to [facility] 04/2805/08/24 (COPD exacerbation, new dx of pulmonary aspergillosis, started on voriconazole on 05/01) who presented to [facility] on 06/16 for SOB, wheezing, and vomiting, found to be positive for parainfluenza. ID is consulted for parainfluenza infection and known pulmonary aspergillosis. The patient was recently admitted to [facility] 04/2805/08/24 for COPD exacerbation, found to have pulmonary aspergillosis. 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 Of note, prior to her hospitalization she also received course of levofloxacin in the preceding weeks for possible pna. She had elevated WBC, CRP 14, PCT 0.66, RPP negative. CT chest noncon with tree-in-bud nodularity involving all lobes c/w nonspecific infectious/inflammatory changes, moderate hiatal hernia. ID was consulted. SpCx were + Aspergillus fumigatus, 05/01 serum Aspergillus galactomannan was detected at 2.12, and BDG was positive >500. She was started on voriconazole 200 mg BID (usual target 1-1.5) on 05/01 for an anticipated 6-12 weeks of therapy, and discharged on 05/08. Her trough drawn 05/06 (pending at time of d/c, and appropriately timed per ID pharmacist) returned later at 2.6. As an outpatient, follows with Dr. Pinon ([facility]) and Dr. Parada ([facility]). Patient had a second outpatient level drawn on 05/25 which was 1.1 (also likely drawn at appropriate timing per ID pharmacist). On 06/06, her dose was increased to 200 mg in AM and 400 mg in PM by ID however the patient had reported that she was taking 200 mg PO TID (rather than 200 AM and 400 PM as intended). She has been adherent to her voriconazole TID and reports no missed doses at home. Pts daughter lives with her and helps with medications. Aside from renal artery stents, no other reported hardware/implants. Saw pulm on 06/05/24. This admission, she presents with SOB, wheezing, and vomiting. She has had wheezing for the last 2 weeks but acute worsening on 06/16, accompanied by both emesis and dry heaving, and SOB with both rest and exertion. She has a chronic runny nose but thinks it has worsened in the last few days. Denies any sick contacts or contact with children. No fevers. In the ED, afebrile, placed on 5L O2, WBC 16. 4/6 RPP + parainfluenza 3. 06/16 CT chest with increased scattered multifocal tree-in-bud and consolidation in central JON[place]. She was started on azithromycin and ceftriaxone, and continued on her home voriconazole. She was also started on IV solumedrol. 06/16 procal 0.34. On 06/17, WBC of 20.25, and requiring 2L of O2. QTc of 458 on 06/16. Given normal procal, her ceftriaxone was stopped; azithromycin changed to doxycycline. Discussion Pts respiratory worsening and radiographic worsening (increased scattered multifocal tree-in-bud and consolidation in central JONATHAN) may be due to her parainfluenza infection, though ddx also includes worsening aspergillus infection, or other bacterial or fungal infection. Currently not producing sputum but if producing can send for bacterial and fungal Cx. Pending repeat BDG and GM (pending at time of discharge). Would continue supportive care for parainfluenza. By 06/19, pts symptoms have improved significantly and she is saturating well on room air. Pts pulmonary aspergillosis has been managed with outpatient voriconazole. It is possible that her clinical worsening is all attributable to parainfluenza 3. Will check vori trough to ensure appropriate dose. Note that the patient was recommended by outpatient ID to be on 200 mg qAM and 400 mg qPM (rather than the 200 mg PO TID that she was taking at home). Also note that she missed her 400 mg PM dose on 06/16 (got only 150 mg) and her 06/17 AM dose (got only 150 mg) before her home dose was ordered correctly therefore it is possible that a trough sent on 06/17 will be somewhat falsely low. Would continue to monitor for s/sx of toxicity (QTc, LFTs, visual disturbances). QTc 490 on 06/18 thus would continue to trend. Note AST and alk phos mildly elevated on 06/16 and improved on 06/17; would continue to monitor LFTs. Reports that a few weeks ago she saw a few black spots in her vision this has overall improved and she only seldom sees them now and does not seem to be causing her distress. While the vori trough is pending , would continue 200 mg qAM and 400 mg qPM prescribed by her outpatient ID provider, with close outpatient follow-up after discharge. Note pts leukocytosis increased after starting IV steroids would continue to monitor. Note 06/16 BCx positive for Staph epi in 1 of 4 bottles, suspect contaminant. BCx x2 from 06/17 NGTD. This is most suggestive of contaminant. Can hold off on abx unless clinical worsening or if repeat BCx are positive. Do note pt has renal artery stents though not currently suspecting a true infection. Recommendations: - Continue voriconazole 200 mg PO qAM and 400 mg PO qHS (outpatient dosing prior to admission) --- F/u voriconazole trough 06/17 (note that this level may be slightly falsely lowered given missed doses upon admission) --- Continue to monitor LFTs to ensure stable/improving --- Continue to monitor QTc outpatient, especially if starting any QTc- prolonging meds or meds with voriconazole interactions (EKG 06/19 with QTc of 459) - Continue supportive care of parainfluenza infection and COPD exacerbation, as you are - If producing sputum, can send for bacterial and fungal Cx - Repeat BCx x2 on 06/17 to reevaluate Staph epi suspect contaminant, however if 06/17 BCx result positive as well then would start abx and perform evaluation for infection - F/u repeat serum GM and BDG pending at time of discharge - Ensure continued outpatient f/u with pulmonology and ID Thank you for letting ID participate in the care of this patient. ID will sign off at this time. If questions, please contact [facility] at [phone]. Hannah Ford MD, MHS Infectious Diseases [facility]/ID Connect ID Connect direct line: [phone] Admission and Anticipated Discharge Date Admission Date: June 16, 2024 Subjective Subsequent visit was provided via telemedicine using two-way real-time interactive telecommunication between the patient and the telemedicine provider. For the duration of the visit, the provider was performing the assessment from a different facility than the patient. This includesuse of bluetooth stethoscope forauscultationperformed by the telepresenter that the telemedicine provider can hear if described in the physical exam. [employer] contact information: Please call ID Connect Call Center [phone]. (Phone Number For Physician Use Only) After establishing a telemedicine visit, patient was: Patient was verified with two unique identifiers, Patient/authorized rep acknowledged consent and understanding and Gave permission to continue telehealth session Time Spent with Patient: Subsequent => 55 min - Afebrile, WBC 17 - SpO2 93-98% on RA - Cough productive of scant sputum yesterday, no sputum production today - Reports that a few weeks ago she saw a few black spots in her vision this has overall improved and she only seldom sees them now. - EKG today 06/19 with QTc of 459 Physical Exam Physical Exam: Exam obtained with aid of in-person telepresenter. General: Well-appearing, no acute distress HEENT: Conjunctivae non-injected, sclerae anicteric, MMM, OP clear. Resp: No respiratory distress. Abd: Nontender, non-distended Skin: No rashes or lesions. Neuro: Alert & interactive. Grossly non-focal. Psych: Pleasant, appropriate. Results & Data Vital Signs (Past 12 Hours) Vital Signs Temp Pulse Resp BP Pulse Ox O2 Del Method FiO2 06/19/24 12:03 71 17 94 Room Air 21 06/19/24 10:51 36.4 C L 73 20 174/79 H 94 Room Air 06/19/24 09:06 74 178/83 H 94 Room Air 06/19/24 09:00 Room Air 06/19/24 07:53 36.5 C 78 17 184/88 H 96 Room Air 06/19/24 07:22 77 15 98 Room Air 21 06/19/24 04:28 184/80 H Diagnostic Findings Diagnostics: 06/16 CT Chest Interval significant increase in scattered, multifocal areas of tree-in-bud and centrilobular nodules, as well as a new area of consolidation in the central left upper lobe, suggesting an atypical infectious process, including airway invasive aspergillosis. Micro Data: 06/18 Aspergillus galactomannan: PEND 06/18 oark-[id number]-ehdvhf: PEND 06/18 serum CrAg: PEND 06/17 BCx x2: NGTD 06/16 BCx: CoNS (non-lugdunensis) in 1 of 4 bottles (BCID + Staph epi with mecA resistance) 06/16 RPP: + Parainfluenza 3 Prior micro 05/06/24 voriconazole level: 2.6 05/03 Fungal blood culture NG 05/03 Blood culture NG 05/01 Aspergillus galactomannan detected (2.12) 05/01 beta D glucan positive >500 04/29 Sputum culture: Aspergillus fumigatus Sputum AFB NG 04/28 BCx NG Antibiotic Summary: doxycycline (06/17 present) voriconazole (05/01/24ongoing, home med) azithromycin (06/16 06/17) ceftriaxone (06/16)
[2024-06-19 13:38] VITALS: PULSE 77
--- NOTE | 2024-06-19 15:35 | Discharge Summary ---
Discharge Summary Date of Service June 19, 2024 Principal Dx & Hospital Course #1 = Principal Diagnosis (1) Parainfluenza virus infection: (2) Acute exacerbation of chronic obstructive pulmonary disease (COPD): (3) Aspergillus pneumonia: (4) Stage 3b chronic kidney disease: (5) Contamination of blood culture: Plan Patient with acute exacerbation of COPD due to parainfluenza bronchitis complicated by ongoing aspergillosis pneumonia. Continue prednisone, doxycycline and nebulizer treatments for COPD exacerbation Reviewed infectious disease recommendations Follow voriconazole levels, continue medication at current dosing Continue to hold statin and other medications that can prolong QTc, monitor QTc intermittently Monitor surveillance blood culture, most likely initial blood culture contaminant Monitor renal function Leukocytosis most likely due to high-dose steroids she received on admission. Replaced calcium Discussed with ID, patient medically stable for discharge home with PO antibiotics. Notes For Next Care Provider Marie is an 89-year-old female with PMH of CADE, tobacco use, GI bleed, COPD, HTN, Aspergillus, and dyslipidemia. She presented on 06/16 for SOB, weakness, and vomiting. Noted to be wheezing in ED, admitted for COPD exaccerbation. ID consulted for aspergillus infection, known. Given prednisone for COPD exacerbation. On 06/19/2024 patient satting well on room air, discussed with ID, medically stable for discharge home. QTc of 460 on discharge. Medication Changes From Visit -voriconazole, prednisone Admission HPI Per Admitting Provider Marie is an 89-year-old female with PMH of CADE, tobacco use, GI bleed, COPD, HTN, Aspergillus, and dyslipidemia. She presented on 06/16 for SOB, weakness, and vomiting. Patient reports she has had on and off wheezing over the past 2 weeks, and was feeling okay yesterday, but then had an acute worsening this morning. She reports she has had vomiting, dry heaves, and SOB both at rest and with exertion. No supplemental oxygen at baseline or CPAP at night. No sick contacts. Patient is currently on medications for a fungal infection (Aspergillus), taking voriconazole TID. She reports she has had ongoing night sweats, but believes it is due to the voriconazole. She does not believe she has had any fevers at home. Patient did not take her regular morning medicine today; no recent change in medicine other than the voriconazole. Patient's daughter, who she lives with, helps her manage the medicine at home. No prior history of DVT/PE. Patient is a former tobacco cigarette smoker; quit 15 years ago. Patient is hypertensive at 179/76 and tachypneic at 32 RPM at time admission; SpO2 97% on 4L NC. ED course: Azithromycin 500 mg IV Ceftriaxone 1000 mg IV Solu-Medrol 40 mg IV DuoNeb 3 mL ROS: Patient endorses night-sweats (attributes to voriconazole usage), SOB at rest and with exertion, wheezing, productive cough (white sputum production), nausea, vomiting, dry heaves, and loose stool. Patient denies fever, chills, dizziness, lightheadedness, SRINIVASAN, rashes, tick bites, chest pain, chest palpitations, pleuritic CP, hemoptysis, blood in the urine/stool, or diarrhea. Discharge Exam Gen: A&O 3 NAD, cachexia noted HEENT: NCAT, EOMI, not icteric. External ears normal. No rhinorrhea. Moist mucous membranes. Neck: Supple, full range of motion, no observable masses, No meningeal sign. Lungs: trace expiratory wheezing noted CV: RRR, no edema. Abdomen: Soft, nondistended, No rebound tenderness. MSK: No joint swelling, no redness. Skin: No rashes, petechiae, lesions. Normal color per patient. Neuro: Normal Gait, Grossly intact. Psych: Appropriate for situation. Updated Medication List Medication Instructions Recorded Confirmed Type dorzolamide 2 % eye drops 1 drops OPB AMHS 10/29/18 06/16/24 History latanoprost 0.005 % eye drops 1 drops OPB HS 10/29/18 06/16/24 History sertraline 50 mg tablet 50 mg PO QAM #30 tabs 10/29/18 06/16/24 History metoprolol tartrate 25 mg tablet 25 mg PO QAM 05/27/19 06/16/24 History aspirin 81 mg chewable tablet 81 mg PO DAILY 11/28/19 06/16/24 History clopidogrel 75 mg tablet 75 mg PO DAILY 06/08/20 06/16/24 History hydralazine 50 mg tablet 50 mg PO BID 09/27/21 06/16/24 History fluticasone fur. 100 mcg-umeclid 1 inh inhalation QAM 10/06/23 06/16/24 History 62.5 mcg-vilant 25 mcg inhalat.powder (Trelegy Ellipta) ondansetron 4 mg disintegrating 4 mg PO Q8 PRN Nausea 10/06/23 06/16/24 History tablet potassium chloride 15 mEq 15 meq PO DAILY #90 tabs 10/31/23 06/16/24 Rx tablet,extended release(part/cryst) (Klor-Con M) albuterol sulfate 90 mcg/actuation 2 puff inhalation Q6 PRN Dyspnea 06/16/24 06/16/24 History aerosol inhaler fluticasone 250 mcg-salmeterol 50 1 inh inhalation AMHS 06/16/24 06/16/24 History mcg/dose blistr powdr for inhalation guaifenesin 600 mg tablet, 1,200 mg (2 x 600 mg) PO BID #14 06/19/24 Rx extended release 12 hr (Mucinex) tabs prednisone 20 mg tablet 40 mg (2 x 20 mg) PO DAILY 3 days 06/19/24 Rx #6 tabs voriconazole 200 mg tablet 200 mg PO DAILY #30 tabs 06/19/24 Rx voriconazole 200 mg tablet 400 mg (2 x 200 mg) PO HS 30 days 06/19/24 Rx #60 tabs Hospital Stay Data Consultations 06/16/24 17:13 ED Decision to Admit Stat 06/17/24 09:09 Consult Infectious Diseases Routine Diagnostic Imagining Performed 06/16/24 19:21 CT chest diagnostic wo con Urgent Pending Results Patient Have Any Pending Studies at Discharge: No Discharge Instructions Given to Patient (Per Discharging Provider) 1. Please take antibiotics as scheduled. 2. Follow up with ID, pulmonology, PCP. Total Time Total Time Spent Total Time Spent (In Minutes): I spent a total of 35 minutes in direct patient care, including [id number] time with the patient and/or family, reviewing medical records, ordering and reviewing diagnostic tests, and coordinating care with other healthcare providers. This time includes: history taking, physical examination, medical decision making, counseling, ECG interpretation, imaging interpretation, lab interpretation, orders, and education, excluding time spent in the performance of separately billed services.
--- NOTE | 2024-06-20 05:40 | Electrocardiogram Report ---
Test Reason : Blood Pressure : */* mmHG Vent. Rate : 74 BPM Atrial Rate : 74 BPM P-R Int : 106 ms QRS Dur : 96 ms QT Int : 414 ms P-R-T Axes : 79 -26 58 degrees QTcB Int : 459 ms Sinus rhythm with short WA with Premature supraventricular complexes Minimal voltage criteria for LVH, may be normal variant ( Renard product ) Borderline ECG When compared with ECG of 18-Jun-2024 05:03, Premature supraventricular complexes are now Present Confirmed by Yves Patrick ([id number]) on 06/20/2024 5:39:54 AM Referred By: REFERRED SELF Confirmed By: Yves Patrick
[2024-06-21 19:18] LABS: Cryptococcal Antigen Not Detected (Not Detected); Source Serum
[2024-06-21 20:27] LABS: Aspergillus Ag Index 0.28 (<0.50); Aspergillus Antigen, Serum Not Detected (Not Detected); Fungitell (1-3)-B-D-Glucan 245 pg/mL
== END 2024-06-19 14:23 | disposition home or self-care (01) | DRG 867 ==
LOC: ED 13:01 → EDINP 18:07 → SUATTDRO 18:07 → EDINP 20:41 → 2E 22:11

== ENCOUNTER 2024-11-15 16:32 | Inpatient (IN) ==
--- NOTE | 2024-11-15 16:55 | Emergency Department Note ---
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 Patient is accompanied by her daughter who provide additional history. Patient has had a few days of diarrhea as well as lower quadrant abdominal pain. Daughter provides further history and reports she was recently treated for UTI at the end of the month. She states she was on 2 courses of antibiotics. The most recent course was ciprofloxacin. Patient states that she had an abnormal outpatient CT and was reported to the emergency department. 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 They deny fever or chills. No cough or congestion. Denies chest pain or palpitations. No shortness of breath. She does report some nausea without emesis. No urinary complaints. Patient is reporting liquid stools a few times daily over the last few days. Patient denies recent changes in medications or OTC supplements. Patient offers no other complaints, today. ADDITIONAL HISTORY OBTAINED: Per HPI Chronic Medical/Social Conditions Affecting Care: Per HPI PAST MEDICAL HISTORY: See Below PAST SURGICAL HISTORY: See Below FAMILY HISTORY: See Below SOCIAL HISTORY: See Below HOME MEDICATIONS: See Below ALLERGIES: See Below VITALS: See Below PHYSICAL EXAMINATION: GENERAL: Sitting up in bed, alert, well appearing, well nourished, no distress, non-toxic EYE EXAM: normal conjunctiva. PERRL and EOM's grossly intact. OROPHARYNX: no exudate, no erythema, lips, buccal mucosa, and tongue normal and mucous membranes are dry NECK: supple, no nuchal rigidity, no adenopathy, non-tender LUNGS: Clear to auscultation. Normal chest wall mechanics HEART: no murmurs, regular rate, regular rhythm ABDOMEN: abdomen soft, tenderness to palpation in the lower quadrants, no masses, no rebound or guarding. BACK: Back is symmetrical on inspection and there is no deformity, no midline tenderness, no CVA tenderness. SKIN: no rashes and no bruising UPPER EXTREMITIES: upper extremities are grossly normal. LOWER EXTREMITIES: No pitting edema. NEURO EXAM: Normal sensorium, GCS 15, normal speech, no gross weakness of arms, no gross weakness of legs. MEDICAL DECISION MAKING: Differential diagnoses includes but not limited to infectious colitis, C. difficile infection, appendicitis, bowel obstruction, diverticulitis, malignancy, nephrolithiasis, gastroenteritis, ACS, PNA, pancreatitis, hepatobiliary disease, UTI In summary, this is a 89 year old female who presented with abnormal CT results. Differential as above. Nursing notes and pertinent past medical records reviewed. Vital signs reviewed and the patient is afebrile and HDS. History and presentation revealed []. Patient did have a CT abdomen/pelvis without contrast today by [employer]. I reviewed the report. This shows diffuse colonic wall thickening in the descending and sigmoid colon. She did not have evidence of diverticulitis. There are a few renal lesions that will need follow-up with an MRI. There are nonobstructing renal calculi present. CBD is dilated to 11 mm. Physical examination revealed diffuse lower abdominal pain without evidence of peritonitis. As a result of my initial evaluation, [laxmi for repeat lab work today including C. difficile testing. Will wait for inflammatory markers to see if the patient requires IV antibiotics. She does have severe abdominal pain. Will give IV opiates as well as fluid resuscitation. Patient will likely require admission. Diagnostics interpreted by me include EKG and cardiac monitoring as listed below: -Cardiac Monitoring: An order was placed for continuous cardiac monitoring. The monitor shows a rate of 60-80s with regular rhythm. -ECG: EKG independently interpreted by me reveals normal sinus rhythm at a ventricular rate of [address] segment changes to suggest STEMI. Intervals are within normal limits. Patient completed laboratory studies and imaging. Results independently interpreted by me are Does have a leukocytosis but could be related to her chronic fungal infection. Her leukocytosis does appear worsened from prior. Mild anemia present that is stable. Patient does have an AYESHA from her baseline. CRP and the patient's procalcitonin are both elevated. No evidence of UTI on urinalysis. Given the patient's leukocytosis as well as elevated inflammatory markers, patient was started on broad-spectrum antibiotics with IV Zosyn. Patient did have blood cultures obtained. Patient will require admission for broad-spectrum antibiotics, IV fluid resuscitation and pain control medications. While the patient does have dilatation of her common bile duct, it could be related to her age. She has no other evidence of obstruction based on LFTs. I did not feel emergent MRCP was necessary at this time. Ultimately, the decision was made to admit the patient for likely infectious colitis with diffuse abdominal pain as well as AYESHA. It was recommended to admit this patient at 1815. I discussed the case with the hospitalist service via telephone/[employer] and they are agreeable to admit the patient to their services at [address] Vasquez. Based on the above, including the patient's age, coexisting illnesses, labs, imaging, and exam findings the decision to treat as an inpatient. I discussed the patient with the hospitalist team who recommended admission to their services. They received the medications, treatments, interventions indicated above and their condition []. I discussed my findings with the patient and their family and they understand and agree with the treatment plan. All patient / family questions were answered to their satisfaction. Consults/Care Managements Discussions: Per [facility] ER treatment provided: See above Procedures:none Critical Care: None The chart was completed utilizing Undertone Speech voice recognition software. Grammatical errors, random word insertions, pronoun errors, and incomplete sentences are an occasional consequence of this system due to software limitations, ambient noise, and hardware issues. Any formal questions or concerns about the content, text, or information contained within the body of this dictation should be directly addressed to the physician for clarification. Past Med/Surg History Problem List (Updated 11/16/24 @ 01:46 by Gil Lee DO) Dilated cbd, acquired (Acute) Leukocytosis (Acute) AYESHA (acute kidney injury) (Acute) Colitis presumed infectious (Acute) Contamination of blood culture Aspergillus pneumonia Parainfluenza virus infection SOB (shortness of breath) (Acute) Community acquired pneumonia (Acute) Aspergillus Acute exacerbation of chronic obstructive pulmonary disease (COPD) (Acute) Dehydration (Acute) Esophageal obstruction (Acute) UTI (urinary tract infection) Renal artery stenosis, mechoopda, bilateral GI bleed Dysphagia Hematuria, microscopic Renal cyst Gross hematuria Hypercalcemia Left carotid stenosis Acute kidney injury Dyslipidemia (Chronic) Hypertension, benign (Chronic) Personal history of tobacco use, presenting hazards to health (Chronic) Right renal artery stenosis (Chronic) Vitamin D deficiency (Chronic) Medical History Hiatal hernia Hyponatremia Dysphagia Anemia HTN (hypertension) Stage 3b chronic kidney disease Glaucoma Dyslipidemia Left carotid stenosis History of stent insertion of renal artery states reason for plavix HTN (hypertension) follows w/ Dr Meza, [facility] History of GI bleed Esophageal obstruction recent hospitalization, reason for upcoming procedure Renal artery stenosis, mechoopda, bilateral UTI (urinary tract infection) Recent UTI, completed abx Anemia recent blood transfusion (09/2023) [facility] CKD (chronic kidney disease) "one functioning kidney"- follows w/ Dr Colvin History of diverticulitis COPD (chronic obstructive pulmonary disease) well controlled w/ daily inhaler Surgical History Hx of colonoscopy Hx of hysterectomy History of thoracic surgery History of section X3 History of hip replacement Right Social History Smoking Status: Former smoker Tobacco Type: Cigarettes Second Hand Exposure: No; Do You Dip or Chew Tobacco: No; Hx Alcohol Use: No Hx Substance Use: No Preferred Language: Grenadian Communication Ability: Effective Search And Rescue Officer Required: No Beliefs That Will Affect Care: None Current Living Situation: Family Current Living Situation Comment: 2 daughters and grandson Feels Safe at Home: Yes Assistive Devices: Cane and Walker Allergies Allergies Allergy/AdvReac Type Severity Reaction Status Date / Time Iodinated Contrast Media Allergy Severe Anaphylaxis Verified 11/15/24 18:15 [Iodinated Contrast- Oral and IV Dye] Home Meds Home Medications Medication Instructions Recorded Confirmed dorzolamide 2 % eye drops 1 drops OPB AMHS 10/29/18 11/15/24 latanoprost 0.005 % eye drops 1 drops OPB HS 10/29/18 11/15/24 sertraline 50 mg tablet 50 mg PO QAM #30 tabs 10/29/18 11/15/24 metoprolol tartrate 25 mg tablet 25 mg PO QAM 05/27/19 11/15/24 aspirin 81 mg chewable tablet 81 mg PO DAILY 11/28/19 11/15/24 clopidogrel 75 mg tablet 75 mg PO DAILY 06/08/20 11/15/24 hydralazine 50 mg tablet 50 mg PO BID 09/27/21 11/15/24 fluticasone fur. 100 mcg-umeclid 1 inh inhalation QAM 10/06/23 11/15/24 62.5 mcg-vilant 25 mcg inhalat.powder (Trelegy Ellipta) albuterol sulfate 90 mcg/actuation 2 puff inhalation Q6 PRN Dyspnea 06/16/24 11/15/24 aerosol inhaler fluticasone 250 mcg-salmeterol 50 1 inh inhalation AMHS 06/16/24 11/15/24 mcg/dose blistr powdr for inhalation Calcium/Magnesium/Vitamin D3 1 tab PO DAILY 11/15/24 11/15/24 Lactobacillus acidophilus 10 10,000 mmu cells PO DAILY 11/15/24 11/15/24 billion cell capsule (Probiotic) acetaminophen 325 mg tablet 325 mg PO Q4H PRN Pain 11/15/24 11/15/24 (Tylenol) albuterol sulfate 0.63 mg/3 mL 0.63 mg inhalation Q6H PRN 11/15/24 11/15/24 solution for nebulization Shortness Of Breath Or Wheezing alendronate 70 mg tablet 70 mg PO WK 11/15/24 11/15/24 cholecalciferol (vitamin D3) 25 25 mcg PO DAILY 11/15/24 11/15/24 mcg (1,000 unit) capsule (Vitamin D3) ciprofloxacin HCl 250 mg tablet 250 mg PO BID 11/15/24 11/15/24 colchicine 0.6 mg tablet 0.6 mg PO DIRECTED PRN GOUT 11/15/24 11/15/24 FLARE UP famotidine 20 mg tablet 20 mg PO BID 11/15/24 11/15/24 ferrous fumarate 324 mg (106 mg 324 mg PO DAILY 11/15/24 11/15/24 iron) tablet magnesium 250 mg tablet 250 mg PO DAILY 11/15/24 11/15/24 mirtazapine 7.5 mg tablet 7.5 mg PO HS 11/15/24 11/15/24 voriconazole 200 mg tablet 200 mg PO BID 11/15/24 11/15/24 Previous Rx's Medication Instructions Recorded potassium chloride 15 mEq 15 meq PO DAILY #90 tabs 10/31/23 tablet,extended release(part/cryst) (Klor-Con M) guaifenesin 600 mg tablet, 1,200 mg (2 x 600 mg) PO BID #14 06/19/24 extended release 12 hr (Mucinex) tabs Results & Data (ED) Vital Signs Vital Signs - 24 hr 11/15/24 16:39 11/15/24 17:00 11/15/24 18:00 Temperature 36.6 C Temperature Source Oral Pulse Rate 79 78 70 Pulse Rate [Apical] Pulse Rhythm Regular Pulse Rhythm [Apical] Pulse Strength Normal Pulse Strength [Apical] Respiratory Rate 20 18 Respiratory Effort / Characteristics Non-Labored Respiratory Depth Normal Blood Pressure 157/76 H 127/71 Blood Pressure [Left Arm] Blood Pressure Mean 103 104 Blood Pressure Mean [Left Arm] Blood Pressure Position Sitting Blood Pressure Position [Left Arm] Pulse Oximetry 96 98 Oxygen Delivery Method Room Air Room Air Sepsis Recent Fever Within 48 Hours No Sepsis New/Unexplained Change in Mental Status N/A Sepsis Action Taken by Nursing No Action Required 11/15/24 18:40 11/15/24 21:06 11/15/24 23:12 Temperature Temperature Source Pulse Rate Pulse Rate [Apical] 69 71 79 Pulse Rhythm Pulse Rhythm [Apical] Regular Pulse Strength Pulse Strength [Apical] Normal Respiratory Rate 20 18 20 Respiratory Effort / Characteristics Non-Labored Respiratory Depth Normal Blood Pressure Blood Pressure [Left Arm] 107/59 L 136/72 127/62 Blood Pressure Mean Blood Pressure Mean [Left Arm] 75 93 83 Blood Pressure Position Blood Pressure Position [Left Arm] Sitting Sitting Pulse Oximetry 95 98 96 Oxygen Delivery Method Room Air Room Air Room Air Sepsis Recent Fever Within 48 Hours Sepsis New/Unexplained Change in Mental Status Sepsis Action Taken by Nursing 11/16/24 00:27 11/16/24 01:03 Temperature Temperature Source Pulse Rate 77 Pulse Rate [Apical] 70 Pulse Rhythm Pulse Rhythm [Apical] Regular Pulse Strength Pulse Strength [Apical] Normal Respiratory Rate 16 Respiratory Effort / Characteristics Non-Labored Spontaneous Respiratory Depth Normal Blood Pressure Blood Pressure [Left Arm] 93/58 L Blood Pressure Mean Blood Pressure Mean [Left Arm] 69 Blood Pressure Position Blood Pressure Position [Left Arm] Lying Pulse Oximetry 96 Oxygen Delivery Method Room Air Sepsis Recent Fever Within 48 Hours Sepsis New/Unexplained Change in Mental Status Sepsis Action Taken by Nursing Laboratory Data 11/15/24 17:37 11/15/24 17:37 Lab Results 11/15/24 11/15/24 11/15/24 Range/Units 17:37 22:54 23:01 WBC 21.73 H (4.8-10.8) K/ul RBC 3.92 L (4.20-5.40) M/uL Hgb 11.6 L (12.0-16.0) g/dl Hct 36.5 L (37.0-47.0) % MCV 93.1 (80.0-100.0) fL MCH 29.6 (25.0-34.0) pg MCHC 31.8 L (32.0-36.0) g/dL RDW Std Deviation 57.3 H (36.4-46.3) fL RDW Coeff of [place]rell 16.7 H (11.5-14.5) % Plt Count 204 (130-400) K/uL MPV 10.7 (9.4-12.4) fL Immature Gran % (Auto) 0.9 % Neut % (Auto) 85.6 % Lymph % (Auto) 7.7 % [place] % (Auto) 5.2 % Eos % (Auto) 0.4 % Baso % (Auto) 0.2 % Neut # (Auto) 18.59 H (1.40-6.50) K/uL Lymph # (Auto) 1.67 (1.20-3.40) K/uL Marin # (Auto) 1.14 H (0.11-0.59) K/uL Eos # (Auto) 0.09 (0.00-0.50) K/uL Baso # (Auto) 0.04 (0.00-0.20) K/uL Immature Gran # (Auto) 0.20 (0.01-0.20) K/uL Sodium 137 (136-145) mmol/L Potassium 4.9 (3.5-5.1) mmol/L Chloride 112 H (98-107) mmol/L Carbon Dioxide 17 L (21-32) mmol/L Anion Gap 8 (3-11) BUN 58 H (6-23) mg/dl Creatinine 1.67 H (0.6-1.2) mg/dl Est Cr Clr Drug Dosing 13.7 ml/min eGFR 29.47 BUN/Creatinine Ratio 34.7 H (10-20) Glucose 99 (70-99(Fasting)) mg/dl Lactate 1.0 (0.4-2.0) mmol/L Calcium 8.8 (8.6-10.3) mg/dl Total Bilirubin 0.3 (0.2-1.0) mg/dl AST 34 (13-39) U/L ALT 10 (7-52) U/L Alkaline Phosphatase 182 H (34-104) U/L Troponin I High Sens 25.7 H 22.5 H (0-14) pg/ml C-Reactive Protein 25.04 H (0-0.5) mg/dl Total Protein 6.6 (6.0-8.3) gm/dl Albumin 3.5 (3.4-5.0) gm/dl Globulin 3.1 (2.5-4.0) gm/dl Albumin/Globulin Ratio 1.1 (0.9-2) Lipase 36 (11-82) U/L Procalcitonin 15.70 H (0-0.5) ng/ml Urine Color Yellow Urine Appearance Clear (Clear) Urine pH 5.5 (4.5-7.5) Ur Specific [place] 1.013 (1.000-1.030) Urine Protein 1+ H (Negative) Urine Glucose (UA) Negative (Negative) Urine Ketones Negative (Negative) Urine Blood Negative (Negative) Urine Nitrite Negative (Negative) Urine Bilirubin Negative (Negative) Urine Urobilinogen Negative (Negative) Ur Leukocyte Esterase Negative (Negative) Urine WBC (Auto) 0-5 (0-5) /hpf Urine RBC (Auto) 0-2 (0-2) /hpf U Hyaline Cast (Auto) 0-2 (0-2) /lpf U Epithel Cells (Auto) 0-2 (0-2) /hpf Urine Bacteria (Auto) None Seen (None Seen) Urine Comment Administered Medications Famotidine (Famotidine 20 Mg Tab) 20 mg PO BID [facility] Stop: 12/15/24 20:59 Last Admin: 11/15/24 21:12 Dose: 20 mg Documented By: LITZY Guaifenesin (Guaifenesin 600 Mg Tabcr) 1,200 mg PO BID [facility] Stop: 12/15/24 20:59 Last Admin: 11/15/24 21:12 Dose: 1,200 mg Documented By: LITZY Hydralazine HCl (Hydralazine Tab 50 Mg Tab) 50 mg PO BID [facility] Stop: 12/15/24 20:59 Last Admin: 11/15/24 21:42 Dose: 50 mg Documented By: LITZY Sodium Chloride (1/2 Nss) 1,000 mls @ 70 mls/hr IV .[id number] [facility] Stop: 11/16/24 23:34 Last Admin: 11/15/24 21:12 Dose: 70 mls/hr Documented By: LITZY Mirtazapine (Mirtazapine Tab 15 Mg Tab) 7.5 mg PO HS [facility] Stop: 12/15/24 20:59 Last Admin: 11/15/24 21:42 Dose: 7.5 mg Documented By: LITZY Voriconazole (Voriconazole 200 Mg Tablet) 200 mg PO BID [facility] Stop: 12/15/24 20:59 Last Admin: 11/15/24 21:53 Dose: 200 mg Documented By: LITZY Discontinued Medications Fentanyl Citrate (Fentanyl Citrate Pf 100 Mcg/2 Ml Vial) 50 mcg IV NOW ONE Stop: 11/15/24 16:54 Last Admin: 11/15/24 17:34 Dose: 50 mcg Documented By: LALITHAV Fluticasone Furoate (Fluticasone Furoate 100mcg 14 Puffs/Inhaler) 1 puffs INH NOW ONE Stop: 11/15/24 21:46 Last Admin: 11/15/24 21:54 Dose: 1 puffs Documented By: LITZY Parenteral Electrolytes (Plasma-Lyte A Ph 7.4) 1,000 mls @ 999 mls/hr IV .[id number] ONE Stop: 11/15/24 17:53 Last Infusion: 11/15/24 18:57 Dose: Infused Documented By: Admin: 11/15/24 17:34 Dose: 999 mls/hr Documented By: QGV Piperacillin Sod/Tazobactam Sod (Zosyn) 4.5 gm in 100 mls @ 200 mls/hr IV NOW ONE; Protocol Stop: 11/15/24 18:31 Last Infusion: 11/15/24 19:29 Dose: Infused Documented By: Admin: 11/15/24 18:43 Dose: 200 mls/hr Documented By: QGV Umeclidinium/Vilanterol (Umeclidinium/Vilanterol 62.5/25mcg 7 Puffs/Inhaler) 1 puffs INH NOW ONE Stop: 11/15/24 21:46 Last Admin: 11/15/24 21:54 Dose: 1 puffs Documented By: LITZY Discharge Plan Visit Data Chief Complaint: GI Assessment Stated Complaint: COLITIS, REF BY , FUNGAL INFECTION ED Provider: Gil Lee Discharge Problem: Colitis presumed infectious, AYESHA (acute kidney injury), Leukocytosis, Dilated cbd, acquired Patient Disposition: Admitted As Inpatient Condition: Serious Forms Stand Alone Forms: My [facility] [employer] Prescriptions Prescriptions: No Action clopidogrel 75 mg tablet 75 mg PO DAILY Hold Instructions: Resume on 10/20/23. until after endoscopy. Can be restarted after. Date above is just placeholder until endoscopy is scheduled. aspirin 81 mg tablet,chewable 81 mg PO DAILY dorzolamide 2 % drops 1 drops OPB AMHS sertraline 50 mg tablet 50 mg PO QAM Qty: 30 latanoprost 0.005 % drops 1 drops OPB HS metoprolol tartrate 25 mg tablet 25 mg PO QAM potassium chloride [Klor-Con M15] 15 mEq tablet,ER particles/crystals 15 meq PO DAILY Qty: 90 3RF hydralazine 50 mg tablet 50 mg PO BID Trelegy Ellipta 100-62.5-25 mcg blister with device 1 inh INHALATION QAM Rx Instructions: UNABLE TO VERIFY THIS MEDICATION fluticasone propion-salmeterol 250-50 mcg/dose blister with device 1 inh INHALATION AMHS albuterol sulfate 90 mcg/actuation HFA aerosol inhaler 2 puff INHALATION Q6 PRN (Reason: Dyspnea) guaifenesin [Mucinex] 600 mg Tablet Extended Release 12hr 1,200 mg PO BID Qty: 14 0RF albuterol sulfate 0.63 mg/3 mL solution for nebulization 0.63 mg inhalation Q6H PRN (Reason: Shortness Of Breath Or Wheezing) acetaminophen [Tylenol] 325 mg Tablet 325 mg PO Q4H PRN (Reason: Pain) alendronate 70 mg tablet 70 mg PO WK ciprofloxacin HCl 250 mg tablet 250 mg PO BID Rx Instructions: STARTED 11/12/24 FOR 10 DAYS famotidine 20 mg Tablet 20 mg PO BID magnesium 250 mg Tablet 250 mg PO DAILY colchicine 0.6 mg tablet 0.6 mg PO DIRECTED PRN (Reason: GOUT FLARE UP) cholecalciferol (vitamin D3) [Vitamin D3] 25 mcg (1,000 unit) Capsule 25 mcg PO DAILY ferrous fumarate 324 mg (106 mg iron) Tablet 324 mg PO DAILY mirtazapine 7.5 mg Tablet 7.5 mg PO HS Probiotic 10 billion cell Capsule 10,000 mmu cells PO DAILY Calcium/Magnesium/Vitamin D3 1 tab PO DAILY voriconazole 200 mg tablet 200 mg PO BID Referrals Referrals: Jt Pastrana MD [Primary Care Provider] -
[2024-11-15] MEDS: PLASMA-LYTE A 1,000 ML IV ONE (17:34)
[2024-11-15 17:47] LABS: Hematocrit (blood only) 36.5 % (37.0-47.0); Hemoglobin 11.6 g/dl (12.0-16.0); Immature Granulocytes # (auto) 0.20 K/uL (0.01-0.20); Immature Granulocytes % (auto) 0.9 %; Mean Corpuscular Hemoglobin 29.6 pg (25.0-34.0); Mean Corpuscular Volume 93.1 fL (80.0-100.0); Platelet Count 204 K/uL (130-400); RDW Standard Deviation 57.3 fL (36.4-46.3); Red Blood Count 3.92 M/uL (4.20-5.40); White Blood Count 21.73 K/ul (4.8-10.8)
[2024-11-15 18:06] LABS: Alanine Aminotransferase 10.0 U/L (7-52); Albumin Globulin Ratio 1.1 (0.9-2); Alkaline Phosphatase 182.0 U/L (34-104); Anion Gap 8.0 (3-11); Bilirubin,Total 0.3 mg/dl (0.2-1.0); Blood Urea Nitrogen 58.0 mg/dl (6-23); Calcium 8.8 mg/dl (8.6-10.3); Carbon Dioxide 17.0 mmol/L (21-32); Chloride 112.0 mmol/L (98-107); Creatinine Clr Calc Pharmacy 13.7 ml/min; Globulin 3.1 gm/dl (2.5-4.0); Glucose 99.0 mg/dl (70-99(Fasting)); Lipase 36.0 U/L (11-82); Potassium 4.9 mmol/L (3.5-5.1); Sodium 137.0 mmol/L (136-145); Total Protein 6.6 gm/dl (6.0-8.3)
[2024-11-15] MEDS: PIPERACILLIN/TAZOBACTAM 4.5 GM/100 ML BAG IV ONE (18:43)
[2024-11-15] MEDS ORDERED: ALBUTEROL HFA 8 GM INHALER INH PRN (19:03)
--- NOTE | 2024-11-15 19:18 | History & Physical Report ---
Date of Service November 15, 2024 Assessment & Plan (1) Colitis: Plan Outpatient CTAP from 11/15/2024 IMPRESSION: 1. Diffuse colonic wall thickening with pericolonic inflammatory changes which are most pronounced along the descending and sigmoid colon, suspicious for colitis. 2. Colonic diverticulosis without diverticulitis. 3. A few intermediate density left renal lesions are indeterminate, for example a left interpolar renal lesion measuring 2 cm and a left lower pole renal lesion measuring 2 cm. MRI abdomen with and without contrast is recommended for further evaluation. 4. A couple of nonobstructing right renal calculi measure up to 2 mm. No hydro nephrosis. 5. The common bile duct is dilated to approximately 11 mm. Consider MRCP for further evaluation. 6. A few tree-in-bud nodular opacities in the lower lungs bilaterally, likely reflecting mucoid impacted distal airways with or without superimposed infection/inflammation. 7. Moderate-sized hiatal hernia. Colitis Patient presents with complaint of abdominal pain and diarrhea. Patient denies fever, or blood in stool. CTAP done outpatient as above.Procalcitonin elevated. Chronic elevation of WBC noted. Started on Zosyn in the ED, continue, adjust for renal function. Continue with IV fluid, NPO. Can advance diet once abdominal pain starts to improve. Aspergillus pneumonia: History of, currently taking voriconazole, continue. Patient advised to follow-up with her pulmonology and infectious disease as an outpatient as prior. Complicated UTI: Diagnosed as an outpatient, was started on ciprofloxacin 11/12 for total of 10 days. Since patient is on Zosyn, will hold Cipro. Acute kidney injury over CKD stage IV: Baseline creatinine around 1, admitting creatinine of 1.67. Likely prerenal given poor p.o. intake and diarrhea prior to arrival. Continue with IV fluid, avoid nephrotoxic, if creatinine continues to uptrend might need to adjust voriconazole doses. Consider nephrology consult if with worsening creatinine. Renal lesions: As noted in CTAP, consider outpatient MRI for further evaluation. CBD dilatation: Lipase WNL, will get MRCP. GI consult. 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 Patient reports she has been having abdominal pain and multiple loose stools daily for about a week now and she went to PCP office yesterday where they ordered CT scan which was done today and upon noting colitis in the CT scan they were directed to the ED. Patient denies any blood in the stool, reports 3-4 loose stools every day, reports poor appetite. Patient denies nausea or vomiting or fever or sore throat or chest pain. Patient reports cough at her baseline. Patient reports she is taking voriconazole for her Aspergillus pneumonia. Patient also reports that she is started on ciprofloxacin to complete 10 days course until 11/22/2024 for her UTI. Patient reports quitting smoking 20 years ago, denies alcohol and recreational drug use. Full code Plan of care discussed with the patient and her daughter at bedside, who voiced understanding. Medications reviewed with the patient and her daughter at bedside. Allergies Allergy/AdvReac Type Severity Reaction Status Date / Time Iodinated Contrast Media Allergy Severe Anaphylaxis Verified 11/15/24 18:15 [Iodinated Contrast- Oral and IV Dye] Home Medications Medication Instructions Recorded Confirmed Type dorzolamide 2 % eye drops 1 drops OPB AMHS 10/29/18 11/15/24 History latanoprost 0.005 % eye drops 1 drops OPB HS 10/29/18 11/15/24 History sertraline 50 mg tablet 50 mg PO QAM #30 tabs 10/29/18 11/15/24 History metoprolol tartrate 25 mg tablet 25 mg PO QAM 05/27/19 11/15/24 History aspirin 81 mg chewable tablet 81 mg PO DAILY 11/28/19 11/15/24 History clopidogrel 75 mg tablet 75 mg PO DAILY 06/08/20 11/15/24 History hydralazine 50 mg tablet 50 mg PO BID 09/27/21 11/15/24 History fluticasone fur. 100 mcg-umeclid 1 inh inhalation QAM 10/06/23 11/15/24 History 62.5 mcg-vilant 25 mcg inhalat.powder (Trelegy Ellipta) potassium chloride 15 mEq 15 meq PO DAILY #90 tabs 10/31/23 11/15/24 Rx tablet,extended release(part/cryst) (Klor-Con M) albuterol sulfate 90 mcg/actuation 2 puff inhalation Q6 PRN Dyspnea 06/16/24 11/15/24 History aerosol inhaler fluticasone 250 mcg-salmeterol 50 1 inh inhalation AMHS 06/16/24 11/15/24 History mcg/dose blistr powdr for inhalation guaifenesin 600 mg tablet, 1,200 mg (2 x 600 mg) PO BID #14 06/19/24 11/15/24 Rx extended release 12 hr (Mucinex) tabs Calcium/Magnesium/Vitamin D3 1 tab PO DAILY 11/15/24 11/15/24 History Lactobacillus acidophilus 10 10,000 mmu cells PO DAILY 11/15/24 11/15/24 History billion cell capsule (Probiotic) acetaminophen 325 mg tablet 325 mg PO Q4H PRN Pain 11/15/24 11/15/24 History (Tylenol) albuterol sulfate 0.63 mg/3 mL 0.63 mg inhalation Q6H PRN 11/15/24 11/15/24 History solution for nebulization Shortness Of Breath Or Wheezing alendronate 70 mg tablet 70 mg PO WK 11/15/24 11/15/24 History cholecalciferol (vitamin D3) 25 25 mcg PO DAILY 11/15/24 11/15/24 History mcg (1,000 unit) capsule (Vitamin D3) ciprofloxacin HCl 250 mg tablet 250 mg PO BID 11/15/24 11/15/24 History colchicine 0.6 mg tablet 0.6 mg PO DIRECTED PRN GOUT 11/15/24 11/15/24 History FLARE UP famotidine 20 mg tablet 20 mg PO BID 11/15/24 11/15/24 History ferrous fumarate 324 mg (106 mg 324 mg PO DAILY 11/15/24 11/15/24 History iron) tablet magnesium 250 mg tablet 250 mg PO DAILY 11/15/24 11/15/24 History mirtazapine 7.5 mg tablet 7.5 mg PO HS 11/15/24 11/15/24 History voriconazole 200 mg tablet 200 mg PO BID 11/15/24 11/15/24 History Past Med/Surg History Problem List (Updated 11/16/24 @ 18:31 by Nathalia Vasuqez MD) Colitis Dilated cbd, acquired (Acute) Leukocytosis (Acute) AYESHA (acute kidney injury) (Acute) Colitis presumed infectious (Acute) Contamination of blood culture Aspergillus pneumonia Parainfluenza virus infection SOB (shortness of breath) (Acute) Community acquired pneumonia (Acute) Aspergillus Acute exacerbation of chronic obstructive pulmonary disease (COPD) (Acute) Dehydration (Acute) Esophageal obstruction (Acute) UTI (urinary tract infection) Renal artery stenosis, [place], bilateral GI bleed Dysphagia Hematuria, microscopic Renal cyst Gross hematuria Hypercalcemia Left carotid stenosis Acute kidney injury Dyslipidemia (Chronic) Hypertension, benign (Chronic) Personal history of tobacco use, presenting hazards to health (Chronic) Right renal artery stenosis (Chronic) Vitamin D deficiency (Chronic) Medical History Hiatal hernia Hyponatremia Dysphagia Anemia HTN (hypertension) Stage 3b chronic kidney disease Glaucoma Dyslipidemia Left carotid stenosis History of stent insertion of renal artery states reason for plavix HTN (hypertension) follows w/ Dr Meza, [place] History of GI bleed Esophageal obstruction recent hospitalization, reason for upcoming procedure Renal artery stenosis, [place], bilateral UTI (urinary tract infection) Recent UTI, completed abx Anemia recent blood transfusion (09/2023) [facility] CKD (chronic kidney disease) "one functioning kidney"- follows w/ Dr Colvin History of diverticulitis COPD (chronic obstructive pulmonary disease) well controlled w/ daily inhaler Surgical History Hx of colonoscopy Hx of hysterectomy History of thoracic surgery History of section X3 History of hip replacement Right Social History Smoking Status: Unknown if ever smoked Tobacco Type: Cigarettes Second Hand Exposure: No; Do You Dip or Chew Tobacco: No; Hx Alcohol Use: No Hx Substance Use: No Preferred Language: Ukrainian Communication Ability: Effective Cranberry Grower Required: No Beliefs That Will Affect Care: None Current Living Situation: Family Current Living Situation Comment: 2 daughters and grandson Feels Safe at Home: Yes Assistive Devices: Glasses and Hearing Aid - Bilateral Review of Systems Review of Systems: Negative otherwise mentioned in HPI. Physical Exam Physical Exam: GENERAL: Alert and oriented x3. NAD, on RA. Appears elderly/frail/weak. HEENT: No pallor, no icterus. Pupils equal, round and reactive to light. Oral mucosa dry. NECK: No JVD, no neck masses. HEART: S1 and S2 heard. Regular rate and rhythm. + murmur, no gallop. RESPIRATORY SYSTEM: Normal AP diameter. No accessory muscle use. No wheezing, b/l crackles. ABDOMEN: Soft, bowel sounds present, Generalized mild tenderness, no distention. old healed midline surgical scar CENTRAL NERVOUS SYSTEM: No facial droop. Speech is clear. Obeys simple commands. Moves extremities. EXTREMITIES: No edema, no erythema seen. Results & Data Results & Data Vital Signs (Past 12 Hours) Vital Signs Temp Pulse Pulse Resp BP BP Pulse Ox 11/15/24 18:40 69 20 107/59 L 95 11/15/24 18:00 70 18 127/71 98 11/15/24 17:00 78 11/15/24 16:39 36.6 C 79 20 157/76 H 96 O2 Del Method 11/15/24 18:40 Room Air 11/15/24 18:00 Room Air 11/15/24 17:00 11/15/24 16:39 Room Air
[2024-11-15] MEDS ORDERED: FLUTICASONE/SALMETEROL 250/50 (ADVAIR) 14 PUFF/1 INHALER INH SCH (21:00)
[2024-11-15] MEDS: guaiFENesin 600 MG TABCR PO SCH (21:12)
[2024-11-15] MEDS: SODIUM CHLORIDE 0.45 % 1,000 ML IV SCH (21:12)
[2024-11-15] MEDS: FAMOTIDINE 20 MG TAB PO SCH (21:12)
[2024-11-15] MEDS: MIRTAZAPINE TAB 15 MG TAB PO SCH (21:42)
[2024-11-15] MEDS: VORICONAZOLE 200 MG TABLET PO SCH (21:53)
[2024-11-15] MEDS: FLUTICASONE FUROATE 100MCG 14 PUFFS/INHALER INH ONE (21:54)
[2024-11-15] MEDS: UMECLIDINIUM/VILANTEROL 62.5/25MCG 7 PUFFS/INHALER INH ONE (21:54)
[2024-11-15 23:45] LABS: Appearance Urine Clear (Clear); Bacteria Urine Automated None Seen (None Seen); Cast Urine Automated 0-2 /lpf (0-2); Epithelial Cell Urine Auto 0-2 /hpf (0-2); Glucose Urine UA Negative (Negative); RBC Urine Automated 0-2 /hpf (0-2); WBC Urine Automated 0-5 /hpf (0-5)
[2024-11-16] MEDS ORDERED: PIPERACILLIN/TAZOBACTAM 4.5 GM/100 ML BAG IV SCH (02:00)
--- NOTE | 2024-11-16 02:48 | XRay Report ---
EXAM: XR chest 1V portable CLINICAL HISTORY: Renal failure. TECHNIQUE: X-ray image of the chest was obtained in frontal projection. COMPARISON: Prior CT dated June 16, 2024 FINDINGS: Pulmonary Parenchyma: Both lungs are hyperinflated. Coarse pulmonary interstitium with scattered ill-defined, faint airspace opacities. No solid evidence of pleural effusion or pleural thickening. Heart and Mediastinum: Mildly increased size of the cardiac silhouette. No mediastinal widening or masses. Atherosclerotic calcifications of the aortic arch. Bony Thorax: No evidence of acute fractures. Old united fracture of the medial end of the right clavicle. Old united fractures of the right second to fifth ribs posteriorly. Prosthetix fixation of the right sixth to eighth ribs posteriorly. Prosthetix fixation of the left eighth rib posterolaterally. Soft Tissues: Soft tissues overlying the chest wall are unremarkable. ECG leads are noted. IMPRESSION: 1. No acute cardiopulmonary abnormalities. 2. Coarse pulmonary interstitium with scattered ill-defined, faint airspace opacities; this could correspond to the previously seen bilateral pulmonary irregular nodules in the prior CT. Further CT follow-up is recommended for a more precise follow-up. 3. Hyperinflated lungs, likely due to COPD - stable. 4. Mild cardiomegaly - stable. Electronically signed by Joe Sher 11-16-2024 02:48 AM
[2024-11-16] MEDS: PIPERACILLIN/TAZOBACTAM 4.5 GM/100 ML BAG IV SCH (03:11)
[2024-11-16] MEDS: LACTATED RINGER'S 1,000 ML IV SCH (04:19)
[2024-11-16] MEDS: SODIUM CHLORIDE 0.9% 1,000 ML IV ONE (04:24)
--- NOTE | 2024-11-16 05:03 | Magnetic Resonance Report ---
Exam(s): MRI MRCP EXAM: MR Abdomen Without Intravenous Contrast, MRCP Protocol CLINICAL HISTORY: Reason for exam: cbd dilatation. TECHNIQUE: Multiplanar magnetic resonance images of the abdomen without intravenous contrast using MRCP protocol. COMPARISON: No relevant prior studies available. FINDINGS: Lower thorax: Moderate sized hiatus hernia. Bile ducts: CBD caliber measures 1.5 cm and 0. No stones. No ductal dilation. No filling defects are seen in the CBD lumen. Gallbladder: Unremarkable. No stones. Liver: Unremarkable. Pancreas: Unremarkable. No ductal dilation. Spleen: Unremarkable. No splenomegaly. Adrenals: Unremarkable. No mass. Kidneys and ureters: Left kidney is replaced by multiple cysts measuring up to 4.4 cm in diameter. A few right renal cortical cysts are seen. No hydronephrosis. Stomach and bowel: Unremarkable. No obstruction. Mild dextroscoliosis seen in the thoracolumbar junction. IMPRESSION: Dilated CBD without evidence of choledocholithiasis. This could be due to periampullary stenosis No evidence of cholecystitis or cholelithiasis Hiatus hernia Electronically signed by: Chidi Garcia MD 11/16/24 05:02 AM
[2024-11-16 05:29] LABS: Anion Gap 7.0 (3-11); Blood Urea Nitrogen 48.0 mg/dl (6-23); Calcium 7.8 mg/dl (8.6-10.3); Carbon Dioxide 16.0 mmol/L (21-32); Chloride 113.0 mmol/L (98-107); Creatinine Clr Calc Pharmacy 16.6 ml/min; Glucose 92.0 mg/dl (70-99(Fasting)); Potassium 4.4 mmol/L (3.5-5.1); Sodium 136.0 mmol/L (136-145)
[2024-11-16 05:31] LABS: Hematocrit (blood only) 31.1 % (37.0-47.0); Hemoglobin 9.6 g/dl (12.0-16.0); Mean Corpuscular Hemoglobin 28.7 pg (25.0-34.0); Mean Corpuscular Volume 93.1 fL (80.0-100.0); Platelet Count 145 K/uL (130-400); RDW Standard Deviation 56.5 fL (36.4-46.3); Red Blood Count 3.34 M/uL (4.20-5.40); White Blood Count 14.72 K/ul (4.8-10.8)
[2024-11-16 05:32] LABS: Immature Granulocytes # (auto) 0.15 K/uL (0.01-0.20); Immature Granulocytes % (auto) 1.0 %; Polychromasia 1+
[2024-11-16 06:45] LABS: Base Excess VBG -8.2 mEq/L; HCO3 VBG 17 mmol/L; Oxygen Saturation VBG 86.2 %; PCO2 VBG 34 mmHg (38-50); PO2 VBG 50 mmHg; pH VBG 7.31 (7.36-7.41)
--- NOTE | 2024-11-16 08:29 | Gastrointestinal Consultation ---
Date of Consultation November 16, 2024 Assessment & Plan (1) Colitis presumed infectious: I do suspect her colitis is self, limited and likely infectious. I would make sure a stool for c. diff gets checked as she was on antibiotics for her pneumonia in June. She is symptomatically improved since admit and WBC has dropped from 20K to 14K. I would observe for further improvement which I suspect will happen (2) Dilated cbd, acquired: Dilated CBD on CT and MRCP without filling defect. Her alk phos is mildly elevated but none of her other LFT's are up. Work up for this would require EUS to assess ampulla for signs of malignancy. She would probably not do well with curative surgery for ampullary tumor so I think it prudent to only further evaluate this if it causes her symptoms. At that point stent placement could be considered. For now, though, I would just observe. History of Present Illness Reason for Consultation: colitis Attending Physician: Ronald Esetban, DO History of Present Illness 89 year old female admitted with one week of "colitis". At one point she said she had "terrible diarrhea and was so sick" and then later she says it is "not really diarrhea but soft stools". She does report a lot of pain with her bowel movements. She sees no blood in her stool. She did not have any emesis with this. She denies fever or chills. She doesn't think she ate anything that could be bad. She doesn't remember the last time she was on antibiotics but she was in the hospital on antibiotics in June of this year. I did an EGD on her last year. She says her last colonoscopy was less than 10 years ago. She states she feels quite a bit better today on my exam. CT scan shows evidence of colitis and a dilated bile duct. MRCP shows dilated bile duct without filling defect. Alk phos is 180 other LFT's are normal. CT in June did not show biliary dilatation. Allergies Allergy/AdvReac Type Severity Reaction Status Date / Time Iodinated Contrast Media Allergy Severe Anaphylaxis Verified 11/15/24 18:15 [Iodinated Contrast- Oral and IV Dye] Home Medications Medication Instructions Recorded Confirmed Type dorzolamide 2 % eye drops 1 drops OPB AMHS 10/29/18 11/15/24 History latanoprost 0.005 % eye drops 1 drops OPB HS 10/29/18 11/15/24 History sertraline 50 mg tablet 50 mg PO QAM #30 tabs 10/29/18 11/15/24 History metoprolol tartrate 25 mg tablet 25 mg PO QAM 05/27/19 11/15/24 History aspirin 81 mg chewable tablet 81 mg PO DAILY 11/28/19 11/15/24 History clopidogrel 75 mg tablet 75 mg PO DAILY 06/08/20 11/15/24 History hydralazine 50 mg tablet 50 mg PO BID 09/27/21 11/15/24 History fluticasone fur. 100 mcg-umeclid 1 inh inhalation QAM 10/06/23 11/15/24 History 62.5 mcg-vilant 25 mcg inhalat.powder (Trelegy Ellipta) potassium chloride 15 mEq 15 meq PO DAILY #90 tabs 10/31/23 11/15/24 Rx tablet,extended release(part/cryst) (Klor-Con M) albuterol sulfate 90 mcg/actuation 2 puff inhalation Q6 PRN Dyspnea 06/16/24 11/15/24 History aerosol inhaler fluticasone 250 mcg-salmeterol 50 1 inh inhalation AMHS 06/16/24 11/15/24 History mcg/dose blistr powdr for inhalation guaifenesin 600 mg tablet, 1,200 mg (2 x 600 mg) PO BID #14 06/19/24 11/15/24 Rx extended release 12 hr (Mucinex) tabs Calcium/Magnesium/Vitamin D3 1 tab PO DAILY 11/15/24 11/15/24 History Lactobacillus acidophilus 10 10,000 mmu cells PO DAILY 11/15/24 11/15/24 History billion cell capsule (Probiotic) acetaminophen 325 mg tablet 325 mg PO Q4H PRN Pain 11/15/24 11/15/24 History (Tylenol) albuterol sulfate 0.63 mg/3 mL 0.63 mg inhalation Q6H PRN 11/15/24 11/15/24 History solution for nebulization Shortness Of Breath Or Wheezing alendronate 70 mg tablet 70 mg PO WK 11/15/24 11/15/24 History cholecalciferol (vitamin D3) 25 25 mcg PO DAILY 11/15/24 11/15/24 History mcg (1,000 unit) capsule (Vitamin D3) ciprofloxacin HCl 250 mg tablet 250 mg PO BID 11/15/24 11/15/24 History colchicine 0.6 mg tablet 0.6 mg PO DIRECTED PRN GOUT 11/15/24 11/15/24 History FLARE UP famotidine 20 mg tablet 20 mg PO BID 11/15/24 11/15/24 History ferrous fumarate 324 mg (106 mg 324 mg PO DAILY 11/15/24 11/15/24 History iron) tablet magnesium 250 mg tablet 250 mg PO DAILY 11/15/24 11/15/24 History mirtazapine 7.5 mg tablet 7.5 mg PO HS 11/15/24 11/15/24 History voriconazole 200 mg tablet 200 mg PO BID 11/15/24 11/15/24 History Patient History Medical History Hiatal hernia Hyponatremia Dysphagia Anemia HTN (hypertension) Stage 3b chronic kidney disease Glaucoma Dyslipidemia Left carotid stenosis History of stent insertion of renal artery states reason for plavix HTN (hypertension) follows w/ Dr Meza, [facility] History of GI bleed Esophageal obstruction recent hospitalization, reason for upcoming procedure Renal artery stenosis, [place], bilateral UTI (urinary tract infection) Recent UTI, completed abx Anemia recent blood transfusion (09/2023) [facility] CKD (chronic kidney disease) "one functioning kidney"- follows w/ Dr Colvin History of diverticulitis COPD (chronic obstructive pulmonary disease) well controlled w/ daily inhaler Surgical History Hx of colonoscopy Hx of hysterectomy History of thoracic surgery History of section X3 History of hip replacement Right Social History Smoking Status: Unknown if ever smoked Tobacco Type: Cigarettes Second Hand Exposure: No; Do You Dip or Chew Tobacco: No; Hx Alcohol Use: No Hx Substance Use: No Preferred Language: Portuguese Communication Ability: Effective Quality Control Assistant Required: No Beliefs That Will Affect Care: None Current Living Situation: Family Current Living Situation Comment: 2 daughters and grandson Other Information That Helps Us Care for You: No Feels Safe at Home: Yes Safety Concerns: Feels Safe At This Time Assistive Devices: Glasses and Hearing Aid - Bilateral Review of Systems Review of Systems: All systems reviewed & are unremarkable except as noted in HPI & below Physical Exam Constitutional: WD/WN, vitals as above + thin; not in distress Neck: trachea midline, no thyromegaly Respiratory: normal respiratory effort, lungs clear to auscultation Cardiovascular: RRR, no murmur, no edema Gastrointestinal (Abdomen): normal bowel sounds, soft, nontender, no hepatosplenomegaly Results & Data Vital Signs (Past 12 Hours) Vital Signs Temp Pulse Pulse Resp BP BP Pulse Ox 11/16/24 06:00 66 18 137/61 95 11/16/24 04:54 66 16 127/51 L 96 11/16/24 04:00 83 19 135/63 91 11/16/24 03:36 69 15 147/67 H 95 11/16/24 03:30 36.6 C 69 15 147/67 H 95 11/16/24 03:12 72 20 163/77 H 96 11/16/24 01:03 70 16 93/58 L 96 11/16/24 00:27 77 11/15/24 23:12 79 20 127/62 96 11/15/24 21:06 71 18 136/72 98 O2 Del Method 11/16/24 06:00 Room Air 11/16/24 04:54 Room Air 11/16/24 04:00 Room Air 11/16/24 03:36 Room Air 11/16/24 03:30 Room Air 11/16/24 03:12 Room Air 11/16/24 01:03 Room Air 11/16/24 00:27 11/15/24 23:12 Room Air 11/15/24 21:06 Room Air Laboratory Results 11/16/24 11/16/24 11/15/24 Range/Units 06:36 04:35 23:01 WBC 14.72 H (4.8-10.8) K/ul RBC 3.34 L (4.20-5.40) M/uL Hgb 9.6 L (12.0-16.0) g/dl Hct 31.1 L (37.0-47.0) % MCV 93.1 (80.0-100.0) fL MCH 28.7 (25.0-34.0) pg MCHC 30.9 L (32.0-36.0) g/dL RDW Std Deviation 56.5 H (36.4-46.3) fL RDW Coeff of [place]rell 16.6 H (11.5-14.5) % Plt Count 145 (130-400) K/uL MPV 10.8 (9.4-12.4) fL Immature Gran % (Auto) 1.0 % Neut % (Auto) 80.4 % Lymph % (Auto) 10.3 % Crane % (Auto) 6.8 % Eos % (Auto) 1.2 % Baso % (Auto) 0.3 % Neut # (Auto) 11.84 H (1.40-6.50) K/uL Lymph # (Auto) 1.51 (1.20-3.40) K/uL Crane # (Auto) 1.00 H (0.11-0.59) K/uL Eos # (Auto) 0.17 (0.00-0.50) K/uL Baso # (Auto) 0.05 (0.00-0.20) K/uL Immature Gran # (Auto) 0.15 (0.01-0.20) K/uL Polychromasia 1+ VBG pH 7.31 L Cancelled VBG pCO2 34 L Cancelled VBG pO2 50 Cancelled VBG HCO3 17 Cancelled VBG O2 Saturation 86.2 Cancelled VBG Base Excess -8.2 Cancelled Barometric Pressure Cancelled Sodium 136 (136-145) mmol/L Potassium 4.4 (3.5-5.1) mmol/L Chloride 113 H (98-107) mmol/L Carbon Dioxide 16 L (21-32) mmol/L Anion Gap 7 (3-11) BUN 48 H (6-23) mg/dl Creatinine 1.38 H (0.6-1.2) mg/dl Est Cr Clr Drug Dosing 16.6 ml/min eGFR 37.05 BUN/Creatinine Ratio 34.8 H (10-20) Glucose 92 (70-99(Fasting)) mg/dl Lactate (0.4-2.0) mmol/L Calcium 7.8 L (8.6-10.3) mg/dl Total Bilirubin (0.2-1.0) mg/dl AST (13-39) U/L ALT (7-52) U/L Alkaline Phosphatase (34-104) U/L Troponin I High Sens (0-14) pg/ml C-Reactive Protein (0-0.5) mg/dl Total Protein (6.0-8.3) gm/dl Albumin (3.4-5.0) gm/dl Globulin (2.5-4.0) gm/dl Albumin/Globulin Ratio (0.9-2) Lipase (11-82) U/L Procalcitonin (0-0.5) ng/ml Urine Color Yellow Urine Appearance Clear (Clear) Urine pH 5.5 (4.5-7.5) Ur Specific [place] 1.013 (1.000-1.030) Urine Protein 1+ H (Negative) Urine Glucose (UA) Negative (Negative) Urine Ketones Negative (Negative) Urine Blood Negative (Negative) Urine Nitrite Negative (Negative) Urine Bilirubin Negative (Negative) Urine Urobilinogen Negative (Negative) Ur Leukocyte Esterase Negative (Negative) Urine WBC (Auto) 0-5 (0-5) /hpf Urine RBC (Auto) 0-2 (0-2) /hpf U Hyaline Cast (Auto) 0-2 (0-2) /lpf U Epithel Cells (Auto) 0-2 (0-2) /hpf Urine Bacteria (Auto) None Seen (None Seen) Urine Comment 11/15/24 11/15/24 Range/Units 22:54 17:37 WBC 21.73 H (4.8-10.8) K/ul RBC 3.92 L (4.20-5.40) M/uL Hgb 11.6 L (12.0-16.0) g/dl Hct 36.5 L (37.0-47.0) % MCV 93.1 (80.0-100.0) fL MCH 29.6 (25.0-34.0) pg MCHC 31.8 L (32.0-36.0) g/dL RDW Std Deviation 57.3 H (36.4-46.3) fL RDW Coeff of [place]rell 16.7 H (11.5-14.5) % Plt Count 204 (130-400) K/uL MPV 10.7 (9.4-12.4) fL Immature Gran % (Auto) 0.9 % Neut % (Auto) 85.6 % Lymph % (Auto) 7.7 % Crane % (Auto) 5.2 % Eos % (Auto) 0.4 % Baso % (Auto) 0.2 % Neut # (Auto) 18.59 H (1.40-6.50) K/uL Lymph # (Auto) 1.67 (1.20-3.40) K/uL Crane # (Auto) 1.14 H (0.11-0.59) K/uL Eos # (Auto) 0.09 (0.00-0.50) K/uL Baso # (Auto) 0.04 (0.00-0.20) K/uL Immature Gran # (Auto) 0.20 (0.01-0.20) K/uL Polychromasia VBG pH VBG pCO2 VBG pO2 VBG HCO3 VBG O2 Saturation VBG Base Excess Barometric Pressure Sodium 137 (136-145) mmol/L Potassium 4.9 (3.5-5.1) mmol/L Chloride 112 H (98-107) mmol/L Carbon Dioxide 17 L (21-32) mmol/L Anion Gap 8 (3-11) BUN 58 H (6-23) mg/dl Creatinine 1.67 H (0.6-1.2) mg/dl Est Cr Clr Drug Dosing 13.7 ml/min eGFR 29.47 BUN/Creatinine Ratio 34.7 H (10-20) Glucose 99 (70-99(Fasting)) mg/dl Lactate 1.0 (0.4-2.0) mmol/L Calcium 8.8 (8.6-10.3) mg/dl Total Bilirubin 0.3 (0.2-1.0) mg/dl AST 34 (13-39) U/L ALT 10 (7-52) U/L Alkaline Phosphatase 182 H (34-104) U/L Troponin I High Sens 22.5 H 25.7 H (0-14) pg/ml C-Reactive Protein 25.04 H (0-0.5) mg/dl Total Protein 6.6 (6.0-8.3) gm/dl Albumin 3.5 (3.4-5.0) gm/dl Globulin 3.1 (2.5-4.0) gm/dl Albumin/Globulin Ratio 1.1 (0.9-2) Lipase 36 (11-82) U/L Procalcitonin 15.70 H (0-0.5) ng/ml Urine Color Urine Appearance (Clear) Urine pH (4.5-7.5) Ur Specific [place] (1.000-1.030) Urine Protein (Negative) Urine Glucose (UA) (Negative) Urine Ketones (Negative) Urine Blood (Negative) Urine Nitrite (Negative) Urine Bilirubin (Negative) Urine Urobilinogen (Negative) Ur Leukocyte Esterase (Negative) Urine WBC (Auto) (0-5) /hpf Urine RBC (Auto) (0-2) /hpf U Hyaline Cast (Auto) (0-2) /lpf U Epithel Cells (Auto) (0-2) /hpf Urine Bacteria (Auto) (None Seen) Urine Comment Diagnostic Findings Cholangiopancreatography MRI 11/15/24 19:18 Exam(s): MRI MRCP EXAM: MR Abdomen Without Intravenous Contrast, MRCP Protocol CLINICAL HISTORY: Reason for exam: cbd dilatation. TECHNIQUE: Multiplanar magnetic resonance images of the abdomen without intravenous contrast using MRCP protocol. COMPARISON: No relevant prior studies available. FINDINGS: Lower thorax: Moderate sized hiatus hernia. Bile ducts: CBD caliber measures 1.5 cm and 0. No stones. No ductal dilation. No filling defects are seen in the CBD lumen. Gallbladder: Unremarkable. No stones. Liver: Unremarkable. Pancreas: Unremarkable. No ductal dilation. Spleen: Unremarkable. No splenomegaly. Adrenals: Unremarkable. No mass. Kidneys and ureters: Left kidney is replaced by multiple cysts measuring up to 4.4 cm in diameter. A few right renal cortical cysts are seen. No hydronephrosis. Stomach and bowel: Unremarkable. No obstruction. Mild dextroscoliosis seen in the thoracolumbar junction. IMPRESSION: Dilated CBD without evidence of choledocholithiasis. This could be due to periampullary stenosis No evidence of cholecystitis or cholelithiasis Hiatus hernia Electronically signed by: Chidi Garcia MD 11/16/24 05:02 AM Chest X-Ray 11/16/24 01:31 EXAM: XR chest 1V portable CLINICAL HISTORY: Renal failure. TECHNIQUE: X-ray image of the chest was obtained in frontal projection. COMPARISON: Prior CT dated June 16, 2024 FINDINGS: Pulmonary Parenchyma: Both lungs are hyperinflated. Coarse pulmonary interstitium with scattered ill-defined, faint airspace opacities. No solid evidence of pleural effusion or pleural thickening. Heart and Mediastinum: Mildly increased size of the cardiac silhouette. No mediastinal widening or masses. Atherosclerotic calcifications of the aortic arch. Bony Thorax: No evidence of acute fractures. Old united fracture of the medial end of the right clavicle. Old united fractures of the right second to fifth ribs posteriorly. Prosthetix fixation of the right sixth to eighth ribs posteriorly. Prosthetix fixation of the left eighth rib posterolaterally. Soft Tissues: Soft tissues overlying the chest wall are unremarkable. ECG leads are noted. IMPRESSION: 1. No acute cardiopulmonary abnormalities. 2. Coarse pulmonary interstitium with scattered ill-defined, faint airspace opacities; this could correspond to the previously seen bilateral pulmonary irregular nodules in the prior CT. Further CT follow-up is recommended for a more precise follow-up. 3. Hyperinflated lungs, likely due to COPD - stable. 4. Mild cardiomegaly - stable. Electronically signed by Joe Sher 11-16-2024 02:48 AM
[2024-11-16] MEDS: ASPIRIN 81 MG CHEW PO SCH (08:44)
[2024-11-16] MEDS: metroNIDAZOLE 500 MG TAB PO SCH (08:44)
[2024-11-16] MEDS: METOPROLOL TARTRATE 25 MG TAB PO SCH (08:44)
[2024-11-16] MEDS: FLUTICASONE FUROATE 100MCG 14 PUFFS/INHALER INH SCH (08:45)
[2024-11-16] MEDS: CLOPIDOGREL BISULFATE 75 MG TAB PO SCH (08:45)
[2024-11-16] MEDS: POTASSIUM CHLORIDE 10 MEQ TABCR PO SCH (08:45)
[2024-11-16] MEDS: SERTRALINE HCL 50 MG TABLET PO SCH (08:45)
[2024-11-16] MEDS: UMECLIDINIUM/VILANTEROL 62.5/25MCG 7 PUFFS/INHALER INH SCH (08:46)
[2024-11-16] MEDS ORDERED: NON-FORMULARY MEDICATION (Fluticasone-Umeclidin-Vilanter [Trelegy Ellipta] 100-62.5-25 mcg INH SCH (09:00)
[2024-11-16] MEDS: cefTRIAXone SODIUM 1,000 MG/50 ML BAG IV SCH (12:15)
--- NOTE | 2024-11-16 12:22 | Hospitalist Progress Note ---
Date of Service November 16, 2024 Assessment & Plan (1) Dilated cbd, acquired: (2) Colitis presumed infectious: (3) AYESHA (acute kidney injury): Plan #Colitis -CT showing AP done as OP showing Sigmoid colitis, reviewed report -Suspect infectious given her leukocytosis and quick improvement with abx -C. diff possible but no diarrhea yet this admission -Doubtful ischemic given her rapid improvement and leukocytosis Plan -Appreciate GI input -Deescalate from zosyn to CTX + flagyl -Regular diet -Recheck labs in AM #Dilated CBD -MRCP reviewed, CBC dilated without evidence of stones -LFTs ok other than mildly elevated ALP. 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 This included personally reviewing all current laboratories and imaging studies, medical reconciliation, outpatient chart review and discussion with specialists Admission and Anticipated Discharge Date Admission Date: November 16, 2024 Subjective Feeling very well this AM. LLQ abd pain improving. she has no other complaints. d/w daughter veena on phone Physical Exam Physical Exam: Vitals and labs reviewed General: Well appearing, NAD HEENT: EOMI, PERRLA Neck: Supple Cardiac: RRR systolic murmur Lungs: CTA no rhonchi wheezing or rales Abd: LLQ TTP. no guarding or rigidity. BS positive. non distended MSK: Full ROM. No obvious deformities Ext: No Edema cyanosis Skin: Warm, Dry Neuro: AOx3 No focal deficits. Psych: Normal Mood Results & Data Results & Data Vital Signs (Past 12 Hours) Vital Signs Temp Pulse Pulse Resp BP BP Pulse Ox 11/16/24 09:25 36.6 C 73 18 119/71 98 11/16/24 08:00 68 20 131/56 L 96 11/16/24 07:00 67 16 121/55 L 97 11/16/24 06:00 66 18 137/61 95 11/16/24 04:54 66 16 127/51 L 96 11/16/24 04:00 83 19 135/63 91 11/16/24 03:36 69 15 147/67 H 95 11/16/24 03:30 36.6 C 69 15 147/67 H 95 11/16/24 03:12 72 20 163/77 H 96 11/16/24 01:03 70 16 93/58 L 96 11/16/24 00:27 77 O2 Del Method 11/16/24 09:25 Room Air 11/16/24 08:00 Room Air 11/16/24 07:00 Room Air 11/16/24 06:00 Room Air 11/16/24 04:54 Room Air 11/16/24 04:00 Room Air 11/16/24 03:36 Room Air 11/16/24 03:30 Room Air 11/16/24 03:12 Room Air 11/16/24 01:03 Room Air 11/16/24 00:27 Laboratory Results Abnormal lab results 11/15/24 11/15/24 11/15/24 Range/Units 17:37 22:54 23:01 WBC 21.73 H (4.8-10.8) K/ul RBC 3.92 L (4.20-5.40) M/uL Hgb 11.6 L (12.0-16.0) g/dl Hct 36.5 L (37.0-47.0) % MCHC 31.8 L (32.0-36.0) g/dL RDW Std Deviation 57.3 H (36.4-46.3) fL RDW Coeff of [place] 16.7 H (11.5-14.5) % Neut # (Auto) 18.59 H (1.40-6.50) K/uL [place] # (Auto) 1.14 H (0.11-0.59) K/uL VBG pH (7.36-7.41) VBG pCO2 (38-50) mmHg Chloride 112 H (98-107) mmol/L Carbon Dioxide 17 L (21-32) mmol/L BUN 58 H (6-23) mg/dl Creatinine 1.67 H (0.6-1.2) mg/dl BUN/Creatinine Ratio 34.7 H (10-20) Calcium (8.6-10.3) mg/dl Alkaline Phosphatase 182 H (34-104) U/L Troponin I High Sens 25.7 H 22.5 H (0-14) pg/ml C-Reactive Protein 25.04 H (0-0.5) mg/dl Procalcitonin 15.70 H (0-0.5) ng/ml Urine Protein 1+ H (Negative) 11/16/24 11/16/24 Range/Units 04:35 06:36 WBC 14.72 H (4.8-10.8) K/ul RBC 3.34 L (4.20-5.40) M/uL Hgb 9.6 L (12.0-16.0) g/dl Hct 31.1 L (37.0-47.0) % MCHC 30.9 L (32.0-36.0) g/dL RDW Std Deviation 56.5 H (36.4-46.3) fL RDW Coeff of [place]rell 16.6 H (11.5-14.5) % Neut # (Auto) 11.84 H (1.40-6.50) K/uL [place] # (Auto) 1.00 H (0.11-0.59) K/uL VBG pH 7.31 L (7.36-7.41) VBG pCO2 34 L (38-50) mmHg Chloride 113 H (98-107) mmol/L Carbon Dioxide 16 L (21-32) mmol/L BUN 48 H (6-23) mg/dl Creatinine 1.38 H (0.6-1.2) mg/dl BUN/Creatinine Ratio 34.8 H (10-20) Calcium 7.8 L (8.6-10.3) mg/dl Alkaline Phosphatase (34-104) U/L Troponin I High Sens (0-14) pg/ml C-Reactive Protein (0-0.5) mg/dl Procalcitonin (0-0.5) ng/ml Urine Protein (Negative) Diagnostic Findings Cholangiopancreatography MRI 11/15/24 19:18 Exam(s): MRI MRCP EXAM: MR Abdomen Without Intravenous Contrast, MRCP Protocol CLINICAL HISTORY: Reason for exam: cbd dilatation. TECHNIQUE: Multiplanar magnetic resonance images of the abdomen without intravenous contrast using MRCP protocol. COMPARISON: No relevant prior studies available. FINDINGS: Lower thorax: Moderate sized hiatus hernia. Bile ducts: CBD caliber measures 1.5 cm and 0. No stones. No ductal dilation. No filling defects are seen in the CBD lumen. Gallbladder: Unremarkable. No stones. Liver: Unremarkable. Pancreas: Unremarkable. No ductal dilation. Spleen: Unremarkable. No splenomegaly. Adrenals: Unremarkable. No mass. Kidneys and ureters: Left kidney is replaced by multiple cysts measuring up to 4.4 cm in diameter. A few right renal cortical cysts are seen. No hydronephrosis. Stomach and bowel: Unremarkable. No obstruction. Mild dextroscoliosis seen in the thoracolumbar junction. IMPRESSION: Dilated CBD without evidence of choledocholithiasis. This could be due to periampullary stenosis No evidence of cholecystitis or cholelithiasis Hiatus hernia Electronically signed by: Chidi Garcia MD 11/16/24 05:02 AM Chest X-Ray 11/16/24 01:31 EXAM: XR chest 1V portable CLINICAL HISTORY: Renal failure. TECHNIQUE: X-ray image of the chest was obtained in frontal projection. COMPARISON: Prior CT dated June 16, 2024 FINDINGS: Pulmonary Parenchyma: Both lungs are hyperinflated. Coarse pulmonary interstitium with scattered ill-defined, faint airspace opacities. No solid evidence of pleural effusion or pleural thickening. Heart and Mediastinum: Mildly increased size of the cardiac silhouette. No mediastinal widening or masses. Atherosclerotic calcifications of the aortic arch. Bony Thorax: No evidence of acute fractures. Old united fracture of the medial end of the right clavicle. Old united fractures of the right second to fifth ribs posteriorly. Prosthetix fixation of the right sixth to eighth ribs posteriorly. Prosthetix fixation of the left eighth rib posterolaterally. Soft Tissues: Soft tissues overlying the chest wall are unremarkable. ECG leads are noted. IMPRESSION: 1. No acute cardiopulmonary abnormalities. 2. Coarse pulmonary interstitium with scattered ill-defined, faint airspace opacities; this could correspond to the previously seen bilateral pulmonary irregular nodules in the prior CT. Further CT follow-up is recommended for a more precise follow-up. 3. Hyperinflated lungs, likely due to COPD - stable. 4. Mild cardiomegaly - stable. Electronically signed by Joe Sher 11-16-2024 02:48 AM
--- NOTE | 2024-11-16 12:31 | Electrocardiogram Report ---
Test Reason : Blood Pressure : */* mmHG Vent. Rate : 71 BPM Atrial Rate : 71 BPM P-R Int : 120 ms QRS Dur : 94 ms QT Int : 428 ms P-R-T Axes : 81 -20 82 degrees QTcB Int : 465 ms Normal sinus rhythm Moderate voltage criteria for LVH, may be normal variant ( R in aVL ) Borderline ECG When compared with ECG of 19-Jun-2024 09:47, Premature supraventricular complexes are no longer Present Confirmed by Gianni Lyons ([id number]) on 11/16/2024 12:31:47 PM Referred By: Confirmed By: Gianni Lyons
[2024-11-16 12:47] LABS: Cdiff Toxin B Gene (2yr or >) Positive Cdiff Gene (Neg)
[2024-11-16 12:48] LABS: Cdiff Toxin A+B Negative Cdiff Toxin (Negative)
[2024-11-16] MEDS: ACETAMINOPHEN 325 MG TAB PO PRN (16:02)
[2024-11-16] MEDS: VANCOMYCIN HCL 125 MG/2.5ML SOLN PO SCH (18:10)
[2024-11-16] MEDS: CHERRY SYRUP 5 ML UDP PO SCH (18:11)
[2024-11-16] MEDS: HEPARIN SOD 5,000 UNIT/0.5 ML VIAL SQ SCH (20:07)
[2024-11-17 07:41] LABS: Hematocrit (blood only) 32.4 % (37.0-47.0); Hemoglobin 10.1 g/dl (12.0-16.0); Immature Granulocytes # (auto) 0.16 K/uL (0.01-0.20); Immature Granulocytes % (auto) 1.4 %; Mean Corpuscular Hemoglobin 28.9 pg (25.0-34.0); Mean Corpuscular Volume 92.8 fL (80.0-100.0); Platelet Count 179 K/uL (130-400); RDW Standard Deviation 57.5 fL (36.4-46.3); Red Blood Count 3.49 M/uL (4.20-5.40); White Blood Count 11.46 K/ul (4.8-10.8)
[2024-11-17 08:01] LABS: Alanine Aminotransferase 10.0 U/L (7-52); Albumin Globulin Ratio 1.1 (0.9-2); Alkaline Phosphatase 132.0 U/L (34-104); Anion Gap 4.0 (3-11); Bilirubin,Total 0.3 mg/dl (0.2-1.0); Blood Urea Nitrogen 33.0 mg/dl (6-23); Calcium 8.1 mg/dl (8.6-10.3); Carbon Dioxide 19.0 mmol/L (21-32); Chloride 118.0 mmol/L (98-107); Creatinine Clr Calc Pharmacy 18.6 ml/min; Globulin 2.5 gm/dl (2.5-4.0); Glucose 95.0 mg/dl (70-99(Fasting)); Potassium 4.8 mmol/L (3.5-5.1); Sodium 141.0 mmol/L (136-145); Total Protein 5.3 gm/dl (6.0-8.3)
--- NOTE | 2024-11-17 10:58 | Gastroenterology Progress Note ---
Date of Service November 17, 2024 Assessment & Plan (1) Colitis: Plan: I suspect this was a garden variety infectious colitis as she has improved on routine antibiotics alone. However the c diff reporting is confusing especially since she was c diff gene negative in April. Discussed with Dr. Esteban and he is going to send her home on Vanc as well as finish out five days of her other antibiotics. She is comfortable with this. Admission and Anticipated Discharge Date Admission Date: November 16, 2024 Subjective looks good. Feels great. Diarrhea completely gone C. diff gene positive but toxin negative. Physical Exam Physical Exam: She looks well Constitutional: WD/WN, vitals as above Results & Data Vital Signs (Past 12 Hours) Vital Signs Temp Pulse Pulse Resp BP Pulse Ox O2 Del Method 11/17/24 09:16 73 11/17/24 07:58 36.7 C 71 14 161/62 H 96 Room Air 11/17/24 07:30 Room Air 11/17/24 04:07 36.5 C 74 16 169/70 H 97 Room Air 11/16/24 23:45 36.8 C 69 16 154/66 H 96 Room Air
--- NOTE | 2024-11-17 13:13 | Hospitalist Progress Note ---
Date of Service November 17, 2024 Assessment & Plan (1) Colitis: Plan #Colitis -CT showing AP done as OP showing Sigmoid colitis, reviewed report -Suspect infectious given her leukocytosis and quick improvement with abx -C. diff result is equivocal with pos genome but negative toxin -Unclear if this is bacterial vs C. diff in etiology -She clinically improved on abx before starting PO vanc on 11/16 -Doubtful ischemic given her rapid improvement and leukocytosis Plan -Continue CTX and flagyl given her quick improvement on these -COntinue PO vanc x 10 days -D/w GI who agrees with plan -Anticipate DC home tomorrow #Dilated CBD -MRCP reviewed, CBC dilated without evidence of stones -LFTs ok other than mildly elevated ALP. T bili normal -Agree with GI that since she is asymptomatic, would not pursue further testing or procedures at this time #AYESHA on CKD3 -Likely pre renal -She has been resuscitated with IVF and is now tolerating PO -Renal function improving Plan -Recheck BMP in AM -Avoid nephrotoxic agents if possible #History of aspergillus -Continue home voriconazole -F/u pulm as OP #Recent UTI -On cipro -Currently asymptomatic -CTX will cover #CAD -Continue home regimen #Carotid stenosis -Continue home regimen I spent a total of 38 minutes coordinating, documenting, and providing care for this patient excluding time spent in the performance of separately billed services. This included personally reviewing all current laboratories and imaging studies, medical reconciliation, outpatient chart review and discussion with specialists Admission and Anticipated Discharge Date Admission Date: November 16, 2024 Subjective looks good. Feels great. Diarrhea completely gone C. diff gene positive but toxin negative. Physical Exam Physical Exam: Vitals and labs reviewed General: Well appearing, NAD HEENT: EOMI, PERRLA Neck: Supple Cardiac: RRR systolic murmur Lungs: CTA no rhonchi wheezing or rales Abd: LLQ TTP. no guarding or rigidity. BS positive. non distended MSK: Full ROM. No obvious deformities Ext: No Edema cyanosis Skin: Warm, Dry Neuro: AOx3 No focal deficits. Psych: Normal Mood Results & Data Results & Data Vital Signs (Past 12 Hours) Vital Signs Temp Pulse Pulse Resp BP Pulse Ox O2 Del Method 11/17/24 11:35 36.8 C 67 14 139/55 L 97 Room Air 09/07/25 09:16 73 11/17/24 07:58 36.7 C 71 14 161/62 H 96 Room Air 11/17/24 07:30 Room Air 11/17/24 04:07 36.5 C 74 16 169/70 H 97 Room Air Laboratory Results Abnormal lab results 11/17/24 Range/Units 07:10 WBC 11.46 H (4.8-10.8) K/ul RBC 3.49 L (4.20-5.40) M/uL Hgb 10.1 L (12.0-16.0) g/dl Hct 32.4 L (37.0-47.0) % MCHC 31.2 L (32.0-36.0) g/dL RDW Std Deviation 57.5 H (36.4-46.3) fL RDW Coeff of Montrell 17.2 H (11.5-14.5) % Neut # (Auto) 8.84 H (1.40-6.50) K/uL Cass # (Auto) 0.88 H (0.11-0.59) K/uL Chloride 118 H (98-107) mmol/L Carbon Dioxide 19 L (21-32) mmol/L BUN 33 H (6-23) mg/dl Creatinine 1.24 H (0.6-1.2) mg/dl BUN/Creatinine Ratio 26.6 H (10-20) Calcium 8.1 L (8.6-10.3) mg/dl Alkaline Phosphatase 132 H (34-104) U/L Total Protein 5.3 L (6.0-8.3) gm/dl Albumin 2.8 L (3.4-5.0) gm/dl
[2024-11-17] MEDS: predniSONE 20 MG TAB PO STA (18:37)
[2024-11-17] MEDS: LATANOPROST 0.005% OP SOLN 2.5 ML BTL OPB SCH (21:55)
[2024-11-17] MEDS: DORZOLAMIDE HCL 2% OPH SOLN 10 ML BTL OPB SCH (21:55)
[2024-11-18 08:12] VITALS: RESP 16
--- NOTE | 2024-11-18 10:28 | Discharge Summary ---
Discharge Summary Date of Service November 18, 2024 Principal Dx & Hospital Course #1 = Principal Diagnosis (1) Colitis: Plan Ms. Loaiza is a very pleasant 89F who was admitted for colitis. OP CT AP showed sigmoid coliits and she was directed to the ED. She did endorse non bloody diarrhea before admission but minimal stool output here. She was started on CTX and flagyl with quick improvement in symptoms and leukocytosis. GI was consulted on admission. C. diff was done which was indeterminate. Given the sigmoid colitis on exam and recent abx, she was started on PO vanc as well. will complete a 10 day course. since she improved so quickly on abx, will have her finish a course of augmentin. yesterday, she developed an acute gout flare on her toe and was given prednisone. toe is much better today. will complete a 5 day course of prednisone as well. vitals and labs are stable for dc home. she ambulates on her own without issue. #Colitis -CT showing AP done as OP showing Sigmoid colitis, reviewed report -Suspect infectious given her leukocytosis and quick improvement with abx -C. diff result is equivocal with pos genome but negative toxin -Unclear if this is bacterial vs C. diff in etiology -She clinically improved on abx before starting PO vanc on 11/16 -Doubtful ischemic given her rapid improvement and leukocytosis #Dilated CBD -MRCP reviewed, CBC dilated without evidence of stones -LFTs ok other than mildly elevated ALP. T bili normal -Agree with GI that since she is asymptomatic, would not pursue further testing or procedures at this time #AYESHA on CKD3 -Likely pre renal -She has been resuscitated with IVF and is now tolerating PO -Renal function improving Plan -Recheck BMP in AM -Avoid nephrotoxic agents if possible #History of aspergillus -Continue home voriconazole -F/u pulm as OP #Recent UTI -On cipro -Currently asymptomatic -CTX will cover #CAD -Continue home regimen #Carotid stenosis -Continue home regimen I spent a total of 35 minutes coordinating, documenting, and providing care for this patient excluding time spent in the performance of separately billed services. 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 Patient reports she has been having abdominal pain and multiple loose stools daily for about a week now and [facility] where they ordered CT scan which was done today and upon noting colitis in the CT scan they were directed to the ED. Patient denies any blood in the stool, reports 3-4 loose stools every day, reports poor appetite. Patient denies nausea or vomiting or fever or sore throat or chest pain. Patient reports cough at her baseline. Patient reports she is taking voriconazole for her Aspergillus pneumonia. Patient also reports that she is started on ciprofloxacin to complete 10 days course until 11/22/2024 for her UTI. Patient reports quitting smoking 20 years ago, denies alcohol and recreational drug use. Full code Plan of care discussed with the patient and her daughter at bedside, who voiced understanding. Medications reviewed with the patient and her daughter at bedside. Discharge Exam Vitals and labs reviewed General: Well appearing, NAD HEENT: EOMI, PERRLA Neck: Supple Cardiac: RRR no rubs gallops or murmurs Lungs: CTA no rhonchi wheezing or rales Abd: S NT ND BS positive MSK: Full ROM. No obvious deformities Ext: No Edema cyanosis Skin: Warm, Dry Neuro: AOx3 No focal deficits. Psych: Normal Mood Updated Medication List Medication Instructions Recorded Confirmed Type dorzolamide 2 % eye drops 1 drops OPB [facility]HS 10/29/18 11/15/24 History latanoprost 0.005 % eye drops 1 drops OPB HS 10/29/18 11/15/24 History sertraline 50 mg tablet 50 mg PO QAM #30 tabs 10/29/18 11/15/24 History metoprolol tartrate 25 mg tablet 25 mg PO QAM 05/27/19 11/15/24 History aspirin 81 mg chewable tablet 81 mg PO DAILY 11/28/19 11/15/24 History clopidogrel 75 mg tablet 75 mg PO DAILY 06/08/20 11/15/24 History hydralazine 50 mg tablet 50 mg PO BID 09/27/21 11/15/24 History fluticasone fur. 100 mcg-umeclid 1 inh inhalation QAM 10/06/23 11/15/24 History 62.5 mcg-vilant 25 mcg inhalat.powder (Trelegy Ellipta) potassium chloride 15 mEq 15 meq PO DAILY #90 tabs 10/31/23 11/15/24 Rx tablet,extended release(part/cryst) (Klor-Con M) albuterol sulfate 90 mcg/actuation 2 puff inhalation Q6 PRN Dyspnea 06/16/2408/04 History aerosol inhaler fluticasone 250 mcg-salmeterol 50 1 inh inhalation [facility]HS 06/16/24 11/15/24 History mcg/dose blistr powdr for inhalation guaifenesin 600 mg tablet, 1,200 mg (2 x 600 mg) PO BID #14 06/19/24 11/15/24 Rx extended release 12 hr (Mucinex) tabs Calcium/Magnesium/Vitamin D3 1 tab PO DAILY 11/15/24 11/15/24 History Lactobacillus acidophilus 10 10,000 mmu cells PO DAILY 11/15/24 11/15/24 History billion cell capsule (Probiotic) acetaminophen 325 mg tablet 325 mg PO Q4H PRN Pain 11/15/24 11/15/24 History (Tylenol) albuterol sulfate 0.63 mg/3 mL 0.63 mg inhalation Q6H PRN 11/15/24 11/15/24 History solution for nebulization Shortness Of Breath Or Wheezing alendronate 70 mg tablet 70 mg PO WK 11/15/24 11/15/24 History cholecalciferol (vitamin D3) 25 25 mcg PO DAILY 11/15/24 11/15/24 History mcg (1,000 unit) capsule (Vitamin D3) ciprofloxacin HCl 250 mg tablet 250 mg PO BID 11/15/24 11/15/24 History colchicine 0.6 mg tablet 0.6 mg PO DIRECTED PRN GOUT 11/15/24 11/15/24 History FLARE UP famotidine 20 mg tablet 20 mg PO BID 11/15/24 11/15/24 History ferrous fumarate 324 mg (106 mg 324 mg PO DAILY 11/15/24 11/15/24 History iron) tablet magnesium 250 mg tablet 250 mg PO DAILY 11/15/24 11/15/24 History mirtazapine 7.5 mg tablet 7.5 mg PO HS 11/15/24 11/15/24 History voriconazole 200 mg tablet 200 mg PO BID 11/15/24 11/15/24 History amoxicillin 500 mg-potassium 1 tab PO BID 2 days #4 tabs 11/18/24 Rx clavulanate 125 mg tablet (Augmentin) prednisone 20 mg tablet 20 mg PO DAILY 4 days #4 tabs 11/18/24 Rx vancomycin 125 mg capsule 125 mg PO Q6H 8 days #32 caps 11/18/24 Rx Hospital Stay Data Consultations 11/15/24 18:45 ED Decision to Admit Stat 11/15/24 19:17 Consult Gastroenterology Routine Diagnostic Imagining Performed 11/15/24 19:18 MR MRCP Routine Pending Results Patient Have Any Pending Studies at Discharge: No Discharge Instructions Given to Patient (Per Discharging Provider) Complete the abx you are prescribed. you are also provided 5 days of prednisone for a gout flare. Total Time Total Time Spent Total Time Spent (In Minutes): 35
[2024-11-18 12:09] VITALS: BP 182/74; PULSE 71; TEMP 98.1; O2SAT 96
== END 2024-11-18 13:27 | disposition home or self-care (01) | DRG 392 ==
LOC: ED 16:32 → SUATTDRO 11-16 01:30 → EDINP 11-16 01:30 → 2S 11-16 03:38

== ENCOUNTER 2024-12-05 15:43 | Inpatient (IN) ==
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
[2024-12-05 17:10] LABS: Hematocrit (blood only) 39.2 % (37.0-47.0); Hemoglobin 11.8 g/dl (12.0-16.0); Mean Corpuscular Hemoglobin 29.1 pg (25.0-34.0); Mean Corpuscular Volume 96.8 fL (80.0-100.0); Platelet Count 223 K/uL (130-400); RDW Standard Deviation 59.5 fL (36.4-46.3); Red Blood Count 4.05 M/uL (4.20-5.40); White Blood Count 17.86 K/ul (4.8-10.8)
[2024-12-05 17:25] LABS: Alanine Aminotransferase 8.0 U/L (7-52); Albumin Globulin Ratio 1.1 (0.9-2); Albumin Level 3.6 gm/dl (3.4-5.0); Alkaline Phosphatase 161.0 U/L (34-104); Anion Gap 14.0 (3-11); Bilirubin,Total 0.3 mg/dl (0.2-1.0); Blood Urea Nitrogen 68.0 mg/dl (6-23); Calcium 9.0 mg/dl (8.6-10.3); Carbon Dioxide 14.0 mmol/L (21-32); Chloride 109.0 mmol/L (98-107); Creatinine Clr Calc Pharmacy 9.2 ml/min; Globulin 3.4 gm/dl (2.5-4.0); Glucose 78.0 mg/dl (70-99(Fasting)); Lipase 7.0 U/L (11-82); Potassium 4.0 mmol/L (3.5-5.1); Sodium 137.0 mmol/L (136-145); Total Protein 7.0 gm/dl (6.0-8.3)
[2024-12-05] MEDS: SODIUM CHLORIDE 0.9% 1,000 ML IV SCH ×2 (17:31→22:40)
[2024-12-05 17:39] LABS: Immature Granulocytes # (auto) 0.14 K/uL (0.01-0.20); Immature Granulocytes % (auto) 0.8 %
--- NOTE | 2024-12-05 17:53 | CT Scan Report ---
Clinical History: Abdominal pain and cramping. Nausea Technique: Axial computed tomography images were obtained of the abdomen and pelvis without intravenous contrast. Comparison is made to the prior CT dated 05/02/2024 Findings: The liver is overall of normal size, attenuation, and contour with no sign of cirrhosis or significant fatty infiltration. No definite liver mass lesion is seen on this noncontrast study. The gallbladder is distended but otherwise appears unremarkable. There is new bile duct dilatation with the common bile duct measuring up to 1 cm The spleen is of normal size. No focal splenic lesion is evident. The pancreas appears normal with no sign of acute or chronic pancreatitis and no mass lesion noted. The pancreatic duct is of normal caliber. The adrenal glands appear unremarkable. No renal or proximal ureteral calculi are seen. There is no hydronephrosis or perinephric stranding. Multiple hyperdense left renal lesions are again seen, measuring up to 3.3 cm. There is a 5 mm hyperdense right renal lesion. There are multiple bilateral renal cysts, measuring up to 4.7 cm The aorta is of normal caliber. There is extensive multifocal atherosclerotic plaque. No abdominal adenopathy is seen. There is a moderate sized hiatal hernia. There is no sign of small bowel obstruction. There is diverticulosis without definite diverticulitis. There is apparent mild diffuse colonic wall thickening. No free intraperitoneal fluid or air is identified. No distal ureteral or bladder calculi are seen. The bladder is decompressed. The iliac arteries are of normal caliber. No pelvic adenopathy is noted. There has been partial resolution of multifocal reticular nodular infiltrates in the lung bases, consistent with improving pneumonia. There is a right hip total arthroplasty, resulting in surrounding artifact. There is lumbar scoliosis and degenerative disc disease. 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 No fracture is identified. No focal osseous lesion is seen Impression: 1. Partial resolution of lung base opacities, consistent with improving pneumonia 2. New bile duct dilatation. No clear obstructing lesion is seen. MRCP or ERCP could be considered for further evaluation 3. Multiple unchanged hyperdense renal lesions, indeterminate in nature but likely benign proteinaceous or hemorrhagic cysts 4. Bilateral renal cysts 5. Extensive atherosclerosis 6. Moderate sized hiatal hernia 7. Diverticulosis without definite diverticulitis 8. Apparent colonic wall thickening, which could be due to infectious colitis or inflammatory bowel disease ACT 112: Positive. There are findings on this exam that require communication between the performing entity and the patient following Patient Test Result Information Act ([place] ACT 112) guidelines. Electronically signed by Julio Cesar Grubbs 12-05-2024 5:53 PM
[2024-12-05] MEDS: metroNIDAZOLE 500 MG TAB PO STA (18:29)
[2024-12-05] MEDS: CIPROFLOXACIN / D5W 400 MG/200 ML BAG IV STA (18:29)
[2024-12-05 18:42] LABS: Appearance Urine Clear (Clear); Bacteria Urine Automated None Seen (None Seen); Cast Urine Automated >20 /lpf (0-2); Epithelial Cell Urine Auto 0-2 /hpf (0-2); Glucose Urine UA Negative (Negative); RBC Urine Automated 0-2 /hpf (0-2); WBC Urine Automated 0-5 /hpf (0-5)
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
[2024-12-05 20:56] LABS: Adenovirus F 40/41 PCR Not Detected (NotDetected); Campylobacter PCR Not Detected (NotDetected); Enteroaggregative E.coli(EAEC) Not Detected (NotDetected); Shiga-like Toxin E.coli (STEC) Not Detected (NotDetected); Vibrio species PCR Not Detected (NotDetected)
[2024-12-05 21:40] LABS: Cdiff Toxin B Gene (2yr or >) Positive Cdiff Gene (Neg)
[2024-12-05 22:08] LABS: Cdiff Toxin A+B Positive Cdiff Toxin (Negative)
[2024-12-05] MEDS: DORZOLAMIDE HCL 2% OPH SOLN 10 ML BTL OPB SCH (22:44)
[2024-12-05] MEDS: LATANOPROST 0.005% OP SOLN 2.5 ML BTL OPB SCH (22:44)
[2024-12-05] MEDS: TICAGRELOR 90 MG TAB PO SCH (22:44)
[2024-12-05] MEDS: MIRTAZAPINE TAB 15 MG TAB PO SCH (22:45)
[2024-12-05] MEDS: VANCOMYCIN HCL 125 MG/2.5ML SOLN PO STA (23:14)
[2024-12-05] MEDS: CHERRY SYRUP 5 ML UDP PO STA (23:14)
[2024-12-05] MEDS: FLUTICASONE/VILANTEROL 200/25MCG 14 PUFFS/INHALER INH SCH (23:14)
[2024-12-05] MEDS: LACTATED RINGER'S 1,000 ML IV SCH (23:15)
[2024-12-06] MEDS: VANCOMYCIN HCL 125 MG/2.5ML SOLN PO SCH (00:01)
[2024-12-06] MEDS: CHERRY SYRUP 5 ML UDP PO SCH (00:01)
--- NOTE | 2024-12-06 00:34 | XRay Report ---
CLINICAL HISTORY: Congestion, crackles. COMPARISON: Prior X-ray DOS 11/16/2024. TECHNIQUE: X-ray chest - 2 views PA/Lateral. FINDINGS: Lungs: Bilateral hyperinflated lungs with slightly coarse bronchovascular markings. No definite infiltrates, consolidation or mass seen. Diaphragms: Appear unremarkable. Pleura: Blunting of right costophrenic angle could be due to minimal pleural effusion versus pleural thickening. No left effusions or bilateral pneumothorax identified. Heart: Heart size and its configuration are within normal limits. Aorta: Aortic knuckle calcification seen. Pulmonary arteries: Appear unremarkable. [place]: Appear unremarkable. Osseous structures: Multiple old healed bilateral rib fractures with fixating plate and screws seen along right posterior 6th 7th ribs and left 8th rib without any break of loosening. Degenerative changes are seen in thoracic spine. Lines and tubes: Overlying chest leads are seen. IMPRESSION: 1. Bilateral hyperinflated lungs with slightly coarse bronchovascular markings, suggestive of chronic obstructive pulmonary disease (COPD) showing no significant interval change. Clinical correlation is suggested. 2. Blunting of right costophrenic angle could be due to minimal pleural effusion versus pleural thickening, sonological correlation would be helpful, if clinically indicated. 3. No evidence of definite infiltrates or consolidation in current radiograph. Electronically signed by Baldemar Solis 12-06-2024 12:34 AM
[2024-12-06] MEDS: metroNIDAZOLE 500 MG/100 ML BAG IV SCH (05:58)
[2024-12-06] MEDS ORDERED: CIPROFLOXACIN / D5W 400 MG/200 ML BAG IV SCH (06:30)
[2024-12-06 07:00] LABS: Albumin Level 3.5 gm/dl (3.4-5.0); Anion Gap 14.0 (3-11); Bilirubin,Total 0.3 mg/dl (0.2-1.0); Calcium 8.1 mg/dl (8.6-10.3); Carbon Dioxide 10.0 mmol/L (21-32); Chloride 115.0 mmol/L (98-107); Potassium 3.7 mmol/L (3.5-5.1); Sodium 139.0 mmol/L (136-145)
[2024-12-06 07:06] LABS: Alanine Aminotransferase 5.0 U/L (7-52); Albumin Globulin Ratio 1.5 (0.9-2); Alkaline Phosphatase 136.0 U/L (34-104); Blood Urea Nitrogen 70.0 mg/dl (6-23); Creatinine Clr Calc Pharmacy 9.4 ml/min; Globulin 2.4 gm/dl (2.5-4.0); Glucose 63.0 mg/dl (70-99(Fasting)); Total Protein 5.9 gm/dl (6.0-8.3)
[2024-12-06 07:47] LABS: Hematocrit (blood only) 35.2 % (37.0-47.0); Hemoglobin 10.7 g/dl (12.0-16.0); Immature Granulocytes # (auto) 0.05 K/uL (0.01-0.20); Immature Granulocytes % (auto) 0.5 %; Mean Corpuscular Hemoglobin 29.2 pg (25.0-34.0); Mean Corpuscular Volume 95.9 fL (80.0-100.0); Platelet Count 193 K/uL (130-400); RDW Standard Deviation 59.8 fL (36.4-46.3); Red Blood Count 3.67 M/uL (4.20-5.40); White Blood Count 10.90 K/ul (4.8-10.8)
--- NOTE | 2024-12-06 08:32 | Hospitalist Progress Note ---
Date of Service December 06, 2024 Assessment & Plan (1) Colitis: (2) Hypertension: (3) Aspergillus pneumonia: (4) Esophageal obstruction: (5) Stage 3b chronic kidney disease: (6) Dyslipidemia: (7) Hypertension, benign: Plan The patient is an 89-year-old female who presented to the ED on 12/05/2024 w/ nausea/vomiting/diarrhea x 4 days found to have colitis C. diff Colitis: CT A/P showed colitis, recent admission earlier this month for similar symptoms Initially started treatment w/ IV Cipro/Flagyl given leukocytosis, likely infectious C. difficile positive overnight and so cipro placed on hold and PO vanco started Dilated CBD: Recent MRCP completed, CBD dilated without evidence of stones At that time, GI did not recommend pursuing further testing as patient asymptomatic AYESHA on CKD: -Baseline creatinine around 1.2, 2.56 on arrival, now slightly improved at 2.3 -likely secondary to dehydration, receiving IV fluids cont. to closely monitor renal function, if not w/ much improvement, will consult w/ nephrology Hx CAD/carotid stenosis: Continue aspirin/Brilinta Hx aspergillus: Continue home voriconazole; follow-up with pulm outpatient Malnutrition: Consult dietitian/nutrition Admission and Anticipated Discharge Date Admission Date: December 05, 2024 Subjective Pt seen in follow up of colitis c. diff toxin positive -> overnight cipro placed on hold and PO vanco started Currently lying in bed in NAD, denies fever, chills, chest pain, shortness of breath. Reports feeling little better, on the phone when I entered the room. Has some abdominal discomfort. per RN stools improved now. Review of Systems Review of Systems: All systems reviewed & are unremarkable except as noted in Subjective Physical Exam Physical Exam: General: Thin elderly woman in NAD Eyes: PERRL,not pale, anicteric sclerae, EOM intact bilaterally ENMT: External ear and nose normal Respiratory: Not in resp distress, on room air, + crackles Cardiovascular: RRR S1 S2 Gastrointestinal (Abdomen): Abdomen is not distended, soft, +lower abd tenderness, + bowel sounds Musculoskeletal: No pedal edema, moves extremities Neurologic: Alert and oriented x 3, cooperative Psychiatric: Normal mood and affect Results & Data Results & Data Vital Signs (Past 12 Hours) Vital Signs Temp Pulse Pulse Resp BP BP Pulse Ox 12/05/24 21:00 12/05/24 20:53 36.8 C 75 20 179/65 H 96 12/05/24 20:37 77 20 109/70 96 O2 Del Method 12/05/24 21:00 Room Air 12/05/24 20:53 Room Air 12/05/24 20:37 Room Air Laboratory Results 12/06/24 12/06/24 12/05/24 Range/Units 07:07 05:21 19:20 WBC 10.90 H Cancelled (4.8-10.8) K/ul RBC 3.67 L Cancelled (4.20-5.40) M/uL Hgb 10.7 L Cancelled (12.0-16.0) g/dl Hct 35.2 L Cancelled (37.0-47.0) % MCV 95.9 Cancelled (80.0-100.0) fL MCH 29.2 Cancelled (25.0-34.0) pg MCHC 30.4 L Cancelled (32.0-36.0) g/dL RDW Std Deviation 59.8 H Cancelled (36.4-46.3) fL RDW Coeff of Montrell 16.9 H Cancelled (11.5-14.5) % Plt Count 193 Cancelled (130-400) K/uL MPV 10.9 Cancelled (9.4-12.4) fL Immature Gran % (Auto) 0.5 Cancelled % Neut % (Auto) 86.3 Cancelled % Lymph % (Auto) 5.7 Cancelled % Taney % (Auto) 6.5 Cancelled % Eos % (Auto) 0.5 Cancelled % Baso % (Auto) 0.5 Cancelled % Neut # (Auto) 9.42 H Cancelled (1.40-6.50) K/uL Lymph # (Auto) 0.62 L Cancelled (1.20-3.40) K/uL Taney # (Auto) 0.71 H Cancelled (0.11-0.59) K/uL Eos # (Auto) 0.05 Cancelled (0.00-0.50) K/uL Baso # (Auto) 0.05 Cancelled (0.00-0.20) K/uL Immature Gran # (Auto) 0.05 Cancelled (0.01-0.20) K/uL Absolute Nucleated RBC Cancelled Nucleated RBC % (auto) Cancelled Neutrophils % (Manual) Cancelled Band Neutrophils % Cancelled Lymphocytes % (Manual) Cancelled Prolymphocyte % Cancelled Reactive Lymphs % (Man) Cancelled Monocytes % (Manual) Cancelled Eosinophils % (Manual) Cancelled Basophils % (Manual) Cancelled Metamyelocytes % (Man) Cancelled Myelocytes % (Man) Cancelled Promyelocytes % (Man) Cancelled Blast Cells % (Manual) Cancelled Plasma Cell % (Manual) Cancelled Other Cells % Cancelled Nucleated RBC % Cancelled Neutrophils # (Manual) Cancelled Band Neutrophils # Cancelled Total Absolute Neuts Cancelled Lymphocytes # (Manual) Cancelled Prolymphocyte # Cancelled Reactive Lymphs # Cancelled Total Abs Lymphocytes Cancelled Monocytes # (Manual) Cancelled Eosinophils # (Manual) Cancelled Basophils # (Manual) Cancelled Metamyelocytes # (Man) Cancelled Myelocytes # (Manual) Cancelled Promyelocytes # (Man) Cancelled Blast Cells # (Man) Cancelled Plasma Cell # (Manual) Cancelled Other Cells # Cancelled Nucleated RBCs # (Man) Cancelled Hypersegmented Neuts Cancelled Hyposegmented Neuts Cancelled Hypogranular Neuts Cancelled Large Granular Lymphs Cancelled # Lrg Granular Lymphs Cancelled Hairy Cells Cancelled Smudge Cells Cancelled Toxic Granulation Cancelled Toxic Vacuolation Cancelled Dohle Bodies Cancelled Adriana Rods Cancelled Platelet Estimate Cancelled Hypogranular Platelets Cancelled Giant Platelets Cancelled Platelet Satelliting Cancelled RBC Morphology Cancelled Polychromasia Cancelled Hypochromasia Cancelled Poikilocytosis Cancelled Basophilic Stippling Cancelled Anisocytosis Cancelled Microcytosis Cancelled Macrocytosis Cancelled Spherocytes Cancelled Pappenheimer Bodies Cancelled Sickle Cells Cancelled Target Cells Cancelled Tear Drop Cells Cancelled Ovalocytes Cancelled Stomatocytes Cancelled [place] Bodies Cancelled Echinocytes Cancelled Acanthocytes (Spur) Cancelled Rouleaux Cancelled RBC Agglutinates Cancelled Schistocytes Cancelled Sezary Cell Cancelled Sodium 139 (136-145) mmol/L Potassium 3.7 (3.5-5.1) mmol/L Chloride 115 H (98-107) mmol/L Carbon Dioxide 10 L (21-32) mmol/L Anion Gap 14 H (3-11) BUN 70 H (6-23) mg/dl Creatinine 2.30 H (0.6-1.2) mg/dl Est Cr Clr Drug Dosing 9.4 ml/min eGFR 20.07 BUN/Creatinine Ratio 30.4 H (10-20) Glucose 63 L (70-99(Fasting)) mg/dl Calcium 8.1 L (8.6-10.3) mg/dl Total Bilirubin 0.3 (0.2-1.0) mg/dl AST 16 (13-39) U/L ALT 5 L (7-52) U/L Alkaline Phosphatase 136 H (34-104) U/L Total Protein 5.9 L (6.0-8.3) gm/dl Albumin 3.5 (3.4-5.0) gm/dl Globulin 2.4 L (2.5-4.0) gm/dl Albumin/Globulin Ratio 1.5 (0.9-2) Lipase (11-82) U/L Urine Color Urine Appearance (Clear) Urine pH (4.5-7.5) Ur Specific [place] (1.000-1.030) Urine Protein (Negative) Urine Glucose (UA) (Negative) Urine Ketones (Negative) Urine Blood (Negative) Urine Nitrite (Negative) Urine Bilirubin (Negative) Urine Urobilinogen (Negative) Ur Leukocyte Esterase (Negative) Urine WBC (Auto) (0-5) /hpf Urine RBC (Auto) (0-2) /hpf U Hyaline Cast (Auto) (0-2) /lpf U Epithel Cells (Auto) (0-2) /hpf Urine Bacteria (Auto) (None Seen) Hyaline Casts (None Presnt) /lpf Urine Comment Stl C. cayetanensis PCR Not Detected (NotDetected) Stool Rotavirus A PCR Not Detected (NotDetected) Stl Adenov F 40/41 PCR Not Detected (NotDetected) Stool Astrovirus (PCR) Not Detected (NotDetected) Stool Campylobacter PCR Not Detected (NotDetected) Stl C. diff Tox B Gene Positive Cdiff Gene A (Neg) Stl C.difficile Tox A&B Positive Cdiff Toxin A* (Negative) Stl C. diff 027-NAP1-BI NEGATIVE Stool Cryptosporidium PCR Not Detected (NotDetected) Stl E.coli Shiga Tox PCR Not Detected (NotDetected) Stl Enterotoxigenic E PCR Not Detected (NotDetected) Stool EPEC (PCR) Not Detected (NotDetected) Stool EAEC (PCR) Not Detected (NotDetected) Stl E. histolytica PCR Not Detected (NotDetected) Stool Giardia Lamblia PCR Not Detected (NotDetected) Stool Salmonella PCR Not Detected (NotDetected) Stool Sapovirus (PCR) Not Detected (NotDetected) Stl P. shigelloides PCR Not Detected (NotDetected) Stl Shigella/EIEC PCR Not Detected (NotDetected) St Y.enterocolitica PCR Not Detected (NotDetected) Stool Vibrio (PCR) Not Detected (NotDetected) Stl Vibrio cholerae PCR Not Detected (NotDetected) Stl Norovirus GI/GII PCR Not Detected (NotDetected) Blood Parasites ID Cancelled 12/05/24 12/05/24 Range/Units 18:14 16:54 WBC 17.86 H (4.8-10.8) K/ul RBC 4.05 L (4.20-5.40) M/uL Hgb 11.8 L (12.0-16.0) g/dl Hct 39.2 (37.0-47.0) % MCV 96.8 (80.0-100.0) fL MCH 29.1 (25.0-34.0) pg MCHC 30.1 L (32.0-36.0) g/dL RDW Std Deviation 59.5 H (36.4-46.3) fL RDW Coeff of [place] 16.9 H (11.5-14.5) % Plt Count 223 (130-400) K/uL MPV 11.0 (9.4-12.4) fL Immature Gran % (Auto) 0.8 % Neut % (Auto) 86.1 % Lymph % (Auto) 6.1 % Taney % (Auto) 6.5 % Eos % (Auto) 0.2 % Baso % (Auto) 0.3 % Neut # (Auto) 15.38 H (1.40-6.50) K/uL Lymph # (Auto) 1.09 L (1.20-3.40) K/uL [place]aney # (Auto) 1.16 H (0.11-0.59) K/uL Eos # (Auto) 0.03 (0.00-0.50) K/uL Baso # (Auto) 0.06 (0.00-0.20) K/uL Immature Gran # (Auto) 0.14 (0.01-0.20) K/uL Absolute Nucleated RBC Nucleated RBC % (auto) Neutrophils % (Manual) Band Neutrophils % Lymphocytes % (Manual) Prolymphocyte % Reactive Lymphs % (Man) Monocytes % (Manual) Eosinophils % (Manual) Basophils % (Manual) Metamyelocytes % (Man) Myelocytes % (Man) Promyelocytes % (Man) Blast Cells % (Manual) Plasma Cell % (Manual) Other Cells % Nucleated RBC % Neutrophils # (Manual) Band Neutrophils # Total Absolute Neuts Lymphocytes # (Manual) Prolymphocyte # Reactive Lymphs # Total Abs Lymphocytes Monocytes # (Manual) Eosinophils # (Manual) Basophils # (Manual) Metamyelocytes # (Man) Myelocytes # (Manual) Promyelocytes # (Man) Blast Cells # (Man) Plasma Cell # (Manual) Other Cells # Nucleated RBCs # (Man) Hypersegmented Neuts Hyposegmented Neuts Hypogranular Neuts Large Granular Lymphs # Lrg Granular Lymphs Hairy Cells Smudge Cells Toxic Granulation Toxic Vacuolation Dohle Bodies Adriana Rods Platelet Estimate Hypogranular Platelets Giant Platelets Platelet Satelliting RBC Morphology Polychromasia Hypochromasia Poikilocytosis Basophilic Stippling Anisocytosis Microcytosis Macrocytosis Spherocytes Pappenheimer Bodies Sickle Cells Target Cells Tear Drop Cells Ovalocytes Stomatocytes [place] Bodies Echinocytes Acanthocytes (Spur) Rouleaux RBC Agglutinates Schistocytes Sezary Cell Sodium 137 (136-145) mmol/L Potassium 4.0 (3.5-5.1) mmol/L Chloride 109 H (98-107) mmol/L Carbon Dioxide 14 L (21-32) mmol/L Anion Gap 14 H (3-11) BUN 68 H (6-23) mg/dl Creatinine 2.56 H (0.6-1.2) mg/dl Est Cr Clr Drug Dosing 9.2 ml/min eGFR 17.65 BUN/Creatinine Ratio 26.6 H (10-20) Glucose 78 (70-99(Fasting)) mg/dl Calcium 9.0 (8.6-10.3) mg/dl Total Bilirubin 0.3 (0.2-1.0) mg/dl AST 17 (13-39) U/L ALT 8 (7-52) U/L Alkaline Phosphatase 161 H (34-104) U/L Total Protein 7.0 (6.0-8.3) gm/dl Albumin 3.6 (3.4-5.0) gm/dl Globulin 3.4 (2.5-4.0) gm/dl Albumin/Globulin Ratio 1.1 (0.9-2) Lipase 7 L (11-82) U/L Urine Color Dark Yellow Urine Appearance Clear (Clear) Urine pH 5.0 (4.5-7.5) Ur Specific [place] 1.028 (1.000-1.030) Urine Protein 2+ H (Negative) Urine Glucose (UA) Negative (Negative) Urine Ketones Trace H (Negative) Urine Blood Negative (Negative) Urine Nitrite Negative (Negative) Urine Bilirubin Negative (Negative) Urine Urobilinogen Negative (Negative) Ur Leukocyte Esterase Negative (Negative) Urine WBC (Auto) 0-5 (0-5) /hpf Urine RBC (Auto) 0-2 (0-2) /hpf U Hyaline Cast (Auto) >20 H (0-2) /lpf U Epithel Cells (Auto) 0-2 (0-2) /hpf Urine Bacteria (Auto) None Seen (None Seen) Hyaline Casts Present A (None Presnt) /lpf Urine Comment Stl C. cayetanensis PCR (NotDetected) Stool Rotavirus A PCR (NotDetected) Stl Adenov F 40/41 PCR (NotDetected) Stool Astrovirus (PCR) (NotDetected) Stool Campylobacter PCR (NotDetected) Stl C. diff Tox B Gene (Neg) Stl C.difficile Tox A&B (Negative) Stl C. diff 027-NAP1-BI Stool Cryptosporidium PCR (NotDetected) Stl E.coli Shiga Tox PCR (NotDetected) Stl Enterotoxigenic E PCR (NotDetected) Stool EPEC (PCR) (NotDetected) Stool EAEC (PCR) (NotDetected) Stl E. histolytica PCR (NotDetected) Stool Giardia Lamblia PCR (NotDetected) Stool Salmonella PCR (NotDetected) Stool Sapovirus (PCR) (NotDetected) Stl P. shigelloides PCR (NotDetected) Stl Shigella/EIEC PCR (NotDetected) St Y.enterocolitica PCR (NotDetected) Stool Vibrio (PCR) (NotDetected) Stl Vibrio cholerae PCR (NotDetected) Stl Norovirus GI/GII PCR (NotDetected) Blood Parasites ID Medications Administered Current Inpatient Medications Acetaminophen (Acetaminophen 325 Mg Tab) 650 mg PO Q4H PRN PRN Reason: pain/fever Stop: 01/04/25 21:12 Aspirin (Aspirin 81 Mg Ectab) 81 mg PO DAILY [facility] Stop: 01/05/25 08:59 Curran Syrup (Curran Syrup 5 Ml Udp) 5 ml PO Q6 [facility] Stop: 12/16/24 00:00 Last Admin: 12/06/24 05:58 Dose: 5 ml Dorzolamide HCl (Dorzolamide Hcl 2% Oph Soln 10 Ml Btl) 1 drops OPB AMHS [facility] Stop: 01/04/25 21:12 Last Admin: 12/05/24 22:44 Dose: 1 drops Famotidine (Famotidine 10 Mg Tablet) 10 mg PO DAILY [facility] Stop: 01/05/25 08:59 Fluticasone/Vilanterol (Fluticasone/Vilanterol 200/25mcg 14 Puffs/Inhaler) 1 puffs INH DAILY [facility] Stop: 01/04/25 21:29 Last Admin: 12/05/24 23:14 Dose: 1 puffs Hydralazine HCl (Hydralazine Tab 50 Mg Tab) 50 mg PO BID [facility] Stop: 01/04/25 21:12 Last Admin: 12/05/24 22:44 Dose: 50 mg Metronidazole (Flagyl) 500 mg in 100 mls @ 100 mls/hr IV Q12H [facility]; Protocol Stop: 12/16/24 06:29 Last Infusion: 12/06/24 07:06 Dose: Infused Ciprofloxacin (Cipro / D5w) 400 mg in 200 mls @ 100 mls/hr IV Q24H [facility]; Protocol Stop: 12/10/24 18:29 Lactated Ringer's (Lr) 1,000 mls @ 75 mls/hr IV .[id number] [facility] Stop: 12/08/24 22:59 Last Admin: 12/05/24 23:15 Dose: 75 mls/hr Lactobacillus Acidophilus (Advanced Probiotic 625 Mg Capsule) 625 mg PO DAILY [facility] Stop: 01/05/25 08:59 Latanoprost (Latanoprost 0.005% Op Soln 2.5 Ml Btl) 1 drops OPB HS [facility] Stop: 01/04/25 21:12 Last Admin: 12/05/24 22:44 Dose: 1 drops Metoprolol Tartrate (Metoprolol Tartrate 25 Mg Tab) 25 mg PO QAM [facility] Stop: 01/05/25 08:59 Mirtazapine (Mirtazapine Tab 15 Mg Tab) 7.5 mg PO HS [facility] Stop: 01/04/25 21:12 Last Admin: 12/05/24 22:45 Dose: 7.5 mg Sertraline HCl (Sertraline Hcl 50 Mg Tablet) 50 mg PO QAM [facility] Stop: 01/05/25 08:59 Ticagrelor (Ticagrelor 90 Mg Tab) 90 mg PO Q12H [facility] Stop: 01/04/25 21:12 Last Admin: 12/05/24 22:44 Dose: 90 mg Vancomycin HCl (Vancomycin Hcl 125 Mg/2.5ml Soln) 125 mg PO Q6 [facility] Stop: 12/16/24 00:00 Last Admin: 12/06/24 05:58 Dose: 125 mg Vitamin D (Cholecalciferol 25 Mcg (1000 Units) Tab) 25 mcg PO DAILY [facility] Stop: 01/05/25 08:59
[2024-12-06] MEDS: CHOLECALCIFEROL 25 MCG (1000 UNITS) TAB PO SCH (08:50)
[2024-12-06] MEDS: SERTRALINE HCL 50 MG TABLET PO SCH (08:50)
[2024-12-06] MEDS: FAMOTIDINE 10 MG TABLET PO SCH (08:51)
[2024-12-06] MEDS: METOPROLOL TARTRATE 25 MG TAB PO SCH (08:51)
[2024-12-06] MEDS: ASPIRIN 81 MG ECTAB PO SCH (08:51)
[2024-12-06] MEDS ORDERED: NON-FORMULARY MEDICATION (Lactobacillus Acidophilus [Probiotic] 10 billion cell Capsule) PO SCH (09:00)
[2024-12-06] MEDS: ADVANCED PROBIOTIC 625 MG CAPSULE PO SCH (09:01)
[2024-12-06] MEDS ORDERED: VANCOMYCIN HCL 125 MG/2.5ML SOLN PO SCH (12:00)
[2024-12-06] MEDS ORDERED: VANCOMYCIN HCL 125 MG CAP PO SCH (12:00)
[2024-12-06] MEDS: VANCOMYCIN HCL 125 MG CAP PO SCH ×2 (12:13→17:54)
[2024-12-06] MEDS: POTASSIUM CHLORIDE CRTAB 20 MEQ TABCR PO STA ×2 (15:19→16:22)
[2024-12-06] MEDS: ACETAMINOPHEN 325 MG TAB PO PRN (15:27)
[2024-12-06 15:45] LABS: Hematocrit (blood only) 37.8 % (37.0-47.0); Hemoglobin 11.7 g/dl (12.0-16.0); Mean Corpuscular Hemoglobin 30.3 pg (25.0-34.0); Mean Corpuscular Volume 97.9 fL (80.0-100.0); Platelet Count 176 K/uL (130-400); RDW Standard Deviation 60.7 fL (36.4-46.3); Red Blood Count 3.86 M/uL (4.20-5.40); White Blood Count 9.85 K/ul (4.8-10.8)
[2024-12-06 15:55] LABS: Anion Gap 13.0 (3-11); Calcium 8.0 mg/dl (8.6-10.3); Carbon Dioxide 11.0 mmol/L (21-32); Chloride 115.0 mmol/L (98-107); Magnesium 1.8 mg/dl (1.7-2.4); Potassium 3.5 mmol/L (3.5-5.1); Sodium 139.0 mmol/L (136-145)
[2024-12-06 16:01] LABS: Blood Urea Nitrogen 64.0 mg/dl (6-23); Creatinine Clr Calc Pharmacy 10.3 ml/min; Glucose 54.0 mg/dl (70-99(Fasting))
[2024-12-06] MEDS: CIPROFLOXACIN / D5W 400 MG/200 ML BAG IV SCH (17:33)
[2024-12-06] MEDS ORDERED: VORICONAZOLE 200 MG TABLET PO SCH (21:00)
[2024-12-07 06:34] LABS: Hematocrit (blood only) 37.7 % (37.0-47.0); Hemoglobin 11.7 g/dl (12.0-16.0); Mean Corpuscular Hemoglobin 29.4 pg (25.0-34.0); Mean Corpuscular Volume 94.7 fL (80.0-100.0); Platelet Count 210 K/uL (130-400); RDW Standard Deviation 60.1 fL (36.4-46.3); Red Blood Count 3.98 M/uL (4.20-5.40); White Blood Count 12.38 K/ul (4.8-10.8)
[2024-12-07 06:54] LABS: Anion Gap 12.0 (3-11); Blood Urea Nitrogen 62.0 mg/dl (6-23); Calcium 8.2 mg/dl (8.6-10.3); Carbon Dioxide 13.0 mmol/L (21-32); Chloride 115.0 mmol/L (98-107); Creatinine Clr Calc Pharmacy 11.9 ml/min; Glucose 73.0 mg/dl (70-99(Fasting)); Magnesium 1.8 mg/dl (1.7-2.4); Potassium 3.7 mmol/L (3.5-5.1); Sodium 140.0 mmol/L (136-145)
--- NOTE | 2024-12-07 08:15 | Hospitalist Progress Note ---
Date of Service December 07, 2024 Assessment & Plan (1) Colitis: (2) Hypertension: (3) Aspergillus pneumonia: (4) Esophageal obstruction: (5) Stage 3b chronic kidney disease: (6) Dyslipidemia: (7) Hypertension, benign: Plan The patient is an 89-year-old female who presented to the ED on 12/05/2024 w/ nausea/vomiting/diarrhea x 4 days found to have colitis C. diff Colitis: CT A/P showed colitis, recent admission earlier this month for similar symptoms Initially started treatment w/ IV Cipro/Flagyl given leukocytosis, likely infectious C. difficile positive overnight and so cipro placed on hold and PO vanco started - currently feels improved, less BM, however still with abd. discomfort and pain in all over her body Dilated CBD: Recent MRCP completed, CBD dilated without evidence of stones At that time, GI did not recommend pursuing further testing as patient asymptomatic AYESHA on CKD: -Baseline creatinine around 1.2, 2.56 on arrival, now slightly improved at 2.3 -likely secondary to dehydration, receiving IV fluids cont. to closely monitor renal function, if not w/ much improvement, will consult w/ nephrology Hx CAD/carotid stenosis: Continue aspirin/Brilinta Hx aspergillus: Continue home voriconazole; follow-up with pulm outpatient Malnutrition: Consult dietitian/nutrition Admission and Anticipated Discharge Date Admission Date: December 05, 2024 Subjective Pt seen in follow up of colitis c. diff toxin positive -> cipro stopped and PO vanco started Currently lying in bed in NAD, denies fever, chills, chest pain, shortness of breath. Reports feeling better. No BM overnight but had BM this AM. Has some abdominal discomfort. Review of Systems Review of Systems: All systems reviewed & are unremarkable except as noted in Subjective Physical Exam Physical Exam: General: Thin elderly woman in NAD Eyes: PERRL,not pale, anicteric sclerae, EOM intact bilaterally ENMT: External ear and nose normal Respiratory: Not in resp distress, on room air, + crackles Cardiovascular: RRR S1 S2 Gastrointestinal (Abdomen): Abdomen is not distended, soft, +lower abd tenderness, + bowel sounds Musculoskeletal: No pedal edema, moves extremities Neurologic: Alert and oriented x 3, cooperative Psychiatric: Normal mood and affect Results & Data Results & Data Vital Signs (Past 12 Hours) Vital Signs Temp Pulse Resp BP Pulse Ox O2 Del Method 12/07/24 07:37 36.6 C 75 16 136/75 96 Room Air 12/06/24 23:05 36.8 C 72 16 137/50 L 96 Room Air Laboratory Results 12/07/24 12/06/24 Range/Units 06:08 15:17 WBC 12.38 H 9.85 (4.8-10.8) K/ul RBC 3.98 L 3.86 L (4.20-5.40) M/uL Hgb 11.7 L 11.7 L (12.0-16.0) g/dl Hct 37.7 37.8 (37.0-47.0) % MCV 94.7 97.9 (80.0-100.0) fL MCH 29.4 30.3 (25.0-34.0) pg MCHC 31.0 L 31.0 L (32.0-36.0) g/dL RDW Std Deviation 60.1 H 60.7 H (36.4-46.3) fL RDW Coeff of [place]rell 17.1 H 16.9 H (11.5-14.5) % Plt Count 210 176 (130-400) K/uL MPV 10.7 10.8 (9.4-12.4) fL Sodium 140 139 (136-145) mmol/L Potassium 3.7 3.5 (3.5-5.1) mmol/L Chloride 115 H 115 H (98-107) mmol/L Carbon Dioxide 13 L 11 L (21-32) mmol/L Anion Gap 12 H 13 H (3-11) BUN 62 H 64 H (6-23) mg/dl Creatinine 1.81 H 2.10 H (0.6-1.2) mg/dl Est Cr Clr Drug Dosing 11.9 10.3 ml/min eGFR 26.75 22.38 BUN/Creatinine Ratio 34.3 H 30.5 H (10-20) Glucose 73 54 L (70-99(Fasting)) mg/dl Calcium 8.2 L 8.0 L (8.6-10.3) mg/dl Phosphorus 2.9 D 4.1 (2.5-4.9) mg/dl Magnesium 1.8 1.8 (1.7-2.4) mg/dl Medications Administered Current Inpatient Medications Acetaminophen (Acetaminophen 325 Mg Tab) 650 mg PO Q4H PRN PRN Reason: pain/fever Stop: 01/04/25 21:12 Last Admin: 12/07/24 05:56 Dose: 650 mg Aspirin (Aspirin 81 Mg Ectab) 81 mg PO DAILY [facility] Stop: 01/05/25 08:59 Last Admin: 12/06/24 08:51 Dose: 81 mg Dorzolamide HCl (Dorzolamide Hcl 2% Oph Soln 10 Ml Btl) 1 drops OPB AMHS [facility] Stop: 01/04/25 21:12 Last Admin: 12/06/24 20:24 Dose: 1 drops Famotidine (Famotidine 10 Mg Tablet) 10 mg PO DAILY [facility] Stop: 01/05/25 08:59 Last Admin: 12/06/24 08:51 Dose: 10 mg Fluticasone/Vilanterol (Fluticasone/Vilanterol 200/25mcg 14 Puffs/Inhaler) 1 puffs INH DAILY [facility] Stop: 01/04/25 21:29 Last Admin: 12/06/24 08:49 Dose: 1 puffs Hydralazine HCl (Hydralazine Tab 50 Mg Tab) 50 mg PO BID [facility] Stop: 01/04/25 21:12 Last Admin: 12/06/24 20:22 Dose: 50 mg Metronidazole (Flagyl) 500 mg in 100 mls @ 100 mls/hr IV Q12H [facility]; Protocol Stop: 12/16/24 06:29 Last Infusion: 12/07/24 07:33 Dose: Infused Ciprofloxacin (Cipro / D5w) 400 mg in 200 mls @ 100 mls/hr IV Q24H [facility]; Protocol Stop: 12/10/24 18:29 Last Infusion: 12/06/24 20:11 Dose: Infused Lactobacillus Acidophilus (Advanced Probiotic 625 Mg Capsule) 625 mg PO DAILY [facility] Stop: 01/05/25 08:59 Last Admin: 12/06/24 09:01 Dose: Not Given Latanoprost (Latanoprost 0.005% Op Soln 2.5 Ml Btl) 1 drops OPB HS [facility] Stop: 01/04/25 21:12 Last Admin: 12/06/24 20:24 Dose: 1 drops Metoprolol Tartrate (Metoprolol Tartrate 25 Mg Tab) 25 mg PO QAM [facility] Stop: 01/05/25 08:59 Last Admin: 12/06/24 08:51 Dose: 25 mg Mirtazapine (Mirtazapine Tab 15 Mg Tab) 7.5 mg PO HS [facility] Stop: 01/04/25 21:12 Last Admin: 12/06/24 20:22 Dose: 7.5 mg Pantoprazole Sodium (Pantoprazole 40 Mg Tab) 40 mg PO DAILY [facility] Stop: 01/06/25 08:59 Sertraline HCl (Sertraline Hcl 50 Mg Tablet) 50 mg PO QAM [facility] Stop: 01/05/25 08:59 Last Admin: 12/06/24 08:50 Dose: 50 mg Ticagrelor (Ticagrelor 90 Mg Tab) 90 mg PO Q12H [facility] Stop: 01/04/25 21:12 Last Admin: 12/06/24 20:24 Dose: 90 mg Vancomycin HCl (Vancomycin Hcl 125 Mg Cap) 125 mg PO Q6 [facility] Stop: 12/15/24 23:59 Last Admin: 12/07/24 05:47 Dose: 125 mg Vitamin D (Cholecalciferol 25 Mcg (1000 Units) Tab) 25 mcg PO DAILY [facility] Stop: 01/05/25 08:59 Last Admin: 12/06/24 08:50 Dose: 25 mcg
[2024-12-07] MEDS: POTASSIUM CHLORIDE CRTAB 20 MEQ TABCR PO STA (09:10)
[2024-12-07] MEDS: MELATONIN 3 MG TAB PO PRN (23:35)
[2024-12-08 06:18] LABS: Hematocrit (blood only) 34.0 % (37.0-47.0); Hemoglobin 10.4 g/dl (12.0-16.0); Mean Corpuscular Hemoglobin 28.8 pg (25.0-34.0); Mean Corpuscular Volume 94.2 fL (80.0-100.0); Platelet Count 187 K/uL (130-400); RDW Standard Deviation 59.5 fL (36.4-46.3); Red Blood Count 3.61 M/uL (4.20-5.40); White Blood Count 11.92 K/ul (4.8-10.8)
[2024-12-08 06:36] LABS: Anion Gap 7.0 (3-11); Blood Urea Nitrogen 43.0 mg/dl (6-23); Calcium 7.9 mg/dl (8.6-10.3); Carbon Dioxide 16.0 mmol/L (21-32); Chloride 119.0 mmol/L (98-107); Creatinine Clr Calc Pharmacy 16.5 ml/min; Glucose 96.0 mg/dl (70-99(Fasting)); Magnesium 1.7 mg/dl (1.7-2.4); Potassium 3.4 mmol/L (3.5-5.1); Sodium 142.0 mmol/L (136-145)
[2024-12-08] MEDS ORDERED: POTASSIUM PHOS 3 MMOL/1 ML INFUSION IV STA (07:14)
[2024-12-08] MEDS: POTASSIUM PHOSPHATE 9 MMOL in SODIUM CHLORIDE 0.9% 250 ML IV ONE (08:24)
[2024-12-08] MEDS: POTASSIUM CHLORIDE CRTAB 20 MEQ TABCR PO STA (08:24)
--- NOTE | 2024-12-08 11:04 | Hospitalist Progress Note ---
Date of Service December 08, 2024 Assessment & Plan (1) Colitis: (2) Hypertension: (3) Aspergillus pneumonia: (4) Esophageal obstruction: (5) Stage 3b chronic kidney disease: (6) Dyslipidemia: (7) Hypertension, benign: Plan The patient is an 89-year-old female who presented to the ED on 12/05/2024 w/ nausea/vomiting/diarrhea x 4 days found to have colitis C. diff Colitis, Leukocytosis: CT A/P showed colitis, recent admission earlier this month for similar symptoms Initially started treatment w/ IV Cipro/Flagyl given leukocytosis, likely infectious - WBC on admission 17K --> now down to 11.9 K C. difficile positive overnight and so cipro placed on hold and PO vanco started - 12/07 currently feels improved, less BM, however still with abd. discomfort and pain in all over her body - 12/08 - Currently pt reports feeling much better, still with loose BMs but improved, less abdominal discomfort Dilated CBD: Recent MRCP completed, CBD dilated without evidence of stones At that time, GI did not recommend pursuing further testing as patient asymptomatic AYESHA on CKD: resolved -Baseline creatinine around 1.2, 2.56 on admission - currently Cr 1.3 -likely secondary to dehydration, receiving IV fluids cont. to closely monitor renal function, if not w/ much improvement, will consult w/ nephrology Hx CAD/carotid stenosis: Continue aspirin/Brilinta Hx aspergillus: Continue home voriconazole; follow-up with pulm outpatient Malnutrition: Consult dietitian/nutrition Admission and Anticipated Discharge Date Admission Date: December 05, 2024 Subjective Pt seen in follow up of colitis c. diff toxin positive -> cipro stopped and PO vanco started Currently lying in bed in NAD, denies fever, chills, chest pain, shortness of breath. Reports feeling better. No BM overnight but had BM this AM. Has some abdominal discomfort. Review of Systems Review of Systems: All systems reviewed & are unremarkable except as noted in Subjective Physical Exam Physical Exam: General: Thin elderly woman in NAD Eyes: PERRL,not pale, anicteric sclerae, EOM intact bilaterally ENMT: External ear and nose normal Respiratory: Not in resp distress, on room air, + crackles Cardiovascular: RRR S1 S2 Gastrointestinal (Abdomen): Abdomen is not distended, soft, +lower abd tenderness, + bowel sounds Musculoskeletal: No pedal edema, moves extremities Neurologic: Alert and oriented x 3, cooperative Psychiatric: Normal mood and affect Results & Data Results & Data Vital Signs (Past 12 Hours) Vital Signs Temp Pulse Resp BP Pulse Ox O2 Del Method 12/08/24 07:25 Room Air 12/08/24 07:06 36.7 C 76 18 163/64 H 98 Room Air 12/07/24 23:47 36.8 C 75 16 171/60 H 97 Room Air Laboratory Results 12/08/24 Range/Units 05:28 WBC 11.92 H (4.8-10.8) K/ul RBC 3.61 L (4.20-5.40) M/uL Hgb 10.4 L (12.0-16.0) g/dl Hct 34.0 L (37.0-47.0) % MCV 94.2 (80.0-100.0) fL MCH 28.8 (25.0-34.0) pg MCHC 30.6 L (32.0-36.0) g/dL RDW Std Deviation 59.5 H (36.4-46.3) fL RDW Coeff of Montrell 17.2 H (11.5-14.5) % Plt Count 187 (130-400) K/uL MPV 10.2 (9.4-12.4) fL Sodium 142 (136-145) mmol/L Potassium 3.4 L (3.5-5.1) mmol/L Chloride 119 H (98-107) mmol/L Carbon Dioxide 16 L (21-32) mmol/L Anion Gap 7 (3-11) BUN 43 H (6-23) mg/dl Creatinine 1.31 H D (0.6-1.2) mg/dl Est Cr Clr Drug Dosing 16.5 ml/min eGFR 39.43 BUN/Creatinine Ratio 32.8 H (10-20) Glucose 96 (70-99(Fasting)) mg/dl Calcium 7.9 L (8.6-10.3) mg/dl Phosphorus 1.9 L D (2.5-4.9) mg/dl Magnesium 1.7 (1.7-2.4) mg/dl Medications Administered Current Inpatient Medications Acetaminophen (Acetaminophen 325 Mg Tab) 650 mg PO Q4H PRN PRN Reason: pain/fever Stop: 01/04/25 21:12 Last Admin: 12/07/24 05:56 Dose: 650 mg Aspirin (Aspirin 81 Mg Ectab) 81 mg PO DAILY [facility] Stop: 01/05/25 08:59 Last Admin: 12/08/24 08:25 Dose: 81 mg Dorzolamide HCl (Dorzolamide Hcl 2% Oph Soln 10 Ml Btl) 1 drops OPB [facility] Stop: 01/04/25 21:12 Last Admin: 12/08/24 08:26 Dose: 1 drops Famotidine (Famotidine 10 Mg Tablet) 10 mg PO DAILY [facility] Stop: 01/05/25 08:59 Last Admin: 12/08/24 08:25 Dose: 10 mg Fluticasone/Vilanterol (Fluticasone/Vilanterol 200/25mcg 14 Puffs/Inhaler) 1 puffs INH DAILY [facility] Stop: 01/04/25 21:29 Last Admin: 12/08/24 08:26 Dose: 1 puffs Hydralazine HCl (Hydralazine Tab 50 Mg Tab) 50 mg PO BID [facility] Stop: 01/04/25 21:12 Last Admin: 12/08/24 08:25 Dose: 50 mg Metronidazole (Flagyl) 500 mg in 100 mls @ 100 mls/hr IV Q12H [facility]; Protocol Stop: 12/16/24 06:29 Last Infusion: 12/08/24 06:52 Dose: Infused Ciprofloxacin (Cipro / D5w) 400 mg in 200 mls @ 100 mls/hr IV Q24H [facility]; Protocol Stop: 12/10/24 18:29 Last Infusion: 12/06/24 20:11 Dose: Infused Lactobacillus Acidophilus (Advanced Probiotic 625 Mg Capsule) 625 mg PO DAILY [facility] Stop: 01/05/25 08:59 Last Admin: 12/08/24 08:26 Dose: 625 mg Latanoprost (Latanoprost 0.005% Op Soln 2.5 Ml Btl) 1 drops OPB HS [facility] Stop: 01/04/25 21:12 Last Admin: 12/07/24 20:08 Dose: 1 drops Melatonin (Melatonin 3 Mg Tab) 3 mg PO HS PRN PRN Reason: Sleep Stop: 01/06/25 23:26 Last Admin: 12/07/24 23:35 Dose: 3 mg Metoprolol Tartrate (Metoprolol Tartrate 25 Mg Tab) 25 mg PO QAM [facility] Stop: 01/05/25 08:59 Last Admin: 12/08/24 08:26 Dose: 25 mg Mirtazapine (Mirtazapine Tab 15 Mg Tab) 7.5 mg PO HS [facility] Stop: 01/04/25 21:12 Last Admin: 12/07/24 20:08 Dose: 7.5 mg Pantoprazole Sodium (Pantoprazole 40 Mg Tab) 40 mg PO DAILY [facility] Stop: 01/06/25 08:59 Last Admin: 12/08/24 08:26 Dose: 40 mg Sertraline HCl (Sertraline Hcl 50 Mg Tablet) 50 mg PO QAM [facility] Stop: 01/05/25 08:59 Last Admin: 12/08/24 08:25 Dose: 50 mg Ticagrelor (Ticagrelor 90 Mg Tab) 90 mg PO Q12H [facility] Stop: 01/04/25 21:12 Last Admin: 12/08/24 08:25 Dose: 90 mg Vancomycin HCl (Vancomycin Hcl 125 Mg Cap) 125 mg PO Q6 [facility] Stop: 12/15/24 23:59 Last Admin: 12/08/24 05:48 Dose: 125 mg Vitamin D (Cholecalciferol 25 Mcg (1000 Units) Tab) 25 mcg PO DAILY [facility] Stop: 01/05/25 08:59 Last Admin: 12/08/24 08:26 Dose: 25 mcg
[2024-12-08] MEDS: MAGNESIUM SULFATE / D5W 1 GM/100 ML BAG IV ONE (14:30)
[2024-12-08] MEDS: POT PHOSPHATE MONOBASIC W/ SOD TAB PO SCH (15:16)
[2024-12-08] MEDS: VORICONAZOLE 200 MG TABLET PO SCH (20:48)
[2024-12-09 06:04] LABS: Hematocrit (blood only) 34.7 % (37.0-47.0); Hemoglobin 10.8 g/dl (12.0-16.0); Mean Corpuscular Hemoglobin 29.1 pg (25.0-34.0); Mean Corpuscular Volume 93.5 fL (80.0-100.0); Platelet Count 202 K/uL (130-400); RDW Standard Deviation 59.7 fL (36.4-46.3); Red Blood Count 3.71 M/uL (4.20-5.40); White Blood Count 9.32 K/ul (4.8-10.8)
[2024-12-09 06:23] LABS: Anion Gap 6.0 (3-11); Blood Urea Nitrogen 29.0 mg/dl (6-23); Calcium 7.7 mg/dl (8.6-10.3); Carbon Dioxide 17.0 mmol/L (21-32); Chloride 120.0 mmol/L (98-107); Creatinine Clr Calc Pharmacy 20.6 ml/min; Glucose 86.0 mg/dl (70-99(Fasting)); Magnesium 1.5 mg/dl (1.7-2.4); Potassium 3.8 mmol/L (3.5-5.1); Sodium 143.0 mmol/L (136-145)
--- NOTE | 2024-12-09 07:50 | Hospitalist Progress Note ---
Date of Service December 09, 2024 Assessment & Plan (1) Colitis: (2) Hypertension: (3) Aspergillus pneumonia: (4) Esophageal obstruction: (5) Stage 3b chronic kidney disease: (6) Dyslipidemia: (7) Hypertension, benign: Plan The patient is an 89-year-old female who presented to the ED on 12/05/2024 w/ nausea/vomiting/diarrhea x 4 days found to have colitis C. diff Colitis, Leukocytosis: CT A/P showed colitis, recent admission earlier this month for similar symptoms Initially started treatment w/ IV Cipro/Flagyl given leukocytosis, likely infectious - WBC on admission 17K --> now down to 9.3 K (normalized) C. difficile positive overnight and so cipro placed on hold and PO vanco started - 12/07 currently feels improved, less BM, however still with abd. discomfort and pain in all over her body - 12/08 - Currently pt reports feeling much better, still with loose BMs but improved, less abdominal discomfort - 12/09 - more frequent BMs now, says BM after any small PO intake. + abd. cramping. WBC normalized, Cr normalized Dilated CBD: Recent MRCP completed, CBD dilated without evidence of stones At that time, GI did not recommend pursuing further testing as patient asymptomatic AYESHA on CKD: resolved -Baseline creatinine around 1.2, 2.56 on admission - currently Cr 1 -likely secondary to dehydration, receiving IV fluids cont. to closely monitor renal function, if not w/ much improvement, will consult w/ nephrology Hx CAD/carotid stenosis: Continue aspirin/Brilinta - per pharmacy interaction of voriconazole and Brillinta. Discussed w/ pt's daughter yesterday 12/08 - pt was switched to Brillinta just around 11/[address] Samano (vascular). Also pt is supposed to have surgery w/ Dr. Samano in next few days. Called Gabriela (Dr. Samano's PA) and discussed with - made her aware that surgery needs to be postponed as pt currently hospitalized w/ c. diff. Also discussed antiplt therapy - per Gabriela pt is not responding to plavix and that's why she was switched. Discussed poss. interaction w/ voriconazole - and this interaction is unclear --> Gabriela will further discuss w/ Dr. Samano and will adjust meds. Hx aspergillus: Continue home voriconazole; follow-up with pulm outpatient. Pt also follows w/ outpt ID - gets monthly levels checked. Malnutrition: Consult dietitian/nutrition Admission and Anticipated Discharge Date Admission Date: December 05, 2024 Subjective Pt seen in follow up of colitis C. diff toxin positive -> Cipro stopped and PO vanco started Currently lying in bed in [facility], denies fever, chills, chest pain, shortness of breath. Reports having BM with any PO intake, feels worse than yesterday, + abd. cramping and diarrhea. Creatinine normal today, down to 1 Review of Systems Review of Systems: All systems reviewed & are unremarkable except as noted in Subjective Physical Exam Physical Exam: General: Thin elderly woman in NAD Eyes: PERRL,not pale, anicteric sclerae, EOM intact bilaterally ENMT: External ear and nose normal Respiratory: Not in resp distress, on room air, + mild crackles Cardiovascular: RRR S1 S2 Gastrointestinal (Abdomen): Abdomen is not distended, soft, +mild lower abd tenderness, + bowel sounds Musculoskeletal: No pedal edema, moves extremities Neurologic: Alert and oriented x 3, cooperative Psychiatric: Normal mood and affect Results & Data Results & Data Vital Signs (Past 12 Hours) Vital Signs Temp Pulse Resp BP Pulse Ox O2 Del Method 12/08/24 23:21 36.6 C 84 18 132/53 L 98 Room Air Laboratory Results 12/09/24 Range/Units 05:33 WBC 9.32 (4.8-10.8) K/ul RBC 3.71 L (4.20-5.40) M/uL Hgb 10.8 L (12.0-16.0) g/dl Hct 34.7 L (37.0-47.0) % MCV 93.5 (80.0-100.0) fL MCH 29.1 (25.0-34.0) pg MCHC 31.1 L (32.0-36.0) g/dL RDW Std Deviation 59.7 H (36.4-46.3) fL RDW Coeff of Montrell 17.4 H (11.5-14.5) % Plt Count 202 (130-400) K/uL MPV 10.0 (9.4-12.4) fL Sodium 143 (136-145) mmol/L Potassium 3.8 (3.5-5.1) mmol/L Chloride 120 H (98-107) mmol/L Carbon Dioxide 17 L (21-32) mmol/L Anion Gap 6 (3-11) BUN 29 H (6-23) mg/dl Creatinine 1.05 (0.6-1.2) mg/dl Est Cr Clr Drug Dosing 20.6 ml/min eGFR 51.42 BUN/Creatinine Ratio 27.6 H (10-20) Glucose 86 (70-99(Fasting)) mg/dl Calcium 7.7 L (8.6-10.3) mg/dl Phosphorus 3.1 D (2.5-4.9) mg/dl Magnesium 1.5 L (1.7-2.4) mg/dl Medications Administered Current Inpatient Medications Acetaminophen (Acetaminophen 325 Mg Tab) 650 mg PO Q4H PRN PRN Reason: pain/fever Stop: 01/04/25 21:12 Last Admin: 12/07/24 05:56 Dose: 650 mg Aspirin (Aspirin 81 Mg Ectab) 81 mg PO DAILY [facility] Stop: 01/05/25 08:59 Last Admin: 12/08/24 08:25 Dose: 81 mg Clopidogrel Bisulfate (Clopidogrel Bisulfate 75 Mg Tab) 75 mg PO QAM [facility] Stop: 01/08/25 08:59 Dorzolamide HCl (Dorzolamide Hcl 2% Oph Soln 10 Ml Btl) 1 drops OPB [facility] OF [facility] Stop: 01/04/25 21:12 Last Admin: 12/08/24 20:45 Dose: 1 drops Famotidine (Famotidine 10 Mg Tablet) 10 mg PO DAILY [facility] OF [facility] Stop: 01/05/25 08:59 Last Admin: 12/08/24 08:25 Dose: 10 mg Fluticasone/Vilanterol (Fluticasone/Vilanterol 200/25mcg 14 Puffs/Inhaler) 1 puffs INH DAILY [facility] Stop: 01/04/25 21:29 Last Admin: 12/08/24 08:26 Dose: 1 puffs Hydralazine HCl (Hydralazine Tab 50 Mg Tab) 50 mg PO BID [facility] Stop: 01/04/25 21:12 Last Admin: 12/08/24 20:47 Dose: 50 mg Metronidazole (Flagyl) 500 mg in 100 mls @ 100 mls/hr IV Q12H [facility]; Protocol Stop: 12/16/24 06:29 Last Infusion: 12/08/24 06:52 Dose: Infused Ciprofloxacin (Cipro / D5w) 400 mg in 200 mls @ 100 mls/hr IV Q24H [facility]; Protocol Stop: 12/10/24 18:29 Last Infusion: 12/06/24 20:11 Dose: Infused Magnesium Sulfate/Dextrose (Magnesium Sulfate / D5w) 1 gm in 100 mls @ 50 mls/hr IV ONE ONE Stop: 12/09/24 09:47 Lactobacillus Acidophilus (Advanced Probiotic 625 Mg Capsule) 625 mg PO DAILY [facility] Stop: 01/05/25 08:59 Last Admin: 12/08/24 08:26 Dose: 625 mg Latanoprost (Latanoprost 0.005% Op Soln 2.5 Ml Btl) 1 drops OPB HS [facility] Stop: 01/04/25 21:12 Last Admin: 12/08/24 20:45 Dose: 1 drops Melatonin (Melatonin 3 Mg Tab) 3 mg PO HS PRN PRN Reason: Sleep Stop: 01/06/25 23:26 Last Admin: 12/08/24 21:00 Dose: 3 mg Metoprolol Tartrate (Metoprolol Tartrate 25 Mg Tab) 25 mg PO QAM [facility] Stop: 01/05/25 08:59 Last Admin: 12/08/24 08:26 Dose: 25 mg Mirtazapine (Mirtazapine Tab 15 Mg Tab) 7.5 mg PO HS [facility] Stop: 01/04/25 21:12 Last Admin: 12/08/24 20:47 Dose: 7.5 mg Pantoprazole Sodium (Pantoprazole 40 Mg Tab) 40 mg PO DAILY [facility] Stop: 01/06/25 08:59 Last Admin: 12/08/24 08:26 Dose: 40 mg Potassium Phosphate (Pot Phosphate Monobasic W/ Sod Tab) 1 tab PO QID [facility] Stop: 01/07/25 14:29 Last Admin: 12/08/24 20:47 Dose: 1 tab Sertraline HCl (Sertraline Hcl 50 Mg Tablet) 50 mg PO QAM [facility] Stop: 01/05/25 08:59 Last Admin: 12/08/24 08:25 Dose: 50 mg Ticagrelor (Ticagrelor 90 Mg Tab) 90 mg PO Q12H [facility] Stop: 01/04/25 21:12 Last Admin: 12/08/24 08:25 Dose: 90 mg Vancomycin HCl (Vancomycin Hcl 125 Mg Cap) 125 mg PO Q6 [facility] OF [facility] Stop: 12/15/24 23:59 Last Admin: 12/09/24 06:08 Dose: 125 mg Vitamin D (Cholecalciferol 25 Mcg (1000 Units) Tab) 25 mcg PO DAILY [facility] Stop: 01/05/25 08:59 Last Admin: 12/08/24 08:26 Dose: 25 mcg Voriconazole (Voriconazole 200 Mg Tablet) 200 mg PO BID [facility] Stop: 01/07/25 20:59 Last Admin: 12/08/24 20:48 Dose: 200 mg
[2024-12-09] MEDS: CLOPIDOGREL BISULFATE 75 MG TAB PO SCH (08:40)
[2024-12-09] MEDS: MAGNESIUM SULFATE / D5W 1 GM/100 ML BAG IV ONE (10:22)
[2024-12-09] MEDS: VANCOMYCIN HCL 125 MG CAP PO SCH (17:29)
[2024-12-10 06:57] LABS: Hematocrit (blood only) 34.5 % (37.0-47.0); Hemoglobin 11.3 g/dl (12.0-16.0); Mean Corpuscular Hemoglobin 30.5 pg (25.0-34.0); Mean Corpuscular Volume 93.0 fL (80.0-100.0); Platelet Count 200 K/uL (130-400); RDW Standard Deviation 58.7 fL (36.4-46.3); Red Blood Count 3.71 M/uL (4.20-5.40); White Blood Count 12.11 K/ul (4.8-10.8)
[2024-12-10 07:19] LABS: Anion Gap 8.0 (3-11); Blood Urea Nitrogen 23.0 mg/dl (6-23); Calcium 7.4 mg/dl (8.6-10.3); Carbon Dioxide 17.0 mmol/L (21-32); Chloride 117.0 mmol/L (98-107); Creatinine Clr Calc Pharmacy 22.3 ml/min; Glucose 76.0 mg/dl (70-99(Fasting)); Magnesium 1.3 mg/dl (1.7-2.4); Potassium 3.3 mmol/L (3.5-5.1); Sodium 142.0 mmol/L (136-145)
--- NOTE | 2024-12-10 07:47 | Hospitalist Progress Note ---
Date of Service December 10, 2024 Assessment & Plan (1) Colitis: (2) Hypertension: (3) Aspergillus pneumonia: (4) Esophageal obstruction: (5) Stage 3b chronic kidney disease: (6) Dyslipidemia: (7) Hypertension, benign: Plan The patient is an 89-year-old female who presented to the ED on 12/05/2024 w/ nausea/vomiting/diarrhea x 4 days found to have colitis C. diff Colitis, Leukocytosis: CT A/P showed colitis, recent admission earlier this month for similar symptoms Initially started treatment w/ IV Cipro/Flagyl given leukocytosis, likely infectious - WBC on admission 17K --> down to 9.3 K (normalized) on 12/09, 12k today C. difficile positive overnight and so cipro placed on hold and PO vanco started - 12/07 currently feels improved, less BM, however still with abd. discomfort and pain in all over her body - 12/08 - Currently pt reports feeling much better, still with loose BMs but improved, less abdominal discomfort - 12/09 - more frequent BMs now, says BM after any small PO intake. + abd. cramping. WBC normalized, Cr normalized - 12/10 more BMs w/ PO intake - will make pt NPO again for now. Pt afebrile, WBC 12K, Cr normal Dilated CBD: Recent MRCP completed, CBD dilated without evidence of stones At that time, GI did not recommend pursuing further testing as patient asymptomatic AYESHA on CKD: resolved -Baseline creatinine around 1.2, 2.56 on admission - currently Cr 1 -likely secondary to dehydration, receiving IV fluids cont. to closely monitor renal function Hx CAD/carotid stenosis: Continue aspirin/Brilinta - per pharmacy interaction of voriconazole and Brillinta. Discussed w/ pt's daughter on 12/08 - pt was switched to Brillinta just around 11/[address] Samano (vascular). Also pt is supposed to have surgery w/ Dr. Samano in next few days. Called Gabriela (Dr. Samano's PA) and discussed with - made her aware that surgery needs to be postponed as pt currently hospitalized w/ c. diff. Also discussed antiplt therapy - per Gabriela pt is not responding to plavix and that's why she was switched. Discussed poss. interaction w/ voriconazole - and this interaction is unclear --> Gabriela will further discuss w/ Dr. Samano and will adjust meds. Hx aspergillus: Continue home voriconazole; follow-up with pulm outpatient. Pt also follows w/ outpt ID - gets monthly levels checked. Malnutrition: Consult dietitian/nutrition Admission and Anticipated Discharge Date Admission Date: December 05, 2024 Subjective Pt seen in follow up of colitis C. diff toxin positive -> on PO vanco Was improving initially but now w/ po intake she is having again frequent stools Currently lying in bed in NAD, denies fever, chills, chest pain, shortness of breath, + abd. cramping and diarrhea. reportedly had some blood in stool last night, H&H stable Creatinine normalized Review of Systems Review of Systems: All systems reviewed & are unremarkable except as noted in Subjective Physical Exam Physical Exam: General: Thin elderly woman in NAD Eyes: PERRL,not pale, anicteric sclerae, EOM intact bilaterally ENMT: External ear and nose normal Respiratory: Not in resp distress, on room air, + mild crackles Cardiovascular: RRR S1 S2 Gastrointestinal (Abdomen): Abdomen is not distended, soft, +mild lower abd tenderness, + bowel sounds Musculoskeletal: No pedal edema, moves extremities Neurologic: Alert and oriented x 3, cooperative Psychiatric: Normal mood and affect Results & Data Results & Data Vital Signs (Past 12 Hours) Vital Signs Temp Pulse Resp BP Pulse Ox O2 Del Method 12/09/24 23:00 36.6 C 83 16 155/54 H 98 Room Air Laboratory Results 12/10/24 Range/Units 06:16 WBC 12.11 H (4.8-10.8) K/ul RBC 3.71 L (4.20-5.40) M/uL Hgb 11.3 L (12.0-16.0) g/dl Hct 34.5 L (37.0-47.0) % MCV 93.0 (80.0-100.0) fL MCH 30.5 (25.0-34.0) pg MCHC 32.8 (32.0-36.0) g/dL RDW Std Deviation 58.7 H (36.4-46.3) fL RDW Coeff of Montrell 17.2 H (11.5-14.5) % Plt Count 200 (130-400) K/uL MPV 10.2 (9.4-12.4) fL Sodium 142 (136-145) mmol/L Potassium 3.3 L (3.5-5.1) mmol/L Chloride 117 H (98-107) mmol/L Carbon Dioxide 17 L (21-32) mmol/L Anion Gap 8 (3-11) BUN 23 (6-23) mg/dl Creatinine 0.97 (0.6-1.2) mg/dl Est Cr Clr Drug Dosing 22.3 ml/min eGFR 56.56 BUN/Creatinine Ratio 23.7 H (10-20) Glucose 76 (70-99(Fasting)) mg/dl Calcium 7.4 L (8.6-10.3) mg/dl Phosphorus 3.4 (2.5-4.9) mg/dl Magnesium 1.3 L (1.7-2.4) mg/dl Medications Administered Current Inpatient Medications Acetaminophen (Acetaminophen 325 Mg Tab) 650 mg PO Q4H PRN PRN Reason: pain/fever Stop: 01/04/25 21:12 Last Admin: 12/09/24 08:43 Dose: 650 mg Aspirin (Aspirin 81 Mg Ectab) 81 mg PO DAILY [facility] Stop: 01/05/25 08:59 Last Admin: 12/09/24 08:39 Dose: 81 mg Clopidogrel Bisulfate (Clopidogrel Bisulfate 75 Mg Tab) 75 mg PO QAM [facility] Stop: 01/08/25 08:59 Last Admin: 12/09/24 08:40 Dose: 75 mg Dorzolamide HCl (Dorzolamide Hcl 2% Oph Soln 10 Ml Btl) 1 drops OPB [facility] Stop: 01/04/25 21:12 Last Admin: 12/09/24 21:18 Dose: 1 drops Famotidine (Famotidine 10 Mg Tablet) 10 mg PO DAILY [facility] Stop: 01/05/25 08:59 Last Admin: 12/09/24 08:41 Dose: 10 mg Fluticasone/Vilanterol (Fluticasone/Vilanterol 200/25mcg 14 Puffs/Inhaler) 1 puffs INH DAILY [facility] Stop: 01/04/25 21:29 Last Admin: 12/09/24 08:43 Dose: 1 puffs Hydralazine HCl (Hydralazine Tab 50 Mg Tab) 50 mg PO BID [facility] Stop: 01/04/25 21:12 Last Admin: 12/09/24 21:20 Dose: 50 mg Metronidazole (Flagyl) 500 mg in 100 mls @ 100 mls/hr IV Q12H [facility]; Protocol Stop: 12/16/24 06:29 Last Infusion: 12/08/24 06:52 Dose: Infused Ciprofloxacin (Cipro / D5w) 400 mg in 200 mls @ 100 mls/hr IV Q24H [facility]; Protocol Stop: 12/10/24 18:29 Last Infusion: 12/06/24 20:11 Dose: Infused Potassium Chloride (K Attila / Wtr) 10 meq in 100 mls @ 100 mls/hr IV Q1H [facility] Stop: 12/10/24 09:44 Lactobacillus Acidophilus (Advanced Probiotic 625 Mg Capsule) 625 mg PO DAILY [facility] Stop: 01/05/25 08:59 Last Admin: 12/09/24 08:39 Dose: 625 mg Latanoprost (Latanoprost 0.005% Op Soln 2.5 Ml Btl) 1 drops OPB HS [facility] Stop: 01/04/25 21:12 Last Admin: 12/09/24 21:17 Dose: 1 drops Melatonin (Melatonin 3 Mg Tab) 3 mg PO HS PRN PRN Reason: Sleep Stop: 01/06/25 23:26 Last Admin: 12/09/24 21:28 Dose: 3 mg Metoprolol Tartrate (Metoprolol Tartrate 25 Mg Tab) 25 mg PO QAM [facility] Stop: 01/05/25 08:59 Last Admin: 12/09/24 08:21 Dose: 25 mg Mirtazapine (Mirtazapine Tab 15 Mg Tab) 7.5 mg PO HS [facility] Stop: 01/04/25 21:12 Last Admin: 12/09/24 21:18 Dose: 7.5 mg Pantoprazole Sodium (Pantoprazole 40 Mg Tab) 40 mg PO DAILY [facility] Stop: 01/06/25 08:59 Last Admin: 12/09/24 08:39 Dose: 40 mg Potassium Chloride (Potassium Chloride Pwd 20 Meq Pack) 20 meq PO QID [facility] Stop: 01/09/25 08:59 Potassium Phosphate (Pot Phosphate Monobasic W/ Sod Tab) 1 tab PO QID [facility] Stop: 01/07/25 14:29 Last Admin: 12/09/24 21:18 Dose: 1 tab Sertraline HCl (Sertraline Hcl 50 Mg Tablet) 50 mg PO QAM [facility] Stop: 01/05/25 08:59 Last Admin: 12/09/24 08:39 Dose: 50 mg Ticagrelor (Ticagrelor 90 Mg Tab) 90 mg PO Q12H [facility] Stop: 01/04/25 21:12 Last Admin: 12/09/24 21:19 Dose: 90 mg Vancomycin HCl (Vancomycin Hcl 125 Mg Cap) 125 mg PO Q6 [facility] Stop: 12/15/24 23:59 Last Admin: 12/10/24 05:56 Dose: 125 mg Vitamin D (Cholecalciferol 25 Mcg (1000 Units) Tab) 25 mcg PO DAILY [facility] Stop: 01/05/25 08:59 Last Admin: 12/09/24 08:39 Dose: 25 mcg Voriconazole (Voriconazole 200 Mg Tablet) 200 mg PO BID [facility] Stop: 01/07/25 20:59 Last Admin: 12/09/24 21:20 Dose: 200 mg
[2024-12-10] MEDS: POTASSIUM CHLORIDE PWD 20 MEQ PACK PO SCH (09:23)
[2024-12-10] MEDS: POTASSIUM CHLORIDE / WTR 10 MEQ/100 ML PLCT IV SCH (09:23)
[2024-12-10] MEDS: MAGNESIUM SULFATE / D5W 1 GM/100 ML BAG IV ONE (10:34)
--- NOTE | 2024-12-10 12:26 | Communication Note ---
Date of Service: December 10, 2024 Discussed this case with her Infectious Disease physician, Dr Wallace She recommended stopping her voriconazole and starting her back on ticagrelor. This can be done at time of discharge. Also she will need to be on a statin for her TCAR. Being that she will be back on her voriconazole at a later date after her TCAR, she would be best placed on Repatha at this time. The other statins do have possible adverse reactions with her antifungal. Dr Wallace will review her chart and call me back if there are any other recommendations or changes. Her Tcar will have to be postponed until she has recovered from her C.Diff colitis.
[2024-12-11 07:20] LABS: Hematocrit (blood only) 37.5 % (37.0-47.0); Hemoglobin 11.8 g/dl (12.0-16.0); Mean Corpuscular Hemoglobin 29.1 pg (25.0-34.0); Mean Corpuscular Volume 92.4 fL (80.0-100.0); Platelet Count 213 K/uL (130-400); RDW Standard Deviation 59.0 fL (36.4-46.3); Red Blood Count 4.06 M/uL (4.20-5.40); White Blood Count 12.90 K/ul (4.8-10.8)
[2024-12-11 08:31] LABS: Anion Gap 6.0 (3-11); Blood Urea Nitrogen 19.0 mg/dl (6-23); Calcium 8.0 mg/dl (8.6-10.3); Carbon Dioxide 16.0 mmol/L (21-32); Chloride 120.0 mmol/L (98-107); Creatinine Clr Calc Pharmacy 21.2 ml/min; Glucose 74.0 mg/dl (70-99(Fasting)); Magnesium 1.6 mg/dl (1.7-2.4); Potassium 5.3 mmol/L (3.5-5.1); Sodium 142.0 mmol/L (136-145)
--- NOTE | 2024-12-11 12:35 | Hospitalist Progress Note ---
Date of Service December 11, 2024 Assessment & Plan (1) Colitis: (2) Hypertension: (3) Aspergillus pneumonia: (4) Esophageal obstruction: (5) Stage 3b chronic kidney disease: (6) Dyslipidemia: (7) Hypertension, benign: Plan The patient is an 89-year-old female who presented to the ED on 12/05/2024 w/ nausea/vomiting/diarrhea x 4 days found to have colitis C. diff Colitis, Leukocytosis: -CT A/P showed colitis, recent admission earlier this month for similar symptoms -Completed a 10 day course of PO vanc on 11/26 -C. difficile positive and PO vanc was started 12/05 -Persistent diarrhea. no improvement on PO vanc Plan -Since she is not improving on PO vanc, will switch to dificid per current guidelines -Will ask GI to evaluate given her ongoing diarrhea -Advance diet as tolerated #AYESHA on CKD3: resolved -At baseline -Avoid nephrotoxic agents if possible #Hyperkalemia -Due to K supplementation -Hold KCl -Recheck in AM #Hypomagnesemia -Replace and follow Hx CAD/carotid stenosis: -Scheduled TCAR held due to c. diff -Vascular team is aware -Brilinta can be resumed on time of discharge and her voriconazole can be stopped per Dr Samano Hx aspergillus: Hold home voriconazole on discharge; follow-up with pulm outpatient. Pt also follows w/ outpt ID - gets monthly levels checked. #Dilated CBD: Recent MRCP completed, CBD dilated without evidence of stones At that time, GI did not recommend pursuing further testing as patient asymptomatic Malnutrition: Consult dietitian/nutrition I spent a total of 55 minutes coordinating, documenting, and providing care for this patient excluding time spent in the performance of separately billed [employer] es. This included personally reviewing all current laboratories and imaging studies, medical reconciliation, outpatient chart review and discussion with specialists Admission and Anticipated Discharge Date Admission Date: December 05, 2024 Subjective is c/o persistent diarrhea. non bloody. no abd pain. no other complaints. Physical Exam Physical Exam: Vitals and labs reviewed General: Well appearing, NAD HEENT: EOMI, PERRLA Neck: Supple Cardiac: RRR no rubs gallops or murmurs Lungs: CTA no rhonchi wheezing or rales Abd: S NT ND BS positive : Deffered MSK: Full ROM. No obvious deformities Ext: No Edema cyanosis Skin: Warm, Dry Neuro: AOx3 No focal deficits. Psych: Normal Mood Results & Data Results & Data Vital Signs (Past 12 Hours) Vital Signs Temp Pulse Resp BP Pulse Ox O2 Del Method 12/11/24 07:30 Room Air 12/11/24 07:00 36.5 C 91 H 16 184/71 H 97 Room Air Laboratory Results Abnormal lab results 12/11/24 Range/Units 05:26 WBC 12.90 H (4.8-10.8) K/ul RBC 4.06 L (4.20-5.40) M/uL Hgb 11.8 L (12.0-16.0) g/dl MCHC 31.5 L (32.0-36.0) g/dL RDW Std Deviation 59.0 H (36.4-46.3) fL RDW Coeff of Montrell 17.3 H (11.5-14.5) % Potassium 5.3 H D (3.5-5.1) mmol/L Chloride 120 H (98-107) mmol/L Carbon Dioxide 16 L (21-32) mmol/L Calcium 8.0 L (8.6-10.3) mg/dl Magnesium 1.6 L (1.7-2.4) mg/dl
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
[2024-12-11] MEDS: MAGNESIUM SULFATE / D5W 1 GM/100 ML BAG IV SCH (13:28)
[2024-12-11] MEDS: FIDAXOMICIN 200 MG TAB PO SCH (21:33)
[2024-12-12 06:11] LABS: Hematocrit (blood only) 36.2 % (37.0-47.0); Hemoglobin 11.5 g/dl (12.0-16.0); Mean Corpuscular Hemoglobin 29.3 pg (25.0-34.0); Mean Corpuscular Volume 92.1 fL (80.0-100.0); Platelet Count 216 K/uL (130-400); RDW Standard Deviation 58.3 fL (36.4-46.3); Red Blood Count 3.93 M/uL (4.20-5.40); White Blood Count 15.83 K/ul (4.8-10.8)
[2024-12-12 06:29] LABS: Anion Gap 7.0 (3-11); Blood Urea Nitrogen 23.0 mg/dl (6-23); Calcium 8.4 mg/dl (8.6-10.3); Carbon Dioxide 15.0 mmol/L (21-32); Chloride 118.0 mmol/L (98-107); Creatinine Clr Calc Pharmacy 18.9 ml/min; Glucose 87.0 mg/dl (70-99(Fasting)); Magnesium 2.1 mg/dl (1.7-2.4); Potassium 4.5 mmol/L (3.5-5.1); Sodium 140.0 mmol/L (136-145)
--- NOTE | 2024-12-12 10:13 | Hospitalist Progress Note ---
Date of Service December 12, 2024 Assessment & Plan (1) Colitis: (2) Hypertension: (3) Aspergillus pneumonia: (4) Esophageal obstruction: (5) Stage 3b chronic kidney disease: (6) Dyslipidemia: (7) Hypertension, benign: Plan The patient is an 89-year-old female who presented to the ED on 12/05/2024 w/ nausea/vomiting/diarrhea x 4 days found to have colitis #C. diff Colitis -CT A/P showed colitis, recent admission earlier this month for similar symptoms -Completed a 10 day course of PO vanc on 11/26 -C. difficile positive and PO vanc was started 12/05 -Persistent diarrhea. no improvement on PO vanc and switched to dificid on 12/11 -Great improvement in stool frequency over the past 24 hours Plan -Continue Dificid given her improvement -Appreciate GI input -Advance diet as tolerated #Dyspnea -New dyspnea today -No O2 requirements -Lungs with rhonchi in LLL -Worsening leukocytosis -Concern for possible PNA Plan -Check CXR -Monitor vitals -Recheck CBC in AM #AYESHA on CKD3: resolved -At baseline -Avoid nephrotoxic agents if possible #Hyperkalemia -Due to K supplementation -Hold KCl -Recheck in AM #Hypomagnesemia -Replace and follow Hx CAD/carotid stenosis: -Scheduled TCAR held due to c. diff -Vascular team is aware -Brilinta can be resumed on time of discharge and her voriconazole can be stopped per Dr Samano Hx aspergillus: Hold home voriconazole on discharge; follow-up with pulm outpatient. Pt also follows w/ outpt ID - gets monthly levels checked. #Dilated CBD: Recent MRCP completed, CBD dilated without evidence of stones At that time, GI did not recommend pursuing further testing as patient asymptomatic Malnutrition: Consult dietitian/nutrition I spent a total of 45 minutes coordinating, documenting, and providing care for this patient excluding time spent in the performance of separately billed services. This included personally reviewing all current laboratories and imaging studies, medical reconciliation, outpatient chart review and discussion with specialists Admission and Anticipated Discharge Date Admission Date: December 05, 2024 Subjective Stool frequency greatly improved. only one BM in the past 12 hours. new SOB, worse with exertion. no fevers chills coughing chest pain abd pain nvd. Called daughter sylvie but no answer, will try again tomorrow Physical Exam Physical Exam: Vitals and labs reviewed General: Well appearing, NAD HEENT: EOMI, PERRLA Neck: Supple Cardiac: RRR no rubs gallops or murmurs Lungs: Rhonchi in LLL. no wheez rales or distress Abd: S NT ND BS positive : Deffered MSK: Full ROM. No obvious deformities Ext: No Edema cyanosis Skin: Warm, Dry Neuro: AOx3 No focal deficits. Psych: Normal Mood Results & Data Results & Data Vital Signs (Past 12 Hours) Vital Signs Temp Pulse Resp BP Pulse Ox O2 Del Method 12/12/24 07:58 36.7 C 94 H 18 169/81 H 94 Room Air 12/12/24 00:07 36.5 C 79 16 174/75 H 97 Room Air Laboratory Results Abnormal lab results 12/12/24 Range/Units 05:32 WBC 15.83 H (4.8-10.8) K/ul RBC 3.93 L (4.20-5.40) M/uL Hgb 11.5 L (12.0-16.0) g/dl Hct 36.2 L (37.0-47.0) % MCHC 31.8 L (32.0-36.0) g/dL RDW Std Deviation 58.3 H (36.4-46.3) fL RDW Coeff of Montrell 17.2 H (11.5-14.5) % Chloride 118 H (98-107) mmol/L Carbon Dioxide 15 L (21-32) mmol/L BUN/Creatinine Ratio 20.2 H (10-20) Calcium 8.4 L (8.6-10.3) mg/dl
--- NOTE | 2024-12-12 10:32 | XRay Report ---
XR chest 1V portable CLINICAL HISTORY: new SOB, leukocytosis. rhonchi in L lung COMPARISON STUDY: 12/05/2024 FINDINGS: Heart size and pulmonary vasculature are normal. No consolidation or pleural effusion. No p neumothorax. Stable plate-screw fixation of a few bilateral ribs and old rib fractures. Stable old ri ght clavicle fracture. IMPRESSION: No pneumonia seen. ACT 112: Negative or not required by law. Electronically signed by: Dameon Murphy M.D. 12/12/2024 10:31 AM
--- NOTE | 2024-12-12 11:49 | Gastroenterology Progress Note ---
Date of Service December 12, 2024 Assessment & Plan (1) C. difficile colitis: Plan: Continue Dificid as patient is responding quite well to this. Continue to monitor WBC count. Continue diet as tolerated (low residue). Admission and Anticipated Discharge Date Admission Date: December 05, 2024 Supervising Physician Co-Signing Physician Notes Resolving C. difficile. Complete full course of Dificid. Potential risk for relapse. Agree with notes as outlined above. Subjective Patient is an 89 yo female with C diff. She is feeling much better on C diff. She notes her diarrhea has notably improved. She denies abdominal pain. She is pleased with her progress. Review of Systems Constitutional: no fever and no chills Gastrointestinal: + diarrhea/loose stools (improving); no abdominal pain Physical Exam Constitutional: well developed Respiratory: normal respiratory effort Gastrointestinal (Abdomen): normal bowel sounds, soft, nontender, no hepatosplenomegaly Psychiatric: Orientation: alert and oriented x 3 Results & Data Results & Data Vital Signs (Past 12 Hours) Vital Signs Temp Pulse Resp BP Pulse Ox O2 Del Method 12/12/24 07:58 36.7 C 94 H 18 169/81 H 94 Room Air 12/12/24 00:07 36.5 C 79 16 174/75 H 97 Room Air PG Care Time/CCT Total # of Minutes Spent Total Time Spent with Patient: Total time spent is greater than 50% in coordination of care (as documented) at patient's floor/unit and/or counseling patient: Coding Level of Care Code 02650 SUB INP/OBS CARE 2/35MIN Diagnoses C. difficile colitis A04.72
[2024-12-13 06:47] LABS: Hematocrit (blood only) 35.2 % (37.0-47.0); Hemoglobin 11.7 g/dl (12.0-16.0); Mean Corpuscular Hemoglobin 30.9 pg (25.0-34.0); Mean Corpuscular Volume 92.9 fL (80.0-100.0); Platelet Count 212 K/uL (130-400); RDW Standard Deviation 58.6 fL (36.4-46.3); Red Blood Count 3.79 M/uL (4.20-5.40); White Blood Count 17.86 K/ul (4.8-10.8)
[2024-12-13 07:14] LABS: Anion Gap 6.0 (3-11); Blood Urea Nitrogen 24.0 mg/dl (6-23); Calcium 8.5 mg/dl (8.6-10.3); Carbon Dioxide 17.0 mmol/L (21-32); Chloride 117.0 mmol/L (98-107); Creatinine Clr Calc Pharmacy 17.7 ml/min; Glucose 82.0 mg/dl (70-99(Fasting)); Potassium 4.3 mmol/L (3.5-5.1); Sodium 140.0 mmol/L (136-145)
--- NOTE | 2024-12-13 10:20 | CT Scan Report ---
CT chest diagnostic wo con CT DOSE: 199.65 mGy.cm CLINICAL HISTORY: high suspicion for PNA. CXR neg. TECHNIQUE: Multiaxial CT images of the chest were performed without contrast. A dose lowering techni que was utilized adhering to the principles of ALARA. COMPARISON STUDY: 06/16/2024 FINDINGS: There are mild airway secretions. There is minimal bronchiectasis. There is moderate emphys thomas. There is a stable groundglass and cystic nodule posterior right upper lobe measuring 2 cm. There are scattered small areas of reticular nodular and groundglass opacities throughout both lungs which are improved compared to the prior CT. This is consistent with recurrent or residual pneumonia. Larg est nodular density is posterior left lower lobe series 4 image 148 measuring 1.5 cm and anterior rig ht upper lobe measuring 1.2 cm image 81. There is no lobar consolidation or pleural effusion. No pneu mothorax. No enlarged adenopathy. No pericardial effusion. There are coronary artery and aortic calci fications. Stable moderate hiatal hernia. There are partially visualized cysts at the left upper kidn ey. There are moderate diffuse degenerative changes at the thoracic spine. Stable old rib fractures w ith plate screw fixation of the few bilateral ribs. IMPRESSION: Bilateral recurrent or residual pneumonia. Follow-up chest CT recommended in 3 months to make sure this resolves without underlying pulmonary nodule. ACT 112: Negative or not required by law. Electronically signed by: Dameon Murphy M.D. 12/13/2024 10:18 AM
[2024-12-13] MEDS ORDERED: VANCOMYCIN CONSULT ACTIVE PRN (11:25)
--- NOTE | 2024-12-13 11:27 | Hospitalist Progress Note ---
Date of Service December 13, 2024 Assessment & Plan (1) Colitis: (2) Hypertension: (3) Aspergillus pneumonia: (4) Esophageal obstruction: (5) Stage 3b chronic kidney disease: (6) Dyslipidemia: (7) Hypertension, benign: Plan The patient is an 89-year-old female who presented to the ED on 12/05/2024 w/ nausea/vomiting/diarrhea x 4 days found to have colitis #C. diff Colitis -CT A/P showed colitis, recent admission earlier this month for similar symptoms -Completed a 10 day course of PO vanc on 11/26 -C. difficile positive and PO vanc was started 12/05 -Persistent diarrhea. 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 diff -Vascular team is aware -Brilinta can be resumed on time of discharge and her voriconazole can be stopped per Dr Saamno Hx aspergillus: Hold home voriconazole on discharge; follow-up with pulm outpatient. Pt also follows w/ outpt ID - gets monthly levels checked. #Dilated CBD: Recent MRCP completed, CBD dilated without evidence of stones At that time, GI did not recommend pursuing further testing as patient asymptomatic Malnutrition: Consult dietitian/nutrition I spent a total of 55 minutes coordinating, documenting, and providing care for this patient excluding time spent in the performance of separately billed services. This included personally reviewing all current laboratories and imaging studies, medical reconciliation, outpatient chart review and discussion with specialists Admission and Anticipated Discharge Date Admission Date: December 05, 2024 Subjective Diarrhea has resolved. endorsing worsening SOB at rest and now a productive cough. long d/w daughter veena on phone today Physical Exam Physical Exam: Vitals and labs reviewed General: Well appearing, NAD HEENT: EOMI, PERRLA Neck: Supple Cardiac: RRR no rubs gallops or murmurs Lungs: Rhonchi in LLL. no wheez rales or distress Abd: S NT ND BS positive : Deffered MSK: Full ROM. No obvious deformities Ext: No Edema cyanosis Skin: Warm, Dry Neuro: AOx3 No focal deficits. Psych: Normal Mood Results & Data Results & Data Vital Signs (Past 12 Hours) Vital Signs Temp Pulse Resp BP Pulse Ox O2 Del Method O2 Flow Rate 12/13/24 07:05 Nasal Cannula 2 12/13/24 06:57 36.4 C L 79 18 148/56 H 95 Room Air Laboratory Results Abnormal lab results 12/13/24 Range/Units 06:04 WBC 17.86 H (4.8-10.8) K/ul RBC 3.79 L (4.20-5.40) M/uL Hgb 11.7 L (12.0-16.0) g/dl Hct 35.2 L (37.0-47.0) % RDW Std Deviation 58.6 H (36.4-46.3) fL RDW Coeff of Montrell 17.1 H (11.5-14.5) % Chloride 117 H (98-107) mmol/L Carbon Dioxide 17 L (21-32) mmol/L BUN 24 H (6-23) mg/dl Creatinine 1.22 H (0.6-1.2) mg/dl Calcium 8.5 L (8.6-10.3) mg/dl Diagnostic Findings Chest CT 12/13/24 08:43 CT chest diagnostic wo con CT DOSE: 199.65 mGy.cm CLINICAL HISTORY: high suspicion for PNA. CXR neg. TECHNIQUE: Multiaxial CT images of the chest were performed without contrast. A dose lowering technique was utilized adhering to the principles of ALARA. COMPARISON STUDY: 06/16/2024 FINDINGS: There are mild airway secretions. There is minimal bronchiectasis. There is moderate emphysema. There is a stable groundglass and cystic nodule posterior right upper lobe measuring 2 cm. There are scattered small areas of reticular nodular and groundglass opacities throughout both lungs which are improved compared to the prior CT. This is consistent with recurrent or residual pneumonia. Largest nodular density is posterior left lower lobe series 4 image 148 measuring 1.5 cm and anterior right upper lobe measuring 1.2 cm image 81. There is no lobar consolidation or pleural effusion. No pneumothorax. No enlarged adenopathy. No pericardial effusion. There are coronary artery and aortic calcifications. Stable moderate hiatal hernia. There are partially visualized cysts at the left upper kidney. There are moderate diffuse degenerative changes at the thoracic spine. Stable old rib fractures with plate screw fixation of the few bilateral ribs. IMPRESSION: Bilateral recurrent or residual pneumonia. Follow-up chest CT recommended in 3 months to make sure this resolves without underlying pulmonary nodule. ACT 112: Negative or not required by law. Electronically signed by: Dameon Murphy M.D. 12/13/2024 10:18 AM
--- NOTE | 2024-12-13 11:43 | Gastroenterology Progress Note ---
Date of Service December 13, 2024 Assessment & Plan (1) C. difficile colitis: Plan: Improved significantly. Complete 10 day course of Dificid. Monitor for relapse. Consider probiotic implementation. Admission and Anticipated Discharge Date Admission Date: December 05, 2024 Supervising Physician Co-Signing Physician Notes Seen at the bedside. Doing well. Finished full course of Dificid. Discussed risk of relapse. Stressed the importance of completing full course. Discussed good hand washing and hygiene. Subjective Patient is an 89 yo female with C diff. She is feeling quite well. She had a formed bowel movement yesterday. She notes no further diarrhea. She has no abdominal pain. She denies further concerns. Review of Systems Constitutional: no fever and no chills Respiratory: no cough and no dyspnea Cardiovascular: no chest pain Gastrointestinal: no abdominal pain, no diarrhea/loose stools and no blood in stools Physical Exam Gastrointestinal (Abdomen): normal bowel sounds, soft, nontender, no hepatosplenomegaly Results & Data Results & Data Vital Signs (Past 12 Hours) Vital Signs Temp Pulse Resp BP Pulse Ox O2 Del Method O2 Flow Rate 12/13/24 07:05 Nasal Cannula 2 12/13/24 06:57 36.4 C L 79 18 148/56 H 95 Room Air PG Care Time/CCT Total # of Minutes Spent Total Time Spent with Patient: Total time spent is greater than 50% in coordination of care (as documented) at patient's floor/unit and/or counseling patient: Coding Level of Care Code 06398 SUB INP/OBS CARE 2/35MIN Diagnoses C. difficile colitis A04.72
[2024-12-13] MEDS: CEFEPIME 1000MG 1,000 MG/10 ML SYR IV SCH (12:43)
[2024-12-13] MEDS: VANCOMYCIN HCL / NSS 1,000 MG/270 ML BAG IV ONE (12:45)
--- NOTE | 2024-12-13 13:28 | Pharmacy Report ---
Pharmacy PK ABX Note - Date of Service December 13, 2024 - Assessment and Plan Assessment 89 year old F receiving vancomycin and cefepime for treatment of HAP. New dyspnea and productive cough with increased [address] of chest showed residual/recurrent multifocal ground glass opacities. Of note patient has known pulmonary aspergillus so unclear if findings consistent with this or if new HAP. * Worsening leukocytosis (WBC 17.9 today), procalcitonin 1.73, AYESHA (SCr has been rising and is 1.22 today), and afebrile * MRSA nasal swab results are pending Day # 1 of antimicrobial therapy. Plan Vancomycin * Loading dose: 1000 mg IV x 1 * Further dosing will be based on vancomycin levels due to an AYESHA, small body habitus, and advanced age * Random level ordered for: 12/14 with morning labs Cefepime 1gm iv q 12hours. Pharmacy will continue to follow and will adjust dose/frequency as necessary. Thank you. Pharmacy has transitioned to AUC monitoring for vancomycin. AUC/KIRSTEN is the preferred PK/PD target and is associated with decreased risk of nephrotoxicity compared to traditional trough targets.
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
[2024-12-13] MEDS: UMECLIDINIUM/VILANTEROL 62.5/25MCG 7 PUFFS/INHALER INH SCH (15:42)
[2024-12-14 05:02] LABS: Hematocrit (blood only) 33.0 % (37.0-47.0); Hemoglobin 10.6 g/dl (12.0-16.0); Mean Corpuscular Hemoglobin 29.6 pg (25.0-34.0); Mean Corpuscular Volume 92.2 fL (80.0-100.0); Platelet Count 201 K/uL (130-400); RDW Standard Deviation 56.8 fL (36.4-46.3); Red Blood Count 3.58 M/uL (4.20-5.40); White Blood Count 20.18 K/ul (4.8-10.8)
[2024-12-14 05:18] LABS: Anion Gap 7.0 (3-11); Blood Urea Nitrogen 32.0 mg/dl (6-23); Calcium 8.4 mg/dl (8.6-10.3); Carbon Dioxide 17.0 mmol/L (21-32); Chloride 115.0 mmol/L (98-107); Creatinine Clr Calc Pharmacy 17.0 ml/min; Glucose 85.0 mg/dl (70-99(Fasting)); Potassium 3.9 mmol/L (3.5-5.1); Sodium 139.0 mmol/L (136-145)
--- NOTE | 2024-12-14 09:23 | Pulmonology Progress Note ---
Date of Service December 14, 2024 Assessment & Plan (1) History of pneumonia: (2) SOB (shortness of breath) on exertion: Plan Impression: 89-year-old female with a history of Aspergillus isolated from the sputum status posttreatment with voriconazole admitted now with C. difficile colitis now having leukocytosis with elevated white blood cell count and elevated procalcitonin as well as some bronchitic symptoms. Recommendations: 1. Sputum culture including AFB culture pending. CT scan has demonstrated improvement. 2. I do not suspect the patient requires broad-spectrum antibiotics with cefepime/vancomycin and antifungal agent such as voriconazole. She is on room air. She is afebrile. Certainly her C. difficile colitis could account for her elevated procalcitonin and leukocytosis. Her CT scan demonstrates interval improvement compared to previous. Repeat Fungitell is pending. As these antibiotics were initiated by ID in the outpatient setting, would defer long- term management to them. 3. Continue supplemental oxygen as needed to keep saturations at or above 88%. 4. Do not see PFTs but there appears to be some emphysema identified on CT scan. No indication for steroids currently. Continue Anoro and as needed DuoNebs. From a pulmonary perspective, the patient appears to be doing well clinically. I do not see an indication to keep her in the hospital for pulmonary issues and I think she can be dismissed with outpatient follow-[facility] with [facility] and her infectious disease specialist. Admission and Anticipated Discharge Date Admission Date: December 05, 2024 Subjective Patient seen and examined. EMR reviewed. Patient states that her breathing is about the same. She is coughing but not really expectorating significant phlegm. No wheezing. She remains on room air. No chest pain or palpitations. Review of Systems 2 Review of Systems: All systems reviewed & are unremarkable except as noted in Subjective Physical Exam 2 Constitutional: + thin and + cachectic; no acute distres s Neck: trachea midline, no thyromegaly Respiratory: no respiratory distress, no labored breathing, no cough and not tachypneic Auscultation: + rhonchi and + wheezes; no crackles Cardiovascular: RRR, no murmur, no edema Gastrointestinal (Abdomen): normal bowel sounds, soft, nontender, no hepatosplenomegaly Musculoskeletal: Extremities: extremities normal to inspection Skin: no rashes, warm and dry Lymphatic: no cervical lymphadenopathy Results & Data Results & Data Vital Signs (Past 12 Hours) Vital Signs Temp Pulse Resp BP Pulse Ox O2 Del Method 12/14/24 07:00 36.4 C L 70 18 166/68 H 97 Room Air 12/13/24 22:31 36.6 C 80 16 156/60 H 96 Room Air Laboratory Results 12/14/24 04:36 12/14/24 04:36 Respiratory cultures pending Diagnostic Findings No new imaging PG Care Time/CCT Total # of Minutes Spent Total Time Spent with Patient: Total time spent is greater than 50% in coordination of care (as documented) at patient's floor/unit and/or counseling patient: Coding Level of Care Code 11104 SUB INP/OBS CARE 2/35MIN Diagnoses History of pneumonia Z87.01 SOB (shortness of breath) on exertion R06.02
--- NOTE | 2024-12-14 10:31 | Hospitalist Progress Note ---
Date of Service December 14, 2024 Assessment & Plan (1) Colitis: (2) Hypertension: (3) Aspergillus pneumonia: (4) Esophageal obstruction: (5) Stage 3b chronic kidney disease: (6) Dyslipidemia: (7) Hypertension, benign: Plan The patient is an 89-year-old female who presented to the ED on 12/05/2024 w/ nausea/vomiting/diarrhea x 4 days found to have colitis #C. diff Colitis -CT A/P showed colitis, recent admission earlier this month for similar symptoms -Completed a 10 day course of PO vanc on 11/26 -C. difficile positive and PO vanc was started 12/05 -Persistent diarrhea. 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 diff -Follow WBC since it continues to rise. Possibly re-check CT AP for abscess sabiha orrow if WBC increases again tomorrow -Continue cefepime for now. -If she remains in the hospital by Monday, will ask ID to weigh in. -Continue home voriconazole #AYESHA on CKD3: resolved -At baseline -Avoid nephrotoxic agents if possible -Follow #Hyperkalemia -resolved #Hypomagnesemia -Replace and follow Hx CAD/carotid stenosis: -Scheduled TCAR held due to c. diff -Vascular team is aware -Brilinta can be resumed on time of discharge and her voriconazole can be stopped per Dr Samano Hx aspergillus: Hold home voriconazole on discharge; follow-up with pulm outpatient. Pt also follows w/ outpt ID - gets monthly levels checked. #Dilated CBD: Recent MRCP completed, CBD dilated without evidence of stones At that time, GI did not recommend pursuing further testing as patient as ymptomatic Malnutrition: Consult dietitian/nutrition I spent a total of 52 minutes coordinating, documenting, and providing care for this patient excluding time spent in the performance of separately billed services. This included personally reviewing all current laboratories and imaging studies, medical reconciliation, outpatient chart review and discussion with specialists Admission and Anticipated Discharge Date Admission Date: December 05, 2024 Subjective Her breathing is improved today. No longer SOB. no cough no fever. Patient denies F/C, CP, palpitations, SOB, dyspnea, abd pain, N/V/D Physical Exam Physical Exam: Vitals and labs reviewed General: Well appearing, NAD HEENT: EOMI, PERRLA Neck: Supple Cardiac: RRR no rubs gallops or murmurs Lungs: Rhonchi in LLL. no wheez rales or distress Abd: S NT ND BS positive : Deffered MSK: Full ROM. No obvious deformities Ext: No Edema cyanosis Skin: Warm, Dry Neuro: AOx3 No focal deficits. Psych: Normal Mood Results & Data Results & Data Vital Signs (Past 12 Hours) Vital Signs Temp Pulse Resp BP Pulse Ox O2 Del Method 12/14/24 07:00 36.4 C L 70 18 166/68 H 97 Room Air 12/13/24 22:31 36.6 C 80 16 156/60 H 96 Room Air Laboratory Results Abnormal lab results 12/13/24 12/14/24 Range/Units 11:35 04:36 WBC 20.18 H (4.8-10.8) K/ul RBC 3.58 L (4.20-5.40) M/uL Hgb 10.6 L (12.0-16.0) g/dl Hct 33.0 L (37.0-47.0) % RDW Std Deviation 56.8 H (36.4-46.3) fL RDW Coeff of Montrell 16.8 H (11.5-14.5) % Chloride 115 H (98-107) mmol/L Carbon Dioxide 17 L (21-32) mmol/L BUN 32 H (6-23) mg/dl Creatinine 1.27 H (0.6-1.2) mg/dl BUN/Creatinine Ratio 25.2 H (10-20) Calcium 8.4 L (8.6-10.3) mg/dl Procalcitonin 1.73 H (0-0.5) ng/ml
[2024-12-14] MEDS: ALBUT/IPRATROP 3MG/0.5MG NEB 3 ML VIAL NEB PRN (20:50)
[2024-12-15 07:47] VITALS: PULSE 79; RESP 18; TEMP 97.3; O2SAT 98
[2024-12-15 08:03] LABS: Hematocrit (blood only) 35.2 % (37.0-47.0); Hemoglobin 11.2 g/dl (12.0-16.0); Mean Corpuscular Hemoglobin 29.5 pg (25.0-34.0); Mean Corpuscular Volume 92.6 fL (80.0-100.0); Platelet Count 174 K/uL (130-400); RDW Standard Deviation 56.8 fL (36.4-46.3); Red Blood Count 3.80 M/uL (4.20-5.40); White Blood Count 15.84 K/ul (4.8-10.8)
[2024-12-15 09:35] LABS: Anion Gap 10.0 (3-11); Blood Urea Nitrogen 36.0 mg/dl (6-23); Calcium 8.4 mg/dl (8.6-10.3); Carbon Dioxide 16.0 mmol/L (21-32); Chloride 114.0 mmol/L (98-107); Creatinine Clr Calc Pharmacy 17.1 ml/min; Glucose 195.0 mg/dl (70-99(Fasting)); Potassium 3.1 mmol/L (3.5-5.1); Sodium 140.0 mmol/L (136-145)
[2024-12-15] MEDS: POTASSIUM CHLORIDE CRTAB 20 MEQ TABCR PO STA (09:59)
--- NOTE | 2024-12-15 10:03 | Discharge Summary ---
Discharge Summary Date of Service December 15, 2024 Principal Dx & Hospital Course #1 = Principal Diagnosis (1) Colitis: (2) Hypertension: (3) Aspergillus pneumonia: (4) Esophageal obstruction: (5) Stage 3b chronic kidney disease: (6) Dyslipidemia: (7) Hypertension, benign: Plan The patient is an 89-year-old female who presented to the ED on 12/05/2024 w/ nausea/vomiting/diarrhea x 4 days found to have colitis. She was recently treated for C. diff colitis with Po vanc. Symptoms returned and repeat CT AP showed colitis again. C. diff panel was positive. She was on PO vanc again but after a week of vanc here, she still had recurrent diarrhea. She was then switched to dificid on 12/11 and GI was consulted. Her diarrhea quickly resolved. Around 12/12, she developed new shortness of breath and cough. CXR negative but CT chest showed residual/recurrent multifocal ground glass opacities. Pulm was consulted due to her history of aspergillus. MRSA negative. Sputum culture grew normal snehal. Pulm recommended stopping antibiotics. Her leukocytosis improved today and she is adamant on being discharged. Due to her recurrent C. diff, lack of O2 requirements and stable/imrpvoed CT findings, will stop antibiotics. She was scheduled to have TACR by vascular but this is delayed due to C. diff. Prior to her new shortness of breath, the plan was to hold voriconazole so that brilinta can be started however advised her to call her ID physician tomorrow (monday) to discuss if it is still ok to hold vorizonazole given her new shortness of breath. Fungitel labs were ordered by pulm and are still pending at time of discharge. In the meantime, she will remain on plavix until she is able to be switched to brilinta. Vitals and labs are stable for DC home today. She has been on room air. Her BP regimen has been adjusted. D/w daughter on phone who agrees with plan. #C. diff Colitis -CT A/P showed colitis, recent admission earlier this month for similar symptoms -Completed a 10 day course of PO vanc on 11/26 -C. difficile positive and PO vanc was started 12/05 -Persistent diarrhea. 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 -Continue home voriconazole #AYESHA on CKD3: resolved -At baseline -Avoid nephrotoxic agents if possible -Follow #Hyperkalemia -resolved -Now with hypokalemia- replaced #Hypomagnesemia -Replace and follow Hx CAD/carotid stenosis: -Scheduled TCAR held due to c. diff -Vascular team is aware -Plavix as above until her vorizonazole can be held by her ID team #Dilated CBD: Recent MRCP completed, CBD dilated without evidence of stones At that time, GI did not recommend pursuing further testing as patient asymptomatic Malnutrition: Consult dietitian/nutrition I spent a total of 55 minutes coordinating, documenting, and providing care for this patient excluding time spent in the performance of separately billed services. This included personally reviewing all current laboratories and imaging studies, medical reconciliation, outpatient chart review and discussion with specialists Notes For Next Care Provider Medication Changes From Visit Norvas added Hydralazine dose increased Dificid through 12/20 Voriconazole continued as above until her ID team can review Plavix resumed until brilinta can be started Admission HPI Per Admitting Provider Patient m admitted here back in 11/18/2024 with a colitis. She was gene positive but toxin negative at that time. Patient was treated with antibiotics Cipro and Flagyl. Symptoms appeared to improve. She was discharged home and returns now with at least a week or more of worsening diarrhea. Some dehydration on admission. She is now gene and toxin positive. Patient received approximately 48 hours of oral vancomycin. She is now been switched to Dificid. Finds her symptoms are unchanged. White count however is decreasing. There is a history of Crohn's disease and a daughter. No other family members with IBD. Patient has history of multiple antibodies. Somewhat unexplained is new dilation of her common bile duct. Patient has been relatively asymptomatic from this. Liver tests have been mostly normal other minimal elevated alkaline phosphatase. Suggest repeat at this time. MRCP did not show tumor or stones papillary stenosis was raised as a possibility. Patient currently sitting at the edge of the bed. Some shortness of breath. Comorbidities including COPD aspergillosis pneumonia CKI stage IIIb hypertension and history of nicotine use Discharge Exam Vitals and labs reviewed General: frail NAD HEENT: EOMI, PERRLA Neck: Supple Cardiac: RRR no rubs gallops or murmurs Lungs: CTA no rhonchi wheezing or rales Abd: S NT ND BS positive : no killian MSK: Full ROM. No obvious deformities Ext: No Edema cyanosis Skin: Warm, Dry Neuro: AOx3 No focal deficits. Psych: Normal Mood Updated Medication List Medication Instructions Recorded Confirmed Type dorzolamide 2 % eye drops 1 drops OPB AMHS 10/29/18 12/05/24 History latanoprost 0.005 % eye drops 1 drops OPB HS 10/29/18 12/05/24 History sertraline 50 mg tablet 50 mg PO QAM #30 tabs 10/29/18 12/05/24 History metoprolol tartrate 25 mg tablet 25 mg PO QAM 05/27/19 12/05/24 History hydralazine 50 mg tablet 50 mg PO BID 09/27/21 12/05/24 History albuterol sulfate 90 mcg/actuation 2 puff inhalation Q6 PRN Dyspnea 06/16/24 0 12/05/24 History aerosol inhaler fluticasone 250 mcg-salmeterol 50 1 inh inhalation AMHS 06/16/24 12/05/24 History mcg/dose blistr powdr for inhalation Calcium/Magnesium/Vitamin D3 1 tab PO DAILY 11/15/24 12/05/24 History acetaminophen 325 mg tablet 325 mg PO Q4H PRN Pain 11/15/24 12/05/24 History (Tylenol) albuterol sulfate 0.63 mg/3 mL 0.63 mg inhalation Q6H PRN 11/15/24 12/05/24 History solution for nebulization Shortness Of Breath Or Wheezing alendronate 70 mg tablet 70 mg PO WK 11/15/24 12/05/24 History cholecalciferol (vitamin D3) 25 25 mcg PO DAILY 11/15/24 12/05/24 History mcg (1,000 unit) capsule (Vitamin D3) famotidine 20 mg tablet 20 mg PO BID 11/15/24 12/05/24 History ferrous fumarate 324 mg (106 mg 324 mg PO DAILY 11/15/24 12/05/24 History iron) tablet magnesium 250 mg tablet 250 mg PO DAILY 11/15/24 12/05/24 History mirtazapine 7.5 mg tablet 7.5 mg PO HS 11/15/24 12/05/24 History voriconazole 200 mg tablet 200 mg PO BID 11/15/24 12/05/24 History potassium chloride 15 mEq 15 meq PO DAILY #90 tabs 11/26/24 12/05/24 Rx tablet,extended release(part/cryst) (Klor-Con M) ticagrelor 90 mg tablet 90 mg PO Q12H 12/04/24 12/05/24 History Lactobacillus acidophilus 10 10,000 mmu cells PO DAILY 12/05/24 12/05/24 History billion cell capsule (Probiotic) aspirin 81 mg tablet,delayed 81 mg PO DAILY 12/05/24 12/05/24 History release clopidogrel 75 mg tablet (Plavix) 75 mg PO DAILY 12/05/24 12/05/24 History pantoprazole 40 mg tablet,delayed 40 mg PO DAILY 12/05/24 12/05/24 History release amlodipine 5 mg tablet 5 mg PO QAM 30 days #30 tabs 12/15/24 Rx fidaxomicin 200 mg tablet (Dificid) 200 mg PO BID 5 days #10 tabs 12/15/24 Rx hydralazine 50 mg tablet 100 mg (2 x 50 mg) PO BID 30 days 12/15/24 Rx #120 tabs Hospital Stay Data Consultations 12/11/24 12:26 Consult Gastroenterology Routine 12/13/24 11:36 Consult Pulmonology Routine Diagnostic Imagining Performed 12/05/24 16:03 CT abd pelvis wo con Stat 12/13/24 08:43 CT chest diagnostic wo con Urgent Pending Results Patient Have Any Pending Studies at Discharge: Yes Discharge Instructions Given to Patient (Per Discharging Provider) Continue taking dificid through 12/20. Please call your infectious disease doctor, Dr Wallace, tomorrow to update on your hospitalization and see if there are any other recommendations. There is no infectious disease support here over the weekend. Dr Wallace can decide if you are to stop taking the voriconazole. If you develop fever, worsening shortness of breath, cough, abdominal pain, diarrhea, please return to ED immediately. Please call and follow up with Dr Samano. Your TCAR will be delayed due to the C. diff. The initial plan was to hold your voriconazole so brilinta can be started however given your new breathing problems, Your voriconazole will be continued until your infectious disease doctor can review your hospitalization. Total Time Total Time Spent Total Time Spent (In Minutes): 55
[2024-12-15 12:05] VITALS: BP 151/73
--- NOTE | 2024-12-16 12:16 | Coding Query ---
CODING QUERY To promote full compliance with coding requirements relating to patient care, provider participation is requested in all cases of chief construction inspector uncertainty. Please assist us with the question(s) below: Coding Question(s): There is documentation starting on the 12/12 Progress Note of new dypnea, worsening leukocytosis, and concern for a possible PNA, and on the 12/13 Progress Note also of productive cough, now requiring 2L NC, and, " Unclear if this is new HCAP vs chronic findings from her aspergillus", and, "Start empiric Vanc/cefepime for HCAP for now", and, as of the Discharge Summary, there is documentation of, "Around 12/12, she developed new shortness of breath and cough. CXR negative but CT chest showed residual/recurrent multifocal ground glass opacities. Pulm was consulted due to her history of aspergillus. MRSA negative. Sputum culture grew normal snehal. Pulm recommended stopping antibiotics. 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 -Continue home voriconazole". Please specify below, in your clinical opinion, regarding new HCAP: ( ) Possible new HCAP was treated and/or monitored during this admissin ( x ) Possible new HCAP was Ruled-Out Physician's Response(s): Thank you Yanet Anthony Principal Diagnosis: "that condition established after study, to be chiefly responsible for occasioning the admission of the patient to the hospital for care." Co-Existing Principal Diagnosis: "when two or more diagnoses equally meet the criteria for principal diagnosis as determined by the circumstances of admission, diagnostic work up, and/or therapy provided, and the Alphabetic Index, Tabular List, or another coding guideline does not provide sequencing direction, any one of the diagnoses may be sequenced first." "When the physician has documented what appears to be a current diagnosis in the body of the record, but has not included the diagnosis in the final diagnostic statement, the physician should be asked whether the diagnosis should be added." (Source [facility] 2 QTR90. p3-4) ASIF
--- NOTE | 2024-12-16 12:17 | Coding Query ---
MALNUTRITION To promote full compliance with coding requirements relating to patient care, physician participation is requested in all cases of scraper burrer uncertainty. Please assist us with the question(s) below: Please place an X within the parenthesis (x). If other, please document: "Malnutrition" is documented in this record. If possible, please check the box that provides a more specific diagnosis: ( ) Mild malnutrition ( ) Moderate malnutrition ( ) Severe malnutrition ( ) Protein malnutrition (kwashiorkor) ( ) Severe protein calorie malnutrition (x ) Protein calorie malnutrition, unspecified ( ) Other (please specify): Thank you Yanet Anthony [facility]
[2024-12-18 18:27] LABS: Fungitell (1-3)-B-D-Glucan <31 pg/mL (<60); Fungitell Interpretation Negative
== END 2024-12-15 13:25 | disposition home or self-care (01) | DRG 372 ==
LOC: ED 15:43 → 3E 18:53 → SUATTDRO 18:53 → 3E 20:37

== ENCOUNTER 2024-12-30 11:30 | Inpatient (IN) ==
[2024-12-30 12:31] LABS: Hematocrit (blood only) 41.7 % (37.0-47.0); Hemoglobin 12.7 g/dl (12.0-16.0); Immature Granulocytes # (auto) 0.05 K/uL (0.01-0.20); Immature Granulocytes % (auto) 0.5 %; Mean Corpuscular Hemoglobin 29.4 pg (25.0-34.0); Mean Corpuscular Volume 96.5 fL (80.0-100.0); Platelet Count 161 K/uL (130-400); RDW Standard Deviation 53.9 fL (36.4-46.3); Red Blood Count 4.32 M/uL (4.20-5.40); White Blood Count 10.19 K/ul (4.8-10.8)
[2024-12-30 12:49] LABS: Alanine Aminotransferase 7.0 U/L (7-52); Albumin Globulin Ratio 1.2 (0.9-2); Albumin Level 3.8 gm/dl (3.4-5.0); Alkaline Phosphatase 206.0 U/L (34-104); Anion Gap 9.0 (3-11); Bilirubin,Total 0.4 mg/dl (0.2-1.0); Blood Urea Nitrogen 34.0 mg/dl (6-23); Calcium 9.0 mg/dl (8.6-10.3); Carbon Dioxide 18.0 mmol/L (21-32); Chloride 112.0 mmol/L (98-107); Creatinine Clr Calc Pharmacy 14.9 ml/min; Globulin 3.3 gm/dl (2.5-4.0); Glucose 138.0 mg/dl (70-99(Fasting)); Potassium 3.6 mmol/L (3.5-5.1); Sodium 139.0 mmol/L (136-145); Total Protein 7.1 gm/dl (6.0-8.3)
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
[2024-12-30 12:57] LABS: Influenza A virus by PCR Negative (Neg); Influenza B virus by PCR Negative (Neg); SARS CoV2 RNA(COVID-19) Ceph NEGATIVE (Negative)
[2024-12-30 13:00] LABS: INR 1.0 (0.9-1.1); Partial Thromboplastin Time 25 Seconds (21-31); Prothrombin Time 10.9 Seconds (9.0-12.0)
--- NOTE | 2024-12-30 13:20 | XRay Report ---
XR chest 1V portable HISTORY: 89 years-old Female Chest pain, nonspecific COMPARISON: Chest CT 12/13/2024 TECHNIQUE: AP view of the chest FINDINGS: Cardiac mediastinal and hilar silhouettes are unchanged. There is mild chronic interstitial coarsenin g. Bilateral rib ORIF changes redemonstrated with chronic fractured ribs. Atherosclerosis of the aort a. Mild chronic interstitial coarsening. No pneumothorax, pleural effusion or airspace consolidation typical for pneumonia. IMPRESSION: 1. No airspace consolidation typical for pneumonia. 2. Chronic findings as above. ACT 112: Negative or not required by law. The above report was generated using voice recognition software. It may contain grammatical, syntax o r spelling errors. Electronically signed by: Wm Martinez M.D. 12/30/2024 1:18 PM
--- NOTE | 2024-12-30 14:17 | CT Scan Report ---
CT OF THE ABDOMEN AND PELVIS WITHOUT CONTRAST CLINICAL HISTORY: diffuse lower abd pain, diarrhea COMPARISON STUDY: 12/05/2024 TECHNIQUE: Axial images of the abdomen and pelvis were obtained without IV contrast. Images were revi ewed in the axial, sagittal, and coronal planes. Automated exposure control was utilized for the isa dy. A dose lowering technique was utilized adhering to the principles of ALARA. FINDINGS: Lung bases: There is a moderate hiatal hernia. The appearance of the distal esophagus raises the poss ibility of a prior fundoplication. Within the lung bases there are bilateral patchy subpleural ground glass opacities. These are slightly more pronounced on the prior study. Liver: There is a stable 4 mm left lobe hepatic hypodensity likely representing a cyst. There is no d uctal dilatation. Gallbladder: No gallstones are visualized. Spleen: No splenic masses are identified on this noncontrast study Pancreas: There is no pancreatic ductal dilatation. No pancreatic masses are visualized. There are mu ltiple calcifications in the region of the robert hepatis similar to the preceding study. Adrenal glands: There is mild stable adrenal gland thickening Kidneys: Multiple hyperdense left renal lesions are visualized measuring up to 34 mm in diameter. The re is a single 5 mm hyperdense right renal lesion. Multiple renal cysts are also visualized. The hype rdense lesions may represent hyperdense cysts. Abdominal vasculature: There are extensive aortic and iliac atheromatous calcifications. Bowel: There are no transition zones to indicate bowel obstruction. There is scattered fluid-filled b owel loops. There is colonic diverticulosis without evidence of significant peridiverticular inflamma tory change. There is no pneumatosis. The appendix is not clearly visualized. Peritoneum: There is no free intraperitoneal air. There is no ascites Lymphadenopathy: There is no pathologic abdominal or pelvic lymphadenopathy. Pelvic viscera: The uterus is not clearly visualized. There are no pathologic adnexal masses. No wilbert dder lesions are visualized. Skeletal structures: No destructive skeletal lesions are visualized. There is artifact from a total r ight hip arthroplasty. IMPRESSION: 1. Slight progression in the scattered bilateral groundglass pulmonary opacities likely infectious/in flammatory 2. Bilateral renal cysts and stable hyperdense left renal lesions possibly representing hyperdense cy sts. 3. Fluid-filled bowel loops but no evidence of bowel obstruction. No evidence of free air 4. Colonic diverticulosis. No evidence of acute diverticulitis 5. Extensive atheromatous calcifications. 6. Hiatal hernia ACT 112: Negative or not required by law. Electronically signed by: Kade Bui M.D. 12/30/2024 2:16 PM
[2024-12-30 17:23] LABS: Adenovirus F 40/41 PCR Not Detected (NotDetected); Campylobacter PCR Not Detected (NotDetected); Enteroaggregative E.coli(EAEC) Not Detected (NotDetected); Shiga-like Toxin E.coli (STEC) Not Detected (NotDetected); Vibrio species PCR Not Detected (NotDetected)
[2024-12-30 18:03] LABS: Cdiff Toxin B Gene (2yr or >) Positive Cdiff Gene (Neg)
[2024-12-30 18:12] LABS: Cdiff Toxin A+B Positive Cdiff Toxin (Negative)
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
[2024-12-30] MEDS ORDERED: ONDANSETRON INJ 2 MG/ML 2 ML VIAL IV PRN (21:04)
[2024-12-30] MEDS: guaiFENesin 600 MG TABCR PO SCH (22:33)
[2024-12-30] MEDS: DORZOLAMIDE HCL 2% OPH SOLN 10 ML BTL OPB SCH (22:34)
[2024-12-30] MEDS: TICAGRELOR 90 MG TAB PO SCH (22:35)
[2024-12-30] MEDS: MIRTAZAPINE TAB 15 MG TAB PO SCH (22:35)
[2024-12-30] MEDS: LATANOPROST 0.005% OP SOLN 2.5 ML BTL OPB SCH (22:35)
[2024-12-30] MEDS: SODIUM CHLORIDE 0.9% 1,000 ML IV SCH (22:39)
[2024-12-30] MEDS: FAMOTIDINE 20 MG TAB PO SCH (22:39)
[2024-12-30] MEDS: VANCOMYCIN HCL 125 MG CAP PO SCH (23:32)
[2024-12-31 07:15] LABS: Hematocrit (blood only) 33.0 % (37.0-47.0); Hemoglobin 10.8 g/dl (12.0-16.0); Mean Corpuscular Hemoglobin 30.9 pg (25.0-34.0); Mean Corpuscular Volume 94.6 fL (80.0-100.0); Platelet Count 156 K/uL (130-400); RDW Standard Deviation 52.0 fL (36.4-46.3); Red Blood Count 3.49 M/uL (4.20-5.40); White Blood Count 12.28 K/ul (4.8-10.8)
[2024-12-31 07:31] LABS: Alanine Aminotransferase 5.0 U/L (7-52); Albumin Globulin Ratio 1.1 (0.9-2); Albumin Level 3.0 gm/dl (3.4-5.0); Alkaline Phosphatase 148.0 U/L (34-104); Anion Gap 8.0 (3-11); Bilirubin,Total 0.4 mg/dl (0.2-1.0); Blood Urea Nitrogen 29.0 mg/dl (6-23); Calcium 8.4 mg/dl (8.6-10.3); Carbon Dioxide 16.0 mmol/L (21-32); Chloride 114.0 mmol/L (98-107); Creatinine Clr Calc Pharmacy 18.3 ml/min; Globulin 2.7 gm/dl (2.5-4.0); Glucose 78.0 mg/dl (70-99(Fasting)); Potassium 3.8 mmol/L (3.5-5.1); Sodium 138.0 mmol/L (136-145); Total Protein 5.7 gm/dl (6.0-8.3)
[2024-12-31] MEDS ORDERED: POTASSIUM CHLORIDE 10 MEQ TABCR PO SCH (09:00)
--- NOTE | 2024-12-31 11:06 | Hospitalist Progress Note ---
Date of Service December 31, 2024 Assessment & Plan (1) C. difficile colitis: Plan: Patient is 89 year old female with PMH HTN, HLD, carotid stenosis, CAD, CKD IV, COPD, Aspergillus pneumonia, iron deficiency anemia, depression, and others listed below presented to ER with complaint of diarrhea times couple of days. Recently finished course vancomycin on 11/26/2024 for c-diff. Had Recurrent history of hospitalization 12/05/2024-12/16/2024 for C. difficile colitis initially treated with oral vancomycin and then switched to Dificid on 12/11/2024 with improvement of symptoms on Dificid. Unfortunately Dificid was not available at pharmacies and patient was discharged on vancomycin x 5 days. Had recurrent diarrhea 5-7 episodes past couple of days #Recurrent C. diff -First episode completed 10 days of PO Vanc -Second episode failed to improve after 6 days of PO vanc and did improve with dificid -Unable to prescribe dificid on discharge so was switched to PO vanc -Diarrhea recurred about 2 days prior to this admission Plan -At this point will ask ID for their expertise -Continue PO vanc for now -She might need fecal transplant as OP -Resume diet #Pulmonary aspergillus -Follows with ID as OP. Her home voriconazole was held by ID as she needed to be on brilinta for her carotid disease -She was followed by pulm during last admission with relatively stable CT chest -No current O2 requirements #HTN Continue hydralazine, metoprolol tartrate #CKD III-IV Cr: 1.39, was 1.26 on 12/15 after AYESHA during that admission Monitor renal functions, avoid nephrotoxic agents when possible #CAD # Carotid stenosis Was scheduled TCAR with Dr Samano however it has been on hold secondary to c. diff. Will need to notify vascular team in the am as pt reports procedure scheduled for 12/31/24. Was on Plavix while was on voriconazole, however now off voriconazole. Continue Brilinta Her statin has been on hold by PCP for elevated LFTs #Dilated CBD: Had recent MRCP completed, CBD dilated without evidence of stones and GI had not recommend pursuing further testing as patient asymptomatic DVT Prophylaxis SCDs for now Admit med tele Full Code as per discussion with pt Follows with Dr Pastrana for routine care Pt was seen and care coordinated with Dr Giraldo. See addendum I spent a total of 62 minutes coordinating, documenting, and providing care for this patient excluding time spent in the performance of separately billed services. This included personally reviewing all current laboratories and imaging studies, medical reconciliation, outpatient chart review and discussion with specialists Admission and Anticipated Discharge Date Admission Date: December 30, 2024 Subjective Feeling better today. Still with diarrhea however. she denies any other complaints. she is hungry Physical Exam Physical Exam: Vitals and labs reviewed General: elderly appearing. frail. malnourished in NAD HEENT: EOMI, PERRLA Neck: Supple Cardiac: RRR no rubs gallops or murmurs Lungs: CTA no rhonchi wheezing or rales Abd: S NT ND BS positive : Deffered MSK: Full ROM. No obvious deformities Ext: No Edema cyanosis Skin: Warm, Dry Neuro: AOx3 No focal deficits. Psych: Normal Mood Results & Data Results & Data Vital Signs (Past 12 Hours) Vital Signs Temp Pulse Pulse Resp BP BP Pulse Ox 12/31/24 08:30 36.7 C 97 H 16 156/54 H 95 12/31/24 07:45 96 H 12/31/24 01:50 36.7 C 105 H 16 179/70 H 96 O2 Del Method 12/31/24 08:30 Room Air 12/31/24 07:45 12/31/24 01:50 Room Air Laboratory Results Abnormal lab results 12/30/24 12/30/24 12/31/24 Range/Units 12:05 15:53 06:48 WBC 12.28 H (4.8-10.8) K/ul RBC 3.49 L (4.20-5.40) M/uL Hgb 10.8 L (12.0-16.0) g/dl Hct 33.0 L (37.0-47.0) % MCHC 30.5 L (32.0-36.0) g/dL RDW Std Deviation 53.9 H 52.0 H (36.4-46.3) fL RDW Coeff of Montrell 15.1 H 14.8 H (11.5-14.5) % Neut # (Auto) 8.38 H (1.40-6.50) K/uL Lymph # (Auto) 0.83 L (1.20-3.40) K/uL Irwin # (Auto) 0.79 H (0.11-0.59) K/uL Chloride 112 H 114 H (98-107) mmol/L Carbon Dioxide 18 L 16 L (21-32) mmol/L BUN 34 H 29 H (6-23) mg/dl Creatinine 1.39 H (0.6-1.2) mg/dl BUN/Creatinine Ratio 24.5 H 25.4 H (10-20) Glucose 138 H (70-99(Fasting)) mg/dl Calcium 8.4 L (8.6-10.3) mg/dl ALT 5 L (7-52) U/L Alkaline Phosphatase 206 H 148 H (34-104) U/L Total Protein 5.7 L (6.0-8.3) gm/dl Albumin 3.0 L (3.4-5.0) gm/dl Stl C. diff Tox B Gene Positive Cdiff Gene A (Neg) Stl C.difficile Tox A&B Positive Cdiff Toxin A* (Negative)
[2024-12-31] MEDS: CHOLECALCIFEROL 25 MCG (1000 UNITS) TAB PO SCH (12:27)
[2024-12-31] MEDS: FERROUS GLUCONATE 324 MG TAB PO SCH (12:27)
[2024-12-31] MEDS: ASPIRIN 81 MG ECTAB PO SCH (12:27)
[2024-12-31] MEDS: SERTRALINE HCL 50 MG TABLET PO SCH (12:27)
[2024-12-31] MEDS: METOPROLOL TARTRATE 25 MG TAB PO SCH (12:28)
[2024-12-31] MEDS: FLUTICASONE/VILANTEROL 200/25MCG 14 PUFFS/INHALER INH SCH (12:28)
[2024-12-31] MEDS: POTASSIUM CHLORIDE 10 MEQ TABCR PO SCH (12:32)
[2024-12-31] MEDS: ACETAMINOPHEN 325 MG TAB PO PRN (12:32)
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
--- NOTE | 2024-12-31 20:44 | Communication Note ---
Date of Service: December 31, 2024 Hematochezia as per RN. Patient without abdominal pain complaints. AP LGIB secondary to C. difficile colitis Continue antibiotic course Clear liquid diet H&H now, hold antiplatelet Rx until resulted
[2024-12-31 21:35] LABS: Hematocrit (blood only) 40.6 % (37.0-47.0); Hemoglobin 12.7 g/dl (12.0-16.0)
--- NOTE | 2025-01-01 06:00 | Electrocardiogram Report ---
Test Reason : Blood Pressure : */* mmHG Vent. Rate : 99 BPM Atrial Rate : 99 BPM P-R Int : 116 ms QRS Dur : 94 ms QT Int : 348 ms P-R-T Axes : * -30 109 degrees QTcB Int : 446 ms Poor data quality, interpretation may be adversely affected Normal sinus rhythm Left axis deviation Left ventricular hypertrophy with repolarization abnormality ( R in aVL , Renard product ) Cannot rule out Septal infarct , age undetermined Abnormal ECG When compared with ECG of 15-Nov-2024 17:08, Minimal criteria for Septal infarct are now Present Confirmed by Yves Patrick ([id number]) on 01/01/2025 6:00:27 AM Referred By: Confirmed By: Yves Patrick
[2025-01-01 06:44] LABS: Hematocrit (blood only) 34.2 % (37.0-47.0); Hemoglobin 10.7 g/dl (12.0-16.0); Mean Corpuscular Hemoglobin 29.6 pg (25.0-34.0); Mean Corpuscular Volume 94.5 fL (80.0-100.0); Platelet Count 183 K/uL (130-400); RDW Standard Deviation 52.0 fL (36.4-46.3); Red Blood Count 3.62 M/uL (4.20-5.40); White Blood Count 12.55 K/ul (4.8-10.8)
[2025-01-01 07:00] LABS: Anion Gap 11.0 (3-11); Blood Urea Nitrogen 26.0 mg/dl (6-23); Calcium 8.4 mg/dl (8.6-10.3); Carbon Dioxide 14.0 mmol/L (21-32); Chloride 113.0 mmol/L (98-107); Creatinine Clr Calc Pharmacy 16.3 ml/min; Glucose 89.0 mg/dl (70-99(Fasting)); Potassium 3.1 mmol/L (3.5-5.1); Sodium 138.0 mmol/L (136-145)
[2025-01-01] MEDS: POTASSIUM CHLORIDE / WTR 10 MEQ/100 ML PLCT IV SCH (09:38)
--- NOTE | 2025-01-01 14:20 | Hospitalist Progress Note ---
Date of Service January 01, 2025 Assessment & Plan (1) C. difficile colitis: Plan: Patient is 89 year old female with PMH HTN, HLD, carotid stenosis, CAD, CKD IV, COPD, Aspergillus pneumonia, iron deficiency anemia, depression, and others listed below presented to ER with complaint of diarrhea times couple of days. Recently finished course vancomycin on 11/26/2024 for c-diff. Had Recurrent history of hospitalization 12/05/2024-12/16/2024 for C. difficile colitis initially treated with oral vancomycin and then switched to Dificid on 12/11/2024 with improvement of symptoms on Dificid. Unfortunately Dificid was not available at pharmacies and patient was discharged on vancomycin x 5 days. Had recurrent diarrhea 5-7 episodes past couple of days #Recurrent C. diff -First episode completed 10 days of PO Vanc -Second episode failed to improve after 6 days of PO vanc and did improve with dificid -Unable to prescribe dificid on discharge so was switched to PO vanc -Diarrhea recurred about 2 days prior to this admission Plan Infectious disease consulted; they recommend a longer taper of vancomycin. Continue to replete electrolytes Monitor for diarrhea, severe abdominal pain/distention. #Pulmonary aspergillus -Follows with ID as OP. Her home voriconazole was held by ID as she needed to be on brilinta for her carotid disease -She was followed by pulm during last admission with relatively stable CT chest -No current O2 requirements #HTN Continue hydralazine, metoprolol tartrate #CKD III-IV Creatinine at baseline Monitor renal functions, avoid nephrotoxic agents when possible #CAD # Carotid stenosis Was scheduled TCAR with Dr Samano however it has been on hold secondary to c. diff. Will need to notify vascular team in the am as pt reports procedure scheduled for 12/31/24. Was on Plavix while was on voriconazole, however now off voriconazole. Continue Brilinta Her statin has been on hold by PCP for elevated LFTs #Dilated CBD: Had recent MRCP completed, CBD dilated without evidence of stones and GI had not recommend pursuing further testing as patient asymptomatic DVT Prophylaxis SCDs for now Time spent evaluating patient, direct bedside care, chart review, placing orders, interpretation of diagnostic studies, discussion with consultants, patient, and family members, as well as other required patient management activities is 50 minutes Please note the above document was generated using voice recognition software. It may contain grammatical, syntax or spelling errors. Any formal questions or concerns about the content, text or information contained within the body of this dictation should be directly addressed to the provider for clarification Admission and Anticipated Discharge Date Admission Date: December 30, 2024 Subjective Patient seen and examined at bedside. She is lying in the bed comfortably; denies pain or discomfort. Reports that she had 2 bowel movements overnight. Review of Systems Review of Systems: All systems reviewed & are unremarkable except as noted in Subjective Physical Exam Physical Exam: Vitals and labs reviewed General: elderly appearing. frail. malnourished in NAD Cardiac: RRR no rubs gallops or murmurs Lungs: CTA no rhonchi wheezing or rales Abd: S NT ND BS positive : Deffered MSK: Full ROM. No obvious deformities Ext: No Edema cyanosis Skin: Warm, Dry Neuro: AOx3 No focal deficits. Results & Data Results & Data Vital Signs (Past 12 Hours) Vital Signs Temp Pulse Pulse Resp BP Pulse Ox O2 Del Method 01/01/25 11:17 36.4 C L 77 18 172/79 H 97 Room Air 01/01/25 07:35 36.7 C 92 H 18 152/58 H 93 Room Air 01/01/25 07:26 82 01/01/25 03:40 36.6 C 90 16 131/74 94 Room Air
[2025-01-02 07:16] LABS: Hematocrit (blood only) 33.2 % (37.0-47.0); Hemoglobin 10.7 g/dl (12.0-16.0); Immature Granulocytes # (auto) 0.16 K/uL (0.01-0.20); Immature Granulocytes % (auto) 1.7 %; Mean Corpuscular Hemoglobin 30.4 pg (25.0-34.0); Mean Corpuscular Volume 94.3 fL (80.0-100.0); Platelet Count 188 K/uL (130-400); RDW Standard Deviation 51.8 fL (36.4-46.3); Red Blood Count 3.52 M/uL (4.20-5.40); White Blood Count 9.15 K/ul (4.8-10.8)
[2025-01-02 07:30] LABS: Anion Gap 8.0 (3-11); Blood Urea Nitrogen 24.0 mg/dl (6-23); Calcium 8.4 mg/dl (8.6-10.3); Carbon Dioxide 15.0 mmol/L (21-32); Chloride 118.0 mmol/L (98-107); Creatinine Clr Calc Pharmacy 16.2 ml/min; Glucose 84.0 mg/dl (70-99(Fasting)); Potassium 3.5 mmol/L (3.5-5.1); Sodium 141.0 mmol/L (136-145)
--- NOTE | 2025-01-02 11:19 | Hospitalist Progress Note ---
Date of Service January 02, 2025 Assessment & Plan (1) C. difficile colitis: Plan: Patient is 89 year old female with PMH HTN, HLD, carotid stenosis, CAD, CKD IV, COPD, Aspergillus pneumonia, iron deficiency anemia, depression, and others listed below presented to ER with complaint of diarrhea times couple of days. Recently finished course vancomycin on 11/26/2024 for c-diff. Had Recurrent history of hospitalization 12/05/2024-12/16/2024 for C. difficile colitis initially treated with oral vancomycin and then switched to Dificid on 12/11/2024 with improvement of symptoms on Dificid. Unfortunately Dificid was not available at pharmacies and patient was discharged on vancomycin x 5 days. Had recurrent diarrhea 5-7 episodes past couple of days #Recurrent C. diff -First episode completed 10 days of PO Vanc -Second episode failed to improve after 6 days of PO vanc and did improve with dificid -Unable to prescribe dificid on discharge so was switched to PO vanc -Diarrhea recurred about 2 days prior to this admission Plan Infectious disease consulted; they recommend a longer taper of vancomycin;Patient reported improvement in diarrhea. Leukocytosis improved on 01/02. Continue to replete electrolytes PT OT pending #Pulmonary aspergillus -Follows with ID as OP. Her home voriconazole was held by ID as she needed to be on brilinta for her carotid disease -She was followed by pulm during last admission with relatively stable CT chest -No current O2 requirements #HTN Continue hydralazine, metoprolol tartrate #CKD III-IV Creatinine at baseline Monitor renal functions, avoid nephrotoxic agents when possible #CAD # Carotid stenosis Was scheduled TCAR with Dr Samano however it has been on hold secondary to c. diff. Will need to notify vascular team in the am as pt reports procedure scheduled for 12/31/24. Was on Plavix while was on voriconazole, however now off voriconazole. Continue Brilinta Her statin has been on hold by PCP for elevated LFTs #Dilated CBD: Had recent MRCP completed, CBD dilated without evidence of stones and GI had not recommend pursuing further testing as patient asymptomatic DVT Prophylaxis SCDs for now Time spent evaluating patient, direct bedside care, chart review, placing orders, interpretation of diagnostic studies, discussion with consultants, patient, and family members, as well as other required patient management activities is 50 minutes Please note the above document was generated using voice recognition software. It may contain grammatical, syntax or spelling errors. Any formal questions or concerns about the content, text or information contained within the body of this dictation should be directly addressed to the provider for clarification Admission and Anticipated Discharge Date Admission Date: December 30, 2024 Subjective Patient seen and examined at bedside. She reports that she is feeling better. Diarrhea frequency has improved. No bowel movement overnight Review of Systems Review of Systems: All systems reviewed & are unremarkable except as noted in Subjective Physical Exam Physical Exam: Vitals and labs reviewed General: elderly appearing. frail. malnourished in NAD Cardiac: RRR no rubs gallops or murmurs Lungs: CTA no rhonchi wheezing or rales Abd: S NT ND BS positive : Deffered MSK: Full ROM. No obvious deformities Ext: No Edema cyanosis Skin: Warm, Dry Neuro: AOx3 No focal deficits. Results & Data Results & Data Vital Signs (Past 12 Hours) Vital Signs Temp Pulse Resp BP BP Pulse Ox O2 Del Method 01/02/25 11:15 36.6 C 85 18 144/72 H 94 Room Air 01/02/25 07:55 36.6 C 78 18 169/60 H 95 Room Air 01/02/25 03:42 36.6 C 70 18 127/60 90 Room Air 01/01/25 23:35 36.6 C 77 18 154/61 H 95 Room Air
[2025-01-02] MEDS: ALBUTEROL 0.083% NEBU SOLN 3 ML VIAL NEB PRN (22:05)
[2025-01-02 23:38] VITALS: O2SAT 94
[2025-01-03 09:36] VITALS: RESP 16; TEMP 97.3
--- NOTE | 2025-01-03 10:13 | Discharge Summary ---
Date of Service January 03, 2025 Admission HPI Per Admitting Provider Patient is 89 year old female with PMH HTN, HLD, carotid stenosis, CAD, CKD IV, COPD, Aspergillus pneumonia, iron deficiency anemia, depression, and others listed below presented to ER with complaint of diarrhea times couple of days. Per inpatient chart review finished course vancomycin on 11/26/2024 for c-diff. Had Recurrent history of hospitalization 12/05/2024-12/16/2024 for C. difficile colitis initially treated with oral vancomycin and then switched to Dificid on 12/11/2024. Had improvement of symptoms on Dificid. Unfortunately Dificid was not available at pharmacies and patient was discharged on vancomycin x 5 days. Patient reports diarrhea resolved and her bowel movements had returned to normal. States couple days ago started again with diarrhea with 5-7 episodes daily. She reports stools are chronically dark and black in coloration and has not noticed any bright red blood. States this morning had some abdominal cramping to lower abdomen that has since resolved. Denies any fevers. Reports continued decreased appetite and decreased oral intake. Patient reports continues with shortness of breath with exertion. Reports has chronic cough productive sputum. States while in hospital had yellow productive sputum which seem to return to her baseline white sputum. States past couple of days yellow sputum again. Denies any increased exertional shortness of breath and denies shortness of breath at rest. Denies any chest pain. Per inpatient chart review was seen by pulmonology during last admission who had recommended discontinuing antibiotics. Patient reports her voriconazole has been stopped by ADAN Pinon on 12/17/2024 per patient. Reports statin remains on hold secondary to elevated LFTs per PCP recommendation. Patient states was on Plavix secondary to being on voriconazole. Patient thinks she is back on Brilinta now that she is off voriconazole. Denies fever/chills, diaphoresis, vomiting, SRINIVASAN, dizziness, syncope, CP, palpitations, hemoptysis, sore throat, rhinorrhea, extremity weakness, extremity edema, rashes, urinary symptoms. Admission Exam Per Admitting Provider General: no distress, thin elderly female Head: normocephalic, atraumatic Eyes: conjunctiva non-injected, anicteric ENT: normal inspection external ears, nose, mucous membranes moist Neck: supple, trachea midline Lungs: no respiratory distress, 98% on RA, +scattered wheezing throughout, rhonchi noted bases CV: RRR, no pretibial edema Abd: normal BS, soft, non-tender Ext: no cyanosis, no calf tenderness Neuro: A&O x 3, no focal deficits noted, normal affect Skin: warm, dry Principal Diagnosis Recurrent C. diff Discharge Exam Vitals and labs reviewed General: elderly appearing. frail. malnourished in NAD Cardiac: RRR no rubs gallops or murmurs Lungs: CTA no rhonchi wheezing or rales Abd: S NT ND BS positive : Deffered MSK: Full ROM. No obvious deformities Ext: No Edema cyanosis Skin: Warm, Dry Neuro: AOx3 No focal deficits. Discharge Data Allergies Allergy/AdvReac Type Severity Reaction Status Date / Time Iodinated Contrast Media Allergy Severe Anaphylaxis Verified 12/05/24 18:28 [Iodinated Contrast- Oral and IV Dye] atorvastatin AdvReac Intermediate MYALGIA Verified 12/05/24 18:28 Consultations 12/30/24 18:40 ED Decision to Admit Stat 12/31/24 07:36 Consult Infectious Diseases Routine Ordered Studies 12/30/24 13:24 CT Abdomen and Pelvis [CT abd pelvis wo con] Stat Hospital Course (1) C. difficile colitis: Patient is 89 year old female with PMH HTN, HLD, carotid stenosis, CAD, CKD IV, COPD, Aspergillus pneumonia, iron deficiency anemia, depression, and others listed below presented to ER with complaint of diarrhea times couple of days. Recently finished course vancomycin on 11/26/2024 for c-diff. Had Recurrent history of hospitalization 12/05/2024-12/16/2024 for C. difficile colitis initially treated with oral vancomycin and then switched to Dificid on 12/11/2024 with improvement of symptoms on Dificid. Unfortunately Dificid was not available at pharmacies and patient was discharged on vancomycin x 5 days. Had recurrent diarrhea 5-7 episodes past couple of days #Recurrent C. diff -First episode completed 10 days of PO Vanc -Second episode failed to improve after 6 days of PO vanc and did improve with dificid -Unable to prescribe dificid on discharge so was switched to PO vanc -Diarrhea recurred about 2 days prior to this admission During the hospitalization, patient was admitted to telemetry floor. She was given IV fluids for the diarrhea. She was started on oral vancomycin. Infectious disease was consulted for comanagement; they recommended a long taper of oral vancomycin. Patient's diarrhea improved throughout the hospitalization. Patient was discharged on tapering dose of oral vancomycin as per recommendation by infectious disease. Patient to follow-up with PCP Please note the above document was generated using voice recognition software. It may contain grammatical, syntax or spelling errors. Any formal questions or concerns about the content, text or information contained within the body of th is dictation should be directly addressed to the provider for clarification Total Time Total Time Spent Total Time Spent (In Minutes): 45 Total Time Includes: Examination of the Patient, Discharge Planning, Medication Reconciliation, Communication With Other Providers and Other Discharge Plan Discharge Items Patient Disposition: Home - Self-Care Reason For Visit: CDIFF Discharge Diagnosis: c.diff Colitis Condition on Discharge: Good Activity: Resume your previous activity Non-emergency contact: Primary Care Provider Call non-emergency contact if: you have any medication questions and your symptoms worsen Follow-up/Referrals: Jt Pastrana MD [Primary Care Provider] - (Date & Time 01/09/2025 3:20 PM Provider: Jt Pastrana MD [facility], [place]) Diet: Low Fiber Addtl Attending Provider Instructions: You were admitted to the hospital due to infection in your colon due to C. difficile. You have been prescribed vancomycin; please follow the instruction as below Take vancomycin every 6 hours for the next 10 days( ; Take vancomycin until January 12, 2025) Starting January 13, 2025; take vancomycin twice a day for 7 days Starting January 20, 2025; Take Vancomycin Daily for 7 days. Starting January; Take Vancomycin every other day for 56 days. Follow up with your PCP as scheduled Please follow Low fiber diet. Pending Studies at Discharge: No Stand-Alone Forms: My [employer], Smoking Cessation Medications and DC Order Prescriptions: New vancomycin 125 mg Capsule See Taper PO Q6 Qty: 120 0RF Taper: Taper, Blank 125 mg Q6H for 10 Days 125 mg TWICE A DAY for 7 Days 125 mg DAILY for 7 Days 125 mg .every other day for 56 Days Continued potassium chloride [Klor-Con M15] 15 mEq tablet,ER particles/crystals 15 meq PO DAILY Qty: 90 3RF dorzolamide 2 % drops 1 drops OPB AMHS sertraline 50 mg tablet 50 mg PO QAM Qty: 30 latanoprost 0.005 % drops 1 drops OPB HS metoprolol tartrate 25 mg tablet 25 mg PO QAM fluticasone propion-salmeterol 250-50 mcg/dose blister with device 1 inh INHALATION AMHS albuterol sulfate 90 mcg/actuation HFA aerosol inhaler 2 puff INHALATION Q6 PRN (Reason: Dyspnea) albuterol sulfate 0.63 mg/3 mL solution for nebulization 0.63 mg inhalation Q6H PRN (Reason: Shortness Of Breath Or Wheezing) acetaminophen [Tylenol] 325 mg Tablet 325 mg PO Q4H PRN (Reason: Pain) alendronate 70 mg tablet 70 mg PO WK famotidine 20 mg Tablet 20 mg PO BID magnesium 250 mg Tablet 250 mg PO DAILY cholecalciferol (vitamin D3) [Vitamin D3] 25 mcg (1,000 unit) Capsule 25 mcg PO DAILY ferrous fumarate 324 mg (106 mg iron) Tablet 324 mg PO DAILY mirtazapine 7.5 mg Tablet 7.5 mg PO HS Calcium/Magnesium/Vitamin D3 1 tab PO DAILY voriconazole 200 mg tablet 200 mg PO BID Rx Instructions: Is on HOLD ticagrelor 90 mg Tablet 90 mg PO Q12H aspirin 81 mg Tablet,Delayed Release (Dr/Ec) 81 mg PO DAILY pantoprazole 40 mg Tablet,Delayed Release (Dr/Ec) 40 mg PO DAILY Rx Instructions: ON [employer] MED LIST, UNABLE TO VERIFY Probiotic 10 billion cell Capsule 10,000 mmu cells PO DAILY hydralazine 50 mg Tablet 100 mg PO BID 30 Days Qty: 120 0RF Discharge Orders: Discharge Order (Routine); Ordered 01/03/25 Ordered By: Estevan Keller Admission Data Admit Date/Time: 12/30/24 19:31 Attending Provider: Estevan Keller Admit Provider: Anthony Giraldo Primary Care Provider: Jt Pastrana Other Providers: Jered Avila; Nohemi Carrasco; Srinath Lamb I.; Sudhakar Stevens II; Radha Lanier; Garland Giraldo; Jeff Jaramillo; Macarena Walker; Anthony Giraldo
[2025-01-03 10:50] VITALS: BP 162/63; PULSE 92
== END 2025-01-03 11:54 | disposition home or self-care (01) | DRG 372 ==
LOC: ED 11:30 → 2W 19:31 → SUATTDRO 19:31 → 2W 20:24